=== PATIENT | female | born 1955 | race Two or more races ===

== ENCOUNTER 2020-06-15 09:38 | Outpatient (REF) | payer MEDICARE, SELFPAY ==
[2020-06-15 10:19] LABS: Lymphocytes Percent Auto 40.3 % (20-40); MANUAL DIFF FLAG SCAN; PLT CLUMP 1; SCAN SMEAR FLAG 1
[2020-06-15 10:22] LABS: Basophils Percent Auto 0.5 % (0-2); Eosinophils Absolute Auto 0.1 X10*3/uL (0.0-0.4); Eosinophils Percent Auto 2.5 % (0-4); Hematocrit 40.1 % (37-47); Hemoglobin 13.8 g/dl (12.0-16.0); Imm Gran Abs Auto 0.02 X10*3/uL (0.00-0.03); Imm Gran Pct Auto 0.4 % (0.0-0.4); Lymphocytes Absolute Auto 2.3 X10*3/uL (1.2-4.9); Mean Corpuscular HGB Conc 34.4 g/dl (31.0-35.0); Mean Corpuscular Hemoglobin 33.3 pg (27.0-33.0); Mean Corpuscular Volume 96.9 fL (80-98); Monocytes Absolute Auto 0.3 X10*3/uL (0.1-1.2); Monocytes Percent Auto 5.7 % (2-11); Neutrophils Absolute Auto 2.8 X10*3/uL (2.0-8.3); Neutrophils Percent Auto 50.6 % (45-73); Platelet Count 138 X10*3/uL (160-400); Red Blood Count 4.14 X10*6/uL (4.20-5.50); Red Cell Distribution Width 12.9 % (11.0-16.0); White Blood Count 5.6 X10*3/uL (4.8-10.8)
[2020-06-15 10:58] LABS: Alanine Aminotransferase 85 U/L (0-31); Albumin Level 4.3 g/dL (3.5-5.0); Alkaline Phosphatase 119 U/L (39-117); Anion Gap 15 (12-20); Aspartate Amino Transferase 84 U/L (5-31); Bilirubin Total 0.7 mg/dL (0.0-1.0); Blood Urea Nitrogen 13 mg/dL (9-16); Carbon Dioxide 29 mmol/L (22-29); Chloride 100 mmol/L (96-108); Estimated Glomerular Filt Rate > 60; Glucose Random 158 mg/dL (60-115); Potassium 4.3 mmol/l (3.3-5.1); Sodium 140 mmol/L (135-145); Total Protein 7.1 g/dL (6.5-8.0)
[2020-06-15 11:26] LABS: Estimated Average Glucose 146 mg/dL; Hemoglobin A1c % 6.7 %
[2020-06-15 11:46] LABS: Microalbum/Creatinine Ratio Ur 10.8 ug/mg cr
== END 2020-06-15 09:39 | disposition home or self-care (01) ==
LOC: HO.10HDL 09:38
PROVIDERS: PCP Internal Medicine; Visit Provider Internal Medicine
DX: E11.9 Type 2 diabetes mellitus without complications (principal); I10 Essential (primary) hypertension; J45.909 Unspecified asthma, uncomplicated; R79.89 Other specified abnormal findings of blood chemistry; K58.9 Irritable bowel syndrome, unspecified
CPT/HCPCS: 36415; 80053; 82043; 83036; 85025

== ENCOUNTER 2020-09-16 09:49 | Outpatient (REF) | payer MEDICARE, SELFPAY ==
--- NOTE | ~2020-09-16 | XR_ITS ---
EXAMINATION: XR ANKLE, RIGHT CLINICAL INFORMATION: Trauma, pain COMPARISON: None TECHNIQUE: AP, lateral, and mortise views of the right ankle. FINDINGS: There is soft tissue swelling greater on lateral side as well as posteriorly in region of proximal to mid Achilles. There is no gross ankle capsular effusion appreciated. The ankle mortise is symmetric. The malleoli are intact and there is no visible fracture or dislocation. The subtalar joint appears normal. There is dorsal spurring distal talus and proximal dorsal navicular. There are large posterior and plantar calcaneal spurs. Focal demineralization is noted proximal to mid Achilles measuring 0.7 x 0.4 cm. There is soft tissue thickening posterior lower leg in region of proximal to mid Achilles. The retrocalcaneal recess is preserved. XR/XR ankle RT 2V IMPRESSION: 1. Soft tissue swelling. No fracture or dislocation. 2. Large posterior and plantar calcaneal spurs. Soft tissue swelling in region proximal mid Achilles with associated focal Achilles mineralization.
[2020-09-16 10:29] LABS: MANUAL DIFF FLAG NO
[2020-09-16 10:46] LABS: Estimated Average Glucose 157 mg/dL; Hemoglobin A1c % 7.1 %
[2020-09-16 10:55] LABS: Basophils Percent Auto 0.5 % (0-2); Eosinophils Absolute Auto 0.1 X10*3/uL (0.0-0.4); Eosinophils Percent Auto 2.1 % (0-4); Hematocrit 38.5 % (37-47); Hemoglobin 13.4 g/dl (12.0-16.0); Imm Gran Abs Auto 0.04 X10*3/uL (0.00-0.03); Imm Gran Pct Auto 0.6 % (0.0-0.4); Lymphocytes Absolute Auto 2.3 X10*3/uL (1.2-4.9); Lymphocytes Percent Auto 35.8 % (20-40); Mean Corpuscular HGB Conc 34.8 g/dl (31.0-35.0); Mean Corpuscular Hemoglobin 32.7 pg (27.0-33.0); Mean Corpuscular Volume 93.9 fL (80-98); Mean Platelet Volume 11.2 fL (9.4-12.3); Monocytes Absolute Auto 0.4 X10*3/uL (0.1-1.2); Neutrophils Absolute Auto 3.6 X10*3/uL (2.0-8.3); Platelet Count 137 X10*3/uL (160-400); Red Cell Distribution Width 13.2 % (11.0-16.0); White Blood Count 6.5 X10*3/uL (4.8-10.8)
[2020-09-16 11:22] LABS: Alanine Aminotransferase 43 U/L (0-31); Albumin Level 4.3 g/dL (3.5-5.0); Alkaline Phosphatase 120 U/L (39-117); Anion Gap 17 (12-20); Aspartate Amino Transferase 51 U/L (5-31); Bilirubin Total 0.9 mg/dL (0.0-1.0); Blood Urea Nitrogen 10 mg/dL (9-16); C Reactive Protein 0.48 mg/dL (< or = 0.50); Calcium 8.8 mg/dL (8.4-10.2); Carbon Dioxide 29 mmol/L (22-29); Chloride 98 mmol/L (96-108); Estimated Glomerular Filt Rate > 60; Glucose Random 194 mg/dL (60-115); Potassium 4.4 mmol/L (3.3-5.1); Sodium 140 mmol/L (135-145); Total Protein 7.3 g/dL (6.5-8.0)
== END 2020-09-16 09:50 | disposition home or self-care (01) ==
LOC: HO.LAB 09:49
PROVIDERS: PCP Internal Medicine; Visit Provider Internal Medicine
DX: E11.9 Type 2 diabetes mellitus without complications (principal); I10 Essential (primary) hypertension; J45.909 Unspecified asthma, uncomplicated; M25.571 Pain in right ankle and joints of right foot
CPT/HCPCS: 36415; 73600; 80053; 83036; 85025; 86140

== ENCOUNTER 2020-12-15 11:12 | Outpatient (REF) | payer MEDICARE, SELFPAY ==
--- NOTE | ~2020-12-15 | MM_ITS ---
EXAMINATION: MM SCREENING DIGITAL BREAST TOMOSYNTHESIS, BILATERAL CLINICAL INFORMATION: Screening. Asymptomatic. The lifetime risk of breast cancer based on the Tyrer-Cuzick Model is 7%. COMPARISON: Mammography: 08/05/2019, 07/30/2018, 07/26/2017, 03/01/2016 TECHNIQUE: Digital breast tomosynthesis is performed in both the craniocaudal and mediolateral oblique views along with computer-aided detection (CAD). Synthesized 2D images are generated from the tomosynthesis. FINDINGS: There are scattered areas of fibroglandular density (ACR BI-RADS breast composition Category b). Breast tissue composition borders on predominantly fatty. Again, there is very fine waxing and waning fibronodular parenchymal pattern. There is no significant mass, architectural abnormality, or abnormal calcifications. Biopsy clip marker again noted central left breast. The axilla and skin contours are unremarkable. MM/MM tomosynthesis screening BI IMPRESSION: No significant changes from prior exams. ASSESSMENT: BI-RADS 2: Benign RECOMMENDATION: Routine annual mammography screening. This patient's information was entered into a reminder system with a target due date for their next mammogram.
== END 2020-12-15 11:13 | disposition home or self-care (01) ==
LOC: HO.MAMMO 11:12
PROVIDERS: PCP Internal Medicine; Visit Provider Internal Medicine
DX: Z12.31 Encounter for screening mammogram for malignant neoplasm of breast (principal)
CPT/HCPCS: 77063; 77067

== ENCOUNTER 2021-03-17 10:28 | Outpatient (REF) | payer OTHER, SELFPAY ==
[2021-03-17 13:43] LABS: MANUAL DIFF FLAG NO
[2021-03-17 13:53] LABS: Basophils Percent Auto 0.4 % (0-2); Eosinophils Absolute Auto 0.1 X10*3/uL (0.0-0.4); Eosinophils Percent Auto 2.3 % (0-4); Hematocrit 40.1 % (37-47); Hemoglobin 13.5 g/dl (12.0-16.0); Imm Gran Abs Auto 0.04 X10*3/uL (0.00-0.03); Imm Gran Pct Auto 0.8 % (0.0-0.4); Lymphocytes Absolute Auto 1.5 X10*3/uL (1.2-4.9); Lymphocytes Percent Auto 29.5 % (20-40); Mean Corpuscular HGB Conc 33.7 g/dl (31.0-35.0); Mean Corpuscular Hemoglobin 32.1 pg (27.0-33.0); Mean Corpuscular Volume 95.5 fL (80-98); Mean Platelet Volume 11.7 fL (9.4-12.3); Monocytes Absolute Auto 0.3 X10*3/uL (0.1-1.2); Monocytes Percent Auto 5.2 % (2-11); Neutrophils Absolute Auto 3.2 X10*3/uL (2.0-8.3); Neutrophils Percent Auto 61.8 % (45-73); Platelet Count 128 X10*3/uL (160-400); Red Cell Distribution Width 13.1 % (11.0-16.0); White Blood Count 5.2 X10*3/uL (4.8-10.8)
[2021-03-17 14:05] LABS: Estimated Average Glucose 163 mg/dL; Hemoglobin A1c % 7.3 %
[2021-03-17 14:45] LABS: Alanine Aminotransferase 49 U/L (0-31); Albumin Level 4.2 g/dL (3.5-5.0); Alkaline Phosphatase 133 U/L (39-117); Anion Gap 18 (12-20); Aspartate Amino Transferase 92 U/L (5-31); Bilirubin Total 1.1 mg/dL (0.0-1.0); Blood Urea Nitrogen 10 mg/dL (9-16); C Reactive Protein 1.65 mg/dL (< or = 0.50); Calcium 9.1 mg/dL (8.4-10.2); Carbon Dioxide 25 mmol/L (22-29); Chloride 102 mmol/L (96-108); Estimated Glomerular Filt Rate > 60; Glucose Random 184 mg/dL (60-115); Sodium 141 mmol/L (135-145); Total Protein 7.2 g/dL (6.5-8.0)
[2021-03-17 14:53] LABS: Microalbum/Creatinine Ratio Ur 20.4 ug/mg cr
[2021-03-17 15:10] LABS: Free T4 (Free Thyroxine) 1.15 ng/dL (0.71-1.85); Thyroid Stimulating Hormone 4.16 uIU/mL (0.32-4.0)
[2021-03-17 15:13] LABS: Vitamin B12 378 pg/mL (200-900)
== END 2021-03-17 10:29 | disposition home or self-care (01) ==
LOC: HO.10HDL 10:28
PROVIDERS: PCP Internal Medicine; Visit Provider Internal Medicine
DX: I10 Essential (primary) hypertension (principal); E11.9 Type 2 diabetes mellitus without complications; J45.909 Unspecified asthma, uncomplicated; K58.9 Irritable bowel syndrome, unspecified; R53.83 Other fatigue
CPT/HCPCS: 36415; 80053; 82043; 82607; 83036; 84439; 84443; 85025; 86140

== ENCOUNTER 2021-04-20 07:42 | Outpatient (REF) | payer OTHER, SELFPAY ==
--- NOTE | ~2021-04-20 | US_ITS ---
EXAMINATION: US ABDOMEN COMPLETE CLINICAL INFORMATION: Elevated liver tests. COMPARISON: CT abdomen pelvis 01/29/2018. Ultrasound abdomen 10/24/2017 and ultrasound limited abdomen 10/17/2016. TECHNIQUE: Real-time imaging of the abdominal viscera. FINDINGS: PANCREAS: Not well visualized due to bowel gas ABDOMINAL AORTA: Not well visualized due to bowel gas INFERIOR VENA CAVA: Not well visualized due to bowel gas LIVER: The liver is enlarged. Liver echotexture is increased. The liver contour is normal. There is a cyst in the right lobe the liver measuring 9 x 6 x 8 mm. There is no intrahepatic biliary duct dilatation seen. GALLBLADDER: Gallbladder is normal in size. There is a 7 mm hyperechoic lesion adjacent to the gallbladder wall that does not shadow suggestive of a polyp. No gallstones are seen. COMMON BILE DUCT: Normal in caliber measuring 0.4 cm in diameter. RIGHT KIDNEY: Normal. No hydronephrosis. No renal calculi or focal parenchymal lesions. The kidney measures 11.4 cm in maximum dimension. LEFT KIDNEY: Normal. No hydronephrosis. No renal calculi or focal parenchymal lesions. The kidney measures 12.1 cm in maximum dimension. SPLEEN: The spleen is enlarged. The spleen measures 16.6 cm in maximum dimension. This is unchanged. FREE FLUID: None. US/US abdomen complete IMPRESSION: Enlarged echogenic liver suggestive of fatty infiltration. Small cyst in the right lobe of the liver. Stable gallbladder wall polyp. Stable splenomegaly. Limited visualization of the pancreas, aorta and IVC.
== END 2021-04-20 07:43 | disposition home or self-care (01) ==
LOC: HO.US 07:42
PROVIDERS: PCP Internal Medicine; Visit Provider Internal Medicine
DX: R94.5 Abnormal results of liver function studies (principal)
CPT/HCPCS: 76700

== ENCOUNTER 2021-08-27 11:12 | Outpatient (REF) | payer OTHER, SELFPAY ==
[2021-08-27 13:48] LABS: MANUAL DIFF FLAG NO
[2021-08-27 13:52] LABS: Basophils Percent Auto 0.7 % (0-2); Eosinophils Absolute Auto 0.1 X10*3/uL (0.0-0.4); Eosinophils Percent Auto 1.8 % (0-4); Hematocrit 37.1 % (37.0-47.0); Hemoglobin 12.6 g/dl (12.0-16.0); Imm Gran Abs Auto 0.02 X10*3/uL (0.00-0.03); Imm Gran Pct Auto 0.3 % (0.0-0.4); Lymphocytes Percent Auto 33.2 % (20-40); Mean Corpuscular Hemoglobin 32.2 pg (27.0-33.0); Mean Corpuscular Volume 94.9 fL (80.0-98.0); Mean Platelet Volume 11.8 fL (9.4-12.3); Monocytes Absolute Auto 0.3 X10*3/uL (0.1-1.2); Monocytes Percent Auto 5.5 % (2-11); Neutrophils Absolute Auto 3.5 x10*3/uL (2.0-8.3); Neutrophils Percent Auto 58.5 % (45-73); Platelet Count 118 X10*3/uL (160-400); Red Blood Count 3.91 X10*6/uL (4.20-5.50); Red Cell Distribution Width 13.5 % (11.0-16.0)
[2021-08-27 14:06] LABS: Alanine Aminotransferase 40 U/L (0-31); Albumin Level 3.9 g/dL (3.5-5.0); Alkaline Phosphatase 100 U/L (39-117); Anion Gap 14 (12-20); Aspartate Amino Transferase 64 U/L (5-31); Bilirubin Total 0.8 mg/dL (0.0-1.0); Blood Urea Nitrogen 17 mg/dL (9-16); Calcium 9.4 mg/dL (8.4-10.2); Carbon Dioxide 30 mmol/L (22-29); Chloride 98 mmol/L (96-108); Estimated Glomerular Filt Rate 56; Glucose Random 175 mg/dL (60-115); Potassium 4.1 mmol/L (3.3-5.1); Sodium 138 mmol/L (135-145); Total Protein 7.3 g/dL (6.5-8.0)
[2021-08-27 14:07] LABS: Estimated Average Glucose 171 mg/dL; Hemoglobin A1c % 7.6 %
[2021-08-27 14:26] LABS: Creatinine Urine 166.74 mg/dL; Microalbum/Creatinine Ratio Ur 4.1 ug/mg cr
[2021-08-27 14:28] LABS: Free T4 (Free Thyroxine) 0.99 ng/dL (0.71-1.85); Thyroid Stimulating Hormone 3.86 uIU/mL (0.32-4.0)
== END 2021-08-27 11:13 | disposition home or self-care (01) ==
LOC: HO.10HDL 11:12
PROVIDERS: Visit Provider Internal Medicine
DX: E11.9 Type 2 diabetes mellitus without complications (principal); I10 Essential (primary) hypertension; E03.9 Hypothyroidism, unspecified; R94.5 Abnormal results of liver function studies
CPT/HCPCS: 36415; 80053; 82043; 83036; 84439; 84443; 85025

== ENCOUNTER 2021-12-17 10:38 | Outpatient (REF) | payer OTHER, SELFPAY ==
[2021-12-17 10:52] LABS: MANUAL DIFF FLAG NO
[2021-12-17 10:58] LABS: Basophils Percent Auto 0.6 % (0-2); Eosinophils Absolute Auto 0.1 X10*3/uL (0.0-0.4); Eosinophils Percent Auto 2.2 % (0-4); Hematocrit 38.7 % (37.0-47.0); Hemoglobin 13.1 g/dl (12.0-16.0); Imm Gran Abs Auto 0.04 X10*3/uL (0.00-0.03); Imm Gran Pct Auto 0.6 % (0.0-0.4); Lymphocytes Absolute Auto 2.3 X10*3/uL (1.2-4.9); Mean Corpuscular HGB Conc 33.9 g/dl (31.0-35.0); Mean Corpuscular Volume 91.7 fL (80.0-98.0); Mean Platelet Volume 10.4 fL (9.4-12.3); Monocytes Absolute Auto 0.4 X10*3/uL (0.1-1.2); Monocytes Percent Auto 6.5 % (2-11); Neutrophils Absolute Auto 3.5 x10*3/uL (2.0-8.3); Neutrophils Percent Auto 55.1 % (45-73); Platelet Count 116 X10*3/uL (160-400); Red Blood Count 4.22 X10*6/uL (4.20-5.50); Red Cell Distribution Width 13.4 % (11.0-16.0); White Blood Count 6.4 X10*3/uL (4.8-10.8)
[2021-12-17 11:04] LABS: Estimated Average Glucose 212 mg/dL
[2021-12-17 11:38] LABS: Creatinine Urine 263.68 mg/dL; Microalbum/Creatinine Ratio Ur 17.4 ug/mg cr
[2021-12-17 11:54] LABS: Free T4 (Free Thyroxine) 1.08 ng/dL (0.71-1.85); Thyroid Stimulating Hormone 3.57 uIU/mL (0.32-4.0)
[2021-12-17 12:05] LABS: Alanine Aminotransferase 49 U/L (0-31); Albumin Level 4.3 g/dL (3.5-5.0); Alkaline Phosphatase 120 U/L (39-117); Anion Gap 13 (12-20); Aspartate Amino Transferase 61 U/L (5-31); Bilirubin Total 0.9 mg/dL (0.0-1.0); Blood Urea Nitrogen 15 mg/dL (9-16); Calcium 9.7 mg/dL (8.4-10.2); Carbon Dioxide 33 mmol/L (22-29); Chloride 96 mmol/L (96-108); Cholesterol 144 mg/dL; Estimated Glomerular Filt Rate 45; Glucose Random 269 mg/dL (60-115); HDL Cholesterol 37 mg/dL; LDL Cholesterol Calculated 68 mg/dl; Potassium 4.7 mmol/L (3.3-5.1); Sodium 137 mmol/L (135-145); Total Protein 7.8 g/dL (6.5-8.0); Triglycerides 196 mg/dL
== END 2021-12-17 10:39 | disposition home or self-care (01) ==
LOC: HO.LAB 10:38
PROVIDERS: PCP Internal Medicine; Visit Provider Internal Medicine
DX: E11.9 Type 2 diabetes mellitus without complications (principal); I10 Essential (primary) hypertension; E78.00 Pure hypercholesterolemia, unspecified; R79.89 Other specified abnormal findings of blood chemistry; R94.6 Abnormal results of thyroid function studies
CPT/HCPCS: 36415; 80053; 80061; 82043; 83036; 84439; 84443; 85025

== ENCOUNTER 2022-01-24 14:06 | Observation (INO) | payer OTHER, SELFPAY ==
[2022-01-24] VITALS (8 sets, daily range): BP systolic 130–159; BP diastolic 45–70; PULSE 56–65; RESP 14–30; TEMP 36.6–37.2; O2SAT 93–100; BMI 31.8
--- NOTE | ~2022-01-24 | MR_ITS ---
EXAMINATION: MRI BRAIN WITHOUT CONTRAST CLINICAL INFORMATION: Dizziness and vertigo. COMPARISON: CT angiogram of the head and neck 01/24/2022. TECHNIQUE: Multiplanar MR imaging of the brain was performed without contrast. FINDINGS: There is no acute territorial infarct. No pathological magnetic susceptibility artifact. Intracranial vascular flow voids are maintained. There is no intracranial mass effect or midline shift. Lateral and third ventricles are normal. No hydrocephalus. Midline structures including the cervicomedullary junction are normal. No acute bone marrow signal changes. There are trace mastoid tip effusions. Mild to moderate paranasal sinus disease primarily affecting the ethmoid air cells and sphenoid sinus. Globes and orbits are symmetric. MR/MR head/brain wo con IMPRESSION: Normal brain MRI.
--- NOTE | ~2022-01-24 | XR_ITS ---
EXAMINATION: XR CHEST CLINICAL INFORMATION: Chest pain, SOB, dizziness COMPARISON: None TECHNIQUE: Frontal view of the chest was obtained. FINDINGS: The lungs are well-expanded and clear. The heart size and pulmonary vascularity is normal. There is moderate spondylosis dorsal spine. No lytic process. XR/XR chest 1V IMPRESSION: Unremarkable chest examination.
--- NOTE | ~2022-01-24 | CT_ITS ---
EXAMINATION: CT ANGIOGRAM NECK WITH CONTRAST CT ANGIOGRAM BRAIN WITH CONTRAST CLINICAL INFORMATION: Syncope on exertion. COMPARISON: Head CT 01/24/2022. TECHNIQUE: Test bolus sequences followed by intravenous administration 100 mL of Omnipaque 350. Helical imaging was performed in the axial plane from the thoracic inlet to the skull vertex. Delayed postcontrast imaging of the head was also performed. The data was processed at the photo technologist workstation for generation of MIP sequences. Angled MIPs and volume rendered reformatted images were also generated at an offline 3D workstation. Stenoses are assessed in accordance with NASCET criteria unless otherwise indicated. This CT examination was performed using dose optimization techniques as appropriate, variously including the following: *Automated exposure control *Adjustment of mA and/or kV according to patient size (this includes techniques or standardized protocols for targeted exams where dose is matched to indication/reason for exam; i.e. extremities or head) *Use of iterative reconstruction technique DLP: 1549 mGy-cm FINDINGS: Head CT: There is no intracranial hemorrhage, extra-axial collection, mass effect, or territorial infarction. The ventricles are normal in size without hydrocephalus. No abnormal enhancement is seen. The dural venous sinuses are normally opacified. The extracranial structures are unremarkable. There is near complete opacification of the right sphenoid sinus. Neck CTA: The aortic arch and great vessel origins are patent. The common carotid arteries are patent. No stenosis is seen at the carotid bifurcations. The right vertebral artery is duplicated but patent. The left vertebral artery is mildly dominant and is patent. Head CTA: No proximal vessel occlusion is seen. The anterior and posterior circulation arteries are patent. There is -type origin of the right ENTRY LEVEL RECRUITER. There is no evidence of aneurysm. The upper lungs are clear without consolidation. Mild degenerative changes are seen within the spine. Non-vascular findings: blank CT/CT angio head neck IMPRESSION: CT head: No intracranial hemorrhage or large acute infarction. CTA neck: No hemodynamically significant stenosis in the major arteries of the neck. CTA head: No large vessel occlusion or significant stenosis within the intracranial circulation. This critical result was discussed with Norma Jhaveri NP on 01/24/2022 10:05 PM, and it was ascertained that the content and urgency of the report was understood at the time of direct communication.
--- NOTE | ~2022-01-24 | CT_ITS ---
EXAMINATION: CT HEAD WITHOUT CONTRAST CLINICAL INFORMATION: Dizziness COMPARISON: Head CT 09/22/2008 TECHNIQUE: Imaging was performed from the skull base to vertex without intravenous administration of contrast. This CT examination was performed using dose optimization techniques as appropriate, variously including the following: *Automated exposure control *Adjustment of mA and/or kV according to patient size (this includes techniques or standardized protocols for targeted exams where dose is matched to indication/reason for exam; i.e. extremities or head) *Use of iterative reconstruction technique Total exam dose length product: 699 mGy-cm FINDINGS: No intra or extra-axial fluid collection, hemorrhage, or mass. No ventriculomegaly. No midline shift or herniation. Basal cisterns are patent. [place]-white matter differentiation is maintained. No territorial encephalomalacia. No significant volume loss. There is no abnormal attenuation within the brain parenchyma. No calvarial fracture or soft tissue abnormality. Mastoid air cells and middle ear cavities are normally aerated. Incompletely opacification of the right sphenoid sinus. Minimal mucosal thickening in a few right ethmoid air cells. Paranasal sinuses are otherwise normally aerated. CT/CT head/brain wo con IMPRESSION: 1. No acute intracranial pathology. 2. Right sphenoid paranasal sinus disease.
--- NOTE | 2022-01-24 14:24 | ECG_ITS ---
Test Reason : dizziness Blood Pressure : / mmHG Vent. Rate : 059 BPM Atrial Rate : 059 BPM P-R Int : 130 ms QRS Dur : 070 ms QT Int : 430 ms P-R-T Axes : 024 009 021 degrees QTc Int : 425 ms Sinus bradycardia Nonspecific ST abnormality Abnormal ECG When compared with ECG of 23-SEP-2008 20:09, No significant change was found Referred By: Generic ED Physician Electronically Signed By:LEROY DE GUZMAN
[2022-01-24 14:36] LABS: MANUAL DIFF FLAG NO
[2022-01-24 14:42] LABS: Basophils Percent Auto 0.2 % (0-2); Eosinophils Absolute Auto 0.1 X10*3/uL (0.0-0.4); Eosinophils Percent Auto 1.8 % (0-4); Hematocrit 38.4 % (37.0-47.0); Hemoglobin 13.3 g/dl (12.0-16.0); Imm Gran Abs Auto 0.02 X10*3/uL (0.00-0.03); Imm Gran Pct Auto 0.3 % (0.0-0.4); Lymphocytes Absolute Auto 1.8 X10*3/uL (1.2-4.9); Lymphocytes Percent Auto 28.7 % (20-40); Mean Corpuscular HGB Conc 34.6 g/dl (31.0-35.0); Mean Corpuscular Hemoglobin 31.6 pg (27.0-33.0); Mean Corpuscular Volume 91.2 fL (80.0-98.0); Mean Platelet Volume 11.7 fL (9.4-12.3); Monocytes Absolute Auto 0.4 X10*3/uL (0.1-1.2); Monocytes Percent Auto 6.8 % (2-11); Neutrophils Absolute Auto 3.9 x10*3/uL (2.0-8.3); Neutrophils Percent Auto 62.2 % (45-73); Platelet Count 110 X10*3/uL (160-400); Red Blood Count 4.21 X10*6/uL (4.20-5.50); Red Cell Distribution Width 13.3 % (11.0-16.0); White Blood Count 6.2 X10*3/uL (4.8-10.8)
[2022-01-24 14:50] LABS: INTERNATIONAL NORM RATIO 1.2 (0.9-1.1); Prothrombin Time 14.1 SEC (9.9-13.0)
[2022-01-24 15:21] LABS: Troponin-I High Sensitivity 8.3 ng/L (<3.5-17.0)
[2022-01-24 15:53] LABS: Anion Gap 19 (12-20); Blood Urea Nitrogen 16 mg/dL (9-16); Carbon Dioxide 27 mmol/L (22-29); Chloride 94 mmol/L (96-108); Creatinine Clr Calc Pharmacy 35.4; Estimated Glomerular Filt Rate 34; Glucose Random 558 mg/dL (60-115); Potassium 4.9 mmol/L (3.3-5.1); Sodium 135 mmol/L (135-145)
--- NOTE | 2022-01-24 16:13 | ED_ITS ---
HPI - Chest Pain General Chief Complaint: Chest Pain Stated Complaint: dizzy, possible stroke Time Seen by Provider: 01/24/22 16:00 Source: patient Mode of arrival: wheelchair Limitations: no limitations History of Present Illness HPI narrative: 66-year-old female presents with 1 week of burning chest pain, palpitations, shortness of breath, fatigue, and thirst. States that she called her primary care physician earlier today and was referred to the emergency department for evaluation. She states that she feels ill has not quite felt like this in the past. She does report history of stroke, and states that the symptoms that she has now are not consistent the symptoms she had when she had a stroke. She is on steroids for asthma. She does have diabetes, and is on metformin. She does not report any fevers, chills, abdominal pain, abdominal distention, dysuria, hematuria, nausea, vomiting, diarrhea, weakness, lightheadedness, or falls. MD complaint: chest pain and chest heaviness Pertinent past history: asthma Onset (ago): week(s) (1) Timing of current episode: episodic Prior episodes: Yes Pain location: substernal Pain radiation: none Severity: moderate Pain scale (0-10): 4 Quality: tightness, heaviness and burning Relieving factors: nothing Exacerbating factors: exertion and palpation Context: recent illness Associated symptoms: dyspnea and palpitations Treatment prior to arrival: none Risk Factors Coronary artery disease risk factors: diabetes Thoracic aortic dissection risk factors: none Related Data On Oral Contraceptives: No Home Medications Medication Instructions Recorded Confirmed albuterol sulfate 1 vial inhalation Q4H PRN Wheezing 01/24/22 01/24/22 albuterol sulfate 90 mcg/actuation 2 puff PO Q4H PRN Wheezing 01/24/22 01/24/22 aerosol inhaler amlodipine 5 mg tablet 1 tab PO BID 01/24/22 01/24/22 atenolol 25 mg tablet 1 tab PO DAILY 01/24/22 01/24/22 atorvastatin 20 mg tablet 1 tab PO DAILY 01/24/22 01/24/22 budesonide-formoterol HFA 160 1 puff PO BID 01/24/22 01/24/22 mcg-4.5 mcg/actuation aerosol inhaler (Symbicort) cholecalciferol (vitamin D3) 50 50 mcg PO DAILY 01/24/22 01/24/22 mcg (2,000 unit) tablet diphenoxylate-atropine 2.5 1 tab PO QID PRN Diarrhea 01/24/22 01/24/22 mg-0.025 mg tablet hydrochlorothiazide 12.5 mg tablet 1 tab PO DAILY 01/24/22 01/24/22 metformin 500 mg tablet 1 tab PO DAILY 01/24/22 01/24/22 multivitamin 1 tab PO DAILY 01/24/22 01/24/22 omeprazole 20 mg capsule,delayed 2 cap PO BID 01/24/22 01/24/22 release Allergies Allergy/AdvReac Type Severity Reaction Status Date / Time hyoscyamine [From LEVBID] Allergy Intermediate VOMITING Verified 01/24/22 14:23 Iodinated Contrast Media Allergy Intermediate Difficulty Verified 01/24/22 22:12 [Contrast Dye] Breathing methylcellulose [Citrucel] Allergy Unknown headache, Verified 01/24/22 14:23 rash mushroom Allergy Unknown RASH Verified 01/24/22 14:23 lactose [Lactose] AdvReac Mild DIARRHEA Verified 01/24/22 14:23 Review of Systems Review of Systems: Constitutional: No Fever, No Chills ENT/Mouth: No Ear Pain, No Hoarseness, No sore throat Eyes: No Eye Pain, No Swelling, No Redness, No Foreign Body Cardiovascular: Positive Chest Pain, No SOB Respiratory: No Cough, positive Dyspnea Gastrointestinal: No Nausea, No Vomiting, No Diarrhea, No abdominal Pain Genitourinary: No Dysuria, No Hematuria Musculoskeletal: No joint pain, No Myalgias, No Joint Swelling Skin: No Skin lacerations, No rash Neuro: No Weakness, No Numbness, No Paresthesias, No Loss of Consciousness, positive Dizziness, No Headache Psych: No Anxiety/Panic, No Depression Heme/Lymph: no easy bruising, no Lymphadenopathy Endocrine: No Polyuria, positive Polydipsia Yes all other systems are reviewed and are negative [facility] Past Medical History Attestation statement: The following information was validated with the patient. Source: old records reviewed Social History Social History Alcohol intake: current Alcohol intake frequency: holidays/special occasions only Alcohol type: wine Patient Tobacco Use Status: Never used Tobacco Use of substances other than those prescribed or required for medical reasons: No Advance Directives: No Advance Directives Information Provided: No Physical Exam Vital Signs: Vital Signs: Last Vital Signs Temp 98.9 F 01/24/22 20:18 Pulse 63 01/24/22 21:54 Resp 30 H 01/24/22 21:54 BP 159/70 H 01/24/22 21:54 Pulse Ox 100 01/24/22 21:54 O2 Del Method 01/24/22 21:54 BMI result Body Mass Index 31.8 Appearance: Alert. Oriented X3. No acute distress. Eyes: Pupils equal, round and reactive to light. EOMI. Sclera nonicteric. ENT: Pharynx normal. Neck: Normal inspection. Neck supple. CVS: Normal heart rate and rhythm. Apical pulse good pulses to extremities. Respiratory: No respiratory distress. Lung sounds clear to auscultation all lobes. Abdomen: Soft and nontender. No distention or rigidity. Skin: Skin warm and dry. Normal skin color. Normal skin turgor. Extremities: No lower extremity edema. Gait well balanced well coordinated. Moves extremities against resistance. Neuro: No motor deficit. No sensory deficit. Cranial nerves 2-12 intact. NIH Stroke Scale Internal: Initial- Upon Arrival Level of Consciousness: Alert Level of Consciousness Questions: Answers both questions correctly Level of Consciousness Commands: Performs both tasks correctly Best Gaze: Normal Visual: No visual loss Facial Palsy: Normal Motor Arm (Right): No drift Motor Arm (Left): No drift Motor Leg (Right): No drift Motor Leg (Left): No drift Limb Ataxia: Absent Sensory: Normal Best Language: No aphasia Dysarthia: Normal Extinction and Inattention: No abnormality Score: 0 Course Course Course Narrative: 66-year-old female presents for dizziness, shortness of breath, burning chest pain, and polydipsia. Has been experiencing this for approximately a week and symptoms have worsened. She is on steroids for asthma. She is diabetic and takes metformin daily. She does not describe any fevers or chills, she is afebrile and appears nontoxic vital signs are stable and within normal limits. Labs drawn while she was in the emergency department waiting room, labs are unremarkable with the exception of an elevated creatinine at 1.54 and glucose of 558. She does not have a gap, gap is 19. Chemistries are normal. Patient is not in DKA low likelihood of HHNK, at this time. Troponin is 8.3, will repeat in 3 hours. EKG does not show any indication of ST elevation or depression. NIH stroke scale is 0. Will give 1 L of fluid. 6 units of subcu insulin and 5 units of IV insulin. Will monitor blood sugars every 30 minutes. 18:18 patient states to feel much better however she is still dizzy. Blood sugar 228. Will order CT scan of head. 19:39 went in to reassess patient, she stated that she forgot to tell me that she has had multiple falls because of dizziness over the past few months, mostly when she walks up and down the stairs. 20:45 creatinine 1.12, GFR 49. Glucose 230. Plan of care is for CTA of head and neck. 21:41 patient reporting tightness and shortness of breath. Lung sounds are clear, no stridor, plan of care is for Benadryl 25, Pepcid 20, Solu-Medrol 125. 22:05 discussion with [facility]. CTA of head and neck is negative for acute findings. Discussion with hospice, plan of care is to admit for dizziness, rule out posterior stroke with MRI for tomorrow. Consultations Consultation #1: [facility] - Chest Pain Differential Diagnosis Differential diagnosis: Likely fracture of rib, stable angina, unstable angina pectoris, atypical chest pain, st elevation myocardial infarction, costochondritis and chest pain Differential diagnosis: DKA, HHNK, EFRAIN, UTI Medical Records Data Attestation: I reviewed the patient's medical records. Lab Data Attestation: I reviewed the patient's lab results. Result diagrams: 01/24/22 14:32 01/24/22 20:09 Labs: Lab Results 01/24/22 01/24/22 01/24/22 Range/Units 14:32 14:32 14:32 WBC 6.2 (4.8-10.8) X10*3/uL RBC 4.21 (4.20-5.50) X10*6/uL Hgb 13.3 (12.0-16.0) g/dl Hct 38.4 (37.0-47.0) % MCV 91.2 (80.0-98.0) fL MCH 31.6 (27.0-33.0) pg MCHC 34.6 (31.0-35.0) g/dl RDW 13.3 (11.0-16.0) % Plt Count 110 L (160-400) X10*3/uL MPV 11.7 (9.4-12.3) fL Immature Gran % (Auto) 0.3 (0.0-0.4) % Neut % (Auto) 62.2 (45-73) % Lymph % (Auto) 28.7 (20-40) % [place] % (Auto) 6.8 (2-11) % Eos % (Auto) 1.8 (0-4) % Baso % (Auto) 0.2 (0-2) % Lymph # (Auto) 1.8 (1.2-4.9) X10*3/uL [place] # (Auto) 0.4 (0.1-1.2) X10*3/uL Eos # (Auto) 0.1 (0.0-0.4) X10*3/uL Baso # (Auto) 0.0 (0.0-0.2) X10*3/uL Abs Immat Gran (auto) 0.02 (0.00-0.03) X10*3/uL Absolute Neuts (auto) 3.9 (2.0-8.3) x10*3/uL Absolute Nucleated RBC 0.000 (0.0-0.012) X10*3/uL Nucleated RBC % (auto) 0.0 (0.0-0.2) /100WBC PT (9.9-13.0) SEC INR (0.9-1.1) Sodium 135 (135-145) mmol/L Potassium 4.9 (3.3-5.1) mmol/L Chloride 94 L (96-108) mmol/L Carbon Dioxide 27 (22-29) mmol/L Anion Gap 19 (12-20) BUN 16 (9-16) mg/dL Creatinine 1.54 H (0.5-1.4) mg/dL Estim Creat Clear Calc 35.4 Estimated GFR 34 POC Glucose (60-115) mg/dL Random Glucose 558 H* (60-115) mg/dL Calcium 9.0 D (8.4-10.2) mg/dL Troponin I High Sens 8.3 (<3.5-17.0) ng/L Urine Color Urine Appearance Urine pH (5.0-8.0) Ur Specific [place] (1.005-1.025) Urine Protein (NEG-TRACE) MG/DL Urine Glucose (UA) (NEG) MG/DL Urine Ketones (NEG) MG/DL Urine Blood (NEG) Urine Nitrite (NEG) Ur Leukocyte Esterase (NEG) Urine RBC (0) /HPF Urine WBC (0-4) /HPF Ur Squamous Epith Cells /LPF Urine Bacteria /LPF 01/24/22 01/24/22 01/24/22 Range/Units 14:32 17:36 17:57 WBC (4.8-10.8) X10*3/uL RBC (4.20-5.50) X10*6/uL Hgb (12.0-16.0) g/dl Hct (37.0-47.0) % MCV (80.0-98.0) fL MCH (27.0-33.0) pg MCHC (31.0-35.0) g/dl RDW (11.0-16.0) % Plt Count (160-400) X10*3/uL MPV (9.4-12.3) fL Immature Gran % (Auto) (0.0-0.4) % Neut % (Auto) (45-73) % Lymph % (Auto) (20-40) % [place] % (Auto) (2-11) % Eos % (Auto) (0-4) % Baso % (Auto) (0-2) % Lymph # (Auto) (1.2-4.9) X10*3/uL [place] # (Auto) (0.1-1.2) X10*3/uL Eos # (Auto) (0.0-0.4) X10*3/uL Baso # (Auto) (0.0-0.2) X10*3/uL Abs Immat Gran (auto) (0.00-0.03) X10*3/uL Absolute Neuts (auto) (2.0-8.3) x10*3/uL Absolute Nucleated RBC (0.0-0.012) X10*3/uL Nucleated RBC % (auto) (0.0-0.2) /100WBC PT 14.1 H (9.9-13.0) SEC INR 1.2 H (0.9-1.1) Sodium (135-145) mmol/L Potassium (3.3-5.1) mmol/L Chloride (96-108) mmol/L Carbon Dioxide (22-29) mmol/L Anion Gap (12-20) BUN (9-16) mg/dL Creatinine (0.5-1.4) mg/dL Estim Creat Clear Calc Estimated GFR POC Glucose 292 H (60-115) mg/dL Random Glucose (60-115) mg/dL Calcium (8.4-10.2) mg/dL Troponin I High Sens 7.9 (<3.5-17.0) ng/L Urine Color Urine Appearance Urine pH (5.0-8.0) Ur Specific [place] (1.005-1.025) Urine Protein (NEG-TRACE) MG/DL Urine Glucose (UA) (NEG) MG/DL Urine Ketones (NEG) MG/DL Urine Blood (NEG) Urine Nitrite (NEG) Ur Leukocyte Esterase (NEG) Urine RBC (0) /HPF Urine WBC (0-4) /HPF Ur Squamous Epith Cells /LPF Urine Bacteria /LPF 01/24/22 01/24/22 01/24/22 Range/Units 18:05 19:34 20:09 WBC (4.8-10.8) X10*3/uL RBC (4.20-5.50) X10*6/uL Hgb (12.0-16.0) g/dl Hct (37.0-47.0) % MCV (80.0-98.0) fL MCH (27.0-33.0) pg MCHC (31.0-35.0) g/dl RDW (11.0-16.0) % Plt Count (160-400) X10*3/uL MPV (9.4-12.3) fL Immature Gran % (Auto) (0.0-0.4) % Neut % (Auto) (45-73) % Lymph % (Auto) (20-40) % [place] % (Auto) (2-11) % Eos % (Auto) (0-4) % Baso % (Auto) (0-2) % Lymph # (Auto) (1.2-4.9) X10*3/uL [place] # (Auto) (0.1-1.2) X10*3/uL Eos # (Auto) (0.0-0.4) X10*3/uL Baso # (Auto) (0.0-0.2) X10*3/uL Abs Immat Gran (auto) (0.00-0.03) X10*3/uL Absolute Neuts (auto) (2.0-8.3) x10*3/uL Absolute Nucleated RBC (0.0-0.012) X10*3/uL Nucleated RBC % (auto) (0.0-0.2) /100WBC PT (9.9-13.0) SEC INR (0.9-1.1) Sodium 139 (135-145) mmol/L Potassium 3.9 D (3.3-5.1) mmol/L Chloride 100 (96-108) mmol/L Carbon Dioxide 28 (22-29) mmol/L Anion Gap 15 (12-20) BUN 14 (9-16) mg/dL Creatinine 1.12 (0.5-1.4) mg/dL Estim Creat Clear Calc 48.7 Estimated GFR 49 POC Glucose 235 H (60-115) mg/dL Random Glucose 230 H D (60-115) mg/dL Calcium 8.1 L D (8.4-10.2) mg/dL Troponin I High Sens (<3.5-17.0) ng/L Urine Color YELLOW Urine Appearance CLEAR Urine pH 7.0 (5.0-8.0) Ur Specific [place] 1.010 (1.005-1.025) Urine Protein NEG (NEG-TRACE) MG/DL Urine Glucose (UA) >=1000 H (NEG) MG/DL Urine Ketones NEG (NEG) MG/DL Urine Blood NEG (NEG) Urine Nitrite NEG (NEG) Ur Leukocyte Esterase NEG (NEG) Urine RBC 0 (0) /HPF Urine WBC 0 (0-4) /HPF Ur Squamous Epith Cells 1+ /LPF Urine Bacteria NONE /LPF Imaging Data Chest x-ray: Attestation: I personally reviewed and interpreted this imaging study as follows: Radiologist's impression: EXAMINATION: XR CHEST CLINICAL INFORMATION: Chest pain, SOB, dizziness COMPARISON: None TECHNIQUE: Frontal view of the chest was obtained. FINDINGS: The lungs are well-expanded and clear. The heart size and pulmonary vascularity is normal. There is moderate spondylosis dorsal spine. No lytic process. XR/XR chest 1V IMPRESSION: Unremarkable chest examination. ? CT scan - head: Attestation: I personally reviewed and interpreted this imaging study as follows: Radiologist's impression: FINDINGS: No intra or extra-axial fluid collection, hemorrhage, or mass. No ventriculomegaly. No midline shift or herniation. Basal cisterns are patent. [place]-white matter differentiation is maintained. No territorial encephalomalacia. ?No significant volume loss. There is no abnormal attenuation within the brain parenchyma. No calvarial fracture or soft tissue abnormality. ?Mastoid air cells and middle ear cavities are normally aerated. Incompletely opacification of the right sphenoid sinus. Minimal mucosal thickening in a few right ethmoid air cells. Paranasal sinuses are otherwise normally aerated. CT/CT head/brain wo con IMPRESSION: 1. No acute intracranial pathology. 2. Right sphenoid paranasal sinus disease. ? CTA head neck: Attestation: I personally reviewed and interpreted this imaging study as follows: Radiologist's impression: FINDINGS: Head CT: There is no intracranial hemorrhage, extra-axial collection, mass effect, or territorial infarction. The ventricles are normal in size without hydrocephalus. No abnormal enhancement is seen. The dural venous sinuses are normally opacified. The extracranial structures are unremarkable. There is near complete opacification of the right sphenoid sinus. Neck CTA: The aortic arch and great vessel origins are patent. The common carotid arteries are patent. No stenosis is seen at the carotid bifurcations. The right vertebral artery is duplicated but patent. The left vertebral artery is mildly dominant and is patent. Head CTA: No proximal vessel occlusion is seen. The anterior and posterior circulation arteries are patent. 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 There is no evidence of aneurysm. The upper lungs are clear without consolidation. Mild degenerative changes are seen within the spine. Non-vascular findings: blank CT/CT angio head neck IMPRESSION: CT head: No intracranial hemorrhage or large acute infarction. ? CTA neck: No hemodynamically significant stenosis in the major arteries of the neck. ? CTA head: No large vessel occlusion or significant stenosis within the intracranial circulation. ? This critical result was discussed with Norma Jhaveri NP on 01/24/2022 10:05 PM, and it was ascertained that the content and urgency of the report was understood at the time of direct communication. ECG Data ECG #1: Attestation: I personally reviewed and interpreted this ECG as follows: ECG interpretation date: 01/24/22 ECG interpretation time: 14:19 Prior ECG tracings: available for review Interpretation: Vent. rate 59 BPM MN interval 130 ms QRS duration 70 ms QT/QTc 430/425 ms P-R-T axes 24 9 [address] abnormality Abnormal ECG When compared with ECG of 23-SEP-2008 20:09, No significant change was found Discharge Plan Discharge Clinical Impression: Dizziness, Near syncope Patient Disposition: Admitted as Observation
[2022-01-24] MEDS: Insulin Lispro 100 UNIT/ML 3 ML VIAL 6 UNIT SUBCUT (17:04)
[2022-01-24] MEDS: Insulin Regular, Human 100 UNIT/ML 3 ML VIAL IVPUSH (17:05)
[2022-01-24] MEDS: 0.9 % Sodium Chloride 1,000 ML 999 ML IVCONT ×2 (17:21→20:17)
[2022-01-24 18:01] LABS: Glucose, Whole Blood 292 mg/dL (60-115)
[2022-01-24 18:03] LABS: Troponin-I High Sensitivity 7.9 ng/L (<3.5-17.0)
[2022-01-24 18:24] LABS: Appearance Urine CLEAR; Color Urine YELLOW; Glucose Urine UA >=1000 MG/DL (NEG); Leukocyte Esterase Urine NEG (NEG); Nitrite Urine NEG (NEG); Urine Blood NEG (NEG); Urine Ketones NEG (NEG); Urine Protein NEG (NEG-TRACE)
[2022-01-24 18:55] LABS: RBC Urine 0 /HPF (0); Squamous Epithelial Cell Urine 1+ /LPF; WBC Urine 0 /HPF (0-4)
[2022-01-24 19:40] LABS: Glucose, Whole Blood 235 mg/dL (60-115)
[2022-01-24 20:41] LABS: Anion Gap 15 (12-20); Blood Urea Nitrogen 14 mg/dL (9-16); Calcium 8.1 mg/dL (8.4-10.2); Carbon Dioxide 28 mmol/L (22-29); Chloride 100 mmol/L (96-108); Creatinine Clr Calc Pharmacy 48.7; Estimated Glomerular Filt Rate 49; Glucose Random 230 mg/dL (60-115); Potassium 3.9 mmol/L (3.3-5.1); Sodium 139 mmol/L (135-145)
[2022-01-24] MEDS: iohexoL 350 MG/ML 100 ML INFUS..BTL IV (21:22)
--- NOTE | 2022-01-24 21:34 | PC.NURSE ---
Pt came back from CT scan with contrast. Reporting difficulty breathing and trouble speaking. Pt states that she normally takes asthma medications twice a day at home. Pt O2 saturation at 100%. IV fluids stopped at this time. Provider made aware.
--- NOTE | 2022-01-24 21:39 | PC.NURSE ---
Provider stated it is okay to continue IV fluids. Lungs CTA. Provider going to start steroids.
[2022-01-24] MEDS: methylPREDNISolone Sod Succ 125 MG/2 ML VIAL IVPUSH (21:48)
[2022-01-24] MEDS: Famotidine/PF 20 MG/2 ML VIAL IVPUSH (21:49)
[2022-01-24] MEDS: diphenhydrAMINE HCL 50 MG/ML VIAL 25 MG IVPUSH (21:49)
[2022-01-24] MEDS: ondansetron HCL 4 MG/2 ML VIAL IVPUSH (22:02)
--- NOTE | 2022-01-24 22:30 | PHA.MEDREC ---
Pharmacy Consult ? Medication Reconciliation Pharmacy has completed the medication reconciliation. ONLY 1 METFORMIN /DAY
--- NOTE | 2022-01-24 22:40 | P.HPHOSP_ITS ---
History of Present Illness Date of Service: 01/24/22 Chief Complaint: near-Syncope This is a 66-year-old female with past medical history of diabetes, hypertension, asthma, CVA who presents to the hospital with complaints of epigastric, substernal chest pain as well as palpitations and dizziness. Patient reports that she was resting when the episode occurred, the pain felt like pressure/heaviness on her chest, lasted about 5-10 minutes, associated with palpitations, nonradiating, no alleviating or exacerbating factors. Patient reports that she felt nauseous with no vomiting. She has also been having signi ficant dizziness as well as vertigo and a sensation of falling. Reports that her dizziness occurs with change of position sometimes as well as has room spining. She has had multiple falls with no loss of consciousness, no head injury. Patient reports that when she falls she has difficulty getting up. She reports that this dizziness has been occurring for about 8-9 months. Patient denies any shortness of breath, no abdominal pain, no diarrhea constipation, no urinary symptoms and no lower extremity edema. On arrival to the ED patient is hemodynamically stable with no significant abnormal vitals Labs are significant for WBC count of 5.0, sodium of 133, glucose of 545, otherwise unremarkable Head and neck CT angiogram showed no large vessel occlusion or significant stenosis within the intracranial circulation Chest x-ray showed unremarkable findings Review of Systems Review of Systems: Yes all other systems are reviewed and are negative [facility] Medical History (Updated 01/25/22 @ 07:30 by Cristiane Nguyen MD) Asthma CVA (cerebral vascular accident) Diabetes Hypertension Family History (Updated 01/25/22 @ 07:29 by Cristiane Nguyen MD) Other No family history of coronary artery disease Surgical History (Updated 01/25/22 @ 07:30 by Cristiane Nguyen MD) H/O foot surgery History of Social History Alcohol intake: current Alcohol intake frequency: holidays/special occasions only Alcohol type: wine Patient Tobacco Use Status: Never used Tobacco Use of substances other than those prescribed or required for medical reasons: No Advance Directives: No Advance Directives Information Provided: No Meds Allergies Allergy/AdvReac Type Severity Reaction Status Date / Time hyoscyamine [From LEVBID] Allergy Intermediate VOMITING Verified 01/24/22 14:23 Iodinated Contrast Media Allergy Intermediate Difficulty Verified 01/24/22 22:12 [Contrast Dye] Breathing methylcellulose [Citrucel] Allergy Unknown headache, Verified 01/24/22 14:23 rash mushroom Allergy Unknown RASH Verified 01/24/22 14:23 lactose [Lactose] AdvReac Mild DIARRHEA Verified 01/24/22 14:23 Active Medications: Current Medications Acetaminophen (Acetaminophen 325 Mg Tablet) 650 mg PO Q6H PRN PRN Reason: Pain, Mild (Pain Scale 1-3) Docusate Sodium (Docusate Sodium 100 Mg Capsule) 100 mg PO DAILY PRN PRN Reason: Constipation Ondansetron HCl (Ondansetron Hcl 4 Mg/2 Ml Vial) 4 mg IVPUSH Q8H PRN PRN Reason: Nausea and Vomiting Sodium Chloride (0.9 % Sodium Chloride Flush 3 Ml Syringe) [facility] Medications Medication Instructions Recorded Confirmed Last Taken Type albuterol sulfate 1 vial inhalation Q4H PRN Wheezing 01/24/22 01/24/22 01/24/22 History albuterol sulfate 90 mcg/actuation 2 puff PO Q4H PRN Wheezing 01/24/22 01/24/22 01/24/22 History aerosol inhaler amlodipine 5 mg tablet 1 tab PO BID 01/24/22 01/24/22 01/24/22 History atenolol 25 mg tablet 1 tab PO DAILY 01/24/22 01/24/22 01/24/22 History atorvastatin 20 mg tablet 1 tab PO DAILY 01/24/22 01/24/22 01/24/22 History budesonide-formoterol HFA 160 1 puff PO BID 01/24/22 01/24/22 01/24/22 History mcg-4.5 mcg/actuation aerosol inhaler (Symbicort) cholecalciferol (vitamin D3) 50 50 mcg PO DAILY 01/24/22 01/24/22 01/24/22 History mcg (2,000 unit) tablet diphenoxylate-atropine 2.5 1 tab PO QID PRN Diarrhea 01/24/22 01/24/22 Unknown H istory mg-0.025 mg tablet hydrochlorothiazide 12.5 mg tablet 1 tab PO DAILY 01/24/22 01/24/22 01/24/22 History metformin 500 mg tablet 1 tab PO DAILY 01/24/22 01/24/22 01/24/22 History multivitamin 1 tab PO DAILY 01/24/22 01/24/22 01/24/22 History omeprazole 20 mg capsule,delayed 2 cap PO BID 01/24/22 01/24/22 01/24/22 History release Physical Exam Vital Signs and Narrative: Vital Signs: Last Vital Signs Temp 98.9 F 01/24/22 20:18 Pulse 63 01/24/22 21:54 Resp 30 H 01/24/22 21:54 BP 159/70 H 01/24/22 21:54 Pulse Ox 100 01/24/22 21:54 O2 Del Method 01/24/22 21:54 BMI result Body Mass Index 31.8 Const: General: cooperative and no acute distress Orientation/consciousness: patient oriented x3 Eyes: General: appearance normal, both eyes and all related structures Resp: Effort & Inspection: normal respiratory effort Auscultation: clear to auscultation bilaterally Cardio: Rate: regular rate Rhythm: regular rhythm GI: Palpation (GI): Soft to palpation Auscultation: normal bowel sounds Skin: General skin exam: no rashes or lesions noted Neuro: General: patient oriented x3 Cognition (Neuro): normal cognition Extrem: General: Yes normal to inspection and Yes no pedal edema Results Labs CBC and Chem 7: 01/25/22 06:09 01/25/22 06:09 Labs: Laboratory Results - last 24 hr 01/24/22 01/24/22 01/24/22 14:32 14:32 14:32 MCV 91.2 MCH 31.6 MCHC 34.6 RDW 13.3 Plt Count 110 L MPV 11.7 Immature Gran % (Auto) 0.3 Neut % (Auto) 62.2 Lymph % (Auto) 28.7 [place] % (Auto) 6.8 Eos % (Auto) 1.8 Baso % (Auto) 0.2 Lymph # (Auto) 1.8 [place] # (Auto) 0.4 Eos # (Auto) 0.1 Baso # (Auto) 0.0 Abs Immat Gran (auto) 0.02 Absolute Neuts (auto) 3.9 Absolute Nucleated RBC 0.000 Nucleated RBC % (auto) 0.0 PT INR Anion Gap 19 Estim Creat Clear Calc 35.4 Estimated GFR 34 POC Glucose Random Glucose 558 H* Calcium 9.0 D Troponin I High Sens 8.3 Urine Color Urine Appearance Urine pH Ur Specific [place] Urine Protein Urine Glucose (UA) Urine Ketones Urine Blood Urine Nitrite Ur Leukocyte Esterase Urine RBC Urine WBC Ur Squamous Epith Cells Urine Bacteria 01/24/22 01/24/22 01/24/22 14:32 17:36 17:57 MCV MCH MCHC RDW Plt Count MPV Immature Gran % (Auto) Neut % (Auto) Lymph % (Auto) [place] % (Auto) Eos % (Auto) Baso % (Auto) Lymph # (Auto) [place] # (Auto) Eos # (Auto) Baso # (Auto) Abs Immat Gran (auto) Absolute Neuts (auto) Absolute Nucleated RBC Nucleated RBC % (auto) PT 14.1 H INR 1.2 H Anion Gap Estim Creat Clear Calc Estimated GFR POC Glucose 292 H Random Glucose Calcium Troponin I High Sens 7.9 Urine Color Urine Appearance Urine pH Ur Specific [place] Urine Protein Urine Glucose (UA) Urine Ketones Urine Blood Urine Nitrite Ur Leukocyte Esterase Urine RBC Urine WBC Ur Squamous Epith Cells Urine Bacteria 01/24/22 01/24/22 01/24/22 18:05 19:34 20:09 MCV MCH MCHC RDW Plt Count MPV Immature Gran % (Auto) Neut % (Auto) Lymph % (Auto) [place] % (Auto) Eos % (Auto) Baso % (Auto) Lymph # (Auto) [place] # (Auto) Eos # (Auto) Baso # (Auto) Abs Immat Gran (auto) Absolute Neuts (auto) Absolute Nucleated RBC Nucleated RBC % (auto) PT INR Anion Gap 15 Estim Creat Clear Calc 48.7 Estimated GFR 49 POC Glucose 235 H Random Glucose 230 H D Calcium 8.1 L D Troponin I High Sens Urine Color YELLOW Urine Appearance CLEAR Urine pH 7.0 Ur Specific [place] 1.010 Urine Protein NEG Urine Glucose (UA) >=1000 H Urine Ketones NEG Urine Blood NEG Urine Nitrite NEG Ur Leukocyte Esterase NEG Urine RBC 0 Urine WBC 0 Ur Squamous Epith Cells 1+ Urine Bacteria NONE Imaging Radiologist's Impressions: Impressions Chest X-Ray 01/24/22 14:45 IMPRESSION: Unremarkable chest examination. Head CT 01/24/22 19:01 IMPRESSION: 1. No acute intracranial pathology. 2. Right sphenoid paranasal sinus disease. Head/Neck CTA 01/24/22 21:31 IMPRESSION: CT head: No intracranial hemorrhage or large acute infarction. CTA neck: No hemodynamically significant stenosis in the major arteries of the neck. CTA head: No large vessel occlusion or significant stenosis within the intracranial circulation. This critical result was discussed with Norma Jhaveri NP on 01/24/2022 10:05 PM, and it was ascertained that the content and urgency of the report was understood at the time of direct communication. Assessment and Plan (1) Chest pain: Status: Acute (2) Dizziness: Status: Acute (3) Near syncope: Status: Acute Plan 66-year-old female with past medical history of diabetes, hypertension presents to the hospital with dizziness, falls, chest pain # chest pain - atypical - troponin negative - EKG showed sinus bradycardia with a heart rate of [address] wave abnormalities - monitor on tele - will obtain echocardiogram given the dizziness as well as near syncopal episodes # near-syncope/ dizziness/vertigo - reports dizziness as well as vertigo with multiple falls - EKG shows sinus bradycardia with no significant abnormality otherwise - will obtain echocardiogram - PT for the vertigo # hypertension - stable - continue home medications # diabetes - low-dose sliding scale insulin - diabetic diet DVT prophylaxis: Early ambulation Quality Stroke Does the patient have a stroke diagnosis?: No VTE Prior VTE?: No VTE Risk Level:: Medical - low VTE Device Contraindication: Treatment Not Indicated VTE Drug Contraindication: Treatment Not Indicated
[2022-01-24 23:03] LABS: Glucose, Whole Blood 345 mg/dL (60-115)
[2022-01-25] VITALS (11 sets, daily range): BP systolic 123–168; BP diastolic 56–76; PULSE 52–68; RESP 14–29; TEMP 36–37.2; O2SAT 96–100
[2022-01-25 02:03] LABS: Glucose, Whole Blood 320 mg/dL (60-115)
--- NOTE | 2022-01-25 04:36 | PC.NURSE ---
Pt ambulated to bathroom. Pt stated she felt better than before, but still dizzy.
[2022-01-25 06:24] LABS: MANUAL DIFF FLAG NO
[2022-01-25] MEDS: Omeprazole 40 MG CAPSULE.DR PO ×2 (06:41→18:00)
[2022-01-25 06:42] LABS: Basophils Percent Auto 0.2 % (0-2); Hematocrit 35.9 % (37.0-47.0); Hemoglobin 12.2 g/dl (12.0-16.0); Imm Gran Abs Auto 0.03 X10*3/uL (0.00-0.03); Imm Gran Pct Auto 0.6 % (0.0-0.4); Lymphocytes Absolute Auto 0.7 X10*3/uL (1.2-4.9); Lymphocytes Percent Auto 13.1 % (20-40); Mean Corpuscular Hemoglobin 31.4 pg (27.0-33.0); Mean Corpuscular Volume 92.3 fL (80.0-98.0); Monocytes Absolute Auto 0.1 X10*3/uL (0.1-1.2); Neutrophils Absolute Auto 4.3 x10*3/uL (2.0-8.3); Neutrophils Percent Auto 85.1 % (45-73); Red Blood Count 3.89 X10*6/uL (4.20-5.50); Red Cell Distribution Width 13.2 % (11.0-16.0)
[2022-01-25 06:51] LABS: Anion Gap 18 (12-20); Blood Urea Nitrogen 16 mg/dL (9-16); Carbon Dioxide 22 mmol/L (22-29); Chloride 98 mmol/L (96-108); Creatinine Clr Calc Pharmacy 40.7; Estimated Glomerular Filt Rate 40; Glucose Random 545 mg/dL (60-115); Sodium 133 mmol/L (135-145)
--- NOTE | 2022-01-25 07:00 | CA_ITS ---
Transthoracic Echocardiogram Patient (Last, First, Middle): Joesph Foreman A Gender: Female Date of : 1955 Age: 66 Procedure Date: 01/25/2022 Procedure Type: Transthoracic Echocardiogram Location: ER Height: 157.48 cm Weight: 78.93 kg BSA: 1.80 m2 Heart Rate: bpm BP: 152 / 68 mmHg Operations Administrative Assistant: PABLITO Referring MD: Cristiane Nguyen MD Symptoms: chest pain,dizziness Study Quality: Adequate ECG Rhythm: Sinus Conclusions: - The left ventricular systolic function is hyperdynamic. The visually estimated ejection fraction is >70%. - No obvious valvular pathology seen on this study. Findings Left Ventricle Normal left ventricular cavity size. There is mildly increased left ventricular wall thickness. The left ventricular systolic function is hyperdynamic. The visually estimated ejection fraction is >70%. There is no evidence of regional wall motion abnormalities. Diastolic function is normal for age. Left ventricle is more hyperdynamic towards the apex. Right Ventricle Normal right ventricular cavity size and systolic function. Atria Both atria are normal in size. Aortic Valve There is a normal trileaflet aortic valve. There is no aortic valve stenosis. There is no aortic valve regurgitation. Mitral Valve The mitral valve appears normal. There is trace mitral valve regurgitation. There is no mitral valve stenosis. Pulmonic Valve The pulmonic valve is likely normal. Tricuspid Valve There is trace tricuspid valve regurgitation. The pulmonary artery systolic pressure is normal. Great Vessels The aortic annulus, sinuses of valsalva, and asc aorta are normal in size. Venous The inferior vena cava is normal in size and collapses greater than 50% with inspiration. Pericardium/Pleural There is no evidence of pericardial effusion. Prior Study Comparison No significant change compared to prior study dated: 08/08/2015. Recommendations, Care & Conclusions No obvious valvular pathology seen on this study. Measurements 2D Linear Measurements IVSd: 1.03 0.6-0.9/0.6-1.0 cm LVIDd: 4.56 3.9-5.3/4.2-5.9 cm LVIDd Index: 2.53 2.4-3.2/2.2-3.1 cm/m2 LVIDs: 2.52 2.0-3.6 cm LVPWd: 0.99 0.7-1.1 cm LA Diam: 4.00 2.7-3.8/3.0-4.0 cm LAIDs Index: 2.22 1.5-2.3 cm/m2 LV Mass: 197.40 67-162/88-224 g LV Mass Index: 109.67 43-95/49-115 g/m2 LVOT Diam: 1.90 3.0+(-)1.3 cm 2D Systolic Function EF 4C: 60.30 >55% EF 2C: 58.10 >55% EF BiP: 59.70 >55% Mitral Valve MV Pk E: 0.76 MV PK A: 0.94 MV Decel Time: 352.00 E/A: 0.80 E'Lateral: 6.53 E'Medial: 6.20 E/E' Med: 12.20 E/E' Lat: 11.60 PHT: 103.00 MVA PHT: 2.14 Decel [place]: 2.15 Aortic Valve AoV Pk Ayan: 1.86 AoV Mn Ayan: 1.10 AoV VTI: 0.44 AoV Pk Grad: 14.00 Aov Mn Grad: 6.00 BETINA Cont.VTI: 2.25 LVOT LVOT Pk Ayan: 1.60 LVOT Mn Ayan: 0.96 LVOT VTI: 0.35 LVOT Pk Grad: 10.00 LVOT Mn Grad: 4.00 LVOT Diam: 1.90 LVOT Area: 2.84 Diastolic Function MV Pk E: 0.76 MV Pk A: 0.94 E/A: 0.80 E'Medial: 6.20 E/E' Med: 12.20 E' Laterial: 6.53 E/E' Lat: 11.60 Right Ventricle TAPSE (mm): 21.30 TVS' Ayan: 14.30 Tricuspid Valve TR Pk Ayan: 2.13 TR Pk Grad: 18.00 RA Press: 3.00 RVSP: 21.00 Great Vessels Aorta Sinus of Valsalva: 2.89 2.0-3.[address] [place]: 2.45 1.7-3.4 cm Ao Asc: 3.00 2.1-3.4 cm Updated in Other Vendor System with Status of Final Jak Allred MD electronically signed on 01/25/2022 5:17:25 PM with status of Final
[2022-01-25 07:13] LABS: Mean Platelet Volume 11.7 fL (9.4-12.3); Platelet Count 85 X10*3/uL (160-400)
[2022-01-25 07:29] LABS: Glucose, Whole Blood 447 mg/dL (60-115)
--- NOTE | 2022-01-25 07:38 | PC.NURSE ---
called pharmacy for more humolg insulin no more in the Pyxis
[2022-01-25 07:55] LABS: COVID-19 Test Negative (Negative); IDNOW Serial# 16C4AD1C
[2022-01-25 07:59] LABS: B Type Natriuretic Peptide 137 pg/mL (<100)
[2022-01-25] MEDS: Insulin Lispro 100 UNIT/ML 3 ML VIAL SUBCUT ×4 (08:38→22:24)
[2022-01-25] MEDS: 0.9 % Sodium Chloride Flush 3 ML SYRINGE IVFLUSH (08:48)
[2022-01-25] MEDS: Cholecalciferol (Vitamin D3) 25 MCG TABLET 50 MCG PO (08:53)
[2022-01-25] MEDS: amLODIPine Besylate 5 MG TABLET PO ×2 (08:54→22:21)
[2022-01-25] MEDS: Multivitamin TABLET 1 TAB PO (08:54)
[2022-01-25] MEDS: hydroCHLOROthiazide 12.5 MG TABLET PO (08:54)
[2022-01-25] MEDS: Atorvastatin Calcium 20 MG TABLET PO (08:54)
[2022-01-25] MEDS: atenoloL 25 MG TABLET PO (08:54)
--- NOTE | 2022-01-25 10:51 | MHC.CM.PN ---
PT REPORTS SHE LIVES AT HOME WITH HER AND IS INDEPENDENT WITH CARE PT REPORTS SHE HAS A NEBULIZER AND A WALKER SHE USES PRN PT DENIES HAVING HOME OR COMMUNITY SERVICES PT REPORTS SHE IS COVID VACCINATED AND BOOSTED PCP: MERA LUNDY OBSERVATION NOTICE DELIVERED, COPY SENT TO [employer] [employer] PT ALSO PROVIDED HER INSURANCE CARDS SHE RECENTLY SIGNED [employer] MEDICARE COPIES WERE MADE AND [facility] [place] T[place] CURRENT DC PLAN IS HOME WITH NO SERVICES TO TRANSPORT
--- NOTE | 2022-01-25 11:42 | P.CNNE_ITS ---
History of Present Illness Data of Consult Service Date: 01/25/22 Primary Care Provider: Mihir Noble MD [facility] Reason for consult: Dizziness, chest pain and palpitation This is a 66-year-old female with past medical history of diabetes, hypertension, asthma, CVA who presents to the hospital with complaints of epig astric, substernal chest pain as well as palpitations That occurred while she was resting. The pain felt like pressure/heaviness on her chest, lasted about 5- 10 minutes, associated with palpitations, nonradiating, no alleviating or exacerbating factors.? Patient reports that she felt nauseous with no vomiting.? She has also been having significant dizziness as well as Transient vertigo for 5-10 min.vertigo and a sensation of fallingFor the last 8 months once or twice a week particularly if she bends down and gets up. There is no hearing loss or tinnitus. She gets no vertigo in bed or turning in bed.? She has had multiple falls with no loss of consciousness, no head injury.? CTA of the head and neck are unremarkable Review of Systems Review of Systems: Constitutional: No Fever, No Chills ENT/Mouth: No Ear Pain, No Hoarseness, No sore throat Eyes: No Eye Pain, No Swelling, No Redness, No Foreign Body Cardiovascular: Positive Chest Pain, No SOB Respiratory: No Cough, positive Dyspnea Gastrointestinal: No Nausea, No Vomiting, No Diarrhea, No abdominal Pain Genitourinary: No Dysuria, No Hematuria Musculoskeletal: No joint pain, No Myalgias, No Joint Swelling Skin: No Skin lacerations, No rash Neuro: No Weakness, No Numbness, No Paresthesias, No Loss of Consciousness, positive Dizziness, No Headache Psych: No Anxiety/Panic, No Depression Heme/Lymph: no easy bruising, no Lymphadenopathy Endocrine: No Polyuria, positive Polydipsia Yes all other systems are reviewed and are negative [facility] Past Medical History Medical History (Updated 01/25/22 @ 07:30 by Cristiane Nguyen MD) Asthma CVA (cerebral vascular accident) Diabetes Hypertension Family History Family History (Updated 01/25/22 @ 07:29 by Cristiane Nguyen MD) Other No family history of coronary artery disease Surgical History Surgical History (Updated 01/25/22 @ 07:30 by Cristiane Nguyen MD) H/O foot surgery History of Social History Social History Alcohol intake: current Alcohol intake frequency: holidays/special occasions only Alcohol type: wine Patient Tobacco Use Status: Never used Tobacco Use of substances other than those prescribed or required for medical reasons: No Advance Directives: No Advance Directives Information Provided: No service: No Current occupational status: retired Meds Allergies Allergy/AdvReac Type Severity Reaction Status Date / Time hyoscyamine [From LEVBID] Allergy Intermediate VOMITING Verified 01/24/22 14:23 Iodinated Contrast Media Allergy Intermediate Difficulty Verified 01/24/22 22:12 [Contrast Dye] Breathing methylcellulose [Citrucel] Allergy Unknown headache, Verified 01/24/22 14:23 rash mushroom Allergy Unknown RASH Verified 01/24/22 14:23 lactose [Lactose] AdvReac Mild DIARRHEA Verified 01/24/22 14:23 Active Medications: Current Medications Acetaminophen (Acetaminophen 325 Mg Tablet) 650 mg PO Q6H PRN PRN Reason: Pain, Mild (Pain Scale 1-3) Albuterol Sulfate (Albuterol Sulfate (0.083%) 2.5 Mg/3 Ml Vial.Neb) 2.5 mg INHALE Q4H PRN PRN Reason: Wheezing Amlodipine Besylate (Amlodipine Besylate 5 Mg Tablet) 5 mg PO BID [facility]; Protocol Last Admin: 01/25/22 08:54 Dose: 5 mg Atenolol (Atenolol 25 Mg Tablet) 25 mg PO DAILY [facility]; Protocol Last Admin: 01/25/22 08:54 Dose: 25 mg Atorvastatin Calcium (Atorvastatin Calcium 20 Mg Tablet) 20 mg PO DAILY [facility] Last Admin: 01/25/22 08:54 Dose: 20 mg Dextrose (Dextrose 50 % 25 Gm/50 Ml Syringe) 25 gm IVPUSH Q15M PRN; Protocol PRN Reason: per Hypoglycemia Standing Ord. Dextrose (Dextrose 50 % 25 Gm/50 Ml Syringe) 25 gm IVPUSH Q15M PRN; Protocol PRN Reason: per Hypoglycemia Standing Ord. Diphenoxylate HCl/Atropine (Diphenoxylate/Atrop 2.5/0.025 Tablet) 1 tab PO QID PRN PRN Reason: Diarrhea Docusate Sodium (Docusate Sodium 100 Mg Capsule) 100 mg PO DAILY PRN PRN Reason: Constipation Fluticasone/Vilanterol (Fluticasone/Vilanterol 200/25 Blst.W.Dev) 1 puff INHALE RDAILY [facility] Last Admin: 01/25/22 07:58 Dose: Not Given Glucose (Glucose Gel 15 Gm Gel..Gram.) 15 gm PO Q15M PRN; Protocol PRN Reason: per Hypoglycemia Standing Ord. Glucose (Glucose Gel 15 Gm Gel..Gram.) 15 gm PO Q15M PRN; Protocol PRN Reason: per Hypoglycemia Standing Ord. Hydrochlorothiazide (Hydrochlorothiazide 12.5 Mg Tablet) 12.5 mg PO DAILY [facility]; Protocol Last Admin: 01/25/22 08:54 Dose: 12.5 mg Insulin Human Lispro (Insulin Lispro 100 Unit/Ml 3 Ml Vial) 0 unit SUBCUT QIDACHS [facility]; Protocol Last Admin: 01/25/22 08:47 Dose: Not Given Multivitamins/Vitamin C (Multivitamin Tablet) 1 tab PO DAILY [facility] Last Admin: 01/25/22 08:54 Dose: 1 tab Omeprazole (Omeprazole 40 Mg Capsule.Dr) 40 mg PO BID@0630,1630 [facility] Last Admin: 01/25/22 06:41 Dose: 40 mg Ondansetron HCl (Ondansetron Hcl 4 Mg/2 Ml Vial) 4 mg IVPUSH Q8H PRN PRN Reason: Nausea and Vomiting Sodium Chloride (0.9 % Sodium Chloride Flush 3 Ml Syringe) 3 ml IVFLUSH QSHIFT [facility] Last Admin: 01/25/22 08:48 Dose: 3 ml Vitamin D (Cholecalciferol (Vitamin D3) 25 Mcg Tablet) 50 mcg PO DAILY [facility] Last Admin: 01/25/22 08:53 Dose: 50 mcg Home Medications Medication Instructions Recorded Confirmed Last Taken Type albuterol sulfate 1 vial inhalation Q4H PRN Wheezing 01/24/22 01/24/22 01/24/22 History albuterol sulfate 90 mcg/actuation 2 puff PO Q4H PRN Wheezing 01/24/22 01/24/22 01/24/22 History aerosol inhaler amlodipine 5 mg tablet 1 tab PO BID 01/24/22 01/24/22 01/24/22 History atenolol 25 mg tablet 1 tab PO DAILY 01/24/22 01/24/22 01/24/22 History atorvastatin 20 mg tablet 1 tab PO DAILY 01/24/22 01/24/22 01/24/22 History budesonide-formoterol HFA 160 1 puff PO BID 01/24/22 01/24/22 01/24/22 History mcg-4.5 mcg/actuation aerosol inhaler (Symbicort) cholecalciferol (vitamin D3) 50 50 mcg PO DAILY 01/24/22 01/24/22 01/24/22 History mcg (2,000 unit) tablet diphenoxylate-atropine 2.5 1 tab PO QID PRN Diarrhea 01/24/22 01/24/22 Unknown History mg-0.025 mg tablet hydrochlorothiazide 12.5 mg tablet 1 tab PO DAILY 01/24/22 01/24/22 01/24/22 H istory metformin 500 mg tablet 1 tab PO DAILY 01/24/22 01/24/22 01/24/22 History multivitamin 1 tab PO DAILY 01/24/22 01/24/22 01/24/22 History omeprazole 20 mg capsule,delayed 2 cap PO BID 01/24/22 01/24/22 01/24/22 History release Physical Exam Vital Signs: Vital Signs: Last Vital Signs Temp 97.9 F 01/25/22 08:44 Pulse 62 01/25/22 08:44 Resp 18 01/25/22 08:44 BP 134/67 01/25/22 08:44 Pulse Ox 96 01/25/22 08:44 O2 Del Method 01/25/22 08:44 BMI result Body Mass Index 31.8 Const: General: cooperative and no acute distress Orientation/consciousness: patient oriented x3 Eyes: General: appearance normal, both eyes and all related structures Resp: Effort & Inspection: normal respiratory effort Auscultation: clear to auscultation bilaterally Cardio: Rate: regular rate Rhythm: regular rhythm GI: Palpation (GI): Soft to palpation Auscultation: normal bowel sounds Skin: General skin exam: no rashes or lesions noted Neuro: Other: Normal, nonfocal neurological examination General: patient oriented x3 Cognition (Neuro): normal cognition Extrem: General: Yes normal to inspection and Yes no pedal edema Results Labs CBC & Chem 7: 01/25/22 06:09 01/25/22 06:09 Labs: Short CBC 01/24/22 01/25/22 Range/Units 14:32 06:09 WBC 6.2 5.0 (4.8-10.8) X10*3/uL Hgb 13.3 12.2 (12.0-16.0) g/dl Hct 38.4 35.9 L (37.0-47.0) % Plt Count 110 L 85 L (160-400) X10*3/uL BMP 01/24/22 01/24/22 01/25/22 14:32 20:09 06:09 Sodium 135 139 133 L Potassium 4.9 3.9 D 5.0 D Chloride 94 L 100 98 Carbon Dioxide BUN 16 14 16 Creatinine 1.54 H 1.12 1.34 Calcium 9.0 D 8.1 L D 8.0 L Urine 01/24/22 Range/Units 18:05 Urine Color YELLOW Urine Appearance CLEAR Urine pH 7.0 (5.0-8.0) Ur Specific [employer] 1.010 (1.005-1.025) Urine Protein NEG (NEG-TRACE) MG/DL Urine Glucose (UA) >=1000 H (NEG) MG/DL Assessment and Plan (1) Chest pain: Status: Acute (2) Dizziness: Status: Acute Transient vertiginous sensations for the last 8 months occurring a couple of times a week lasting up to 10 min. some of which are positional. Recommendation: Meclizine 25 mg 3 times a day for 2 weeks. If after that the symptoms persist then she should be referred to vestibular therapy. (3) Near syncope: Status: Acute Plan 66-year-old female with past medical history of diabetes, hypertension presents to the hospital with dizziness, falls, chest pain # chest pain - atypical - troponin negative - EKG showed sinus bradycardia with a heart rate of [address] wave abnormalities - monitor on tele - will obtain echocardiogram given the dizziness as well as near syncopal episodes # near-syncope/ dizziness/vertigo - reports dizziness as well as vertigo with multiple falls - EKG shows sinus bradycardia with no significant abnormality otherwise - will obtain echocardiogram - PT for the vertigo # hypertension - stable - continue home medications # diabetes - low-dose sliding scale insulin - diabetic diet DVT prophylaxis: Early ambulation Procedures Date of Service Date of Service: 01/25/22
[2022-01-25 13:00] LABS: Glucose, Whole Blood 461 mg/dL (60-115)
--- NOTE | 2022-01-25 16:56 | P.PNIM_ITS ---
Subjective Subjective Date of Service: 01/25/22 Interval History: dizziness,hx of cva Review of Systems seems chest pain improving , dizziness seems similar yesterday, Denies any nausea vomiting or abdominal pain or fever or chills. Physical Exam Vital Signs: Vital Signs: Last Vital Signs Temp 97.8 F 01/25/22 16:00 Pulse 53 01/25/22 16:00 Resp 16 01/25/22 16:00 BP 132/61 01/25/22 16:00 Pulse Ox 96 01/25/22 16:00 O2 Del Method 01/25/22 16:00 BMI result Body Mass Index 31.8 Appearance: Alert.? Oriented X3.? not in distress.?s. cvs: rrr, [id number] , no murmur res: clear to auscultation ,no rhonchii or wheezing abd: no rebound or guarding ,nt, bs present. ext pulses present , no cyanosis . neuro: axo3 , nonfocal. Objective Data Active Medications Acetaminophen (Acetaminophen 325 Mg Tablet) 650 mg PO Q6H PRN PRN Reason: Pain, Mild (Pain Scale 1-3) Albuterol Sulfate (Albuterol Sulfate (0.083%) 2.5 Mg/3 Ml Vial.Neb) 2.5 mg INHALE Q4H PRN PRN Reason: Wheezing Amlodipine Besylate (Amlodipine Besylate 5 Mg Tablet) 5 mg PO BID [facility]; Protocol Last Admin: 01/25/22 08:54 Dose: 5 mg Documented By: CODY Atenolol (Atenolol 25 Mg Tablet) 25 mg PO DAILY [facility]; Protocol Last Admin: 01/25/22 08:54 Dose: 25 mg Documented By: CODY Atorvastatin Calcium (Atorvastatin Calcium 20 Mg Tablet) 20 mg PO DAILY [facility] Last Admin: 01/25/22 08:54 Dose: 20 mg Documented By: CODY Dextrose (Dextrose 50 % 25 Gm/50 Ml Syringe) 25 gm IVPUSH Q15M PRN; Protocol PRN Reason: per Hypoglycemia Standing Ord. Dextrose (Dextrose 50 % 25 Gm/50 Ml Syringe) 25 gm IVPUSH Q15M PRN; Protocol PRN Reason: per Hypoglycemia Standing Ord. Diphenoxylate HCl/Atropine (Diphenoxylate/Atrop 2.5/0.025 Tablet) 1 tab PO QID PRN PRN Reason: Diarrhea Docusate Sodium (Docusate Sodium 100 Mg Capsule) 100 mg PO DAILY PRN PRN Reason: Constipation Fluticasone/Vilanterol (Fluticasone/Vilanterol 200/25 Blst.W.Dev) 1 puff INHALE RDAILY [facility] Last Admin: 01/25/22 07:58 Dose: Not Given Documented By: HOME Non-Admin Reason: Med Not Available Glucose (Glucose Gel 15 Gm Gel..Gram.) 15 gm PO Q15M PRN; Protocol PRN Reason: per Hypoglycemia Standing Ord. Glucose (Glucose Gel 15 Gm Gel..Gram.) 15 gm PO Q15M PRN; Protocol PRN Reason: per Hypoglycemia Standing Ord. Hydrochlorothiazide (Hydrochlorothiazide 12.5 Mg Tablet) 12.5 mg PO DAILY [facility]; Protocol Last Admin: 01/25/22 08:54 Dose: 12.5 mg Documented By: CODY Insulin Human Lispro (Insulin Lispro 100 Unit/Ml 3 Ml Vial) 0 unit SUBCUT QIDACHS [facility]; Protocol Last Admin: 01/25/22 13:18 Dose: 14 unit Documented By: CODY Meclizine HCl (Meclizine Hcl 12.5 Mg Tablet) 12.5 mg PO Q6H PRN PRN Reason: dizziness Multivitamins/Vitamin C (Multivitamin Tablet) 1 tab PO DAILY [facility] Last Admin: 01/25/22 08:54 Dose: 1 tab Documented By: CODY Omeprazole (Omeprazole 40 Mg Capsule.) 40 mg PO BID@0630,1630 [facility] Last Admin: 01/25/22 06:41 Dose: 40 mg Documented By: CARITO Ondansetron HCl (Ondansetron Hcl 4 Mg/2 Ml Vial) 4 mg IVPUSH Q8H PRN PRN Reason: Nausea and Vomiting Sodium Chloride (0.9 % Sodium Chloride Flush 3 Ml Syringe) 3 ml IVFLUSH QSHIFT [facility] Last Admin: 01/25/22 08:48 Dose: 3 ml Documented By: CODY Vitamin D (Cholecalciferol (Vitamin D3) 25 Mcg Tablet) 50 mcg PO DAILY [facility] Last Admin: 01/25/22 08:53 Dose: 50 mcg Documented By: CODY Labs CBC & Chem 7: 01/25/22 06:09 01/25/22 06:09 Labs: Laboratory Results - last 24 hr 01/24/22 01/24/22 01/24/22 17:36 17:57 18:05 MCV MCH MCHC RDW Plt Count MPV Immature Gran % (Auto) Neut % (Auto) Lymph % (Auto) Carter % (Auto) Eos % (Auto) Baso % (Auto) Lymph # (Auto) Carter # (Auto) Eos # (Auto) Baso # (Auto) Abs Immat Gran (auto) Absolute Neuts (auto) Absolute Nucleated RBC Nucleated RBC % (auto) Anion Gap Estim Creat Clear Calc Estimated GFR POC Glucose 292 H Random Glucose Estimat Average Glucose Hemoglobin A1c % Calcium Troponin I High Sens 7.9 B-Natriuretic Peptide Urine Color YELLOW Urine Appearance CLEAR Urine pH 7.0 Ur Specific [place] 1.010 Urine Protein NEG Urine Glucose (UA) >=1000 H Urine Ketones NEG Urine Blood NEG Urine Nitrite NEG Ur Leukocyte Esterase NEG Urine RBC 0 Urine WBC 0 Ur Squamous Epith Cells 1+ Urine Bacteria NONE COVID-19 (LAUREEN) COVID-19 Clin Com 01/24/22 01/24/22 01/24/22 19:34 20:09 22:56 MCV MCH MCHC RDW Plt Count MPV Immature Gran % (Auto) Neut % (Auto) Lymph % (Auto) Carter % (Auto) Eos % (Auto) Baso % (Auto) Lymph # (Auto) Carter # (Auto) Eos # (Auto) Baso # (Auto) Abs Immat Gran (auto) Absolute Neuts (auto) Absolute Nucleated RBC Nucleated RBC % (auto) Anion Gap 15 Estim Creat Clear Calc 48.7 Estimated GFR 49 POC Glucose 235 H 345 H Random Glucose 230 H D Estimat Average Glucose Hemoglobin A1c % Calcium 8.1 L D Troponin I High Sens B-Natriuretic Peptide Urine Color Urine Appearance Urine pH Ur Specific [place] Urine Protein Urine Glucose (UA) Urine Ketones Urine Blood Urine Nitrite Ur Leukocyte Esterase Urine RBC Urine WBC Ur Squamous Epith Cells Urine Bacteria COVID-19 (LAUREEN) COVID-19 linkedü Com 01/25/22 01/25/22 01/25/22 01:57 06:09 06:09 MCV 92.3 MCH 31.4 MCHC 34.0 RDW 13.2 Plt Count 85 L MPV 11.7 Immature Gran % (Auto) 0.6 H Neut % (Auto) 85.1 H Lymph % (Auto) 13.1 L Carter % (Auto) 1.0 L Eos % (Auto) 0.0 Baso % (Auto) 0.2 Lymph # (Auto) 0.7 L Carter # (Auto) 0.1 Eos # (Auto) 0.0 Baso # (Auto) 0.0 Abs Immat Gran (auto) 0.03 Absolute Neuts (auto) 4.3 Absolute Nucleated RBC 0.000 Nucleated RBC % (auto) 0.0 Anion Gap 18 Estim Creat Clear Calc 40.7 Estimated GFR 40 POC Glucose 320 H Random Glucose 545 H* D Estimat Average Glucose Hemoglobin A1c % Calcium 8.0 L Troponin I High Sens B-Natriuretic Peptide Urine Color Urine Appearance Urine pH Ur Specific [place] Urine Protein Urine Glucose (UA) Urine Ketones Urine Blood Urine Nitrite Ur Leukocyte Esterase Urine RBC Urine WBC Ur Squamous Epith Cells Urine Bacteria COVID-19 (LAUREEN) COVID-[place] 01/25/22 01/25/22 01/25/22 06:09 06:09 07:24 MCV MCH MCHC RDW Plt Count MPV Immature Gran % (Auto) Neut % (Auto) Lymph % (Auto) Carter % (Auto) Eos % (Auto) Baso % (Auto) Lymph # (Auto) Carter # (Auto) Eos # (Auto) Baso # (Auto) Abs Immat Gran (auto) Absolute Neuts (auto) Absolute Nucleated RBC Nucleated RBC % (auto) Anion Gap Estim Creat Clear Calc Estimated GFR POC Glucose 447 H* Random Glucose Estimat Average Glucose Cancelled Hemoglobin A1c % Cancelled Calcium Troponin I High Sens B-Natriuretic Peptide 137 H Urine Color Urine Appearance Urine pH Ur Specific [place] Urine Protein Urine Glucose (UA) Urine Ketones Urine Blood Urine Nitrite Ur Leukocyte Esterase Urine RBC Urine WBC Ur Squamous Epith Cells Urine Bacteria COVID-19 (LAUREEN) COVID-[place] 01/25/22 01/25/22 07:32 12:52 MCV MCH MCHC RDW Plt Count MPV Immature Gran % (Auto) Neut % (Auto) Lymph % (Auto) Carter % (Auto) Eos % (Auto) Baso % (Auto) Lymph # (Auto) Carter # (Auto) Eos # (Auto) Baso # (Auto) Abs Immat Gran (auto) Absolute Neuts (auto) Absolute Nucleated RBC Nucleated RBC % (auto) Anion Gap Estim Creat Clear Calc Estimated GFR POC Glucose 461 H* Random Glucose Estimat Average Glucose Hemoglobin A1c % Calcium Troponin I High Sens B-Natriuretic Peptide Urine Color Urine Appearance Urine pH Ur Specific [place] Urine Protein Urine Glucose (UA) Urine Ketones Urine Blood Urine Nitrite Ur Leukocyte Esterase Urine RBC Urine WBC Ur Squamous Epith Cells Urine Bacteria COVID-19 (LAUREEN) Negative COVID-19 Clin Com See Note Assessment and Plan (1) Vertigo: Status: Acute (2) Uncontrolled diabetes mellitus with hyperglycemia: Status: Acute Plan 66-year-old female with past medical history of diabetes, hypertension presents to the hospital with dizziness, falls, chest pain chest pain - atypical - troponin negative - EKG showed sinus bradycardia with a heart rate of [address]? wave abnormalities - monitor on tele - will obtain echocardiogram given the dizziness as well as near syncopal episodes dizziness/vertigo- - reports dizziness as well as vertigo with multiple falls - EKG shows sinus bradycardia with no significant abnormality otherwise echocardiogram Neuro recommendations noted-possible bppv added meclizine - PT for the vertigo # hypertension - stable - continue home medications # diabetes uncontrolled: fs 300-400 range changed to diabetic diet-- adjusted sliding scale insulin, added glipizide. possible finn : multifactorial poor oral intake , valsartan and hctz( on hold now) DVT prophylaxis:? s/c lovenox Quality Stroke Does the patient have a stroke diagnosis?: No VTE Prior VTE?: No VTE Risk Level:: Medical - low VTE Device Contraindication: Treatment Not Indicated VTE Drug Contraindication: Treatment Not Indicated
[2022-01-25 17:36] LABS: Glucose, Whole Blood 446 mg/dL (60-115)
[2022-01-25] MEDS: Enoxaparin Sodium 40 MG/0.4 ML SYRINGE SUBCUT (18:41)
[2022-01-25] MEDS: Lactated Ringers 1,000 ML 100 ML IVCONT (18:45)
[2022-01-25] MEDS: glipiZIDE 5 MG TABLET PO (19:55)
[2022-01-25 21:42] LABS: Glucose, Whole Blood 459 mg/dL (60-115)
--- NOTE | 2022-01-25 22:05 | PC.NURSE ---
Addendum entered by Ailyn So 01/26/22 07:07: Report given to LISA Mondragon Addendum entered by Ailyn So 01/25/22 22:15: Pt BS [address] Nguyen to give 14 units per protocol and additional 10 units total of 24 units Original Note: report received from LISA Rodriguez/ pt is alert and oriented, resting in bed. pt on continuos cardiac monitoring
[2022-01-25] MEDS: Meclizine HCl 25 MG TABLET PO (22:21)
[2022-01-25] MEDS: Insulin Lispro 100 UNIT/ML 3 ML VIAL 10 UNIT SUBCUT (22:22)
[2022-01-25 23:34] LABS: Glucose, Whole Blood 347 mg/dL (60-115)
[2022-01-26] MEDS: Acetaminophen 325 MG TABLET 650 MG PO (00:02)
[2022-01-26 05:19] LABS: Anion Gap 13 (12-20); Blood Urea Nitrogen 19 mg/dL (9-16); Calcium 8.5 mg/dL (8.4-10.2); Carbon Dioxide 29 mmol/L (22-29); Chloride 102 mmol/L (96-108); Creatinine Clr Calc Pharmacy 45.8; Estimated Glomerular Filt Rate 46; Glucose Random 159 mg/dL (60-115); Potassium 4.2 mmol/L (3.3-5.1); Sodium 140 mmol/L (135-145)
[2022-01-26] MEDS: Omeprazole 40 MG CAPSULE.DR PO (06:03)
[2022-01-26 06:04] VITALS: BP 139/60; PULSE 54; RESP 13; TEMP 36.1; O2SAT 97
[2022-01-26 07:41] LABS: Glucose, Whole Blood 195 mg/dL (60-115)
[2022-01-26 07:47] LABS: Estimated Average Glucose 275 mg/dL; Hemoglobin A1c % 11.2 %
[2022-01-26] MEDS: Insulin Lispro 100 UNIT/ML 3 ML VIAL SUBCUT (08:29)
[2022-01-26] MEDS: Meclizine HCl 25 MG TABLET PO (08:30)
[2022-01-26] MEDS: glipiZIDE 5 MG TABLET PO (08:30)
[2022-01-26] MEDS: Multivitamin TABLET 1 TAB PO (08:30)
[2022-01-26] MEDS: atenoloL 25 MG TABLET PO (08:30)
[2022-01-26] MEDS: Atorvastatin Calcium 20 MG TABLET PO (08:31)
[2022-01-26] MEDS: Cholecalciferol (Vitamin D3) 25 MCG TABLET 50 MCG PO (08:31)
[2022-01-26] MEDS: amLODIPine Besylate 5 MG TABLET PO (08:31)
[2022-01-26] MEDS: 0.9 % Sodium Chloride Flush 3 ML SYRINGE IVFLUSH (08:32)
--- NOTE | 2022-01-26 10:08 | PC.NURSE ---
Report received at shift change from Ailyn GONZALEZ. Patient reports she is feeling improved. States her dizziness is mostly gone, wanting to get up and out of bed to wash up. Respirations regular and even. Skin PWD. Patient is alert and oriented. Patient medicated with her AM meds and took without difficulty. POC this am was 195 which is improving. Patient sat upright and ate breakfast independently. Will continue to monitor.
[2022-01-26 11:05] VITALS: BP 104/48; PULSE 55; RESP 18; O2SAT 97
[2022-01-26 12:27] LABS: Glucose, Whole Blood 270 mg/dL (60-115)
--- NOTE | 2022-01-26 13:08 | P.DS_ITS ---
DS: Providers Provider Date of Service: 01/26/22 Date of admission: 01/24/22 22:32 Primary care physician: Mihir Noble MD Consults: 01/25/22 08:48 Consult to Neurology Routine Consulting Provider: [facility] Reason for consultation: dizziness/vertiago Has provider been notified: No DS: Diagnosis Discharge Diagnosis (1) Vertigo: Status: Acute (2) Uncontrolled diabetes mellitus with hyperglycemia: Status: Acute DS: Summary Hospital Course Hospital Course: 66-year-old female with past medical history of diabetes, hypertension presents to the hospital with dizziness, falls, chest pain. hospital course: Patient came with dizziness possible related to vertigo possible bppv: Patient was started on meclizine, hydrated, also getting better control of diabetes- after adding glipizide. Acute kidney injury: Improved significantly with hydration and diabetic control. Seen by Neurology-started on meclizine , Patient seems to be improved. chest pain: Resolved, troponin negative, Echo: Seems fine, please see below. echo: Normal left ventricular cavity size.? There is mildly increased left ventricular wall thickness.? The left ventricular systolic function is hyperdynamic.? The visually estimated ejection fraction is >70%.? There is no evidence of regional wall motion abnormalities.? Diastolic function is normal for age.? Left ventricle is more hyperdynamic towards the apex. Above management discussed with the patient in detail length she understand and in agreement with the above plan, time spent 50 minutes and 50% time spent on counseling. Significant findings: As above. Procedures performed: None. Treatment and response: As above. Complications: None. Time Spent with Patient Time attestation: Total time spent providing and/or coordinating discharge services: Discharge coordination time: Greater than 30 minutes Quality: Safe Use of Opioids Does Pt have an Active Cancer Diagnosis on the Problem List?: No Quality: Stroke Does the patient have a stroke diagnosis?: No Physical Exam Vital Signs: Vital Signs: Last Vital Signs Temp 97 F 01/26/22 06:04 Pulse 55 01/26/22 11:05 Resp 18 01/26/22 11:05 BP 104/48 L 01/26/22 11:05 Pulse Ox 97 01/26/22 11:05 O2 Del Method 01/26/22 11:05 BMI result Body Mass Index 31.8 Appearance: Alert.? Oriented X3.? not in distress. cvs: rrr, [id number] , no murmur res: clear to auscultation ,no rhonchii or wheezing abd: no rebound or guarding ,nt, bs present. ext pulses present , no cyanosis . neuro: axo3 , nonfocal. DS: Data Data Completed and Pending Labs on day of discharge: Laboratory Results - last 24 hr 01/25/22 01/25/22 01/25/22 17:32 21:34 23:19 Sodium Potassium Chloride Carbon Dioxide Anion Gap BUN Creatinine Estim Creat Clear Calc Estimated GFR POC Glucose 446 H* 459 H* 347 H Random Glucose Estimat Average Glucose Hemoglobin A1c % Calcium 01/26/22 01/26/22 01/26/22 03:50 03:50 07:29 Sodium 140 Potassium 4.2 Chloride 102 Carbon Dioxide 29 Anion Gap 13 BUN 19 H Creatinine 1.19 Estim Creat Clear Calc 45.8 Estimated GFR 46 POC Glucose 195 H Random Glucose 159 H D Estimat Average Glucose 275 Hemoglobin A1c % 11.2 Calcium 8.5 D 01/26/22 12:18 Sodium Potassium Chloride Carbon Dioxide Anion Gap BUN Creatinine Estim Creat Clear Calc Estimated GFR POC Glucose 270 H Random Glucose Estimat Average Glucose Hemoglobin A1c % Calcium Additional Comments Additional comments: MR/MR head/brain wo con IMPRESSION: Normal brain MRI.? Discharge Plan Discharge Patient Disposition: Home, Self-Care Discharge Diagnosis: vertiago possible bppv, uncontrolled dm Referrals: Mihir Noble MD [Primary Care Provider] - 1 Week Discharge Medications: New glipizide 5 mg Tablet 5 mg PO BIDWM Qty: 60 0RF meclizine 25 mg Tablet 25 mg PO TID Qty: 40 0RF Continued albuterol sulfate 2.5 mg /3 mL (0.083 %) solution for nebulization 1 vial inhalation Q4H PRN (Reason: Wheezing) atenolol 25 mg tablet 1 tab PO DAILY diphenoxylate-atropine 2.5-0.025 mg tablet 1 tab PO QID PRN (Reason: Diarrhea) amlodipine 5 mg tablet 1 tab PO BID omeprazole 20 mg capsule,delayed release(DR/EC) 2 cap PO BID albuterol sulfate 90 mcg/actuation HFA aerosol inhaler 2 puff PO Q4H PRN (Reason: Wheezing) budesonide-formoterol [Symbicort] 160-4.5 mcg/actuation HFA aerosol inhaler 1 puff PO BID multivitamin Tablet 1 tab PO DAILY atorvastatin 20 mg tablet 1 tab PO DAILY cholecalciferol (vitamin D3) 50 mcg (2,000 unit) Tablet 50 mcg PO DAILY Changed metformin 500 mg tablet 1 tab PO BID Qty: 60 0RF Held hydrochlorothiazide 12.5 mg tablet 1 tab PO DAILY Hold Instructions: Resume on 01/31/22. Discharge Orders: Discharge Order (Routine); Ordered 01/26/22 Ordered By: Carmelita Bonilla Diet: Diabetic diet Activity on Discharge: As tolerated Stand Alone Forms: Patient Portal Discharge page Care Plan Goals: Patient came with dizziness possible related to vertigo possible bppv: Patient was started on meclizine, hydrated, also getting better control of diabetes- after adding glipizide. Acute kidney injury: Improved significantly with hydration and diabetic control. Seen by Neurology-started on meclizine , Patient seems to be improved. Health Concerns: as above. Plan of Treatment: as above. Assessment: as above.
[2022-01-26] MEDS: metFORMIN HCl 500 MG TABLET PO (13:27)
== END 2022-01-26 13:40 | disposition home or self-care (01) ==
LOC: HO.ED 22:13 → HO.EDOVER 22:41
PROVIDERS: Nurse Practitioner Family; Admitting Provider Internal Medicine; Emergency Provider Emergency Medicine; PCP Internal Medicine; Visit Provider Internal Medicine
DX: R55 Syncope and collapse (principal); I10 Essential (primary) hypertension; E11.65 Type 2 diabetes mellitus with hyperglycemia; N17.9 Acute kidney failure, unspecified; J45.909 Unspecified asthma, uncomplicated; Z86.73 Personal history of transient ischemic attack (TIA), and cerebral infarction without residual deficits; R07.89 Other chest pain; R10.13 Epigastric pain; R00.2 Palpitations; R42 Dizziness and giddiness; Z79.899 Other long term (current) drug therapy; R00.1 Bradycardia, unspecified; Z91.81 History of falling; Z20.822 Contact with and (suspected) exposure to COVID-19
CPT/HCPCS: 36415; 70450; 70496; 70498; 70551; 71045; 80048; 81001; 82947; 83036; 83880; 84484; 85025; 85610; 87635; 93005; 93306; 96361; 96372; 96374; 96375; 96376; 97162; 97165; 99218; 99285; J1200; J1650; J2405; J2930; Q9967

== ENCOUNTER 2022-03-09 09:20 | Outpatient (REF) | payer OTHER, SELFPAY ==
[2022-03-09 10:54] LABS: Estimated Average Glucose 163 mg/dL; Hemoglobin A1c % 7.3 %
[2022-03-09 11:03] LABS: Alanine Aminotransferase 35 U/L (0-31); Albumin Level 4.4 g/dL (3.5-5.0); Alkaline Phosphatase 85 U/L (39-117); Anion Gap 18 (12-20); Aspartate Amino Transferase 37 U/L (5-31); Bilirubin Total 0.8 mg/dL (0.0-1.0); Blood Urea Nitrogen 20 mg/dL (9-16); Calcium 9.4 mg/dL (8.4-10.2); Carbon Dioxide 28 mmol/L (22-29); Chloride 100 mmol/L (96-108); Estimated Glomerular Filt Rate 48; Glucose Fasting 156 mg/dL (60-99); Potassium 4.4 mmol/L (3.3-5.1); Sodium 142 mmol/L (135-145); Total Protein 7.4 g/dL (6.5-8.0)
[2022-03-09 11:15] LABS: Free T4 (Free Thyroxine) 1.03 ng/dL (0.71-1.85); Thyroid Stimulating Hormone 3.34 uIU/mL (0.32-4.0)
== END 2022-03-09 09:21 | disposition home or self-care (01) ==
LOC: HO.10HDL 09:20
PROVIDERS: Visit Provider Internal Medicine
DX: E11.9 Type 2 diabetes mellitus without complications (principal); I10 Essential (primary) hypertension; J45.909 Unspecified asthma, uncomplicated; R79.89 Other specified abnormal findings of blood chemistry
CPT/HCPCS: 36415; 80053; 83036; 84439; 84443

== ENCOUNTER 2022-06-16 10:56 | Outpatient (REF) | payer OTHER, SELFPAY ==
[2022-06-16 13:41] LABS: MANUAL DIFF FLAG NO
[2022-06-16 13:59] LABS: Basophils Percent Auto 0.7 % (0-2); Eosinophils Absolute Auto 0.1 X10*3/uL (0.0-0.4); Eosinophils Percent Auto 2.4 % (0-4); Hematocrit 40.1 % (37.0-47.0); Hemoglobin 13.3 g/dl (12.0-16.0); Imm Gran Abs Auto 0.02 X10*3/uL (0.00-0.03); Imm Gran Pct Auto 0.4 % (0.0-0.4); Lymphocytes Absolute Auto 2.1 X10*3/uL (1.2-4.9); Lymphocytes Percent Auto 38.9 % (20-40); Mean Corpuscular HGB Conc 33.2 g/dl (31.0-35.0); Mean Corpuscular Hemoglobin 31.4 pg (27.0-33.0); Mean Corpuscular Volume 94.6 fL (80.0-98.0); Mean Platelet Volume 11.2 fL (9.4-12.3); Monocytes Absolute Auto 0.3 X10*3/uL (0.1-1.2); Monocytes Percent Auto 5.5 % (2-11); Neutrophils Absolute Auto 2.9 x10*3/uL (2.0-8.3); Neutrophils Percent Auto 52.1 % (45-73); Platelet Count 111 X10*3/uL (160-400); Red Blood Count 4.24 X10*6/uL (4.20-5.50); Red Cell Distribution Width 13.6 % (11.0-16.0); White Blood Count 5.5 X10*3/uL (4.8-10.8)
[2022-06-16 14:27] LABS: Alanine Aminotransferase 28 U/L (0-31); Albumin Level 4.5 g/dL (3.5-5.0); Alkaline Phosphatase 91 U/L (39-117); Anion Gap 18 (12-20); Aspartate Amino Transferase 32 U/L (5-31); Bilirubin Total 0.9 mg/dL (0.0-1.0); Blood Urea Nitrogen 23 mg/dL (9-16); Carbon Dioxide 30 mmol/L (22-29); Chloride 97 mmol/L (96-108); Estimated Glomerular Filt Rate 50; Glucose Random 131 mg/dL (60-115); Potassium 4.8 mmol/L (3.3-5.1); Sodium 140 mmol/L (135-145); Total Protein 7.6 g/dL (6.5-8.0)
[2022-06-16 14:55] LABS: Free T4 (Free Thyroxine) 0.97 ng/dL (0.71-1.85); Thyroid Stimulating Hormone 2.24 uIU/mL (0.32-4.0)
[2022-06-16 16:13] LABS: Estimated Average Glucose 114 mg/dL; Hemoglobin A1c % 5.6 %
== END 2022-06-16 10:57 | disposition home or self-care (01) ==
LOC: HO.10HDL 10:56
PROVIDERS: Visit Provider Internal Medicine
DX: E11.9 Type 2 diabetes mellitus without complications (principal); I10 Essential (primary) hypertension; J45.909 Unspecified asthma, uncomplicated; R53.83 Other fatigue; L65.9 Nonscarring hair loss, unspecified
CPT/HCPCS: 36415; 80053; 83036; 84439; 84443; 85025; 86140

== ENCOUNTER 2022-08-24 11:00 | Outpatient (RCR) | payer OTHER, SELFPAY ==
[2022-07-26 08:27] VITALS: PULSE 66
--- NOTE | 2022-07-26 09:50 | MHC.PT.EP ---
[facility] [place] Office [place] Office [place] Office [address] Jef Goldstein [address] [phone] F: [phone] F: [phone] F: [phone] F: [phone] Physical Therapy Plan of Care Date of Evaluation: Date of Surgery: Diagnosis: positional vertigo Assessment: 67 y/o female referred to PT with positional vertigo. Describes dizziness as room spinning that lasts a few minutes, but then she feels off for most of the day following dizzy episodes. Dizziness occurs mainly with moving in bed but sometimes with bending over or moving head quickly. PMH significant for CVA, DM, HTN, and asthma. Before performing objective testing, blood pressure was taken 189/77. She was asymptomatic and had not taken her medications yet this morning. Advised pt to take her medications and 15-minutes following medication, her blood pressure 173/80, still asymptomatic. Did not perform BPPV assessment due to high BP readings and advised pt to monitor BP at home today and if still elevated to f/u with Dr. Smith. Also educated pt on taking medications more consistently at the same time each day and to monitor vitals. Performed balance and oculomotor screen and pt with poor balance, especially with eyes closed and slightly poor smooth pursuits moving from L to R. She would benefit from vestibular PT 1-2x/week for 3-4 weeks to perform balance training, visual training, and assess for BPPV if vitals appropriate. 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: Pt will be (-) for nystagmus of reports of vertigo in all diagnostic directions B to resolutions of BPPV in 4 weeks Tolerate position changes without complaints vertigo to improve safety and return to pre-onset level Pt to be able to functionally move in all planes without provocation of dizziness and return to PLOF in 4 weeks Pt to be educated on sx and indications to return to therapy when needed in 4 weeks Eliminate BPPV in order to reduce risk of falls Pt will successfully keep center of gravity over her ROLANDO for 20 seconds while reaching overhead to grab a dish from overhead cabinets Treatment Plan: Modalities to reduce pain, spasms and effusion. Manual therapy to restore motion and function. Therapeutic exercise to improve strength and flexibility. Neuromuscular re-education for posture and balance. Therapeutic activities to return to functional activities of daily living. Electronically signed by: Marely Max PT, DPT Please sign and return to therapist. Thank you for your referral.
--- NOTE | 2022-09-27 08:16 | MHC.PT.DC ---
[facility] [place] Office [place] Office [place] Office [address] Jef Goldstein [address] [phone] F: [phone] F: [phone] F: [phone] F: [phone] Physical Therapy Discharge Report Diagnosis: positional vertigo Date of Surgery: Date of Evaluation: 07/26/22 Date of Discharge: 09/27/22 Treatments to Date: 4 Cancellations to Date: 0 No Shows to Date: 0 Discharge Status: Improved Function Independent with HEP Discharge Summary: At time of last visit, she reports feeling better but still experiences dizziness with sudden head turns. Due to this session was focused on static and dynamic balance exercises. She found step stance, standing on airex FT and walking with diagonal head turns most challenging however no LOB noted and she was able to catch herself whenever she felt herself losing her balance. She presented only with mild symptoms of hypofunction. She was therefore distributed balance HEP and educated on how to perform them safely. She stated she felt confident with progressing herself and will trial exercises at home. She was educated on returning to therapy in case of return of symptoms. She did not f/u with further visits and is now dd/c Electronically signed by: Marely Max PT Please sign and return to therapist. Thank you for your referral.
== END 2022-09-27 08:17 | disposition home or self-care (01) ==
LOC: HO.PT 11:00
PROVIDERS: PCP Internal Medicine; Visit Provider Psychiatry & Neurology Neurology
DX: H81.10 Benign paroxysmal vertigo, unspecified ear (principal)
CPT/HCPCS: 95992; 97112; 97162; 97535

== ENCOUNTER 2022-10-04 06:50 | Day surgery (SDC) | payer OTHER, SELFPAY ==
--- NOTE | 2022-10-03 12:12 | P.CONAN_ITS ---
Documented by User: Carol Ann Angel NP 10/03/22 12:16 HPI - Anesthesia Eval Consult details Narrative: 67yo F for Colonoscopy PMFSH Past Medical History Medical History Asthma CVA (cerebral vascular accident) Diabetes Diverticulosis Edema Elevated cholesterol Fatty liver Hypertension IBS (irritable bowel syndrome) Family History Family History (Updated 01/25/22 @ 07:29 by Cristiane Nguyen MD) Other No family history of coronary artery disease Surgical History Surgical History H/O abdominal surgery H/O colonoscopy H/O esophagogastroduodenoscopy H/O foot surgery H/O tubal ligation H/O: hysterectomy History of History of surgical removal of skin lesion S/P excision of lipoma Social History Social History Alcohol intake: current Alcohol intake frequency: holidays/special occasions only Alcohol type: wine Patient Tobacco Use Status: Never used Tobacco Are you DNR?: No Advance Directives: No Advance Directives Information Provided: Yes Nutrition Risks: No Nutritional Risk service: No Current occupational status: retired Meds Allergies Allergy/AdvReac Type Severity Reaction Status Date / Time hyoscyamine [From LEVBID] Allergy Intermediate VOMITING Verified 10/04/22 07:09 Iodinated Contrast Media Allergy Intermediate Difficulty Verified 10/04/22 07:09 [Contrast Dye] Breathing methylcellulose [Citrucel] Allergy Unknown headache, Verified 10/04/22 07:09 rash mushroom Allergy Unknown RASH Verified 10/04/22 07:09 lactose [Lactose] AdvReac Mild DIARRHEA Verified 10/04/22 07:09 Home Medications Medication Instructions Recorded Confirmed Last Taken Type albuterol sulfate 2.5 mg/3 mL 1 vial inhalation Q4H PRN Wheezing 01/24/22 10/04/22 01/24/22 History (0.083 %) solution for nebulization albuterol sulfate 90 mcg/actuation 2 puff PO Q4H PRN Wheezing 01/24/22 10/04/22 01/24/22 History aerosol inhaler amlodipine 5 mg tablet 1 tab PO BID 01/24/22 10/04/22 01/24/22 History atenolol 25 mg tablet 1 tab PO DAILY 01/24/22 10/04/22 01/24/22 History atorvastatin 20 mg tablet 1 tab PO DAILY 01/24/22 10/04/22 01/24/22 History budesonide-formoterol HFA 160 1 puff PO BID 01/24/22 10/04/22 10/04/22 History mcg-4.5 mcg/actuation aerosol inhaler (Symbicort) cholecalciferol (vitamin D3) 50 50 mcg PO DAILY 01/24/22 10/04/22 01/24/22 History mcg (2,000 unit) tablet diphenoxylate-atropine 2.5 1 tab PO QID PRN Diarrhea 01/24/22 10/04/22 Unknown History mg-0.025 mg tablet hydrochlorothiazide 12.5 mg tablet 1 tab PO DAILY 01/24/22 10/04/22 01/24/22 History multivitamin 1 tab PO DAILY 01/24/22 10/04/22 01/24/22 History omeprazole 20 mg capsule,delayed 2 cap PO BID 01/24/22 10/04/22 01/24/22 History release aspirin 81 mg tablet 81 mg PO DAILY 10/03/22 10/03/22 09/26/22 History dapagliflozin 10 mg tablet 1 tab PO DAILY 10/03/22 10/03/22 Unknown History ([facility]) Exam Exam Date and Time: October 03, 2022 1212 Pertinent Lab Results Pertinent Lab Results: Laboratory Tests 06/16/22 06/16/22 11:00 11:00 WBC 5.5 Hgb 13.3 Hct 40.1 Plt Count 111 L D Sodium 140 Potassium 4.8 Chloride 97 Carbon Dioxide 30 H BUN 23 H Creatinine 1.10 Narrative Narrative: EKG 12/2021 Vent. Rate : 059 BPM ? ? Atrial Rate : 059 BPM ?? P-R Int : 130 ms? QRS Dur : 070 ms ? ? QT Int : 430 ms ? ? ? P-R-T Axes : 024 009 021 degrees ?? QTc Int : 425 ms ? Sinus bradycardia Nonspecific ST abnormality Abnormal ECG When compared with ECG of 23-SEP-2008 20:09, No significant change was found ECHO 12/2021 Conclusions: - The left ventricular systolic function is hyperdynamic.? The ? visually estimated ejection fraction is >70%.? - No obvious valvular pathology seen on this study.? Assessment and Plan Assessment Anesthesia Assessment: Chart Reviewed Documented by User: Dimitri Cao MD 10/04/22 08:07 [facility] Past Medical History Medical History Asthma CVA (cerebral vascular accident) Diabetes Diverticulosis Edema Elevated cholesterol Fatty liver Hypertension IBS (irritable bowel syndrome) Family History Family History (Updated 01/25/22 @ 07:29 by Cristiane Nguyen MD) Other No family history of coronary artery disease Family history of problems with anesthesia: No Surgical History Surgical History H/O abdominal surgery H/O colonoscopy H/O esophagogastroduodenoscopy H/O foot surgery H/O tubal ligation H/O: hysterectomy History of History of surgical removal of skin lesion S/P excision of lipoma History of Problems with Anesthesia: No Social History Social History Alcohol intake: current Alcohol intake frequency: holidays/special occasions only Alcohol type: wine Patient Tobacco Use Status: Never used Tobacco Are you DNR?: No Advance Directives: No Advance Directives Information Provided: Yes Nutrition Risks: No Nutritional Risk service: No Current occupational status: retired Meds Allergies Allergy/AdvReac Type Severity Reaction Status Date / Time hyoscyamine [From LEVBID] Allergy Intermediate VOMITING Verified 10/04/22 07:09 Iodinated Contrast Media Allergy Intermediate Difficulty Verified 10/04/22 07:09 [Contrast Dye] Breathing methylcellulose [Citrucel] Allergy Unknown headache, Verified 10/04/22 07:09 rash mushroom Allergy Unknown RASH Verified 10/04/22 07:09 lactose [Lactose] AdvReac Mild DIARRHEA Verified 10/04/22 07:09 Home Medications Medication Instructions Recorded Confirmed Last Taken Type albuterol sulfate 2.5 mg/3 mL 1 vial inhalation Q4H PRN Wheezing 01/24/22 10/04/22 01/24/22 History (0.083 %) solution for nebulization albuterol sulfate 90 mcg/actuation 2 puff PO Q4H PRN Wheezing 01/24/22 10/04/22 01/24/22 History aerosol inhaler amlodipine 5 mg tablet 1 tab PO BID 01/24/22 10/04/22 01/24/22 History atenolol 25 mg tablet 1 tab PO DAILY 01/24/22 10/04/22 01/24/22 History atorvastatin 20 mg tablet 1 tab PO DAILY 01/24/22 10/04/22 01/24/22 History budesonide-formoterol HFA 160 1 puff PO BID 01/24/22 10/04/22 10/04/22 History mcg-4.5 mcg/actuation aerosol inhaler (Symbicort) cholecalciferol (vitamin D3) 50 50 mcg PO DAILY 01/24/22 10/04/22 01/24/22 History mcg (2,000 unit) tablet diphenoxylate-atropine 2.5 1 tab PO QID PRN Diarrhea 01/24/22 10/04/22 Unknown History mg-0.025 mg tablet hydrochlorothiazide 12.5 mg tablet 1 tab PO DAILY 01/24/22 10/04/22 01/24/22 History multivitamin 1 tab PO DAILY 01/24/22 10/04/22 01/24/22 History omeprazole 20 mg capsule,delayed 2 cap PO BID 01/24/22 10/04/22 01/24/22 History release aspirin 81 mg tablet 81 mg PO DAILY 10/03/22 10/03/22 09/26/22 History dapagliflozin 10 mg tablet 1 tab PO DAILY 10/03/22 10/03/22 Unknown History ([facility]) Exam Airway Mallampati Class: III TM Dist: >3cm Neck ROM: Full Assessment and Plan Assessment Anesthesia Assessment: Anesthesia Plan Discussed Final Anesthetic Review Family History of Problems with Anesthesia: No History of Problems with Anesthesia: No NPO: Yes ASA Class: III Final Preanesthetic Review: No Changes in Pt Med Stat, Meds/Allgs Chart Reviewed, Consent Obtained/Reviewed and Anes Risks/Benef Reviewed Patient Risk: Intermediate Procedure Risk: Low Anesthetic Plan Anesthetic Plan: MAC: Disposition: Standard PACU
[2022-10-04 06:16] VITALS: BMI 30.8
[2022-10-04] MEDS: Lactated Ringers 1,000 ML 100 ML IVCONT (06:58)
[2022-10-04 07:21] LABS: Glucose, Whole Blood 140 mg/dL (60-115)
[2022-10-04 07:28] VITALS: BP 169/70; PULSE 58; RESP 18; TEMP 36.7; O2SAT 98
--- NOTE | 2022-10-04 08:14 | MHC.SHP ---
Pre-Procedural Eval Section A Date of Service: 10/04/22 Section B Chief Complaint: Personal history of colonic polyps,screening Details of Present Illness: see H&P no changes Relevant Family History (Specify if Yes): No Relevant Social History: None Present Medications: see Short Stay Collaborative assessment Medical History: No relevant PMH History of Previous Operations: No relevant previous surgery Allergies: Allergies Allergy/AdvReac Type Severity Reaction Status Date / Time hyoscyamine [From LEVBID] Allergy Intermediate VOMITING Verified 10/04/22 07:09 Iodinated Contrast Media Allergy Intermediate Difficulty Verified 10/04/22 07:09 [Contrast Dye] Breathing methylcellulose [Citrucel] Allergy Unknown headache, Verified 10/04/22 07:09 rash mushroom Allergy Unknown RASH Verified 10/04/22 07:09 lactose [Lactose] AdvReac Mild DIARRHEA Verified 10/04/22 07:09 Review of Systems Sugical H&P ROS: Negative: Constitution, Cardiovascular, Respiratory, Neurological, Psychiatric, Hem-Onc, Allergic/Immunologic, Gastrointestinal, Genitourinary, Musculoskeletal, Integumentary, Endocrine and Eyes/Ears/Nose/Throat Exam Surgical H&P Exam: Normal: HEENT, Normal: Heart, Normal: Lungs, Normal: Extremities, Normal: Abdomen, Normal: Skin and Normal: Neurological Plan Diagnosis/Plan: Unchanged I have reviewed the history and physical and performed a pertinent physical examination on my patient. No changes have occurred unless specified. Time Spent With Patient Time: Total time managing care of this patient today ____ minutes.
--- NOTE | 2022-10-04 08:44 | PM.OP ---
Brief Operative Note Date of Service: 10/04/22 Pre-op diagnosis: screening Procedure: colonoscpy Surgeon: Yaya Ngo Anesthesia: MAC Was an Quality Project Manager used for this Procedure?: No Estimated blood loss (mL): 5 Pathology: other Condition: stable Disposition: PACU
[2022-10-04 08:48] VITALS: BP 113/63; PULSE 54; RESP 18; TEMP 36.5; O2SAT 96
[2022-10-04 09:03] VITALS: BP 144/73; PULSE 56; RESP 16; TEMP 36.2; O2SAT 100
--- NOTE | 2022-10-04 12:38 | OP_ITS ---
SURGEON: Yaya Ngo MD INDICATIONS: Colon cancer screening and prior history of colon polyps. PREOPERATIVE DIAGNOSIS: POSTOPERATIVE DIAGNOSIS: PROCEDURE PERFORMED: ESTIMATED BLOOD LOSS: COMPLICATIONS: ANESTHESIA: Monitored anesthesia care. ASSISTANTS: SPECIMENS: DATE OF SERVICE: 10/04/2022 DESCRIPTION OF PROCEDURE: The procedure was performed on 10/04/2022. A history and physical was performed. The risks and benefits of the procedure were explained to the patient. Informed consent was obtained. The patient was placed in the left lateral decubitus position. A digital rectal exam was performed and was found to be normal. The Olympus pediatric video colonoscope was introduced into the rectum and advanced to the cecum without difficulty. The cecum was identified by transillumination, palpation, and identification of ileocecal valve examination was performed. The scope was removed. She tolerated the procedure well. She returned to the recovery area in stable condition. FINDINGS: The terminal ileum was briefly examined and appeared normal. The visualized colonic mucosa was normal. The quality of the prep was good. Two polyps were identified. The first was located in the right colon and was removed with a biopsy forceps measuring less than 5 mm. The 2nd was located at 75 cm and was removed with a snare and recovered via suction. The polyp measured 8 mm. No other polyps were identified. There was mild sigmoid diverticulosis. Retroflexed examination showed moderate-sized internal hemorrhoids. The quality of the prep was good. IMPRESSION: Colon polyps. RECOMMENDATION: Follow up the biopsy results. MD ELA Rojas/CRISTIAN / [id number] [facility]IT[facility]
== END 2022-10-04 09:24 | disposition home or self-care (01) ==
PROVIDERS: PCP Internal Medicine; Visit Provider Internal Medicine Gastroenterology
PROC: 0DJD8ZZ Inspection of Lower Intestinal Tract, Via Natural or Artificial Opening Endoscopic (ICD-10-PCS; CPT 45378; principal; 2022-10-04 08:10)
DX: Z12.11 Encounter for screening for malignant neoplasm of colon (principal); K63.5 Polyp of colon; Z86.010 Personal history of colon polyps; E11.9 Type 2 diabetes mellitus without complications; Z80.0 Family history of malignant neoplasm of digestive organs
CPT/HCPCS: 45385; 45380; 82947; 88305

== ENCOUNTER 2022-11-17 11:27 | Outpatient (REF) | payer OTHER, SELFPAY ==
[2022-11-17 13:35] LABS: MANUAL DIFF FLAG NO
[2022-11-17 13:38] LABS: Basophils Percent Auto 0.6 % (0-2); Eosinophils Absolute Auto 0.1 X10*3/uL (0.0-0.4); Eosinophils Percent Auto 2.6 % (0-4); Hematocrit 39.6 % (37.0-47.0); Hemoglobin 13.2 g/dl (12.0-16.0); Imm Gran Abs Auto 0.03 X10*3/uL (0.00-0.03); Imm Gran Pct Auto 0.6 % (0.0-0.4); Lymphocytes Absolute Auto 2.1 X10*3/uL (1.2-4.9); Lymphocytes Percent Auto 39.5 % (20-40); Mean Corpuscular HGB Conc 33.3 g/dl (31.0-35.0); Mean Corpuscular Hemoglobin 31.8 pg (27.0-33.0); Mean Corpuscular Volume 95.4 fL (80.0-98.0); Mean Platelet Volume 10.5 fL (9.4-12.3); Monocytes Absolute Auto 0.2 X10*3/uL (0.1-1.2); Monocytes Percent Auto 4.5 % (2-11); Neutrophils Absolute Auto 2.8 x10*3/uL (2.0-8.3); Neutrophils Percent Auto 52.2 % (45-73); Platelet Count 131 X10*3/uL (160-400); Red Blood Count 4.15 X10*6/uL (4.20-5.50); Red Cell Distribution Width 13.8 % (11.0-16.0); White Blood Count 5.3 X10*3/uL (4.8-10.8)
[2022-11-17 13:55] LABS: Alanine Aminotransferase 31 U/L (0-31); Albumin Level 4.3 g/dL (3.5-5.0); Alkaline Phosphatase 85 U/L (39-117); Anion Gap 17 (12-20); Aspartate Amino Transferase 32 U/L (5-31); Bilirubin Total 0.8 mg/dL (0.0-1.0); Blood Urea Nitrogen 24 mg/dL (9-16); Calcium 9.3 mg/dL (8.4-10.2); Carbon Dioxide 29 mmol/L (22-29); Chloride 101 mmol/L (96-108); Estimated Average Glucose 111 mg/dL; Estimated Glomerular Filt Rate 42; Glucose Random 180 mg/dL (60-115); Hemoglobin A1c % 5.5 %; Potassium 4.5 mmol/L (3.3-5.1); Sodium 142 mmol/L (135-145); Total Protein 6.9 g/dL (6.5-8.0)
[2022-11-17 14:07] LABS: Creatinine Urine 112.99 mg/dL; Microalbum/Creatinine Ratio Ur 7.9 ug/mg cr
== END 2022-11-17 11:28 | disposition home or self-care (01) ==
LOC: HO.10HDL 11:27
PROVIDERS: Visit Provider Internal Medicine
DX: E11.22 Type 2 diabetes mellitus with diabetic chronic kidney disease (principal); I12.9 Hypertensive chronic kidney disease with stage 1 through stage 4 chronic kidney disease, or unspecified chronic kidney disease; N18.9 Chronic kidney disease, unspecified
CPT/HCPCS: 36415; 80053; 82043; 83036; 85025

== ENCOUNTER 2022-12-28 15:00 | Outpatient (REF) | payer OTHER, SELFPAY ==
--- NOTE | ~2022-12-28 | US_ITS ---
EXAMINATION: US VENOUS ULTRASOUND WITH DOPPLER LOWER EXTREMITY, LEFT CLINICAL INFORMATION: Left leg pain COMPARISON: None available. TECHNIQUE: Ultrasound of the deep veins is performed from the hip to the calf with compression sonography and color and pulse Doppler assessment. Spectral analysis with color-flow imaging is performed. FINDINGS: There is normal venous compression and respiratory variation and augmented flow. The visualized common femoral vein, superficial femoral vein, profunda femoral vein, popliteal vein, and the trifurcation region shows no evidence of deep venous thrombosis. There is no significant popliteal fossa cyst. The contralateral right common femoral vein appears normal. If the patient's symptoms persist, followup ultrasound in 5 days 7 days might be of value to exclude proximal propagation from a non-visualized calf vein. US/US venous duplex LE IMPRESSION: No DVT demonstrated in the left lower extremity.
== END 2022-12-28 15:01 | disposition home or self-care (01) ==
LOC: HO.US 15:00
PROVIDERS: PCP Internal Medicine; Visit Provider Internal Medicine
DX: M79.662 Pain in left lower leg (principal)
CPT/HCPCS: 93971

== ENCOUNTER 2023-03-29 09:44 | Outpatient (REF) | payer OTHER, SELFPAY ==
--- NOTE | 2023-03-29 09:49 | EMG_ITS ---
Please see scanned EMG / Nerve Conduction Report. MTDD
== END 2023-03-29 09:45 | disposition home or self-care (01) ==
LOC: HO.NEURO 09:44
PROVIDERS: PCP Internal Medicine; Visit Provider Internal Medicine
DX: M79.642 Pain in left hand (principal); M79.641 Pain in right hand
CPT/HCPCS: 95885; 95913

== ENCOUNTER 2023-05-17 10:15 | Outpatient (AMB) | payer OTHER, SELFPAY ==
--- NOTE | 2023-05-17 10:18 | A.OFFVIS_ITS ---
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 Nerve conduction study done on 03/29/[address] Whitfield. She reports that she has history of trigger finger of the middle finger of the left hand. This finger is the most problematic, she is having pain, locking and catching which is affecting her grasping. The symptoms of trigger finger have started on the right middle finger. 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 Allergies hyoscyamine [From LEVBID] Allergy (Intermediate, Verified 10/04/22 07:09) VOMITING Iodinated Contrast Media [Contrast Dye] Allergy (Intermediate, Verified 10/04/22 07:09) Difficulty Breathing methylcellulose [Citrucel] Allergy (Unknown, Verified 10/04/22 07:09) headache, rash mushroom Allergy (Unknown, Verified 10/04/22 07:09) RASH lactose [Lactose] Adverse Reaction (Mild, Verified 10/04/22 07:09) DIARRHEA Medication List - Last Reconciled 05/17/23 by Constance Paz MD albuterol sulfate 1 vial inhalation Q4H PRN albuterol sulfate 90 mcg/actuation 2 puffs PO Q4H PRN amlodipine 1 tab PO BID aspirin 81 mg PO DAILY atenolol 1 tab PO DAILY atorvastatin 1 tab PO DAILY budesonide-formoterol 160-4.5 mcg/actuation (Symbicort) 1 puff PO BID cholecalciferol (vitamin D3) 50 mcg PO DAILY dapagliflozin propanediol (Farxiga) 1 tab PO DAILY diphenoxylate-atropine 2.5-0.025 mg 1 tab PO QID PRN glipizide 5 mg PO BIDWM hydrochlorothiazide 1 tab PO DAILY metformin 1 tab PO BID multivitamin 1 tab PO DAILY omeprazole 2 caps PO BID HPI HPI Comments History of Present Illness Details 6-7 months pain, can't make fist without pain especially on left. Cannot close left hand or hold anything. Points to left middle finger. This locks. Ocassional numbness on left middle finger, right milder. Night time symptoms, wakes her up. Pain constant for past 1 1/2 month. Trigger finger surgery more than 10 years, left middle finger. Treatment done so far: heating pad tapes her hand but no wrist brace tylenol, cannot take NSAIDs due to IBS Does not want injections. [facility] Medical History (Updated 05/17/23 @ 10:53 by Constance Paz MD) Trigger finger of left hand Fatty liver Edema Diverticulosis IBS (irritable bowel syndrome) Elevated cholesterol Asthma CVA (cerebral vascular accident) Diabetes Hypertension Surgical History H/O abdominal surgery S/P excision of lipoma History of surgical removal of skin lesion H/O: hysterectomy H/O tubal ligation H/O esophagogastroduodenoscopy H/O colonoscopy History of H/O foot surgery Family History (Updated 01/25/22 @ 07:29 by Cristiane Nguyen MD) Other No family history of coronary artery disease Social History Alcohol intake: current Alcohol intake frequency: holidays/special occasions only Alcohol type: wine Patient Tobacco Use Status: Never used Tobacco service: No Current occupational status: retired Review of Systems Const All systems reviewed & are unremarkable except as noted in HPI and below Physical Exam Constitutional: Patient appears to be in no acute distress, well nourished and well developed. MSK: Palpable nodule on the flexor tendon, 3rd digit, bilateral. Triggering bilateral 3rd digits. No intrinsic hand weakness noted. No atrophy noted. Meghana test negative. Carpal compression test mildly positive bilateral. Tinel sign negative. Strength is 5/5 in all muscle groups tested. No increased tone noted. Neurological: Neurologic examination of the upper and lower extremities was nonfocal with intact sensation, muscle stretch reflexes and without focal motor deficits . Garcia?s negative bilaterally Gait is non-antalgic without loss of balance. Results Reviewed Results Reviewed: I independently reviewed the results of the following: EMG done by Dr. Whitfield 03/29/2023 showed normal bilateral nerve conduction studies I reviewed records from the following: Dr. Noble Assessment & Plan Assessment & Plan (1) Trigger finger of left hand: Code(s): M65.30 - Trigger finger, unspecified finger Qualifiers: Trigger finger location: middle finger Qualified Code(s): M65.332 - Trigger finger, left middle finger (2) Trigger finger of right hand: Code(s): M65.30 - Trigger finger, unspecified finger Qualifiers: Trigger finger location: middle finger Qualified Code(s): M65.331 - Trigger finger, right middle finger (3) Bilateral hand pain: Code(s): M79.641 - Pain in right hand; M79.642 - Pain in left hand Plan Trigger finger, bilateral 3rd digits. Left worse than right. Negative Carpal Tunnel Syndrome on NCS. Continue heating pad. Will put on finger splint. Patient does not want any injections. She would rather proceed with surgery Xrays bilateral hands for completion. Referral to Ortho for preop clearance and scheduling for surgery. Assessment and plan discussed with patient, and patient was agreeable. All questions were answered thoroughly. Constance Paz MD, YAMINI Board Certified, [place] [employer] and Rehabilitation (ABPMR) Board Certified, [place] Board [employer] Electrodiagnostic Medicine (ABEM) Orders: Orders XR hand LT min 3V Today M65.30 - Trigger finger, unspecified finger, M79.641 - Pain in right hand, M79.642 - Pain in left hand XR hand RT min 3V Today M65.30 - Trigger finger, unspecified finger, M79.641 - Pain in right hand, M79.642 - Pain in left hand Referrals Orthopedics Referral M65.30 - Trigger finger, unspecified finger, M79.641 - Pain in right hand, M79.642 - Pain in left hand Coding Level of Care Code New Pt Level 4 (81238) Diagnoses Trigger middle finger of left hand M65.332 Trigger finger location: middle finger Trigger middle finger of right hand M65.331 Trigger finger location: middle finger Bilateral hand pain M79.641; M79.642
== END 2023-05-17 10:55 | disposition home or self-care (01) ==
PROVIDERS: PCP Internal Medicine; Visit Provider Physical Medicine & Rehabilitation
DX: M65.332 Trigger finger, left middle finger (principal); M65.331 Trigger finger, right middle finger; M79.641 Pain in right hand; M79.642 Pain in left hand
CPT/HCPCS: 99204

== ENCOUNTER 2023-05-17 10:15 | Outpatient (REF) | payer OTHER, SELFPAY ==
--- NOTE | ~2023-05-17 | XR_ITS ---
EXAMINATION: XR HAND, BILATERAL CLINICAL INFORMATION: Pain middle finger bilateral hands. COMPARISON: None available. TECHNIQUE: 3 views of each hand were obtained after radiopaque marker placed by technologist to indicate areas of concern at distal tips of the bilateral 3rd digits. FINDINGS: LEFT HAND: Moderate degenerative changes in the 1st carpometacarpal and metacarpophalangeal joints with joint space narrowing and hypertrophic change. Advanced degenerative changes in the DIP joint of the 3rd digit with abundant hypertrophic change. Degenerative changes with mild hypertrophic change in additional scattered IP joints of the digits. RIGHT HAND: Moderate degenerative changes in the 1st carpometacarpal and metacarpophalangeal joints with joint space narrowing and hypertrophic change. Advanced degenerative changes in the DIP joint of the 3rd digit with abundant hypertrophic change. Degenerative changes with mild hypertrophic change in additional scattered IP joints of the digits. XR/XR hand LT min 3V IMPRESSION: 1. Abundant hypertrophic change at the DIP joints of the bilateral 3rd digits. No displaced fracture of the bilateral 3rd digits appreciated. 2. Moderate degenerative changes in scattered joints of the bilateral hands, as detailed above. Recommend followup imaging in 10-14 days if fracture is suspected.
--- NOTE | ~2023-05-17 | XR_ITS ---
EXAMINATION: XR HAND, BILATERAL CLINICAL INFORMATION: Pain middle finger bilateral hands. COMPARISON: None available. TECHNIQUE: 3 views of each hand were obtained after radiopaque marker placed by technologist to indicate areas of concern at distal tips of the bilateral 3rd digits. FINDINGS: LEFT HAND: Moderate degenerative changes in the 1st carpometacarpal and metacarpophalangeal joints with joint space narrowing and hypertrophic change. Advanced degenerative changes in the DIP joint of the 3rd digit with abundant hypertrophic change. Degenerative changes with mild hypertrophic change in additional scattered IP joints of the digits. RIGHT HAND: Moderate degenerative changes in the 1st carpometacarpal and metacarpophalangeal joints with joint space narrowing and hypertrophic change. Advanced degenerative changes in the DIP joint of the 3rd digit with abundant hypertrophic change. Degenerative changes with mild hypertrophic change in additional scattered IP joints of the digits. XR/XR hand RT min 3V IMPRESSION: 1. Abundant hypertrophic change at the DIP joints of the bilateral 3rd digits. No displaced fracture of the bilateral 3rd digits appreciated. 2. Moderate degenerative changes in scattered joints of the bilateral hands, as detailed above. Recommend followup imaging in 10-14 days if fracture is suspected.
== END 2023-05-17 10:16 | disposition home or self-care (01) ==
LOC: HO.HOSX 10:15
PROVIDERS: PCP Internal Medicine; Visit Provider Physical Medicine & Rehabilitation
DX: M65.332 Trigger finger, left middle finger (principal); M65.331 Trigger finger, right middle finger
CPT/HCPCS: 73130

== ENCOUNTER 2023-06-05 10:20 | Outpatient (REF) | payer OTHER, SELFPAY ==
[2023-06-05 10:37] LABS: MANUAL DIFF FLAG NO
[2023-06-05 10:57] LABS: Basophils Percent Auto 0.6 % (0-2); Eosinophils Absolute Auto 0.1 X10*3/uL (0.0-0.4); Eosinophils Percent Auto 2.6 % (0-4); Hematocrit 40.2 % (37.0-47.0); Hemoglobin 13.5 g/dl (12.0-16.0); Imm Gran Abs Auto 0.02 X10*3/uL (0.00-0.03); Imm Gran Pct Auto 0.4 % (0.0-0.4); Lymphocytes Absolute Auto 2.3 X10*3/uL (1.2-4.9); Lymphocytes Percent Auto 43.8 % (20-40); Mean Corpuscular HGB Conc 33.6 g/dl (31.0-35.0); Mean Corpuscular Volume 95.3 fL (80.0-98.0); Mean Platelet Volume 10.8 fL (9.4-12.3); Monocytes Absolute Auto 0.3 X10*3/uL (0.1-1.2); Monocytes Percent Auto 5.2 % (2-11); Neutrophils Absolute Auto 2.5 x10*3/uL (2.0-8.3); Neutrophils Percent Auto 47.4 % (45-73); Platelet Count 115 X10*3/uL (160-400); Red Blood Count 4.22 X10*6/uL (4.20-5.50); Red Cell Distribution Width 13.2 % (11.0-16.0); White Blood Count 5.3 X10*3/uL (4.8-10.8)
[2023-06-05 11:02] LABS: Estimated Average Glucose 114 mg/dL; Hemoglobin A1c % 5.6 % (<6.0)
[2023-06-05 11:26] LABS: Alanine Aminotransferase 37 U/L (0-31); Albumin Level 4.4 g/dL (3.5-5.0); Alkaline Phosphatase 81 U/L (39-117); Anion Gap 13 (12-20); Aspartate Amino Transferase 35 U/L (5-31); Bilirubin Total 0.8 mg/dL (0.0-1.0); Blood Urea Nitrogen 22 mg/dL (9-16); Calcium 9.8 mg/dL (8.4-10.2); Carbon Dioxide 31 mmol/L (22-29); Chloride 101 mmol/L (96-108); Cholesterol 162 mg/dL (<200); Estimated Glomerular Filt Rate 49; Glucose Fasting 137 mg/dL (60-99); HDL Cholesterol 52 mg/dL (>40); LDL Cholesterol Calculated 84 mg/dL (<100); Potassium 4.3 mmol/L (3.3-5.1); Sodium 141 mmol/L (135-145); Total Protein 7.6 g/dL (6.5-8.0); Triglycerides 130 mg/dL (<150)
[2023-06-05 11:40] LABS: Vitamin D 25-OH Total 56.4 ng/mL (>30)
[2023-06-05 14:09] LABS: Creatinine Urine 245.25 mg/dL; Microalbum/Creatinine Ratio Ur 10.6 ug/mg cr (<30)
== END 2023-06-05 10:21 | disposition home or self-care (01) ==
LOC: HO.LAB 10:20
PROVIDERS: PCP Internal Medicine; Visit Provider Internal Medicine
DX: J45.909 Unspecified asthma, uncomplicated (principal); K58.0 Irritable bowel syndrome with diarrhea; E78.00 Pure hypercholesterolemia, unspecified; I12.9 Hypertensive chronic kidney disease with stage 1 through stage 4 chronic kidney disease, or unspecified chronic kidney disease; E11.22 Type 2 diabetes mellitus with diabetic chronic kidney disease; E55.9 Vitamin D deficiency, unspecified
CPT/HCPCS: 36415; 80053; 80061; 82043; 82306; 82570; 83036; 85025

== ENCOUNTER 2023-06-16 13:14 | Outpatient (REF) | payer OTHER, SELFPAY ==
--- NOTE | ~2023-06-16 | MM_ITS ---
EXAMINATION: MM SCREENING DIGITAL BREAST TOMOSYNTHESIS, BILATERAL CLINICAL INFORMATION: Screening. Asymptomatic. COMPARISON: Mammography: This study is compared with prior exams dating back to TECHNIQUE: Digital breast tomosynthesis is performed in both the craniocaudal and mediolateral oblique views along with computer-aided detection (CAD). Synthesized 2D images are generated from the tomosynthesis. FINDINGS: The breasts are almost entirely fatty (ACR BI-RADS breast composition Category a). There are no significant masses, abnormal calcifications, or other abnormalities. There is a tissue marker in the left breast from prior benign percutaneous biopsy. MM/MM tomosynthesis screening BI IMPRESSION: No mammographic evidence of malignancy. ASSESSMENT: BI-RADS BI-RADS 2 - Benign Findings RECOMMENDATION: Routine annual mammography screening. 1 year F/U This examination should not preclude the clinical evaluation of a suspicious palpable abnormality. This patient's information was entered into a reminder system with a target due date for their next mammogram.
--- NOTE | ~2023-06-16 | MM_ITS ---
EXAMINATION: BONE DENSITOMETRY CLINICAL INDICATION: Menopause. COMPARISON: This is the patient's baseline examination. TECHNIQUE: Using a [employer] DXA System (software version: 13.1) manufactured by [employer], dual-energy x-ray absorptiometry was performed of the lumbar spine and left hip. The images are of good technical quality. Summary results are attached. FINDINGS: LEFT FEMUR, NECK: BMD 1.159 g/cm2, Z-score 2.1, T-score 0.9, normal. LEFT FEMUR, TOTAL: BMD 1.225 g/cm2, Z-score 2.6, T-score 1.7, normal. AP SPINE L1-L4: BMD 1.439 g/cm2, Z-score 3.3, T-score 2.2, normal. IDENTIFIED RISK FACTORS: Menopause, hysterectomy, bilateral oophorectomy, thiazide. HISTORY OF FRACTURE: None listed. MEDICATIONS: Multivitamin, vitamin D. MM/XR DEXA axial skeleton IMPRESSION: 1. DIAGNOSIS: Normal bone density based on the lowest T-score value of 0.9 in the femoral neck applying World Health Organization criteria. 2. 10-YEAR FRACTURE RISK PREDICTION, FRAX: According to the guidelines, FRAX calculation should only be performed on patients in the osteopenia bone density category. Therefore, FRAX was not performed on this patient. 3. Treatment Recommendations: NOF guidelines recommend consideration for treatment in postmenopausal women and men age 50 and older presenting with the following: -A hip or vertebral (clinical or morphometric) fracture. -T-score less than or equal to -2.5 at the femoral neck or spine after appropriate evaluation to exclude secondary causes. -Low bone mass at the hip or spine and a 10-year fracture probability by FRAX of greater than or equal to 3% for hip fracture or greater than or equal to 20% for major osteoporotic fracture based on the [place] adapted WHO algorithm. 4. Other Recommendations: All treatment decisions require clinical judgment and consideration of individual patient factors, including patient preferences, comorbidities, previous drug use, risk factors not captured in the FRAX model (e.g. frailty, falls, vitamin D deficiency, increased bone turnover, interval significant decline in bone density) and possible under or overestimation of fracture risk by FRAX. FUTURE SCAN RECOMMENDATION: People with diagnosed cases of osteoporosis or at high risk for fracture should have regular bone mineral density tests. For patients eligible for Medicare, routine testing is allowed once every 2 years. The testing frequency can be increased to one year for patients who have rapidly progressing disease, those who are receiving or discontinuing medical therapy to restore bone mass, or have additional risk factors.
== END 2023-06-16 13:15 | disposition home or self-care (01) ==
LOC: HO.MAMMO 13:14
PROVIDERS: PCP Internal Medicine; Visit Provider Internal Medicine
DX: Z12.31 Encounter for screening mammogram for malignant neoplasm of breast (principal); Z13.820 Encounter for screening for osteoporosis; Z78.0 Asymptomatic menopausal state
CPT/HCPCS: 77063; 77067; 77080

== ENCOUNTER → 2023-06-16 13:30 | Outpatient (BNV) | payer OTHER, SELFPAY | PROVIDERS: PCP Internal Medicine; Visit Provider Radiology Diagnostic Radiology | DX: Z12.31 Encounter for screening mammogram for malignant neoplasm of breast (principal) | CPT/HCPCS: 77063; 77067 ==

== ENCOUNTER 2023-06-28 09:22 | Outpatient (AMB) | payer OTHER, SELFPAY ==
--- NOTE | 2023-06-28 09:55 | MHC.OFFVIS ---
Intake Vital Signs 06/28/23 09:55 Height 5 ft 3 in Intake Visit Reasons: OV- Trigger Finger Release B/L middle finger Intake Note: Joesph 68 yr old right hand dominant female presents today for her left middle trigger finger. Last seen with Dr. Nicole who gave patient splints. States she pain is severe . States she is not interested in injection and would like to discuss surgery. Allergies hyoscyamine [From LEVBID] Allergy (Intermediate, Verified 06/28/23 09:58) VOMITING Iodinated Contrast Media [Contrast Dye] Allergy (Intermediate, Verified 06/28/23 09:58) Difficulty Breathing methylcellulose [Citrucel] Allergy (Unknown, Verified 06/28/23 09:58) headache, rash mushroom Allergy (Unknown, Verified 06/28/23 09:58) RASH lactose [Lactose] Adverse Reaction (Mild, Verified 06/28/23 09:58) DIARRHEA HPI OV- Trigger Finger Release B/L middle finger HPI Details Joesph is a 68 year old right hand dominant woman who presents to discuss her bilateral middle trigger fingers, L>R. She complains of painful locking of her middle fingers, L>R. She feels she is unable to make a full fist due to fear of her finger locking. She says her fingers lock on her often at night and is affecting her sleep. She was given finger splints by Dr. Nicole to wear with daily activities. She is seen today wearing these. She reports a hx of left middle finger surgery 10+ years ago at an outside clinic. She thought this was for a trigger finger release. She reports a fear of needles, and says that many years ago she had a bad experience with steroid injections in her knees. She does not want to consider injections at this time. She is a Diabetic and says this is well-controlled. [facility] Medical History (Updated 06/28/23 @ 10:43 by Ilya Espino) Trigger finger of left hand Fatty liver Edema Diverticulosis IBS (irritable bowel syndrome) Elevated cholesterol Asthma CVA (cerebral vascular accident) Diabetes Hypertension Surgical History H/O abdominal surgery S/P excision of lipoma History of surgical removal of skin lesion H/O: hysterectomy H/O tubal ligation H/O esophagogastroduodenoscopy H/O colonoscopy History of H/O foot surgery Family History (Updated 01/25/22 @ 07:29 by Cristiane Nguyen MD) Other No family history of coronary artery disease Social History Alcohol intake: current Alcohol intake frequency: holidays/special occasions only Alcohol type: wine Patient Tobacco Use Status: Never used Tobacco service: No Current occupational status: retired Review of Systems Const All systems reviewed & are unremarkable except as noted in HPI and below Physical Exam Const General: cooperative, healthy appearing and no acute distress Orientation/consciousness: patient oriented x3 HEENT Head: Yes normocephalic and Yes atraumatic Eyes EOM: EOMs intact bilaterally Resp Effort & Inspection: normal respiratory effort and able to speak in complete sentences Cardio Jugular venous distension: no JVD Skin General skin exam: turgor normal Rashes: no rashes Neuro General: patient oriented x3 Extrem Other: Evaluation of Bilateral Upper Extremity: The patient is alert, oriented, and in no acute distress Neuro: Median, Ulnar, Radial nerves motor and sensory intact and sensation is normal to the tips of all digits Vascular: Cap refill brisk ROM: She can make a fist and extend all her digits Visible and palpable locking & catching of the bilateral middle fingers, L>R Tender over the a1 chet of the bilateral middle fingers, L>R Skin: No lacerations or abrasions. General: No Ecchymosis. No Erythema or evidence of infection. Nerve Conduction Study: Unremarkable study, no evidence of carpal or cubital tunnel syndrome Dr. Whitfield 03/29/23 Psych Appearance: grossly normal Affect: normal affect Attitude: cooperative Assessment & Plan Assessment & Plan (1) Trigger finger, left middle finger: Code(s): M65.332 - Trigger finger, left middle finger (2) Trigger finger, right middle finger: Code(s): M65.331 - Trigger finger, right middle finger (3) Stiffness of left hand joint: Code(s): M25.642 - Stiffness of left hand, not elsewhere classified (4) Diabetes: Code(s): E11.9 - Type 2 diabetes mellitus without complications Plan Assessment & Plan: 1. Left middle finger trigger finger This is her primary complaint today 2. Left hand stiffness I educated her about this condition I discussed operative and non-operative treatment options The patient would like to proceed with surgery. She is hesitant to consider any injections due to prior poor experience with knee injections, and a fear of needles I recommend she work on ROM exercises to improve any finger stiffness Before leaving clinic she was able to bring her fingers closed to almost a fist and then back into extension She should wear her finger splints only at night, prn. The risks and benefits of operative treatment were discussed with the patient and the patient wishes to proceed with surgery. These risks include, but are not limited to risk of damage to blood vessels, nerves, tendons, infection, recurrence, incomplete relief of preoperative symptoms, persistent pain, possible need for further surgery and the risks associated with regional blocks and anesthesia. The plan is to take the patient to the operating room sometime in the next few weeks for the following procedures: 1. Left middle finger trigger release, under local All of the preoperative paperwork including the consent was filled out today. All the patient's questions were answered. The patient understands that they will be contacted by our print finisher soon to schedule this procedure She denies blood thinners, heart, lung, kidney issues She is a Diabetic, her most recent HgA1c was 5.6% on 06/05/23. She has a hx of asthma 3. Right middle finger trigger finger Less bothersome today She can follow up to discuss treatment at a later date Scribed for Ashley Pierre MD by Ilya Espino, medical transcriber, on 06/28/23 at 10:45 AM, EST. Coding Level of Care Code New Pt Level 4 (75193) Diagnoses Trigger finger, left middle finger M65.332 Trigger finger, right middle finger M65.331 Stiffness of left hand joint M25.642 Diabetes E11.9
== END 2023-06-28 10:47 | disposition home or self-care (01) ==
PROVIDERS: PCP Internal Medicine; Visit Provider Orthopaedic Surgery
DX: M65.332 Trigger finger, left middle finger (principal); M65.331 Trigger finger, right middle finger; M25.642 Stiffness of left hand, not elsewhere classified; E11.9 Type 2 diabetes mellitus without complications
CPT/HCPCS: 99204

== ENCOUNTER → 2023-06-28 09:22 | Outpatient (BNVA) | payer OTHER, SELFPAY | PROVIDERS: PCP Internal Medicine; Visit Provider Orthopaedic Surgery ==

== ENCOUNTER 2023-09-18 09:21 | Outpatient (REF) | payer OTHER, SELFPAY ==
[2023-09-18 09:51] LABS: MANUAL DIFF FLAG NO
[2023-09-18 10:20] LABS: Basophils Percent Auto 0.4 % (0-2); Eosinophils Absolute Auto 0.2 X10*3/uL (0.0-0.4); Eosinophils Percent Auto 3.9 % (0-4); Hematocrit 41.5 % (37.0-47.0); Hemoglobin 14.2 g/dl (12.0-16.0); Imm Gran Abs Auto 0.01 X10*3/uL (0.00-0.03); Imm Gran Pct Auto 0.2 % (0.0-0.4); Lymphocytes Absolute Auto 2.1 X10*3/uL (1.2-4.9); Lymphocytes Percent Auto 38.2 % (20-40); Mean Corpuscular HGB Conc 34.2 g/dl (31.0-35.0); Mean Corpuscular Hemoglobin 32.1 pg (27.0-33.0); Mean Corpuscular Volume 93.9 fL (80.0-98.0); Mean Platelet Volume 10.7 fL (9.4-12.3); Monocytes Absolute Auto 0.3 X10*3/uL (0.1-1.2); Monocytes Percent Auto 4.8 % (2-11); Neutrophils Absolute Auto 2.8 x10*3/uL (2.0-8.3); Neutrophils Percent Auto 52.5 % (45-73); Platelet Count 120 X10*3/uL (160-400); Red Blood Count 4.42 X10*6/uL (4.20-5.50); Red Cell Distribution Width 13.6 % (11.0-16.0); White Blood Count 5.4 X10*3/uL (4.8-10.8)
[2023-09-18 10:54] LABS: Alanine Aminotransferase 37 U/L (0-31); Albumin Level 4.4 g/dL (3.5-5.0); Alkaline Phosphatase 89 U/L (39-117); Aspartate Amino Transferase 34 U/L (5-31); Bilirubin Direct 0.3 mg/dL (0.0-0.5); Bilirubin Total 0.7 mg/dL (0.0-1.0); Lipase 16 U/L (8-78); Total Protein 7.8 g/dL (6.5-8.0)
[2023-09-18 11:28] LABS: Leukocytes Stool Qualitative NEGATIVE (NEGATIVE)
[2023-09-18 12:00] LABS: Adenovirus F 40/41 Not Detected (Not Detect.); Astrovirus Not Detected (Not Detect.); Campylobacter Not Detected (Not Detect.); Cryptosporidium Not Detected (Not Detect.); Cyclospora cayetanensis Not Detected (Not Detect.); E. coli EAEC Not Detected (Not Detect.); E. coli EPEC Not Detected (Not Detect.); E. coli ETEC Not Detected (Not Detect.); E. coli STEC Not Detected (Not Detect.); Entamoeba histolytica Not Detected (Not Detect.); Giardia lamblia Not Detected (Not Detect.); Norovirus GI/GII Not Detected (Not Detect.); Plesiomonas shigelloides Not Detected (Not Detect.); Rotavirus A Not Detected (Not Detect.); Salmonella Not Detected (Not Detect.); Sapovirus Not Detected (Not Detect.); Shigella sp./EIEC Not Detected (Not Detect.); Vibrio Not Detected (Not Detect.); Vibrio Cholerae Not Detected (Not Detect.); Yersinia enterocolitica Not Detected (Not Detect.)
== END 2023-09-18 09:22 | disposition home or self-care (01) ==
LOC: HO.LAB 09:21
PROVIDERS: Visit Provider Internal Medicine Gastroenterology
DX: R10.9 Unspecified abdominal pain (principal)
CPT/HCPCS: 36415; 80076; 83690; 85025; 87177; 87209; 87507; 89055

== ENCOUNTER 2023-09-28 11:47 | Day surgery (SDC) | payer OTHER, SELFPAY ==
[2023-09-28 12:09] VITALS: BP 182/83; PULSE 59; RESP 18; TEMP 36.1; O2SAT 97; BMI 32.0
--- NOTE | 2023-09-28 14:51 | P.OP_ITS ---
Operative Note Operative Note Date of Service: 09/28/23 Narrative: Operative Note Preop diagnosis: 1. Left middle finger Trigger finger Postop diagnosis: 1. Left middle finger Trigger finger Procedure: 1. Left middle finger A1 chet release Surgeon: Ashley Pierre MD Anesthesia: local block using 1% lidocaine with epinephrine Findings: No locking or catching after A1 chet release EBL: Less than 5 mL Tourniquet time: None Specimens: None Complications: None Disposition: Brought to recovery room in stable condition Plan: Follow-up for 10-14 days for wound check and suture removal Indications: The patient is a 68 years old, with a left middle finger trigger finger that has been unresponsive to nonoperative management. The risks and benefits of operative treatment including but not limited to risk of damage to blood vessels, nerves, tendons, infection, persistent pain, persistent symptoms, recurrence or possible need for additional surgery were discussed with the patient and the patient wishes to proceed with surgery. Procedure: Once consent was obtained a local block was performed in the preop area using a combination of 1% lidocaine with epinephrine. The patient was then brought back to the operating suite and placed on the operative table in supine position. The left upper extremity was prepped and draped in a standard surgical fashion. Once assured that we had a good block, a 1.5 cm oblique incision was made alicia tered over the A1 chet of the left middle finger . The incision was made through the skin to the subcutaneous tissues using a #15 blade. Careful dissection was made down to the level of the A1 chet using tenotomy scissors, with care being taken to protect the nearby neurovascular structures. A longitudinal incision was made in the A1 chet 1st using a #15 blade, then using tenotomy scissors under direct visualization. The A1 chet was noted to be thickened. Following our A1 chet release, we no longer saw any locking or catching of the digit with flexion and extension. Once satisfied with our A1 chet release the wound was copiously irrigated with normal saline and hemostasis was obtained with a brief period of local pressure. The skin edges were reapproximated with some 5.0 nylon suture material and a sterile dressing was applied. The patient appears to have tolerated the procedure well and with no complications. All digits were well vascularized at the conclusion of the case.
--- NOTE | 2023-09-28 14:51 | MHC.SHP ---
Pre-Procedural Eval Section A - 24 Hr Update-Section A only Date of Service: 09/28/23 The patient is an INPATIENT: No Changes since office visit: No Cold of Flu in the past 2 weeks, No New Medical Problems, No Changes in Medication and No Patient answered all questions The patient has been examined within 24 hours of the surgical procedure. The History & Physical has been completed within 30 days and I have reviewed it.: Yes Section B - Complete if H&P > 30 days Chief Complaint: Trigger finger, left middle finger Allergies: Allergies Allergy/AdvReac Type Severity Reaction Status Date / Time hyoscyamine [From LEVBID] Allergy Intermediate VOMITING Verified 06/28/23 09:58 Iodinated Contrast Media Allergy Intermediate Difficulty Verified 06/28/23 09:58 [Contrast Dye] Breathing methylcellulose [Citrucel] Allergy Unknown headache, Verified 06/28/23 09:58 rash mushroom Allergy Unknown RASH Verified 06/28/23 09:58 lactose [Lactose] AdvReac Mild DIARRHEA Verified 06/28/23 09:58 Plan I have reviewed the history and physical and performed a pertinent physical examination on my patient. No changes have occurred unless specified. Time Spent With Patient Time: Total time managing care of this patient today ____ minutes.
== END 2023-09-28 16:04 | disposition home or self-care (01) ==
PROVIDERS: PCP Internal Medicine; Visit Provider Orthopaedic Surgery
PROC: (CPT 26055; principal; 2023-09-28 13:40)
DX: M65.332 Trigger finger, left middle finger (principal); M25.642 Stiffness of left hand, not elsewhere classified; I10 Essential (primary) hypertension; E78.00 Pure hypercholesterolemia, unspecified; E11.9 Type 2 diabetes mellitus without complications; J45.909 Unspecified asthma, uncomplicated; Z88.8 Allergy status to other drugs, medicaments and biological substances; Z91.041 Radiographic dye allergy status; Z86.73 Personal history of transient ischemic attack (TIA), and cerebral infarction without residual deficits; Z98.890 Other specified postprocedural states
CPT/HCPCS: 26055

== ENCOUNTER → 2023-09-28 11:47 | Outpatient (BNV) | payer OTHER, SELFPAY | PROVIDERS: PCP Internal Medicine; Visit Provider Orthopaedic Surgery | DX: M65.332 Trigger finger, left middle finger (principal) | CPT/HCPCS: 26055 ==

== ENCOUNTER 2023-10-06 08:02 | Outpatient (REF) | payer OTHER, SELFPAY ==
--- NOTE | ~2023-10-06 | US_ITS ---
EXAMINATION: US ABDOMEN COMPLETE CLINICAL INFORMATION: Elevated LFTs. COMPARISON: Abdominal ultrasound 04/20/2021, CT scan abdomen and pelvis 01/29/2018 TECHNIQUE: Real-time imaging of the abdominal viscera. FINDINGS: PANCREAS: Normal head and body, tail is obscured by bowel gas. The pancreatic duct measures 0.2 cm. ABDOMINAL AORTA: The proximal, mid, and distal segments are normal in caliber. INFERIOR VENA CAVA: Visualized portions are normal. LIVER: The liver is normal in size. The liver contour is normal. There is diffuse increased liver parenchymal echogenicity, consistent with hepatic steatosis. A 0.7 x 0.6 x 0.7 cm cyst is seen in the right lobe. There is no intrahepatic biliary duct dilatation seen. GALLBLADDER: 1.1 x 1.1 x 1.1 cm and 0.9 x 0.5 x 0.8 cm gallbladder polyps are seen. In 2020, a 0.7 cm gallbladder polyp was seen. The gallbladder is physiologically distended without evidence of stones, sludge, polyps, wall thickening or pericholecystic fluid. COMMON BILE DUCT: Normal in caliber measuring 0.3 cm in diameter. RIGHT KIDNEY: Normal. No hydronephrosis. No renal calculi or focal parenchymal lesions. The kidney measures 10.9 cm in maximum dimension. LEFT KIDNEY: Normal. No hydronephrosis. No renal calculi or focal parenchymal lesions. The kidney measures 10.8 cm in maximum dimension. SPLEEN: The spleen is enlarged. The spleen measures 15.0 cm in maximum dimension. FREE FLUID: None. US/US abdomen complete IMPRESSION: 1. Hepatic steatosis. 2. 0.7 cm cyst in the right lobe of the liver. 3. 1.1 cm and 0.9 cm gallbladder polyps. Gallbladder polyps larger than 10 mm in diameter or more likely to be cancerous return into cancer over time. 4. Splenomegaly.
== END 2023-10-06 08:03 | disposition home or self-care (01) ==
LOC: HO.US 08:02
PROVIDERS: PCP Internal Medicine; Visit Provider Internal Medicine Gastroenterology
DX: R79.89 Other specified abnormal findings of blood chemistry (principal)
CPT/HCPCS: 76700

== ENCOUNTER 2023-10-11 10:29 | Outpatient (AMB) | payer OTHER, SELFPAY ==
--- NOTE | 2023-10-11 10:56 | MHC.OFFVIS ---
Intake Vital Signs 10/11/23 11:02 Height 5 ft 3 in Weight 180 lb BMI 31.9 Intake Visit Reasons: PO-Lt MF Trigger 09/28/23 Intake Note: Joesph 68 yr old female presents today for her post op visit for her middle finger trigger release from 09/28/23. States locking has improved and has mild swelling by her incision and is able to make a fist. Sutures removed in office and steri strips applied. Allergies hyoscyamine [From LEVBID] Allergy (Intermediate, Verified 10/11/23 11:02) VOMITING Iodinated Contrast Media [Contrast Dye] Allergy (Intermediate, Verified 10/11/23 11:02) Difficulty Breathing methylcellulose [Citrucel] Allergy (Unknown, Verified 10/11/23 11:02) headache, rash mushroom Allergy (Unknown, Verified 10/11/23 11:02) RASH lactose [Lactose] Adverse Reaction (Mild, Verified 10/11/23 11:02) DIARRHEA HPI PO-Lt MF Trigger 09/28/23 HPI Details Joesph is a 68 year old right hand dominant Diabetic woman who presents S/P left middle finger trigger release, DOS: 09/28/23. She says she is doing well, with no pain or locking. She has some mild swelling about her incision but she says she is able to make a fist. 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 She has a right middle trigger finger that is not painful, and she is not interested in discussing surgery for this now. [facility] Medical History (Updated 06/28/23 @ 10:43 by Ilya Espino) Trigger finger of left hand Fatty liver Edema Diverticulosis IBS (irritable bowel syndrome) Elevated cholesterol Asthma CVA (cerebral vascular accident) Diabetes Hypertension Surgical History H/O abdominal surgery S/P excision of lipoma History of surgical removal of skin lesion H/O: hysterectomy H/O tubal ligation H/O esophagogastroduodenoscopy H/O colonoscopy History of H/O foot surgery Family History (Updated 01/25/22 @ 07:29 by Cristiane Nguyen MD) Other No family history of coronary artery disease Social History Alcohol intake: current Alcohol intake frequency: holidays/special occasions only Alcohol type: wine Patient Tobacco Use Status: Never used Tobacco service: No Current occupational status: retired Review of Systems Const All systems reviewed & are unremarkable except as noted in HPI and below Physical Exam Vital Signs: BMI result Body Mass Index 31.9 Const General: no acute distress and alert Orientation/consciousness: patient oriented x3 Neuro General: patient oriented x3 Extrem Other: The patient was alert oriented and in no acute distress The incision is healing well with no erythema drainage or evidence of infection. Sutures removed and Steri-Strips applied She can make a fist and extend all her digits No locking or catching Sensation is intact Cap refill is brisk Psych Appearance: grossly normal Affect: normal affect Attitude: cooperative Assessment & Plan Assessment & Plan (1) Trigger finger, left middle finger: Code(s): M65.332 - Trigger finger, left middle finger (2) Trigger finger, right middle finger: Code(s): M65.331 - Trigger finger, right middle finger (3) Diabetes: Code(s): E11.9 - Type 2 diabetes mellitus without complications Plan Assessment & Plan: 1. Left middle finger trigger finger, S/P release DOS: 09/28/23 The patient appears to be doing well post-operatively I educated her about the post-operative course I explained the signs and symptoms of infection, if the patient develops any new or worsening erythema, drainage, pain, or warmth they should contact the clinic or attend the ED. I discussed activity modifications, she is to lift nothing heavier than a cellphone for the next two weeks She will perform gentle ROM exercises at home She should avoid any underwater activities for the next 5 days She should gently massage about the incision site to reduce the risk of hypersensitivity She is a Diabetic, her most recent HgA1c was 5.6% on 06/05/23. She has a hx of asthma 2. Right middle finger trigger finger This is not very bothersome right now. She is not interested in discussing surgery today. She can follow up to discuss treatment at a later date. Scribed for Ashley Pierre MD by Ilya Espino emergency medical service manager, on 10/11/23 at 11:15 AM, EST. Coding Level of Care Code Global (13510) Diagnoses Trigger finger, left middle finger M65.332 Trigger finger, right middle finger M65.331 Diabetes E11.9
[2023-10-11 11:02] VITALS: BMI 31.9
== END 2023-10-11 11:19 | disposition home or self-care (01) ==
PROVIDERS: PCP Internal Medicine; Visit Provider Orthopaedic Surgery
DX: M65.332 Trigger finger, left middle finger (principal); M65.331 Trigger finger, right middle finger; E11.9 Type 2 diabetes mellitus without complications
CPT/HCPCS: 99024

== ENCOUNTER → 2023-10-11 10:29 | Outpatient (BNVA) | payer OTHER, SELFPAY | PROVIDERS: PCP Internal Medicine; Visit Provider Orthopaedic Surgery ==

== ENCOUNTER 2023-10-26 13:19 | Outpatient (AMB) | payer OTHER, SELFPAY ==
--- NOTE | 2023-10-26 13:21 | A.OFFVIS_ITS ---
Intake Vital Signs 3 10/26/23 13:34 Height 5 ft 3 in Weight 179 lb BMI 31.7 BP 183/77 H Blood Pressure Location Lt brachial Position Sitting Pulse 62 Intake Visit Reasons: Gallbladder polyps Intake Note: Patient is seen in office for evaluation and treatment of the gallbladder. Pt c/o: one month ago started to experience pain in the abdomen, had ultrasound, denies nausea, vomit, constipation US: 10/06/23 Psych Arnp Required: No Accompanied by: Self / Same As Patient Allergies hyoscyamine [From LEVBID] Allergy (Intermediate, Verified 10/26/23 13:28) VOMITING Iodinated Contrast Media [Contrast Dye] Allergy (Intermediate, Verified 10/26/23 13:28) Difficulty Breathing methylcellulose [Citrucel] Allergy (Unknown, Verified 10/26/23 13:28) headache, rash mushroom Allergy (Unknown, Verified 10/26/23 13:28) RASH lactose [Lactose] Adverse Reaction (Mild, Verified 10/26/23 13:28) DIARRHEA Medication List - Last Reconciled 10/26/23 by Toan Smith MD albuterol sulfate 1 vial inhalation Q4H PRN albuterol sulfate 90 mcg/actuation 2 puffs PO Q4H PRN aspirin 81 mg PO DAILY atenolol 1 tab PO DAILY atorvastatin 1 tab PO DAILY budesonide-formoterol 160-4.5 mcg/actuation (Symbicort) 1 puff PO BID cholecalciferol (vitamin D3) 50 mcg PO DAILY dapagliflozin propanediol (Farxiga) 10 mg PO DAILY diphenoxylate-atropine 2.5-0.025 mg 1 tab PO QID PRN glipizide 5 mg PO BIDWM hydrochlorothiazide 1 tab PO DAILY metformin 1 tab PO BID multivitamin 1 tab PO DAILY omeprazole 2 caps PO BID HPI HPI Comments 2 History of Present Illness0 Details 68-year-old female patient presenting wi th complaints of diffuse abdominal pain mainly in the epigastric and lower abdomen. The pain was associated with diarrhea. She underwent a workup with Dr. Ngo and was found to have an enlarging gallbladder polyp which was greater than 1 cm from a previous size of 0.7 cm. She currently is asymptomatic with no abdominal pain, nausea, vomiting, fever, chills, abdominal distension or diarrhea. She presents today to discuss laparoscopic or possible open cholecystectomy. [facility] Medical History Trigger finger of left hand Fatty liver Edema Diverticulosis IBS (irritable bowel syndrome) Elevated cholesterol Asthma CVA (cerebral vascular accident) Diabetes Hypertension Surgical History H/O abdominal surgery S/P excision of lipoma History of surgical removal of skin lesion H/O: hysterectomy H/O tubal ligation H/O esophagogastroduodenoscopy H/O colonoscopy History of H/O foot surgery Family History Other No family history of coronary artery disease Social History Alcohol intake: current Alcohol intake frequency: holidays/special occasions only Alcohol type: wine Patient Tobacco Use Status: Never used Tobacco service: No Current occupational status: retired Review of Systems Const All systems reviewed & are unremarkable except as noted in HPI and below GI Reports abdominal pain and Reports loose stools Physical Exam Vital Signs: Last Vital Signs Pulse 62 10/26/23 13:34 BP 183/77 H 10/26/23 13:34 BMI result Body Mass Index 31.7 Const General: cooperative and no acute distress Nutritional Appearance: well nourished Orientation/consciousness: patient oriented x3 Limitations: no limitations HEENT Head: Yes normocephalic and Yes atraumatic Ears: hearing grossly normal bilaterally Resp Effort & Inspection: normal respiratory effort, no audible wheezes, no cough and no respiratory distress Cardio Jugular venous distension: no JVD GI Inspection: Yes normal to inspection Palpation (GI): Soft to palpation, nontender, no guarding and not rigid Percussion: Yes normal to percussion Skin Other: Warm, dry, no rash Neuro General: patient oriented x3 Extrem General: Yes no clubbing, cyanosis or edema Results Reviewed Results Reviewed: Enlarging gallbladder polyp compared to 04/20/2021: Assessment & Plan Assessment & Plan (1) Gallbladder polyp: Code(s): K82.4 - Cholesterolosis of gallbladder Plan 68-year-old female patient with a recent history of vague abdominal pain found on workup to have an enlarging gallbladder polyp which is now greater than 1 cm in diameter. I reviewed the images with the patient and discussed the indications for cholecystectomy. After discussion of the procedure, risks, and alternatives, she consents to a laparoscopic or possible open cholecystectomy. She will be scheduled as a short-stay surgery at her earliest convenience. Coding Level of Care Code New Pt Level 4 (35220) Diagnoses Gallbladder polyp K82.4
[2023-10-26 13:34] VITALS: BP 183/77; PULSE 62; BMI 31.7
== END 2023-10-26 13:45 | disposition home or self-care (01) ==
PROVIDERS: PCP Internal Medicine; Referring Provider Internal Medicine Gastroenterology; Visit Provider Surgery
DX: K82.4 Cholesterolosis of gallbladder (principal)
CPT/HCPCS: 99204

== ENCOUNTER → 2023-10-26 13:19 | Outpatient (BNVA) | payer OTHER, SELFPAY | PROVIDERS: PCP Internal Medicine; Referring Provider Internal Medicine Gastroenterology; Visit Provider Surgery ==

== ENCOUNTER 2023-11-18 09:53 | Outpatient (REF) | payer OTHER, SELFPAY ==
[2023-11-18 10:03] LABS: MANUAL DIFF FLAG NO
[2023-11-18 10:46] LABS: Basophils Percent Auto 0.5 % (0-2); Eosinophils Absolute Auto 0.2 X10*3/uL (0.0-0.4); Eosinophils Percent Auto 3.1 % (0-4); Hematocrit 41.3 % (37.0-47.0); Hemoglobin 14.4 g/dl (12.0-16.0); Imm Gran Abs Auto 0.04 X10*3/uL (0.00-0.03); Imm Gran Pct Auto 0.6 % (0.0-0.4); Lymphocytes Absolute Auto 2.3 X10*3/uL (1.2-4.9); Lymphocytes Percent Auto 36.2 % (20-40); Mean Corpuscular HGB Conc 34.9 g/dl (31.0-35.0); Mean Corpuscular Hemoglobin 32.3 pg (27.0-33.0); Mean Corpuscular Volume 92.6 fL (80.0-98.0); Monocytes Absolute Auto 0.3 X10*3/uL (0.1-1.2); Monocytes Percent Auto 4.2 % (2-11); Neutrophils Absolute Auto 3.6 x10*3/uL (2.0-8.3); Neutrophils Percent Auto 55.4 % (45-73); Platelet Count 133 X10*3/uL (160-400); Red Blood Count 4.46 X10*6/uL (4.20-5.50); Red Cell Distribution Width 13.2 % (11.0-16.0); White Blood Count 6.4 X10*3/uL (4.8-10.8)
[2023-11-18 11:14] LABS: Estimated Average Glucose 123 mg/dL; Hemoglobin A1c % 5.9 % (<6.0)
[2023-11-18 11:19] LABS: Creatinine Urine 306.91 mg/dL
[2023-11-18 11:38] LABS: Alanine Aminotransferase 32 U/L (0-31); Albumin Level 4.4 g/dL (3.5-5.0); Alkaline Phosphatase 93 U/L (39-117); Anion Gap 15 (12-20); Aspartate Amino Transferase 28 U/L (5-31); Bilirubin Total 0.7 mg/dL (0.0-1.0); Blood Urea Nitrogen 19 mg/dL (9-16); Calcium 9.9 mg/dL (8.4-10.2); Carbon Dioxide 31 mmol/L (22-29); Chloride 100 mmol/L (96-108); Estimated Glomerular Filt Rate 55; Glucose Random 165 mg/dL (60-115); Potassium 4.1 mmol/L (3.3-5.1); Sodium 142 mmol/L (135-145); Total Protein 7.9 g/dL (6.5-8.0)
== END 2023-11-18 09:54 | disposition home or self-care (01) ==
LOC: HO.LAB 09:53
PROVIDERS: PCP Internal Medicine; Visit Provider Internal Medicine
DX: E11.22 Type 2 diabetes mellitus with diabetic chronic kidney disease (principal)
CPT/HCPCS: 36415; 80053; 82043; 82570; 83036; 85025

== ENCOUNTER 2023-12-06 07:09 | Day surgery (SDC) | payer OTHER, SELFPAY ==
[2023-12-04 10:37] VITALS: BMI 31.7
--- NOTE | 2023-12-04 15:05 | HO.ANESPROP2 ---
Documented by User: Carol Ann Angel NP 12/04/23 15:07 HPI - Anesthesia Eval Consult details Narrative: 68yo F for Cholecystectomy Laparoscopic,possible open Anesthesia Pre-Procedure Meds Is the patient on any of the following meds?: SGLT2 Inhib PMFSH Active Problems Active Problems: All Active Problems Gallbladder polyp (Acute) Stiffness of left hand joint (Acute) Trigger finger, right middle finger (Acute) Trigger finger, left middle finger (Acute) Bilateral hand pain (Acute) Trigger finger of right hand (Acute) Diabetes (Acute) Trigger finger of left hand (Acute) Past Medical History Medical History (Updated 10/26/23 @ 13:46 by Toan Smith MD) Trigger finger of left hand Fatty liver Edema Diverticulosis IBS (irritable bowel syndrome) Elevated cholesterol Asthma CVA (cerebral vascular accident) Diabetes Hypertension Family History Family History Other No family history of coronary artery disease Family history of problems with anesthesia: No Surgical History Surgical History Hx of hand surgery H/O abdominal surgery S/P excision of lipoma History of surgical removal of skin lesion H/O: hysterectomy H/O tubal ligation H/O esophagogastroduodenoscopy H/O colonoscopy History of H/O foot surgery History of Problems with Anesthesia: No Social History Social History Alcohol intake: current Alcohol intake frequency: holidays/special occasions only Alcohol type: wine Patient Tobacco Use Status: Never used Tobacco Advance Directives: No (unknown) Advance Directives Information Provided: Yes Advance Directives on File: No service: No Current occupational status: retired Meds Allergies Allergy/AdvReac Type Severity Reaction Status Date / Time hyoscyamine [From LEVBID] Allergy Intermediate VOMITING Verified 12/06/23 07:50 Iodinated Contrast Media Allergy Intermediate Difficulty Verified 12/06/23 07:50 [Contrast Dye] Breathing methylcellulose [Citrucel] Allergy Intermediate headache, Verified 12/06/23 07:50 rash mushroom Allergy Intermediate RASH Verified 12/06/23 07:50 lactose [Lactose] AdvReac Mild DIARRHEA Verified 12/06/23 07:50 Home Medications ?Medication ?Instructions ?Recorded ?Confirmed ?Last Taken ?Type albuterol sulfate 2.5 mg/3 mL 1 vial inhalation Q4H PRN Wheezing 01/24/22 12/06/23 09/28/23 History (0.083 %) solution for nebulization albuterol sulfate 90 mcg/actuation 2 puff PO Q4H PRN Wheezing 01/24/22 12/06/23 09/28/23 History aerosol inhaler atenolol 25 mg tablet 1 tab PO DAILY 01/24/22 12/06/23 09/28/23 History atorvastatin 20 mg tablet 1 tab PO DAILY 01/24/22 12/06/23 09/28/23 History cholecalciferol (vitamin D3) 50 50 mcg PO DAILY 01/24/22 12/06/23 09/28/23 History mcg (2,000 unit) tablet diphenoxylate-atropine 2.5 1 tab PO QID PRN Diarrhea 01/24/22 12/06/23 09/28/23 History mg-0.025 mg tablet hydrochlorothiazide 12.5 mg tablet 1 tab PO DAILY 01/24/22 12/06/23 09/28/23 History multivitamin 1 tab PO DAILY 01/24/22 12/06/23 09/28/23 History omeprazole 20 mg capsule,delayed 2 cap PO BID 01/24/22 12/06/23 09/28/23 History release aspirin 81 mg tablet 81 mg PO DAILY 10/03/22 12/06/23 09/28/23 History dapagliflozin propanediol 10 mg 10 mg PO DAILY 09/28/23 12/06/23 09/28/23 History tablet (Farxiga) fluticasone 250 mcg-salmeterol 50 1 ea inhalation BID 12/06/23 12/06/23 Unknown History mcg/dose blistr powdr for inhalation ([place]) Exam Height,Weight and Vital Signs: Height 5 ft 3 in Weight 81.193 kg Pertinent Lab Results Pertinent Lab Results: Laboratory Tests 11/18/23 10:02 WBC 6.4 Hgb 14.4 Hct 41.3 Plt Count 133 L Sodium 142 Potassium 4.1 Chloride 100 Carbon Dioxide 31 H BUN 19 H Creatinine 1.00 Narrative Narrative: ECHO 2021 Conclusions: - The left ventricular systolic function is hyperdynamic. The visually estimated ejection fraction is >70%. - No obvious valvular pathology seen on this study. Assessment and Plan Assessment Anesthesia Assessment: Chart Reviewed Final Anesthetic Review Family History of Problems with Anesthesia: No History of Problems with Anesthesia: No Documented by User: Amador Mckay MD 12/06/23 08:38 [facility] Past Medical History Medical History (Updated 10/26/23 @ 13:46 by Toan Smith MD) Trigger finger of left hand Fatty liver Edema Diverticulosis IBS (irritable bowel syndrome) Elevated cholesterol Asthma CVA (cerebral vascular accident) Diabetes Hypertension Family History Family History Other No family history of coronary artery disease Surgical History Surgical History Hx of hand surgery H/O abdominal surgery S/P excision of lipoma History of surgical removal of skin lesion H/O: hysterectomy H/O tubal ligation H/O esophagogastroduodenoscopy H/O colonoscopy History of H/O foot surgery Social History Social History Alcohol intake: current Alcohol intake frequency: holidays/special occasions only Alcohol type: wine Patient Tobacco Use Status: Never used Tobacco Advance Directives: No (unknown) Advance Directives Information Provided: Yes Advance Directives on File: No service: No Current occupational status: retired Meds Allergies Allergy/AdvReac Type Severity Reaction Status Date / Time hyoscyamine [From LEVBID] Allergy Intermediate VOMITING Verified 12/06/23 07:50 Iodinated Contrast Media Allergy Intermediate Difficulty Verified 12/06/23 07:50 [Contrast Dye] Breathing methylcellulose [Citrucel] Allergy Intermediate headache, Verified 12/06/23 07:50 rash mushroom Allergy Intermediate RASH Verified 12/06/23 07:50 lactose [Lactose] AdvReac Mild DIARRHEA Verified 12/06/23 07:50 Home Medications ?Medication ?Instructions ?Recorded ?Confirmed ?Last Taken ?Type albuterol sulfate 2.5 mg/3 mL 1 vial inhalation Q4H PRN Wheezing 01/24/22 12/06/23 09/28/23 History (0.083 %) solution for nebulization albuterol sulfate 90 mcg/actuation 2 puff PO Q4H PRN Wheezing 01/24/22 12/06/23 09/28/23 History aerosol inhaler atenolol 25 mg tablet 1 tab PO DAILY 01/24/22 12/06/23 09/28/23 History atorvastatin 20 mg tablet 1 tab PO DAILY 01/24/22 12/06/23 09/28/23 History cholecalciferol (vitamin D3) 50 50 mcg PO DAILY 01/24/22 12/06/23 09/28/23 History mcg (2,000 unit) tablet diphenoxylate-atropine 2.5 1 tab PO QID PRN Diarrhea 01/24/22 12/06/23 09/28/23 History mg-0.025 mg tablet hydrochlorothiazide 12.5 mg tablet 1 tab PO DAILY 01/24/22 12/06/23 09/28/23 History multivitamin 1 tab PO DAILY 01/24/22 12/06/23 09/28/23 History omeprazole 20 mg capsule,delayed 2 cap PO BID 01/24/22 12/06/23 09/28/23 History release aspirin 81 mg tablet 81 mg PO DAILY 10/03/22 12/06/23 09/28/23 History dapagliflozin propanediol 10 mg 10 mg PO DAILY 09/28/23 12/06/23 09/28/23 History tablet (Farxiga) fluticasone 250 mcg-salmeterol 50 1 ea inhalation BID 12/06/23 12/06/23 Unknown History mcg/dose blistr powdr for inhalation ([place]) Exam Airway Mallampati Class: II TM Dist: <=3cm Neck ROM: Full Loose/Missing/Broken Teeth: No Heart: rrr Lungs: cta Assessment and Plan Assessment Anesthesia Assessment: Anesthesia Plan Discussed Final Anesthetic Review NPO: Yes ASA Class: III Final Preanesthetic Review: No Changes in Pt Med Stat, Meds/Allgs Chart Reviewed, Consent Obtained/Reviewed and Anes Risks/Benef Reviewed Patient Risk: Intermediate Procedure Risk: Intermediate Anesthetic Plan Anesthetic Plan: GA Disposition: Standard PACU
[2023-12-06] VITALS (7 sets, daily range): BP systolic 137–188; BP diastolic 33–80; PULSE 61–72; RESP 16–21; TEMP 36.8–36.9; O2SAT 96–100; BMI 31.0
--- NOTE | 2023-12-06 07:49 | ECG_ITS ---
Test Reason : dm, htn, cva Blood Pressure : / mmHG Vent. Rate : 070 BPM Atrial Rate : 070 BPM P-R Int : 128 ms QRS Dur : 074 ms QT Int : 390 ms P-R-T Axes : 021 -06 025 degrees QTc Int : 421 ms Normal sinus rhythm with sinus arrhythmia Normal ECG When compared with ECG of 24-JAN-2022 14:19, No significant change was found Referred By: Carol Ann Angel Electronically Signed By:Ceasar Marks
[2023-12-06 08:20] LABS: Glucose, Whole Blood 155 mg/dL (60-115)
--- NOTE | 2023-12-06 08:36 | MHC.SHP ---
Pre-Procedural Eval Section A - 24 Hr Update-Section A only Date of Service: 12/06/23 The patient is an INPATIENT: No Changes since office visit: Yes Patient answered all questions; No Cold of Flu in the past 2 weeks, No New Medical Problems and No Changes in Medication The patient has been examined within 24 hours of the surgical procedure. The History & Physical has been completed within 30 days and I have reviewed it.: No Section B - Complete if H&P > 30 days Chief Complaint: Cholesterolosis of gallbladder Details of Present Illness: No change in symptoms since previous visit Relevant Family History (Specify if Yes): No Relevant Social History: None Present Medications: see Short Stay Collaborative assessment Medical History: No relevant PMH History of Previous Operations: No relevant previous surgery Allergies: Allergies Allergy/AdvReac Type Severity Reaction Status Date / Time hyoscyamine [From LEVBID] Allergy Intermediate VOMITING Verified 12/06/23 07:50 Iodinated Contrast Media Allergy Intermediate Difficulty Verified 12/06/23 07:50 [Contrast Dye] Breathing methylcellulose [Citrucel] Allergy Intermediate headache, Verified 12/06/23 07:50 rash mushroom Allergy Intermediate RASH Verified 12/06/23 07:50 lactose [Lactose] AdvReac Mild DIARRHEA Verified 12/06/23 07:50 Review of Systems Sugical H&P ROS: Negative: Constitution, Cardiovascular, Respiratory, Neurological, Psychiatric, Hem-Onc, Allergic/Immunologic, Gastrointestinal, Genitourinary, Musculoskeletal, Integumentary, Endocrine and Eyes/Ears/Nose/Throat Exam Surgical H&P Exam: Normal: HEENT, Normal: Heart, Normal: Lungs, Normal: Extremities, Normal: Abdomen, Normal: Skin and Normal: Neurological Plan Diagnosis/Plan: Unchanged I have reviewed the history and physical and performed a pertinent physical examination on my patient. No changes have occurred unless specified. Time Spent With Patient Time: Total time managing care of this patient today ____ minutes.
[2023-12-06] MEDS: Lactated Ringers 1,000 ML 100 ML IVCONT (08:41)
--- NOTE | 2023-12-06 10:16 | W.PM.OPN ---
Operative Note Operative Note Date of Service: 12/06/23 Narrative: Preoperative diagnosis: Gallbladder polyp Postoperative diagnosis: Same Procedure: Laparoscopic cholecystectomy Surgeon: Toan Smith MD Senior Case Manager: ODALIS Pelayo, MORTEZA Regalado Anesthesia: General endotracheal Indications for procedure: 68-year-old female patient presenting with complaints of abdominal pain found on ultrasound to have a gallbladder polyp greater than 1 cm presenting today for laparoscopic cholecystectomy. Operative findings: Cirrhotic changes noted in liver. Otherwise normal gallbladder without evidence of inflammation. Specimen: gallbladder Estimated blood loss: 2 mL Complications: None Procedure details: Patient was brought to the OR and placed in a supine position. After administering general anesthesia the patient's abdomen was prepped with ChloraPrep and draped in a sterile fashion. A surgical time-out was called the consent confirmed. Patient received preoperative antibiotics and Venodyne boots were in place. Local anesthesia consisting of 0.5% Sensorcaine without epinephrine was infiltrated in a periumbilical region. A 5 mm incision was made above the umbilicus in a transverse fashion. The Veress needle was then inserted while elevating abdominal cavity with towel clips. After positive drop test the abdomen was insufflated to a pressure of 15 mm of mercury. The Veress needle was then removed and a 5 mm trocar inserted. The camera was inserted in the abdomen explored. A 12 mm trocar was then placed in the epigastrium. Two 5 mm trocars placed in the right upper quadrant by the product development assistant. The patient was placed in reverse Trendelenburg positioning and rotated to the left. The gallbladder was grasped with the fundus and retracted cephalad by the product development assistant. The infundibulum was then grasped and retracted away from the liver bed, also by the product development assistant. The Dolphin dissected was then used by the surgeon to dissect the peritoneum off the infundibulum to reveal the junction with the cystic duct. Cystic artery was noted slightly medial and posterior to the cystic duct. After obtaining a critical view the cystic duct was doubly clipped and divided. The cystic artery was then doubly clipped and divided. The gallbladder was then dissected off the liver bed using electrocautery with an L hook. Hemostasis was assured all times using the electrocautery. When the gallbladder is completely dissected off the liver bed was placed in an Endo-Catch bag and brought out through the epigastric incision. The gallbladder was sent to pathology for further examination. The abdomen was then re-examined. The liver bed was irrigated and suctioned dry. No bleeding or bile leak could be identified. CO2 was then evacuated and all trocars removed. Skin was closed in all incisions using a subcuticular 4 0 Polysorb suture by both the surgeon and product development assistant. Sterile dressings consisting of Steri-Strips, 2 x 2 gauze, and Tegaderm were then applied. The patient tolerated the procedure well. Sponge instrument and needle counts reported as correct. The patient was transferred to PACU in stable condition.
[2023-12-06] MEDS: Ketorolac Tromethamine 30 MG/ML VIAL IVPUSH (10:53)
[2023-12-06] MEDS: Acetaminophen 325 MG TABLET 650 MG PO (11:09)
== END 2023-12-06 11:52 | disposition home or self-care (01) ==
PROVIDERS: PCP Internal Medicine; Visit Provider Surgery
PROC: 0FT44ZZ Resection of Gallbladder, Percutaneous Endoscopic Approach (ICD-10-PCS; CPT 47562; principal; 2023-12-06 09:00)
DX: K80.10 Calculus of gallbladder with chronic cholecystitis without obstruction (principal); K76.0 Fatty (change of) liver, not elsewhere classified; K58.9 Irritable bowel syndrome, unspecified; K57.30 Diverticulosis of large intestine without perforation or abscess without bleeding; I10 Essential (primary) hypertension; E78.00 Pure hypercholesterolemia, unspecified; J45.909 Unspecified asthma, uncomplicated; E11.9 Type 2 diabetes mellitus without complications; Z79.82 Long term (current) use of aspirin; Z79.84 Long term (current) use of oral hypoglycemic drugs; Z79.899 Other long term (current) drug therapy; Z88.8 Allergy status to other drugs, medicaments and biological substances; Z91.041 Radiographic dye allergy status; Z98.890 Other specified postprocedural states
CPT/HCPCS: 47562; 82947; 88304; 93005; J1885; J2250; J2704; J2795; J3010

== ENCOUNTER → 2023-12-06 07:09 | Outpatient (BNV) | payer OTHER, SELFPAY | PROVIDERS: PCP Internal Medicine; Visit Provider Surgery | DX: K82.4 Cholesterolosis of gallbladder (principal) | CPT/HCPCS: 47562 ==

== ENCOUNTER → 2023-12-06 07:49 | Outpatient (BNV) | payer OTHER, SELFPAY | PROVIDERS: PCP Internal Medicine; Visit Provider Internal Medicine Cardiovascular Disease | DX: I10 Essential (primary) hypertension (principal); E11.9 Type 2 diabetes mellitus without complications | CPT/HCPCS: 93010 ==

== ENCOUNTER 2023-12-15 08:43 | Outpatient (AMB) | payer OTHER, SELFPAY ==
--- NOTE | 2023-12-15 08:45 | MHC.OFFVIS ---
Vital Signs 12/15/23 08:56 Height 5 ft 3 in Weight 175 lb BMI 31.0 BP 175/79 H Blood Pressure Location Lt brachial Position Sitting Pulse 68 Intake Visit Reasons: S/P lap zhen Intake Note: Patient is seen in office for post op assessment post laparoscopic cholecystectomy. 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 Accompanied by: Self / Same As Patient Allergies hyoscyamine [From LEVBID] Allergy (Intermediate, Verified 12/06/23 07:50) VOMITING Iodinated Contrast Media [Contrast Dye] Allergy (Intermediate, Verified 12/06/23 07:50) Difficulty Breathing methylcellulose [Citrucel] Allergy (Intermediate, Verified 12/06/23 07:50) headache, rash mushroom Allergy (Intermediate, Verified 12/06/23 07:50) RASH lactose [Lactose] Adverse Reaction (Mild, Verified 12/06/23 07:50) DIARRHEA HPI Comments Details: 68-year-old female patient returning 1 week following laparoscopic cholecystectomy for a gallbladder polyp on 12/06/2023. Subsequent pathology revealed chronic cholecystitis; cholelithiasis. She tolerated the procedure well but only reports some discomfort in the epigastric incision. She denies nausea or vomiting. Her appetite is okay and she is moving her bowels normally. She denies fever or chills. During the laparoscopic procedure her liver was noted to be firm and nodular suggestive of FONTENOT. She is due to follow-up with Dr. Ngo regarding this. She reports staying on a low-fat diet and mainly using an air fryer. [facility] Medical History (Updated 12/15/23 @ 08:52 by Toan Smith MD) Gallbladder polyp Trigger finger of left hand Fatty liver Edema Diverticulosis IBS (irritable bowel syndrome) Elevated cholesterol Asthma CVA (cerebral vascular accident) Diabetes Hypertension Surgical History Hx laparoscopic cholecystectomy (12/06/23) Hx of hand surgery H/O abdominal surgery S/P excision of lipoma History of surgical removal of skin lesion H/O: hysterectomy H/O tubal ligation H/O esophagogastroduodenoscopy H/O colonoscopy History of H/O foot surgery Family History Other No family history of coronary artery disease Social History Alcohol intake: current Alcohol intake frequency: holidays/special occasions only Alcohol type: wine Comment: counts correct Patient Tobacco Use Status: Never used Tobacco service: No Current occupational status: retired Physical Exam Const General: no acute distress Nutritional Appearance: well nourished Orientation/consciousness: patient oriented x3 Resp Effort & Inspection: normal respiratory effort, no audible wheezes, no cough and no respiratory distress GI Other: Well-healed trocar incisions without erythema, discharge or hernia. Neuro General: patient oriented x3 Extrem General: No edema Assessment & Plan Assessment & Plan (1) Gallbladder polyp: Code(s): K82.4 - Cholesterolosis of gallbladder Category: Medical (2) Chronic cholecystitis: Code(s): K81.1 - Chronic cholecystitis Category: Medical Plan 68-year-old female patient returning following laparoscopic cholecystectomy for gallbladder polyp greater than 1 cm. Pathology revealed no polyp, only choleliths. She tolerated the procedure well and her wounds are healing nicely. She should continue to avoid lifting greater than 10 lb for 1 more week and avoid fatty foods for 1 month. Coding Level of Care Code Global (02573) Diagnoses Gallbladder polyp K82.4 Chronic cholecystitis K81.1
[2023-12-15 08:56] VITALS: BP 175/79; PULSE 68; BMI 31.0
== END 2023-12-15 09:24 | disposition home or self-care (01) ==
PROVIDERS: PCP Internal Medicine; Visit Provider Surgery
DX: K82.4 Cholesterolosis of gallbladder (principal); K81.1 Chronic cholecystitis
CPT/HCPCS: 99024

== ENCOUNTER → 2023-12-15 08:43 | Outpatient (BNVA) | payer OTHER, SELFPAY | PROVIDERS: PCP Internal Medicine; Visit Provider Surgery ==

== ENCOUNTER 2024-02-26 09:27 | Outpatient (REF) | payer OTHER, SELFPAY ==
[2024-02-26 10:55] LABS: Hemoglobin 13.6 g/dl (12.0-16.0); Mean Corpuscular Hemoglobin 32.2 pg (27.0-33.0); Mean Corpuscular Volume 94.6 fL (80.0-98.0); Mean Platelet Volume 10.7 fL (9.4-12.3); Platelet Count 112 X10*3/uL (160-400); Red Blood Count 4.23 X10*6/uL (4.20-5.50); Red Cell Distribution Width 14.3 % (11.0-16.0); White Blood Count 4.7 X10*3/uL (4.8-10.8)
[2024-02-26 11:19] LABS: Alanine Aminotransferase 28 U/L (0-31); Albumin Level 4.4 g/dL (3.5-5.0); Alkaline Phosphatase 94 U/L (39-117); Aspartate Amino Transferase 23 U/L (5-31); Bilirubin Direct 0.2 mg/dL (0.0-0.5); Bilirubin Total 0.6 mg/dL (0.0-1.0); Iron 60 mcg/dL (30-160); Percent Iron Saturation 16 % (15-50); Total Iron Binding Capacity 379 mcg/dL (228-428); Total Protein 7.6 g/dL (6.5-8.0); Unsaturated Iron Binding 319 ug/dL
[2024-02-26 11:33] LABS: Ferritin 22 ng/mL (10-250)
[2024-02-26 11:38] LABS: HBS Num1 5.75 mIU/mL (0-7.99); HBc Num1 0.08 S/CO (0.00-0.79); HBsAGNum1 0.21 S/CO (0.00-0.99); Hepatitis A Antibody IgM 0.46 Index (0-0.79); Hepatitis B Core Antibody Nonreactive (Nonreactive); Hepatitis B Surface Antigen Negative (Negative); ~HepC Num1 0.39 S/CO (0.00-0.79); ~Hepatitis A Antibody IgM Nonreactive (Nonreactive); ~Hepatitis B Surface Antibody NONREACTIVE (Nonreactive); ~Hepatitis C Antibody Nonreactive (Nonreactive)
[2024-02-29 06:33] LABS: Anti Nuclear Antibody Screen NEGATIVE (NEGATIVE)
[2024-02-29 14:09] LABS: Mitochondrial Antibodies NEGATIVE (NEGATIVE)
[2024-03-03 09:13] LABS: Smooth Muscle Antibody <20 U (<20)
[2024-03-04 16:29] LABS: FIB-ALT 24 U/L (6-29); FIB-Alpha-2-Macroglobulin 161 mg/dL (106-279); FIB-Apolipoprotein A1 174 mg/dL (101-198); FIB-GGT 156 U/L (3-65); FIB-Haptoglobin 160 mg/dL (43-212); FIB-Total Bilirubin 0.6 mg/dL (0.2-1.2); Liver Fibrosis Score 0.26; Liver Fibrosis Stage F0-F1; Nec Inflam Act Grade A0
== END 2024-02-26 09:28 | disposition home or self-care (01) ==
LOC: HO.10HDL 09:27
PROVIDERS: Visit Provider Internal Medicine Gastroenterology
DX: K74.60 Unspecified cirrhosis of liver (principal)
CPT/HCPCS: 36415; 80076; 81596; 82728; 83540; 85027; 86015; 86038; 86381; 86704; 86706; 86709; 86803; 87340

== ENCOUNTER 2024-04-05 10:01 | Day surgery (SDC) | payer OTHER, SELFPAY ==
--- NOTE | 2024-03-27 14:06 | HO.ANESPROP2 ---
Documented by User: Carol Ann Angel NP 04/04/24 10:00 HPI - Anesthesia Eval Consult details Narrative: 68yo F for Upper Endoscopy s/p lap zhen 11/2023 with GA-7.5 Cirrhosis without ascites Anesthesia Pre-Procedure Meds Is the patient on any of the following meds?: SGLT2 Inhib PMFSH Active Problems Active Problems: All Active Problems Chronic cholecystitis (Acute) Stiffness of left hand joint (Acute) Trigger finger, right middle finger (Acute) Trigger finger, left middle finger (Acute) Bilateral hand pain (Acute) Trigger finger of right hand (Acute) Diabetes (Acute) Trigger finger of left hand (Acute) Past Medical History Medical History GERD (gastroesophageal reflux disease) Diarrhea Cirrhosis of liver without ascites Gallbladder polyp Trigger finger of left hand Fatty liver Edema Diverticulosis IBS (irritable bowel syndrome) Elevated cholesterol Asthma CVA (cerebral vascular accident) Diabetes Hypertension Family History Family History Other No family history of coronary artery disease Family history of problems with anesthesia: No Surgical History Surgical History Hx laparoscopic cholecystectomy (12/06/23) Hx of hand surgery H/O abdominal surgery S/P excision of lipoma History of surgical removal of skin lesion H/O: hysterectomy H/O tubal ligation H/O esophagogastroduodenoscopy H/O colonoscopy History of H/O foot surgery History of Problems with Anesthesia: No Social History Social History Are you a primary home care music therapist to a significant other at home: No Do you presently have visiting nurse or other home services: No Alcohol intake: current Alcohol intake frequency: holidays/special occasions only Alcohol type: wine Comment: counts correct Patient Tobacco Use Status: Never used Tobacco Use of substances other than those prescribed or required for medical reasons: No Have you been hit, kicked, punched, or otherwise hurt by someone within the past year? If so, by whom?: No Are you DNR?: No Advance Directives: No Advance Directives Information Provided: Yes Recently lost weight without trying: No service: No Current occupational status: retired Meds Allergies Allergy/AdvReac Type Severity Reaction Status Date / Time hyoscyamine [From LEVBID] Allergy Intermediate VOMITING Verified 12/06/23 07:50 Iodinated Contrast Media Allergy Intermediate Difficulty Verified 12/06/23 07:50 [Contrast Dye] Breathing methylcellulose [Citrucel] Allergy Intermediate headache, Verified 12/06/23 07:50 rash mushroom Allergy Intermediate RASH Verified 12/06/23 07:50 lactose [Lactose] AdvReac Mild DIARRHEA Verified 12/06/23 07:50 Home Medications ?Medication ?Instructions ?Recorded ?Confirmed ?Last Taken ?Type albuterol sulfate 2.5 mg/3 mL 1 vial inhalation Q4H PRN Wheezing 01/24/22 12/06/23 09/28/23 History (0.083 %) solution for nebulization albuterol sulfate 90 mcg/actuation 2 puff PO Q4H PRN Wheezing 01/24/22 12/06/23 09/28/23 History aerosol inhaler atenolol 25 mg tablet 1 tab PO DAILY 01/24/22 12/06/23 04/05/24 History atorvastatin 20 mg tablet 1 tab PO DAILY 01/24/22 12/06/23 04/05/24 History cholecalciferol (vitamin D3) 50 50 mcg PO DAILY 01/24/22 12/06/23 09/28/23 History mcg (2,000 unit) tablet diphenoxylate-atropine 2.5 1 tab PO QID PRN Diarrhea 01/24/22 12/06/23 09/28/23 History mg-0.025 mg tablet hydrochlorothiazide 12.5 mg tablet 1 tab PO DAILY 01/24/22 12/06/23 09/28/23 History multivitamin 1 tab PO DAILY 01/24/22 12/06/23 09/28/23 History omeprazole 20 mg capsule,delayed 2 cap PO BID 01/24/22 12/06/23 04/05/24 History release aspirin 81 mg tablet 81 mg PO DAILY 10/03/22 12/06/23 09/28/23 History dapagliflozin propanediol 10 mg 10 mg PO DAILY 09/28/23 12/06/23 09/28/23 History tablet (Farxiga) fluticasone 250 mcg-salmeterol 50 1 ea inhalation BID 12/06/23 12/06/23 04/05/24 History mcg/dose blistr powdr for inhalation ([place]) Exam Pertinent Lab Results Pertinent Lab Results: Laboratory Tests 11/18/23 02/26/24 10:02 09:40 WBC 4.7 L Hgb 13.6 Hct 40.0 Plt Count 112 L Sodium 142 Potassium 4.1 Chloride 100 Carbon Dioxide 31 H BUN 19 H Creatinine 1.00 Narrative Narrative: EKG 11/2023 Vent. Rate : 070 BPM Atrial Rate : 070 BPM P-R Int : 128 ms QRS Dur : 074 ms QT Int : 390 ms P-R-T Axes : 021 -06 025 degrees QTc Int : 421 ms Normal sinus rhythm with sinus arrhythmia Normal ECG When compared with ECG of 24-JAN-2022 14:19, No significant change was found US abdomen complete 09/2023 IMPRESSION: 1. Hepatic steatosis. 2. 0.7 cm cyst in the right lobe of the liver. 3. 1.1 cm and 0.9 cm gallbladder polyps. Gallbladder polyps larger than 10 mm in diameter or more likely to be cancerous return into cancer over time. 4. Splenomegaly. Assessment and Plan Assessment Anesthesia Assessment: Chart Reviewed Final Anesthetic Review Family History of Problems with Anesthesia: No History of Problems with Anesthesia: No Documented by User: Roxi Hyde MD 04/05/24 10:40 [facility] Past Medical History Medical History GERD (gastroesophageal reflux disease) Diarrhea Cirrhosis of liver without ascites Gallbladder polyp Trigger finger of left hand Fatty liver Edema Diverticulosis IBS (irritable bowel syndrome) Elevated cholesterol Asthma CVA (cerebral vascular accident) Diabetes Hypertension Family History Family History Other No family history of coronary artery disease Surgical History Surgical History Hx laparoscopic cholecystectomy (12/06/23) Hx of hand surgery H/O abdominal surgery S/P excision of lipoma History of surgical removal of skin lesion H/O: hysterectomy H/O tubal ligation H/O esophagogastroduodenoscopy H/O colonoscopy History of H/O foot surgery Social History Social History Are you a primary home care music therapist to a significant other at home: No Do you presently have visiting nurse or other home services: No Alcohol intake: current Alcohol intake frequency: holidays/special occasions only Alcohol type: wine Comment: counts correct Patient Tobacco Use Status: Never used Tobacco Use of substances other than those prescribed or required for medical reasons: No Have you been hit, kicked, punched, or otherwise hurt by someone within the past year? If so, by whom?: No Are you DNR?: No Advance Directives: No Advance Directives Information Provided: Yes Recently lost weight without trying: No service: No Current occupational status: retired [employer] Allergies Allergy/AdvReac Type Severity Reaction Status Date / Time hyoscyamine [From LEVBID] Allergy Intermediate VOMITING Verified 12/06/23 07:50 Iodinated Contrast Media Allergy Intermediate Difficulty Verified 12/06/23 07:50 [Contrast Dye] Breathing methylcellulose [Citrucel] Allergy Intermediate headache, Verified 12/06/23 07:50 rash mushroom Allergy Intermediate RASH Verified 12/06/23 07:50 lactose [Lactose] AdvReac Mild DIARRHEA Verified 12/06/23 07:50 Home Medications ?Medication ?Instructions ?Recorded ?Confirmed ?Last Taken ?Type albuterol sulfate 2.5 mg/3 mL 1 vial inhalation Q4H PRN Wheezing 01/24/22 12/06/23 09/28/23 History (0.083 %) solution for nebulization albuterol sulfate 90 mcg/actuation 2 puff PO Q4H PRN Wheezing 01/24/22 12/06/23 09/28/23 History aerosol inhaler atenolol 25 mg tablet 1 tab PO DAILY 01/24/22 12/06/23 04/05/24 History atorvastatin 20 mg tablet 1 tab PO DAILY 06/12/06/23 04/05/24 History cholecalciferol (vitamin D3) 50 50 mcg PO DAILY 01/24/22 12/06/23 09/28/23 History mcg (2,000 unit) tablet diphenoxylate-atropine 2.5 1 tab PO QID PRN Diarrhea 01/24/22 12/06/23 09/28/23 History mg-0.025 mg tablet hydrochlorothiazide 12.5 mg tablet 1 tab PO DAILY 01/24/22 12/06/23 09/28/23 History multivitamin 1 tab PO DAILY 01/24/22 12/06/23 09/28/23 History omeprazole 20 mg capsule,delayed 2 cap PO BID 01/24/22 12/06/23 04/05/24 History release aspirin 81 mg tablet 81 mg PO DAILY 10/03/22 12/06/23 09/28/23 History dapagliflozin propanediol 10 mg 10 mg PO DAILY 09/28/23 12/06/23 09/28/23 History tablet (Farxiga) fluticasone 250 mcg-salmeterol 50 1 ea inhalation BID 12/06/23 12/06/23 04/05/24 History mcg/dose blistr powdr for inhalation (Wixela Inhub) Exam Airway Mallampati Class: III TM Dist: >3cm Neck ROM: Full Heart: rrr Lungs: cta Assessment and Plan Assessment Anesthesia Assessment: Anesthesia Plan Discussed Final Anesthetic Review NPO: Yes ASA Class: III Final Preanesthetic Review: No Changes in Pt Med Stat, Meds/Allgs Chart Reviewed, Consent Obtained/Reviewed and Anes Risks/Benef Reviewed Patient Risk: Intermediate Procedure Risk: Low Anesthetic Plan Anesthetic Plan: MAC: Disposition: Standard PACU
[2024-03-27 16:44] VITALS: BMI 31.5
[2024-04-05 10:10] VITALS: BP 176/69; PULSE 64; RESP 16; TEMP 36.8; O2SAT 98; BMI 32.1
[2024-04-05 10:24] LABS: Glucose, Whole Blood 142 mg/dL (60-115)
[2024-04-05] MEDS: Lactated Ringers 1,000 ML 100 ML IVCONT (10:28)
--- NOTE | 2024-04-05 10:30 | MHC.SHP ---
Pre-Procedural Eval Section A - 24 Hr Update-Section A only Date of Service: 04/05/24 The patient is an INPATIENT: No Changes since office visit: No Cold of Flu in the past 2 weeks, No New Medical Problems, No Changes in Medication and No Patient answered all questions The patient has been examined within 24 hours of the surgical procedure. The History & Physical has been completed within 30 days and I have reviewed it.: Yes Section B - Complete if H&P > 30 days Chief Complaint: Unspecified cirrhosis of liver Allergies: Allergies Allergy/AdvReac Type Severity Reaction Status Date / Time hyoscyamine [From LEVBID] Allergy Intermediate VOMITING Verified 12/06/23 07:50 Iodinated Contrast Media Allergy Intermediate Difficulty Verified 12/06/23 07:50 [Contrast Dye] Breathing methylcellulose [Citrucel] Allergy Intermediate headache, Verified 12/06/23 07:50 rash mushroom Allergy Intermediate RASH Verified 12/06/23 07:50 lactose [Lactose] AdvReac Mild DIARRHEA Verified 12/06/23 07:50 Plan I have reviewed the history and physical and performed a pertinent physical examination on my patient. No changes have occurred unless specified. Time Spent With Patient Time: Total time managing care of this patient today ____ minutes.
[2024-04-05 10:50] VITALS: BP 108/62; PULSE 67; RESP 12; TEMP 36.1; O2SAT 97
--- NOTE | 2024-04-05 11:04 | OP_ITS ---
DATE OF SERVICE: 04/05/2024 SURGEON: Yaya Ngo MD INDICATIONS: Question of cirrhosis on imaging studies. PREOPERATIVE DIAGNOSIS: POSTOPERATIVE DIAGNOSIS: PROCEDURE PERFORMED: Upper endoscopy with biopsy. ESTIMATED BLOOD LOSS: COMPLICATIONS: ANESTHESIA: Monitored anesthesia care. ASSISTANTS: SPECIMENS: DESCRIPTION OF PROCEDURE: A history and physical was performed. The risks and benefits of the procedure were explained to the patient and informed consent was obtained. The patient was placed in the left lateral decubitus position. The Olympus video gastroscope was introduced into the esophagus, stomach, and duodenum. Examination was performed and the scope was removed. She tolerated the procedure well and was returned to recovery area in stable condition. FINDINGS: Esophagus: The esophagus was normal. There were no varices identified. The EG junction was normal. Stomach: The stomach showed several benign-appearing polyps consistent with fundic gland polyps. Two of these were biopsied. There was mild diffuse gastritis throughout with patchy erythema. No ulcer was identified. No portal hypertensive changes were identified. Duodenum: The bulb and 2nd portion were normal. Biopsies were obtained from the gastric polyps and from the antrum. IMPRESSION: 1. Gastritis. 2. Gastric polyps. RECOMMENDATION: Follow up the biopsy results. MD ELA Rojas/CRISTIAN / [id number]
[2024-04-05 11:05] VITALS: BP 127/45; PULSE 59; RESP 16; TEMP 36.9; O2SAT 98
--- NOTE | 2024-04-05 11:17 | P.CONAN_ITS ---
HPI - Anesthesia Eval Consult details Narrative: upper endo PMFSH Active Problems Active Problems: All Active Problems Chronic cholecystitis (Acute) Stiffness of left hand joint (Acute) Trigger finger, right middle finger (Acute) Trigger finger, left middle finger (Acute) Bilateral hand pain (Acute) Trigger finger of right hand (Acute) Diabetes (Acute) Trigger finger of left hand (Acute) Past Medical History Medical History GERD (gastroesophageal reflux disease) Diarrhea Cirrhosis of liver without ascites Gallbladder polyp Trigger finger of left hand Fatty liver Edema Diverticulosis IBS (irritable bowel syndrome) Elevated cholesterol Asthma CVA (cerebral vascular accident) Diabetes Hypertension Family History Family History Other No family history of coronary artery disease Family history of problems with anesthesia: No Surgical History Surgical History Hx laparoscopic cholecystectomy (12/06/23) Hx of hand surgery H/O abdominal surgery S/P excision of lipoma History of surgical removal of skin lesion H/O: hysterectomy H/O tubal ligation H/O esophagogastroduodenoscopy H/O colonoscopy History of H/O foot surgery History of Problems with Anesthesia: No Social History Social History Are you a primary human services care specialist to a significant other at home: No Do you presently have visiting nurse or other home services: No Alcohol intake: current Alcohol intake frequency: holidays/special occasions only Alcohol type: wine Comment: counts correct Patient Tobacco Use Status: Never used Tobacco Use of substances other than those prescribed or required for medical reasons: No Have you been hit, kicked, punched, or otherwise hurt by someone within the past year? If so, by whom?: No Are you DNR?: No Advance Directives: No Advance Directives Information Provided: Yes Recently lost weight without trying: No service: No Current occupational status: retired Meds Allergies Allergy/AdvReac Type Severity Reaction Status Date / Time hyoscyamine [From LEVBID] Allergy Intermediate VOMITING Verified 12/06/23 07:50 Iodinated Contrast Media Allergy Intermediate Difficulty Verified 12/06/23 07:50 [Contrast Dye] Breathing methylcellulose [Citrucel] Allergy Intermediate headache, Verified 12/06/23 07:50 rash mushroom Allergy Intermediate RASH Verified 12/06/23 07:50 lactose [Lactose] AdvReac Mild DIARRHEA Verified 12/06/23 07:50 Active Medications: Current Medications Albuterol Sulfate (Albuterol Sulfate (0.083%) 2.5 Mg/3 Ml Vial.Neb) 2.5 mg INHALE ONCE PRN PRN Reason: Shortness of Breath/Wheezing Lactated Ringer's (Lr) 1,000 mls @ 100 mls/hr IVCONT .Q10H MIGUEL ANGEL Last Admin: 04/05/24 10:28 Dose: 100 mls/hr Home Medications ?Medication ?Instructions ?Recorded ?Confirmed ?Last Taken ?Type albuterol sulfate 2.5 mg/3 mL 1 vial inhalation Q4H PRN Wheezing 01/24/22 12/06/23 09/28/23 History (0.083 %) solution for nebulization albuterol sulfate 90 mcg/actuation 2 puff PO Q4H PRN Wheezing 01/24/22 12/06/23 09/28/23 History aerosol inhaler atenolol 25 mg tablet 1 tab PO DAILY 01/24/22 12/06/23 04/05/24 History atorvastatin 20 mg tablet 1 tab PO DAILY 01/24/22 12/06/23 04/05/24 History cholecalciferol (vitamin D3) 50 50 mcg PO DAILY 01/24/22 12/06/23 09/28/23 History mcg (2,000 unit) tablet diphenoxylate-atropine 2.5 1 tab PO QID PRN Diarrhea 01/24/22 12/06/23 09/28/23 History mg-0.025 mg tablet hydrochlorothiazide 12.5 mg tablet 1 tab PO DAILY 01/24/22 12/06/23 09/28/23 History multivitamin 1 tab PO DAILY 01/24/22 12/06/23 09/28/23 History omeprazole 20 mg capsule,delayed 2 cap PO BID 01/24/22 12/06/23 04/05/24 History release aspirin 81 mg tablet 81 mg PO DAILY 10/03/22 12/06/23 09/28/23 History dapagliflozin propanediol 10 mg 10 mg PO DAILY 09/28/23 12/06/23 09/28/23 History tablet (Farxiga) fluticasone 250 mcg-salmeterol 50 1 ea inhalation BID 12/06/23 12/06/23 04/05/24 History mcg/dose blistr powdr for inhalation (Trinixharinder Inhub) Exam Height,Weight and Vital Signs: Height 5 ft 3 in Weight 82.282 kg Last Vital Signs Temp 97 F 04/05/24 10:50 Pulse 67 04/05/24 10:50 Resp 12 04/05/24 10:50 BP 108/62 04/05/24 10:50 Pulse Ox 97 04/05/24 10:50 O2 Del Method Simple Mask 04/05/24 10:50 O2 Flow Rate 6 04/05/24 10:50 Pertinent Lab Results Pertinent Lab Results: Laboratory Tests 04/05/24 10:19 POC Glucose 142 H Airway Mallampati Class: III TM Dist: <=3cm Neck ROM: Full Heart: rrr Lungs: cta Assessment and Plan Assessment Anesthesia Assessment: Anesthesia Plan Discussed Final Anesthetic Review Family History of Problems with Anesthesia: No History of Problems with Anesthesia: No NPO: Yes ASA Class: III Final Preanesthetic Review: No Changes in Pt Med Stat, Meds/Allgs Chart Reviewed, Consent Obtained/Reviewed and Anes Risks/Benef Reviewed Anesthetic Plan Anesthetic Plan: MAC: Disposition: Standard PACU
== END 2024-04-05 11:25 | disposition home or self-care (01) ==
PROVIDERS: PCP Internal Medicine; Visit Provider Internal Medicine Gastroenterology
PROC: 0DJ08ZZ Inspection of Upper Intestinal Tract, Via Natural or Artificial Opening Endoscopic (ICD-10-PCS; CPT 43235; principal; 2024-04-05 12:40)
DX: K74.60 Unspecified cirrhosis of liver (principal); K76.0 Fatty (change of) liver, not elsewhere classified; K29.50 Unspecified chronic gastritis without bleeding; K31.7 Polyp of stomach and duodenum; K21.9 Gastro-esophageal reflux disease without esophagitis; K58.0 Irritable bowel syndrome with diarrhea; I10 Essential (primary) hypertension; Z86.73 Personal history of transient ischemic attack (TIA), and cerebral infarction without residual deficits; E78.5 Hyperlipidemia, unspecified; J45.909 Unspecified asthma, uncomplicated; E11.9 Type 2 diabetes mellitus without complications; Z79.84 Long term (current) use of oral hypoglycemic drugs; Z79.82 Long term (current) use of aspirin; Z90.49 Acquired absence of other specified parts of digestive tract; Z79.899 Other long term (current) drug therapy; Z79.51 Long term (current) use of inhaled steroids; Z91.041 Radiographic dye allergy status; Z88.8 Allergy status to other drugs, medicaments and biological substances
CPT/HCPCS: 43239; 82947; 88305; 88342; J2704

== ENCOUNTER 2024-06-21 10:46 | Outpatient (REF) | payer OTHER, SELFPAY ==
--- NOTE | ~2024-06-21 | MM_ITS ---
EXAMINATION: MM SCREENING DIGITAL BREAST TOMOSYNTHESIS, BILATERAL CLINICAL INFORMATION: Screening. Asymptomatic. COMPARISON: Mammography: Comparison is made with available priors TECHNIQUE: Digital breast mammography with tomosynthesis is performed in both the craniocaudal and mediolateral oblique views along with computer-aided detection (CAD). FINDINGS: There are scattered areas of fibroglandular density (ACR BI-RADS breast composition Category b). Left marker clip from previous needle core biopsy. There are no significant masses, abnormal calcifications, or other abnormalities. MM/MM tomosynthesis screening BI IMPRESSION: No mammographic evidence of malignancy. ASSESSMENT: BI-RADS BI-RADS 2 - Benign Findings RECOMMENDATION: Routine annual mammography screening. 1 year F/U This examination should not preclude the clinical evaluation of a suspicious palpable abnormality. This patient's information was entered into a reminder system with a target due date for their next mammogram. Electronically signed by: Rae Dean DO 07/02/2024 10:49 AM TERESA
== END 2024-06-21 10:47 | disposition home or self-care (01) ==
LOC: HO.MAMMO 10:46
PROVIDERS: PCP Internal Medicine; Visit Provider Internal Medicine
DX: Z12.31 Encounter for screening mammogram for malignant neoplasm of breast (principal)
CPT/HCPCS: 77063; 77067

== ENCOUNTER → 2024-06-21 11:15 | Outpatient (BNV) | payer OTHER, SELFPAY | PROVIDERS: PCP Internal Medicine; Visit Provider Internal Medicine | DX: Z12.31 Encounter for screening mammogram for malignant neoplasm of breast (principal) | CPT/HCPCS: 77063; 77067 ==

== ENCOUNTER 2024-09-12 07:46 | Outpatient (AMB) | payer OTHER, SELFPAY ==
--- OUTSIDE RECORDS SUMMARY | 2024-09-12 07:48 | XMS_ITS ---
Author Organization [facility] Address [address] [place] [address] Care Team Providers Care Turkey Roll Maker Name Role Phone Mihir Noble MD Primary Care Provider Unavaila Josias Hernandez Unavailable [phone] REASON FOR VISIT Cx 10/23/23 Encounters Encounter Location Date Provider Diagnosis [facility] [address] [place] [phone] 10/17/2023 Josias Judge Plan Of Treatment No Information Progress Notes * Joesph MAN ADOB: [birth year] (68 yo F)Acc No.[id number]:10/17/2023 Patient:?Joesph Man :1955???Age:68 Y???Sex:Female Address:[address] [place] [id number] * true * Date:? Generated for Ryley champagne/Petty/eTransmitting on:?09/12/2024 07:48 AM EST
--- OUTSIDE RECORDS SUMMARY | 2024-09-12 07:48 | XMS_ITS ---
Author Organization [facility] Address [address] [place] [address] Care Team Providers Care Tie Mill Operator Name Role Phone Mihir Noble MD Primary Care Provider Yaya Deal Jr [phone] REASON FOR VISIT cirrhosis of liver w/o ascites PROBLEMS Problem Type ICD Code Onset Dates Problem Status W/U Status Risk SNOMED Code Notes Problem Cirrhosis (K74.60) Active confirmed Cirrhotic (415560745) Problem Gastritis (K29.70) Active confirmed Gastritis (9354085) Problem Gastric polyps (K31.7) Active confirmed Benign neoplasm of stomach (21547156) Encounters Encounter Location Date Provider Diagnosis [facility] Outpatient [address] [place], [place] [id number] 04/05/2024 Yaya Ngo Jr Cirrhosis K74.60 ; Gastritis K29.70 and Gastric polyps K31.7 ASSESSMENTS Encounter Date Diagnosis Assessment Notes Treatment Notes Treatment Clinical Notes 04/05/2024 Cirrhosis (ICD-10 - K74.60) 04/05/2024 Gastritis (ICD-10 - K29.70) 04/05/2024 Gastric polyps (ICD-10 - K31.7) PLAN OF TREATMENT Next Appt Details Provider Name:Yaya real Jr, 04/07/2025 09:20:00 AM, [address], [address], [place], [address],
--- OUTSIDE RECORDS SUMMARY | 2024-09-12 07:49 | XMS_ITS | Patient Health Record ---
[facility] Address [address] [place] [address] Care Team Providers Care Cork Mixer Name Role Phone Mihir Noble MD Primary Care Provider Unavaila Josias Hernandez Unavailable [phone] Allergies Allergen (clinical drug ingredient) Drug/Non Drug Allergy documented on EMR Reaction Allergy Type Onset Date Status Mushrooms (uncoded) rash Allergy Active Reason For Referral No Information Medications Medication SIG (Take, Route, Frequency, Duration) Notes Start Date End Date Status Vitamin D3 50 MCG (1999) 1 capsule Orally Once a day for 30 day(s) Active Albuterol Active Probiotic Active Omeprazole 20 MG 1 capsule 30 minutes before morning meal Orally Once a day for 30 day(s) Active Atorvastatin Calcium 20 MG 1 tablet Orally Once a day for 30 day(s) Active metFORMIN HCl ER 500 MG 1 tablet with ev ening meal Orally Once a day for 30 day(s) Active amLODIPine Besylate 5 MG 1 tablet Orally twice a day Active Atenolol 25 MG 1 tablet Orally Once a day for 30 day(s) Active Symbicort Active Aspirin 325 MG as directed Orally Active ASO Ankle/Foot Stablizing AFO As directed Wear Daily for as needed Not-Taking Diphenoxylate-Atropine Active Immunizations Vaccine Route Administration Date Status Comme nts COVID-19 Pfizer BioNTech Vaccine Unknown 10/04/2020 Adm inistered #2 10/25/20 Social History Tobacco Use: Social History Observation Description Date Details (start date - stop date) Former Smoker NA - NA Tobacco Use/Smoking Question Answer Notes Are you a: former smoker Additional Findings: Tobacco Non-User Current no n-smoker Alcohol Screen Question Answer Notes Did you have a drink contain ing alcohol in the past year? Yes How often did you have a dri nk containing alcohol in the past year? 2 to 4 times a month (2 points) Points 2 Interpretation Negative Tobacco use other than smoking: Question Answer Notes Are you an other tobacco user? No Problems Problem Type SNOMED Code ICD Code Onset Dates Problem Status W/U Status Risk Notes Problem Type 2 diabetes mellitus with peripheral angiopathy (021432796) Type 2 diabetes mellitus with diabetic peripheral angiopathy without gangrene (E11.51) Active confirmed Encounters Encounter Location Date Provider Diagnosis [facility] [address] [place] [address] 10/17/2023 Josias Judge Plan Of Treatment Pending Test Test Name Order Date X ray : Foot, left 3V 08/07/2023 X ray : Foot, right 3V 08/07/2023 [id number] SKIN LESIONS, OVER 4 08/07/19 24 Insurance Providers Payer Name Payer Address Payer Phone Subscriber Number Group Number Insured Name Patient Relationship to Insured Coverage Start Date Coverage End Date [facility] [address] [place] [address] [phone] [id number] Luis Foreman Spouse - patient is the spouse of the insured Medical (General) History Medical History History ICD Code asthma CAD Chicken pox Diabetes Heart disease High blood pressure IBS Measles reflux Warts Surgical History Surgery Date(Month/Year) hysterectomy c-sections 3x left foot
--- OUTSIDE RECORDS SUMMARY | 2024-09-12 07:49 | XMS_ITS ---
Author Organization [facility] Address [address] [place] [address] Care Team Providers Care Publishing Director Name Role Phone Mihir Noble MD Primary Care Provider UnavailYaya Modi Jr [phone] REASON FOR VISIT pathology Encounters Encounter Location Date Provider Diagnosis [facility] [address] [place] [address] 04/18/2024 Yaya Ngo Jr PLAN OF TREATMENT Next Appt Details Provider Name:Yaya real Jr, 04/07/2025 09:20:00 AM, [address], [address], [place], [address],
--- OUTSIDE RECORDS SUMMARY | 2024-09-12 07:49 | XMS_ITS | Patient Health Record ---
Author Organization [facility] Address [address] [place] [address] Care Team Providers Care Waste Minimization Technician Name Role Phone Mihir Noble MD Primary Care Provider Yaya Deal Jr Unavailable [phone] ALLERGIES Allergen (clinical drug ingredient) Drug/Non Drug Allergy documented on EMR Reaction Allergy Type Onset Date Status hyoscyamine Levbid Unknown Drug Allergy Activ e ivp dye (uncoded) Unknown Allergy Ac tive mushrooms (uncoded) Unknown Allergy Active RESULTS Component Value Reference Range Notes GI PANEL Reviewed date:09/21/2023 10:01:32 AM Interpretation: Performing Lab:[facility], [address] [place] [phone] Notes/Report: Campylobacter Not Detected Not Detect. Plesiomonas shigelloides Not Detected Not Detect. Salmonella Not Detected Not Detect. Vibrio Not Detected Not Detect. Vibrio Cholerae Not Detected Not Detect. Yersinia enterocolitica Not Detected Not Detect. E. coli EAEC Not Detected Not Detect. E. coli EPEC Not Detected Not Detect. E. coli ETEC Not Detected Not Detect. E. coli STEC Not Detected Not Detect. E. coli O157 Not applicable Not Detect. E. coli containing the O157 antigen are a subset of Shiga-like toxin-producing E. coli (STEC). Shigella sp./EIEC Not Detected Not Detect. Cryptosporidium Not Detected Not Detect. Cyclospora cayetanensis Not Detected Not Detect. Entamoeba histolytica Not Detected Not Detect. Giardia lamblia Not Detected Not Detect. Adenovirus F 40/41 Not Detected Not Detect. Astrovirus Not Detected Not Detect. Norovirus GI/GII Not Detected Not Detect. Rotavirus A Not Detected Not Detect. Sapovirus Not Detected Not Detect. All results must be correlated with clinical findings. Negative results do not exclude the possibility of gastrointestinal infection and should not be used as the sole basis for diagnosis, treatment, or other management decisions. Virus, bacteria, and parasite nucleic acid may persist in vivo independently of organism viability. Additionally, some organisms may be carried symptomatically. Detection of organism targets does not imply that the corresponding organisms are infectious or are the causative agents for clinical symptoms. There is a risk of false negative values due to the presence of sequence variants in the gene targets of the assay, amplification inhibitors in specimens, or inadequate numbers of organisms for amplification. The identification of several diarrheagenic E. coli pathotypes has historically relied upon phenotypic characteristics. This panel targets genetic determinants characteristic of most pathogenic strains, but may not detect all strains having phenotypic characteristics of a pathotype. The performance of this test has not been established for monitoring treatment of infection with any of the panel organisms. This assay is performed by Multiplexed PCR, utilizing the Chute Array. Complete Blood Count Auto Di ff Reviewed date:09/21/2023 10:01:22 AM Interpretation: Performing Lab:[facility], [address] [place] [phone] Notes/Report: White Blood Count 5.4 4.8-10.8 X10*3/uL Red Blood Count 4.42 4.20-5.50 X10*6/uL Hemoglobin 14.2 12.0-16.0 g/dl Hematocrit 41.5 37.0-47.0 % Mean Corpuscular Volume 93.9 80.0-98.0 fL Mean Corpuscular Hemoglobin 32.1 27.0-33.0 pg Mean Corpuscular HGB Conc 34.2 31.0-35.0 g/dl Red Cell Distribution Width 13.6 11.0-16.0 % Platelet Count 120 160-400 X10*3/uL Mean Platelet Volume 10.7 9.4-12.3 fL Neutrophils Percent Auto 52.5 45-73 % Imm Gran Pct Auto 0.2 0.0-0.4 % Lymphocytes Percent Auto 38.2 20-40 % Monocytes Percent Auto 4.8 2-11 % Eosinophils Percent Auto 3.9 0-4 % Basophils Percent Auto 0.4 0-2 % NRBC Pct Auto 0.0 0.0-0.2 /100WBC Neutrophils Absolute Auto 2.8 2.0-8.3 x10*3/u L Imm Gran Abs Auto 0.01 0.00-0.03 X10*3/uL Lymphocytes Absolute Auto 2.1 1.2-4.9 X10*3/u L Monocytes Absolute Auto 0.3 0.1-1.2 X10*3/uL Eosinophils Absolute Auto 0.2 0.0-0.4 X10*3/u L Basophils Absolute Auto 0.0 0.0-0.2 X10*3/uL NRBC Abs Auto 0.000 0.0-0.012 X10*3/uL Leukocytes Stool Qualitative Reviewed date:09/21/2023 10:01:26 AM Interpretation: Performing Lab:[address] [phone] Notes/Report: Leukocytes Stool Qualitative NEGATIVE NEGATIVE Liver Panel Reviewed date:09/21/2023 10:01:09 AM Interpretation: Performing Lab:[address] [address] Notes/Report: Bilirubin Total 0.7 0.0-1.0 mg/dL Bilirubin Direct 0.3 0.0-0.5 mg/dL Aspartate Amino Transferase 34 5-31 U/L Alanine Aminotransferase 37 0-31 U/L Total Protein 7.8 6.5-8.0 g/dL Albumin Level 4.4 3.5-5.0 g/dL Alkaline Phosphatase 89 39-117 U/L Lipase Reviewed date:09/21/2023 10:01:17 AM Interpretation: Performing Lab:[address] [address] Notes/Report: Lipase 16 8-78 U/L Ova and Parasite Reviewed date:09/21/2023 10:57:38 PM Interpretation: Performing Lab:[address] [phone] Notes/Report: Ova and Parasite SEE NOTE OVA AND PARASITES, CONC AND PERM SMEAR Micro Number: [id number] Test Status: Final Specimen Source: Stool Specimen Quality: Adequate CONCENTRATION 1: No ova or parasites seen TRICHROME 1: No ova or parasites seen Routine Ova and Parasite exam may not detect some parasites that occasionally cause diarrheal illness. Cryptosporidium Antigen and/or Cyclospora and Isospora Exam may be ordered to detect these parasites. One negative sample does not necessarily rule out the presence of a parasitic infection. For additional information, please refer to https://[employer]/faq/HTZ061 (This link is being provided for informational/ educational purposes only.) THIS TEST WAS PERFORMED AT: [facility] [address] [address] KATIE GONZALEZ MD US abdomen complete Reviewed date:10/12/2023 11:36:33 AM Interpretation: Performing Lab: Notes/Report: [place] [address] Ultrasound Report Signed Patient: Du Man MR#: [id number] : 1955 Acct:[id number] Age/Sex: 68 / F ADM Date: 10/06/23 Loc: HO.US Attending Dr: Yaya Ngo MD Ordering Physician: Yaya Ngo MD Date of Service: 10/06/23 Procedure(s): US abdomen complete Accession Number(s): [id number] cc: Yaya Ngo MD; Mihir Noble MD EXAMINATION: US ABDOMEN COMPLETE CLINICAL INFORMATION: Elevated LFTs. COMPARISON: Abdominal ultrasound 04/20/2021, CT scan abdomen and pelvis 01/29/2018 TECHNIQUE: Real-time imaging of the abdominal viscera. FINDINGS: PANCREAS: Normal head and body, tail is obscured by bowel gas. The pancreatic duct measures 0.2 cm. ABDOMINAL AORTA: The proximal, mid, and distal segments are normal in caliber. INFERIOR VENA CAVA: Visualized portions are normal. LIVER: The liver is normal in size. The liver contour is normal. There is diffuse increased liver parenchymal echogenicity, consistent with hepatic steatosis. A 0.7 x 0.6 x 0.7 cm cyst is seen in the right lobe. There is no intrahepatic biliary duct dilatation seen. GALLBLADDER: 1.1 x 1.1 x 1.1 cm and 0.9 x 0.5 x 0.8 cm gallbladder polyps are seen. In 2020, a 0.7 cm gallbladder polyp was seen. The gallbladder is physiologically distended without evidence of stones, sludge, polyps, wall thickening or pericholecystic fluid. COMMON BILE DUCT: Normal in caliber measuring 0.3 cm in diameter. RIGHT KIDNEY: Normal. No hydronephrosis. No renal calculi or focal parenchymal lesions. The kidney measures 10.9 cm in maximum dimension. LEFT KIDNEY: Normal. No hydronephrosis. No renal calculi or focal parenchymal lesions. The kidney measures 10.8 cm in maximum dimension. SPLEEN: The spleen is enlarged. The spleen measures 15.0 cm in maximum dimension. FREE FLUID: None. US/US abdomen complete IMPRESSION: 1. Hepatic steatosis. 2. 0.7 cm cyst in the right lobe of the liver. 3. 1.1 cm and 0.9 cm gallbladder polyps. Gallbladder polyps larger than 10 mm in diameter or more likely to be cancerous return into cancer over time. 4. Splenomegaly. Dictated By: Geno Rosas MD Signed By: <Electronically signed by Geno Rosas MD in [place]> 10/09/23 0933 DD/ 0842 TD/TT: Manager Channel: Liver Fibrosis Pnl Reviewed date:03/06/2024 08:55:59 AM Interpretation: Performing Lab:[facility], [address] [place] [phone] Notes/Report: Liver Fibrosis Score 0.26 Liver Fibrosis Stage F0-F1 Liver Fibrosis Interpretation SEE NOTE no fibrosis Fibro Test Score (f) Metavir Score f>=0 and f<=0.21 : F0 (no fibrosis) f>0.21 and f<=0.27 : F0-F1 (no fibrosis) f>0.27 and f<=0.31 : F1 (minimal fibrosis) f>0.31 and f<=0.48 : F1-F2 (minimal fibrosis) f>0.48 and f<=0.58 : F2 (moderate fibrosis) f>0.58 and f<=0.72 : F3 (advanced fibrosis) f>0.72 and f<=0.74 : F3-F4 (advanced fibrosis) f>0.74 and f<=1.00 : F4 (severe fibrosis) Nec Inflam Act Score 0.10 Nec Inflam Act Grade A0 Nec Inflam Act Interpretation SEE NOTE no activity ActiTest Score (a) Metavir Score a>=0 and a<=0.17 : A0 (no activity) a>0.17 and a<=0.29 : A0-A1 (no activity) a>0.29 and a<=0.36 : A1 (minimal activity) a>0.36 and a<=0.52 : A1-A2 (minimal activity) a>0.52 and a<=0.60 : A2 (significant activity) a>0.60 and a<=0.62 : A2-A3 (significant activity) a>0.62 and a<=1.00 : A3 (severe activity) ABQ-Bvhpv-6-Macroglobulin 161 106-279 mg/dL FIB-Haptoglobin 160 43-212 mg/dL FIB-Apolipoprotein A1 174 101-198 mg/dL FIB-Total Bilirubin 0.6 0.2-1.2 mg/dL FIB-GGT 156 3-65 U/L FIB-ALT 24 6-29 U/L Reference ID [id number] Footnote SEE NOTE The reliability of results is dependent on compliance with the preanalytical and analytical conditions recommended by [employer]. The tests have to be deferred for: acute hemolysis, acute hepatitis, acute inflammation, extra hepatic cholestasis. The advice of a specialist should be sought for interpretation in chronic hemolysis and Gilbert's syndrome. The test interpretation is not validated in liver transplant patients. Isolated extreme values of one of the components should lead to caution in interpreting the results. In case of discordance between a biopsy result and a test, it is recommended to seek the advice of a specialist. The causes of these discordances could be due to a flaw of the test or to a flaw in the biopsy: i.e. a liver biopsy has a 33% variability rate for one fibrosis stage. FibroTest is interpretable for chronic hepatitis B and C, alcoholic and non alcoholic steatosis. ActiTest is interpretable for chronic hepatitis B and C. The performance characteristics have been determined by [facility]. It has not been cleared or approved by the U.S. Food and Drug Administration. Performance characteristics refer to the analytical performance of the test. [employer], the associated logo, [employer] and all associated [employer] webb are the registered trademarks of [employer]. All third libertarian webb - (R) and (TM) - are the property of their respective owners. (C) 4429-1770 [employer]. All rights reserved. THIS TEST WAS PERFORMED AT: [facility] [address] [place] [address] PRASHANTH LOZANO MD,PHD,YAMINI SOLEDAD Reflex Titer and Pattern Reviewed date:02/29/2024 01:07:56 PM Interpretation: Performing Lab:[address] [address] Notes/Report: Anti Nuclear Antibody Screen NEGATIVE NEGATIVE SOLEDAD IFA is a first line screen for detecting the presence of up to approximately 150 autoantibodies in various autoimmune diseases. A negative SOLEDAD IFA result suggests an SOLEDAD-associated autoimmune disease is not present at this time, but is not definitive. If there is high clinical suspicion for Sjogren's syndrome, testing for anti-SS-A/Ro antibody should be considered. Anti-Tracie-1 antibody should be considered for clinically suspected inflammatory myopathies. AC-0: Negative International Consensus on SOLEDAD Patterns (https://doi.org/10.1515/ dtmn-4346-3206) For additional information, please refer to http://education.[employer]/faq/GSJ556 (This link is being provided for informational/ educational purposes only.) THIS TEST WAS PERFORMED AT: [facility] [address] [place] [phone] ANASTASIIA WOOD MD Anti Nuclear Antibody Titer TNP Anti Nuclear Antibody Pattern TNP SOLEDAD Titer 2 TNP SOLEDAD Pattern 2 TNP SOLEDAD Titer 3 TNP SOLEDAD Pattern 3 TNP Complete Blood Count no Diff Reviewed date:02/26/2024 02:24:34 PM Interpretation: Performing Lab:[facility], [address] [place] [phone] Notes/Report: White Blood Count 4.7 4.8-10.8 X10*3/uL Red Blood Count 4.23 4.20-5.50 X10*6/uL Hemoglobin 13.6 12.0-16.0 g/dl Hematocrit 40.0 37.0-47.0 % Mean Corpuscular Volume 94.6 80.0-98.0 fL Mean Corpuscular Hemoglobin 32.2 27.0-33.0 pg Mean Corpuscular HGB Conc 34.0 31.0-35.0 g/dl Red Cell Distribution Width 14.3 11.0-16.0 % Platelet Count 112 160-400 X10*3/uL Mean Platelet Volume 10.7 9.4-12.3 fL NRBC Pct Auto 0.0 0.0-0.2 /100WBC NRBC Abs Auto 0.000 0.0-0.012 X10*3/uL Liver Panel Reviewed date:02/26/2024 02:24:28 PM Interpretation: Performing Lab:[facility], [address] [place] [phone] Notes/Report: Bilirubin Total 0.6 0.0-1.0 mg/dL Bilirubin Direct 0.2 0.0-0.5 mg/dL Aspartate Amino Transferase 23 5-31 U/L Alanine Aminotransferase 28 0-31 U/L Total Protein 7.6 6.5-8.0 g/dL Albumin Level 4.4 3.5-5.0 g/dL Alkaline Phosphatase 94 39-117 U/L IRON PROFILE Reviewed date:02/26/2024 02:24:15 PM Interpretation: Performing Lab:[facility], [address] [place] [phone] Notes/Report: Iron 60 30-160 mcg/dL Total Iron Binding Capacity 379 228-428 mcg/dL Percent Iron Saturation 16 15-50 % Unsaturated Iron Binding 319 Ferritin Reviewed date:02/26/2024 02:24:23 PM Interpretation: Performing Lab:[facility], [address] [place] [phone] Notes/Report: Ferritin 22 10-250 ng/mL Mitochondrial Antibody Reviewed date:03/06/2024 08:59:13 AM Interpretation: Performing Lab:[address] [phone] Notes/Report: Mitochondrial Antibodies NEGATIVE NEGATIVE THIS TEST WAS PERFORMED AT: [facility] [address] [place] [phone] ANASTASIIA WOOD MD Mitochondrial Ab Titer TNP Smooth Muscle Antibody Reviewed date:03/06/2024 08:59:00 AM Interpretation: Performing Lab:[facility], [address] [place] [phone] Notes/Report: Smooth Muscle Antibody <20 <20 U Reference Range: <20 U: Negative >or=20 U: Positive Antibodies recognizing actin are the main component of smooth muscle antibodies associated with auto- immune liver disease. Actin antibodies are found in approximately 75% of patients with autoimmune hepatitis (AIH) type 1, approximately 65% of patients with autoimmune cholangitis, approximately 30% of patients with primary biliary cirrhosis and approximately 2% of healthy controls. High values are closely correlated with AIH type 1. THIS TEST WAS PERFORMED AT: [facility]/[address] [address] RUBEN JUNIOR MD,PHD Hepatitis A,B,C Profile Reviewed date:02/26/2024 02:24:45 PM Interpretation: Performing Lab:[facility], [address] [place] [phone] Notes/Report: Hepatitis A Antibody IgM Nonreactive Nonreactive IgM antibodies to HAV not detected; does not exclude early acute or recovered HAV infection. Hepatitis B Surface Antibody NONREACTIVE Nonreactive Nonreactive: < 8.00 mIU/mL Hepatitis B Core Antibody Nonreactive Nonreactive Hepatitis C Antibody Nonreactive Nonreactive Antibodies to HCV not detected; does not exclude early acute HCV infection. Hepatitis B Surface Antigen Negative Negative Glucose, Whole Blood Reviewed date:04/05/2024 02:54:46 PM Interpretation: Performing Lab:[facility], [address] [place] [phone] Notes/Report: Glucose, Whole Blood 142 60-115 mg/dL METER # : [id number] Pathology Reviewed date:04/18/2024 10:47:29 AM Interpretation: Performing Lab:[facility], [address] [place] [phone] Notes/Report: REASON FOR REFERRAL No Information MEDICATIONS Medication SIG (Take, Route, Frequency, Duration) Notes Start Date End Date Status Diphenoxylate-Atropine 2.5-0.025 MG TAKE 1 TABLET NEEDED FOUR TIMES DAILY 30 for 30 05/15/2024 Active hydroCHLOROthiazide 12.5 MG 1 capsule in the morning Orally Once a day for 30 day(s) Unknown Multivitamin - 1 tablet Orally Once a day for 30 day(s) Unknown Omeprazole 40 MG TAKE 1 CAPSULE BY MOUTH TWICE A DAY for 90 Unknown glipiZIDE 5 MG 1 tablet 30 minutes before breakfast Orally twice a day Unknown Albuterol Sulfate Un known metFORMIN HCl 500 MG 1 tablet with a mitra l Orally Once a day Unknown Symbicort 160-4.5 MCG/ACT 2 puffs Inhala tion Twice a day Unknown Tylenol 325 MG 1 tablet as needed Orally every 6 hrs Unknown Vitamin D3 2000 UNIT Orally Unknown Atorvastatin Calcium 20 MG 1 tablet Oral ly Once a day Unknown Atenolol 25mg Unknow n Aspir-81 8mg Unknown Probiotic - as directed Orally Unknown IMMUNIZATIONS Vaccine Route Administration Date Status Comme nts Influenza Unknown 05/31/2019 Administered Influenza Unknown 03/31/2022 Administered Influenza Unknown 05/23/2023 Administered Influenza Unknown 06/08/2021 Partially Administered SOCIAL HISTORY Tobacco Use: Social History Observation Description Date Details (start date - stop date) Never Smoker NA - NA Sex Assigned At : Social History Observation Description Sex Assigned At Unknown Tobacco Use/Smoking Question Answer Notes Patient is a nonsmoker PROBLEMS Problem Type ICD Code Onset Dates Problem Status W/U Status Risk SNOMED Code Notes Problem Colon cancer screening (Z12.11) Active confirmed 006349424 Problem Personal history of colonic polyps (Z86.010) Active confirmed History of polyp of colon (situation) (873041167) Problem Irritable bowel syndrome with diarrhea (K58.0) Active confirmed 849604976 Problem Generalized abdominal pain (R10.84) Active confirmed 434908582 Problem Elevated liver function tests (R79.89) Active confirmed 754866362 Problem Gastroesophageal reflux disease without esophagitis (K21.9) Active confirmed 260388912 Problem Fatty liver (K76.0) Active confirmed 7382664 Problem Gastric polyps (K31.7) Active confirmed Benign neoplasm of stomach (38573931) Problem Cirrhosis (K74.60) Active confirmed Cir rhotic (169136228) Problem Gastritis (K29.70) Active confirmed Gas tritis (0878489) Problem Diarrhea, unspecified type (R19.7) Active confirmed 29192152 Problem Cirrhosis of liver without ascites, unspecified hepatic cirrhosis type (K74.60) Active confirmed Problem Abdominal mass, LUQ (left upper quadrant) (R19.02) Active confirmed 408788394 Problem Gallbladder polyp (K82.4) Active confirmed 372359742 Problem Left sided abdominal pain (R10.9) Active confirmed 793863234 VITAL SIGNS Temperature 97.7 degrees Fahrenheit 02/26/2024 Blood pressure diastolic 00 mm Hg 02/26/2024 Height 63 in 02/26/2024 Blood pressure systolic 000 mm Hg 02/26/2024 Weight 178 lbs 02/26/2024 BMI 31.53 kg/m2 02/26/2024 Encounters Encounter Location Date Provider Diagnosis [facility] Outpatient [address] [place], [place] [phone] 03/29/2024 Yaya Ngo Jr [facility] Outpatient [address] [place] [id number] 04/05/2024 Yaya Ngo Jr Cirrhosis K74.60 ; Gastritis K29.70 and Gastric polyps K31.7 [facility] [address] [place] [phone] 02/26/2024 Yaya Ngo Jr Cirrhosis of liver without ascites, unspecified hepatic cirrhosis type K74.60 ; Irritable bowel syndrome with diarrhea K58.0 ; Gastroesophageal reflux disease without esophagitis K21.9 and Colon cancer screening Z12.11 [facility] [address] [place] [phone] 09/14/2023 Yaya Ngo Jr Left sided abdominal pain R10.9 [facility] [address] [place] [phone] 09/21/2023 Yaya Ngo Jr Elevated LFTs R79.89 [facility] [address] [place] [phone] 10/12/2023 Yaya Ngo Jr [facility] [address] [place] [phone] 12/07/2023 Yaya Ngo Jr [facility] [address] [place] [phone] 03/06/2024 Yaya Ngo Jr [facility] [address] [place] [phone] 03/28/2024 Yaya Ngo Jr [facility] [address] [place] [phone] 04/18/2024 Yaya Ngo Jr ASSESSMENTS Encounter Date Diagnosis Assessment Notes Treatment Notes Treatment Clinical Notes 04/05/2024 Cirrhosis (ICD-10 - K74.60) 04/05/2024 Gastritis (ICD-10 - K29.70) 02/26/2024 Irritable bowel syndrome with diarrhea (ICD-10 - K58.0) 02/26/2024 Cirrhosis of liver without ascites, unspecified hepatic cirrhosis type (ICD-10 - K74.60) Liver biopsy material was printed,[employer] py material was printed 09/14/2023 Left sided abdominal pain (ICD-10 - R10.9) 09/21/2023 Elevated LFTs (ICD-1 0 - R79.89) 04/05/2024 Gastric polyps (ICD- 10 - K31.7) 02/26/2024 Gastroesophageal ref lux disease without esophagitis (ICD-10 - K21.9) 02/26/2024 Colon cancer screeni ng (ICD-10 - Z12.11) PLAN OF TREATMENT Pending Test Test Name Order Date LIVER PROFILE 09/14/2023 LIVER PROFILE 02/26/2024 LIPASE 09/14/2023 IRON + IBC (FE) 02/26/2024 FERRITIN 02/26/2024 CBC w/o DIFF 09/14/2023 CBC w/o DIFF 02/26/2024 PROTHROMBIN TIME (PT, INR) 02/26/2024 HEPATITIS A,B,C PROFILE 02/26/2024 STOOL WBC 09/05/2019 STOOL WBC 09/14/2023 MITOCHONDRIAL AB 02/26/2024 SMOOTH MUSCLE ANTIBODIES 02/26/2024 OVA & PARASITES (O&P) 09/05/2019 OVA & PARASITES (O&P) 09/14/2023 CULTURE, STOOL 09/05/2019 CT ABD WITH PO CONTRAST ONLY 03/02/2016 US ABD 09/29/2017 US ABD 09/21/2023 US ABD 10/26/2017 Future Test Test Name Order Date UPPER GI ENDOSCOPY 09/05/2012 COLONOSCOPY 08/14/2014 COLONOSCOPY 08/24/2022 UPPER GI ENDOSCOPY 02/26/2024 Next Appt Details Provider Name:Yaya real Jr, 04/07/2025 09:20:00 AM, [address] [facility], [address], [place], [address], Insurance Providers Payer Name Payer Address Payer Phone Subscriber Number Group Number Insured Name Patient Relationship to Insured Coverage Start Date Coverage End Date [facility] [address] [employer] [facility] [place] [address] [phone] [id number] [place] Self - patient is the insured MEDICAL (GENERAL) HISTORY Medical History History ICD Code Colonoscopy 10/20, tubular adenomas, five -year followup. Hypertension Hyperlipidemia Irritable bowel syndrome, and diarrhea p redominance Asthma Diverticular disease CVA Diabetes mellitus EGD 12/13/17 no Stoll's esophagus or H. pylori. Fatty liver with cyst by ult rasound imaging 04/20, cirrhosis at time of cholecystectomy, 12/21 Edema Surgical History Surgery Date(Month/Year) tubal ligation section hysterectomy lipoma , left upper abdomen foot surgery 12/08/2016 Breast cyst 2020 Multiple skin lesion excisions 2020 Hospitalization History Reason Date(Month/Year) Hospitalized for vertigo and uncontrolle d diabetes 01/19
--- OUTSIDE RECORDS SUMMARY | 2024-09-12 07:49 | XMS_ITS ---
Author Organization [facility] Address [address] [place] [address] Care Team Providers Care Edge Beader Name Role Phone Real MOLINA, Mihir Primary Care Provider Josias Gould Unavailable [phone] Encounters Encounter Location Date Provider Diagnosis [facility] [employer] [facility] [address] 10/23/2023 Josias Judge Plan Of Treatment No Information Progress Notes * DONOVANJoesph ADOB: [birth year] (69 yo F)Acc No.[id number]:10/23/2023 Progress Note Patient:Joesph GOLD Provider:?Josias Judge DPM :1955???Age:68 Y???Sex:Female D ate:10/23/2023 Address:[address] [place], [place] [id number] Pcp:Mihir Noble MD Subjective: * Chief Complaints: * ??? * Medical History:? Objective: * Vitals:? Assessment: Plan: * Treatment: * Images: * The named appointment provid er may or may not be the originator of this progress note, and it is not deemed complete until electronically signed by the appointment provider. Sign off status: Pending * Provider:?Josias Judge DPM Date:?2023 Generated for Ryley champagne/Petty/eTransmitting on:?09/12/2024 07:49 AM EST
--- OUTSIDE RECORDS SUMMARY | 2024-09-12 07:49 | XMS_ITS ---
Author Organization [facility] Address [address] [place] [id number] Care Team Providers Care Chute Operator Name Role Phone Mihir Noble MD Primary Care Provider UnavailYaya Modi Jr Unavailable [phone] ALLERGIES Allergen (clinical drug ingredient) Drug/Non Drug Allergy documented on EMR Reaction Allergy Type Onset Date Status hyoscyamine Levbid Unknown Drug Allergy Activ e ivp dye (uncoded) Unknown Allergy Ac tive mushrooms (uncoded) Unknown Allergy Active REASON FOR VISIT cirrhosis w/o ascites MEDICATIONS Medication SIG (Take, Route, Frequency, Duration) [...] Unknown Encounters Encounter Location Date Provider [place] [facility] [address] [id number] 03/29/2024 Yaya Ngo Jr PLAN OF TREATMENT Next Appt Details Provider Name:Yaya real Jr, 04/07/2025 09:20:00 AM, [address] [place] [address], [address], [place], [address],
--- OUTSIDE RECORDS SUMMARY | 2024-09-12 07:49 | XMS_ITS ---
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 Name Role Phone Mihir Noble MD Primary Care Provider Unavaila Josias Hernandez Unavailable [phone] Allergies Allergen (clinical drug ingredient) Drug/Non Drug Allergy documented on EMR Reaction Allergy Type Onset Date Status Mushrooms (uncoded) rash Allergy Active REASON FOR VISIT At Risk Footcare, Foot pain Medications Medication SIG (Take, Route, Frequency, Duration) Notes Start Date End Date Status Vitamin D3 50 MCG (1999 UT) 1 capsule Orally Once a day for 30 day(s) Active Probiotic Active Omeprazole 20 MG 1 capsule 30 minutes before morning meal Orally Once a day for 30 day(s) Active metFORMIN HCl ER 500 MG 1 tablet with ev ening meal Orally Once a day for 30 day(s) Active ASO Ankle/Foot Stablizing AFO As directed Wear Daily for as needed Not-Taking Atorvastatin Calcium 20 MG 1 tablet Orally Once a day for 30 day(s) Active amLODIPine Besylate 5 MG 1 tablet Orally twice a day Active Atenolol 25 MG 1 tablet Orally Once a day for 30 day(s) Active Symbicort Active Aspirin 325 MG as directed Orally Active Albuterol Active Diphenoxylate-Atropine Active Social History Tobacco Use: Social History Observation [...] Type 2 diabetes mellitus with peripheral angiopathy (035127330) Type 2 diabetes mellitus with diabetic peripheral angiopathy without gangrene (E11.51) Active confirmed Vital Signs Height 63 in 08/07/2023 Weight 178 lbs 08/07/2023 BMI 31.53 kg/m2 08/07/2023 Procedures Procedure Date Ordered Date Performed Result Body Sit e 23240-YHUC SKIN LESIONS, OVER 4 08/07/2023 N/A Encounters Encounter Location Date Provider Diagnosis [facility] [address] [address] 08/07/2023 Josias Judge Type 2 diabetes mellitus with diabetic peripheral angiopathy without gangrene E11.51 ; Pain in left ankle and joints of left foot M25.572 ; Bursitis of left foot M77.52 ; Hallux valgus (acquired), left foot M20.12 ; Pain in right foot M79.671 ; Pain in right ankle and joints of right foot M25.571 ; Bursitis of right foot M77.51 ; Hallux valgus (acquired), right foot M20.11 and Pain in left foot M79.672 Assessments Encounter Date Diagnosis (ICD Code) Assessment Notes Treatment Notes Treatment Clinical Notes Section Notes 08/07/2023 Type 2 diabetes mellitus with diabetic peripheral angiopathy without gangrene (ICD-10 - E11.51) 08/07/2023 Pain in left ankle and joints of left foot (ICD-10 - M25.572) 08/07/2023 Bursitis of left foot (ICD-10 - M77.52) 08/07/2023 Hallux valgus (acquired), left foot (ICD-10 - M20.12) 08/07/2023 Pain in right foot (ICD-10 - M79.671) 08/07/2023 Pain in right ankle and joints of right foot (ICD-10 - M25.571) 08/07/2023 Bursitis of right foot (ICD-10 - M77.51) 08/07/2023 Hallux valgus (acquired), right foot (ICD-10 - M20.11) 08/07/2023 Pain in left foot (ICD-10 - M79.672) Plan Of Treatment Pending Test Test Name Order Date X ray : Foot, left 3V 08/07/2023 X ray : Foot, right 3V 08/07/2023 28339-VXDU SKIN LESIONS, OVER 4 08/07/19 24 Next Appt Details Follow Up: prn, Reason: Progress Notes * Joesph MAN ADOB: [birth year] (69 yo F)Acc No.[id number]:08/07/2023 Progress Note Patient:?Joesph MAN Provider:?Josias Judge DPM :1955???Age:68 Y???Sex:Female D ate:08/07/2023 Address:[address] [place], [place] [id number] Pcp:Mihir Noble MD Subjective: * Chief Complaints: * ???At Risk FootcareFoot pain * HPI: ???At Risk footcare:?Pt States Last PCP Visit:?Date?06/15/2023 ???Foot Pain:?Location:?Inside, Great toe joint, B/L.?Duration:?several weeks.?Course:?worse.?Aggravated:?any pressure.?Treatments:?rest/alter normal daily activity.? * ROS:?General/Constitutional:?Nausea?denies.?Vomiting?denies.?Hunger Thirst?denies.?Loss appetite?denies.?Chills?denies.?Fatigue?denies.?Fever?denies.?Night Sweats?denies.?Unexplained weight loss?denies.?Unexplained weight gain?denies.?HEENTM:?Dentures?denies.?Dizziness?denies.?Glasses/contacts?admits.?Retinopathy?den ies.?Blurred/double vision?denies.?TMJ?denies.?Discharge/drainage?denies.?Implants?denies.?Sore throat?denies.?Dental implants?denies.?Hard of hearing ?denies.?Difficulty chewing/swallowing/speaking?denies.?Nose bleeds?denies.?Sore mouth?denies.?Respiratory:?On O xygen?denies.?Pneumonia/pleurisy?denies.?Bronchitis?denies.?Emphysema?denies.?Co ughing?denies.?Cough blood?denies.?Shortness of breath?denies.?Wheezing?denies.?Cardiovascular:?Pacemaker?denies.?MVP?denies.?WPW?denies.?CHF?denies.?Heart attack?denies.?Septal defect?denies.?Rapid beat?denies.?Chest pain ?denies.?Atrial Fib.?denies.?Murmur/Palpitations?denies.?Gastrointestinal:?Hemorrhoids?denies.?Stomach/Abdominal pain?denies.?Dark blood stool?denies.?Irritable bowel ?admits.?Constipation?denies.?Diarrhea?admits.?Hematology:?Swelling?admits.?Clots?denies.?Varicose Veins?denies.?Bruising?denies.?Bleeding problem?denies.?Genitourinary:?Blood urine?denies.?Frequent/Painfu/urination/bladder control?denies.?Kidney stones?denies.?Infection (UTI)?denies.?Nephropathy?denies.?sex trans dis (STD)?denies.?Prostate?denies.?Musculoskeletal:?Hammertoes?admits.?Bunions?admits.?Back Pain?denies.?Muscle Cramps/ Resting?denies.?Muscle cramps / walking?denies.?Generalized aches and pains?denies.?Weakness?denies.?Integ.:?Rosales?denies.?Scars?denies.?Corns/calluses?admits.?Ingrown nails?admits.?Painful nails?admits.?Open Sores?denies.?Rashes?denies.?Neurologic:?Difficulty sleeping?denies.?Brain disorder?denies.?Numbness?denies.?Balance t rouble?denies.?Confusion?denies.?Fainting/blackouts?denies.?Tingling?denies.?Ru mors?denies.? * Medical History:? * Surgical History:?hysterecto my c-sections 3x left foot * Hospitalization/Major Diagno stic Procedure:?No Hospitalization History. * Family History:?Mother: dece ased, arthritis, stroke, heart attack, high blood pressure, diagnosed with Diabetic - NIDDM, Other malignant neoplasm of unspecified site.?Father: , diagnosed with Other malignant neoplasm of unspecified site.? * Social History:?Tobacco Use:?Tobacco Use/Smoking?Are you a:?former smoker ?Additional Findings: Tobacco Non-User?Current non-smoker ?Tobacco use other than smoking?Are you an other tobacco user??No ???Drugs/Alcohol:?Drugs?Have you used drugs other than those for medical reasons in the past 12 months??No ?Alcohol Screen?Did you have a drink containing alcohol in the past year??Yes ?How often did you have a drink containing alcohol in the past year??2 to 4 times a month (2 points) ?Points?2 ?Interpretation?Negative ???Miscellaneous:?Caffeine: yes, frequency:, 1-2 cups per day. ?Children: yes. ?Exercise: no. ?Marital status: . ?Occupation: Retired. * Medications:?TakingAlbuterol Diphenoxylate-Atropine Symbicort Aspirin 325 MG Tablet as directed Orally amLODIPine Besylate 5 MG Tablet 1 tablet Orally twice a day Atenolol 25 MG Tablet 1 tablet Orally Once a day Atorvastatin Calcium 20 MG Tablet 1 tablet Orally Once a day metFORMIN HCl ER 500 MG Tablet Extended Release 24 Hour 1 tablet with evening meal Orally Once a day Probiotic Omeprazole 20 MG Capsule Delayed Release 1 capsule 30 minutes before morning meal Orally Once a day Vitamin D3 50 MCG (1999) Capsule 1 capsule Orally Once a day Taking Albuterol Taking Diphenoxylate-Atropine Taking Symbicort Taking Aspirin 325 MG Tablet as directed Orally Taking amLODIPine Besylate 5 MG Tablet 1 tablet Orally twice a day Taking Atenolol 25 MG Tablet 1 tablet Orally Once a day Taking Atorvastatin Calcium 20 MG Tablet 1 tablet Orally Once a day Taking metFORMIN HCl ER 500 MG Tablet Extended Release 24 Hour 1 tablet with evening meal Orally Once a day Taking Probiotic Taking Omeprazole 20 MG Capsule Delayed Release 1 capsule 30 minutes before morning meal Orally Once a day Taking Vitamin D3 50 MCG (1999) Capsule 1 capsule Orally Once a day Not-Taking/PRNASO Ankle/Foot Stablizing AFO As directed Wear Daily Medication List reviewed and reconciled with the patientNot-Taking/PRN ASO Ankle/Foot Stablizing AFO As directed Wear Daily Medication List reviewed and reconciled with the patient * Allergies:?Mushrooms: laquiat s[Allergies Verified] Objective: * Vitals:?Ht: 63, Wt:178, BMI: 31.53, Shoe size: 8.5-9, BS: 118, Wt-k.74 kg. * Examination: ???Ophthalmology Referral: ?DIABETES EYE EXAM?Vascular: ?DP PULSES (B):?1/4, B/L.?PT PULSES (B):? 0/4, B/L.?CAPILLARY FILL TIME:? delayed, all digits, B/L.?TROPHIC CONDITION-TEXTURE/ELASTICITY/TURGOR/HAIR GROWTH (B):? decreased, B/L.?TEMPERTURE GRADIENT (C):? decreased, cool to cool, proximal to distal, B/L.?PIGMENTATION:?mottled, B/L.?EDEMA (C):?2/4 , pitting , without aching pain , Leg(s) , Ankle(s) , Foot , B/L.?CLAUDICATION (C):?denies, B/L.?REST PAIN:?denies, B/L.?Dermatologic: ?SKIN FINDINGS:?Skin exam reveals Keratotic lesion(s) located at , Medial plantar , IPJ , TA , Medial plantar , IPJ , T5 , SUB MTH (s) , 1 , B/L , Heel(s) , B/L.?Orthopedic: ?MUSCLE STRENGTH:?5/5 all groups in a symmetrical fashion, B/L.?BUNION:? Medially prominent 1st MPJ, (+) Pain on palpation, inflammation present medially, Lateral tracking 1st MPJ incompletely reducible, B/L.?FOOTWEAR:?fair condition, shoe gear properties exacerbate patients foot/toe deformity.?X-Rays - IMAGING REPORT: ?Clinical Indication(s):? Evaluate Biomechanical Deformity.?Views:? 3 views of Foot, AP, LAT, MO, B/L.?Findings:?normal bone and soft tissue density consistent for patients age and sex.?HAV:?increased First Intermetatarsal angle and Hallux Abductus angle consistent with Bunion deformity noted, hypertrophy of the dorsal and medial 1st MTH without subchondral cyst, metatarsus primus elevatus, moderate, there is asymmetrical narrowing of the 1st MPJ joint space, there is increased density of the 1st MPJ with asymmetrical joint space narrowing, there is squaring of the 1st MTH, there is an exostosis located at the dorsal aspect of the 1st MTH, there is an exostosis located at the dorsal aspect of the base of the proximal phalanx, there is a free osteochondral defect located in the joint space, positive sesamoid hypertrophy.?Fracture:?Negative fractures identified.?Neurological: ?SENSORY:?Neurological exam reveals intact sensorium, pain sensation normal, vibration sensation intact, pinprick sensation is normal in the lower extremities, 5.07 monofilament test performed at plantar aspects of 5 varied sites per foot shows sensation, normal, B/L, Pt denies, anesthesia, burning, paresthesia, tingling, B/L.?TINEL'S COMPRESSION:? Negative, Saphenous nerve distribution, B/L.?General Examination: ?GENERAL APPEARANCE:?Reveals a pleasant, alert, well nourished, well- developed, well hydrated individual, who demonstrates proper attention to hygiene/body habitus, and is in no acute distress, Pt serves as own historian for office visit today.?ORIENTED:?person, place, and time.?FOOT EXAM:?Footwear Evaluation? Assessment: * Assessment: 1.?Type 2 diabetes mellitus with diabetic peripheral angiopathy without gangrene - E11.51???2.?Pain in left ankle and joints of left foot - M25.572???3.?Bursitis of left foot - M77.52???4.?Hallux valgus (acquired), left foot - M20.12 ??5.?Pain in right foot - M79.671???6.?Pain in right ankle and joints of right foot - M25.571???7.?Bursitis of right foot - M77.51???8.?Hallux valgus (acquired), right foot - M20.11???9.?Pain in left foot - M79.672??? Plan: * Treatment: 2.?Pain in right foot?Imaging: X ray : Foot, right 3V 3.?Pain in left foot?Imaging: X ray : Foot, left 3V * Procedure Codes:?58112 X-RAY EXAM OF RIGHT FOOT 3V, Modifiers: 26 , [id number] TRIM SKIN LESIONS, OVER 4, Modifiers: Q8 [id number] X-RAY EXAM OF LEFT FOOT 3V, Modifiers: 26 , LT * Preventive Medicine:? ??Counseling:?Discussion:?-14: Office or other outpatient visit for the evaluation and management of an established patient, which required a medically appropriate history and/or examination and MODERATE level of DECISION MAKING for: 1 OR MORE CHRONIC PROBLEM(S) THATS WORSENING, 2 STABLE CHRONIC PROBLEMS, A NEWLY DIAGNOSED PROBLEM WITH UNCERTAIN PROGNOSIS, AN ACUTE COMPLICATED INJURY WITH MULTIPLE TREATMENT OPTIONS, OR AN ACUTE PROBLEM WITH ACCOMPANYING SYSTEMIC SYMPTOMS, THAT POSE(S) A MODERATE RISK OF MORBIDITY. THIS CONDITION MAY ALSO INCLUDE RX DRUG MANAGEMENT, OR A DECISON FOR MINOR SURGERY. The visit on the day of the encounter encompassed interpreting the data and educating the patient as to the nature of their condition, treatment options available according to their individual PMH, meds, allergies, and overall health/living conditions, as well as any potential risks or complications that may occur from a failure to adhere to, and participate in, the recommended course of therapy. The discussion included a complete verbal, and/or written explanation of the examination results, any x-rays taken, the proposed diagnosis, and outline of the treatment plan. A schedule for future care needs was also explained. The patient verbalized an understanding of the instructions at this time and agreed to be an active participant in their treatment. If the patient should think of any questions or concerns after the visit, I have encouraged the patient to call the office.?Digital Treatment:?I explained to the patient the risks/benefits of all the different treatment options for their pain including: No treatment at all, Rest, Ice, New/supportive/wider/deeper Shoegear, Digital Padding/Strapping/Taping/Bracing/Gel protective sleeves, Foot/Ankle AFO Bracing, Stretching exercises, Deep Tissue Massage, Arch support/shoe inserts with splay metatarsal padding, and Custom orthoses. I insisted that any digital devices be removed daily and not worn overnight for safety. The patient is to carefully examine the toes daily for any skin irritation while using any splinting or padding device. The advantages and disadvantages of each option were discussed and the patients questions re: shoegear, padding, custom vs prefabricated inserts, activity level, and consistency in home treatment regimens for optimal success were answered to their verbally confirmed satisfaction.?Discussion for Bunion sx:?Several different types of Bunion surgeries were discussed with the patient, including, but not limited to: Modified Segura bone removal and soft tissue release/realignment, Usman osteotomy with soft tissue release/realignment and internal fixation, Shaft v Base wedge osteotomies with internal fixation, and Lapidus joint fusion procedures with internal fixation. We discussed the risks of having surgery (described below) vs not having surgery (persistent pain, deformity, risk for skin ulceration/infection, loss of toe) as well as the potential surgical complications including, but not limited to: pain, swelling, bleeding, scarring, numbness, infection, delayed/non healing, floppy/unstable/shorthened toe, recurrence, failure of the procedure, overcorrection leading to plantarflexed/downward/upward positioned toe, recurrence, need for further surgery, as well as the possibility for loss of the toe itself. We discussed the use of IV/Local regional anesthesia, and the usual post-op course for healing. No guarentees were given. The patient verbally indicated a full understanding of the above conversation, and any other of their questions were answered to their satisfaction.?Orthotics:?I explained to the patient the benefits of OT use. I explained that orthoses are medically necessary to decrease the foot pain through proper mechanical control, support of their foot, cushion the forefoot by supplementing the soft tissue, possibly delay of the progression of the bunion deformity, possibly prevent surgery.?P.R.I.C.E.:?The patient was counseled on the use of P.R.I.C.E. and NSAIDS (if well tolerated) to aid in the recovery from their painful condition , Recommended Topical analgesics including Biofreeze/Aspercream/Voltaren gel.?Shoe Gear Counseling:?The patient and I reviewed the types of shoes they should be wearing. My recommendation included obtaining a well-fitted shoe with a good supportive, non-foldable nor twistable sole, plenty of toe/room for the forefoot, and proper arch support. Based on todays examination, I recommended the patient look for new shoes, by having their feet professionally measured. We discussed that generally the best time of the day for a shoe fitting is the afternoon. Different shoes types and brands to best match the patients occupation and vocation were discussed. Specific brand selection will be up to the patient, their individual foot condition/deformities, and fit. The patient and I reviewed the standard new shoe break in period by wearing them for a few hours a day while checking for redness or sores as wear time is increased. The patient verbally confirmed to understanding the information discussed, Patient defers recommended Orthopedic shoes.? ??Screening/Special Tests:?Fall Risk?Screening:?No falls in the past year ?FALLS: Screening for Future Fall Risk?Have you had any falls with injury in the past year??No * Follow Up:?prn * Images: * Sign off status: Completed true * Provider:?Josias Judge DPM Date:?2023 Generated for Ryley champagne/Petty/Nickieitting on:?09/12/2024 07:49 AM EST History and Physical Notes * HPI (History of Present Illness) Category Sub-Category Detail Notes Category Not es At Risk footcare Pt States Last PCP Visit: Date: 3 Foot Pain Location: Inside, Great to e joint, B/L Duration: several weeks Course: worse Aggravated: any pressure Treatments: rest/alter normal da herminio activity Examination Category Sub-Category Detail Notes Category Not es Neurological SENSORY: Neurological exa m reveals intact sensorium, pain sensation normal, vibration sensation intact, pinprick sensation is normal in the lower extremities, 5.07 monofilament test performed at plantar aspects of 5 varied sites per foot shows sensation, normal, B/L, Pt denies, anesthesia, burning, paresthesia, tingling, B/L TINEL'S COMPRESSION: Negative, Saphenous nerve distribution, B/L Dermatologic SKIN FINDINGS: Skin exam reveal s Keratotic lesion(s) located at , Medial plantar , IPJ , TA , Medial plantar , IPJ , T5 , SUB MTH (s) , 1 , B/L , Heel(s) , B/L Orthopedic BUNION: Medially promine nt 1st MPJ, (+) Pain on palpation, inflammation present medially, Lateral tracking 1st MPJ incompletely reducible, B/L FOOTWEAR: fair condition, shoe gear properties exacerbate patients foot/toe deformity MUSCLE STRENGTH: 5/5 all groups in a symmetrical fashion, B/L General Examination GENERAL APPEARANCE: Reveals a pleasant, alert, well nourished, well-developed, well hydrated individual, who demonstrates proper attention to hygiene/body habitus, and is in no acute distress, Pt serves as own historian for office visit today FOOT EXAM: Lower Extremity Neurological Exa m performed:: Yes Visual exam of foot performed:: Yes Date: 08/07/2023 ORIENTED: person, place, and t andrea Footwear Evaluation Footwear Evaluation performe d:: Yes Ophthalmology Referral DIABETES EYE EXAM Procedure Perform ed:: Yes ?Date of Exam Performed: 07/11/2023 Findings of Diabetic Eye Exam:: no retin opathy Vascular DP PULSES (B): 1/4, B/L PT PULSES (B): 0/4, B/L CAPILLARY FILL TIME: delayed, all digits , B/L TEMPERTURE GRADIENT (C): decreased, cool to cool, proximal to distal, B/L TROPHIC CONDITION-TEXTURE/ELASTICITY/TURGOR/HAIR GROWTH (B): decreased, B/L EDEMA (C): 2/4 , pitting , with out aching pain , Leg(s) , Ankle(s) , Foot , B/L CLAUDICATION (C): denies, B/L REST PAIN: denies, B/L PIGMENTATION: mottled, B/L X-Rays - IMAGING REPORT Findings: normal b one and soft tissue density consistent for patients age and sex Fracture: Negative fractures i dentified HAV: increased First Inte rmetatarsal angle and Hallux Abductus angle consistent with Bunion deformity noted, hypertrophy of the dorsal and medial 1st MTH without subchondral cyst, metatarsus primus elevatus, moderate, there is asymmetrical narrowing of the 1st MPJ joint space, there is increased density of the 1st MPJ with asymmetrical joint space narrowing, there is squaring of the 1st MTH, there is an exostosis located at the dorsal aspect of the 1st MTH, there is an exostosis located at the dorsal aspect of the base of the proximal phalanx, there is a free osteochondral defect located in the joint space, positive sesamoid hypertrophy Views: 3 views of Foot, AP, LAT, MO, B/L Clinical Indication(s): Evaluate Biomech anical Deformity
--- NOTE | 2024-09-12 07:53 | MHC.OFFVIS ---
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 Required: No Information Interpreted: non-clinical & clinical [employer] Testing Supervisor: [employer] Supervisor Present (Hien Gordon MIGDALIA) Accompanied by: Self / Same As Patient Allergies hyoscyamine [From LEVBID] Allergy (Intermediate, Verified 09/12/24 07:57) VOMITING Iodinated Contrast Media [Contrast Dye] Allergy (Intermediate, Verified 09/12/24 07:57) Difficulty Breathing methylcellulose [Citrucel] Allergy (Intermediate, Verified 09/12/24 07:57) headache, rash mushroom Allergy (Intermediate, Verified 09/12/24 07:57) RASH lactose [Lactose] Adverse Reaction (Mild, Verified 09/12/24 07:57) DIARRHEA Post menopausal: Yes HPI Comments Details: Presenting complaining of left vulvar lump that developed week ago was tender and since then has resolved completely, the patient is doing well with no complaints over the last few days [facility] Medical History GERD (gastroesophageal reflux disease) Diarrhea Cirrhosis of liver without ascites Gallbladder polyp Trigger finger of left hand Fatty liver Edema Diverticulosis IBS (irritable bowel syndrome) Elevated cholesterol Asthma CVA (cerebral vascular accident) Diabetes Hypertension Surgical History Hx laparoscopic cholecystectomy (12/06/23) Hx of hand surgery H/O abdominal surgery S/P excision of lipoma History of surgical removal of skin lesion H/O: hysterectomy H/O tubal ligation H/O esophagogastroduodenoscopy H/O colonoscopy History of H/O foot surgery Family History Other No family history of coronary artery disease Social History Household Members: Spouse Housing: House Are you a primary care transitions nurse to a significant other at home: No Do you presently have visiting nurse or other home services: No Alcohol intake: current Alcohol intake frequency: holidays/special occasions only Alcohol type: wine Comment: counts correct Patient Tobacco Use Status: Former Tobacco user Years Smoked: 20 service: No Current occupational status: retired Sexual orientation: Straight/Heterosexual Gender identity: Female Review of Systems Const All systems reviewed & are unremarkable except as noted in HPI and below Physical Exam Vital Signs: Last Vital Signs BP 152/80 H 09/12/24 07:55 BMI result Body Mass Index 30.6 General: Yes no CVA tenderness External Female Exam: normal external appearance and normal appearance of the urethra Speculum Exam - Vagina: normal appearance of the vagina, normal palpation, no lesions and no masses Speculum Exam - Cervix: normal appearance of the cervix, normal palpation, no lesions, no masses and nontender Bimanual exam- vagina & uterus: normal bimanual exam, normal palpation, uterine size normal, normal palpation, uterine shape normal, No Cervical tenderness present and non-tender Bimanual Exam- Adnexa, other: normal adnexae Back/Spine/Pelvis Back: no CVA tenderness Assessment & Plan Assessment & Plan (1) Vulvar abscess: Comment: Resolved Code(s): N76.4 - Abscess of vulva Category: Medical Plan: Discussed with the patient normal finding on pelvic exam, given history a vulvar abscess is suspected, instructions given the patient to call or go to the emergency room in case of recurrence of her symptoms, fever above 100.4 or vulvar tenderness swelling redness or any other concerns. All questions answered, the patient verbalized understanding Coding Level of Care Code New Pt Level 3 (17571) Diagnoses Vulvar abscess N76.4
[2024-09-12 07:55] VITALS: BP 152/80; BMI 30.6
== END 2024-09-12 08:14 | disposition home or self-care (01) ==
LOC: HO.HWS 07:46
PROVIDERS: PCP Internal Medicine; Visit Provider Obstetrics & Gynecology
DX: N76.4 Abscess of vulva (principal)
CPT/HCPCS: 99203

== ENCOUNTER → 2024-09-12 07:46 | Outpatient (BNVA) | payer OTHER, SELFPAY | PROVIDERS: PCP Internal Medicine; Visit Provider Obstetrics & Gynecology ==

== ENCOUNTER 2024-11-12 09:37 | Outpatient (REF) | payer OTHER, SELFPAY ==
[2024-11-12 10:01] LABS: MANUAL DIFF FLAG NO
[2024-11-12 10:18] LABS: Basophils Percent Auto 0.4 % (0-2); Eosinophils Absolute Auto 0.2 X10*3/uL (0.0-0.4); Eosinophils Percent Auto 3.6 % (0-4); Hematocrit 39.7 % (37.0-47.0); Hemoglobin 13.3 g/dl (12.0-16.0); Imm Gran Abs Auto 0.02 X10*3/uL (0.00-0.03); Imm Gran Pct Auto 0.4 % (0.0-0.4); Lymphocytes Absolute Auto 2.5 X10*3/uL (1.2-4.9); Lymphocytes Percent Auto 46.4 % (20-40); Mean Corpuscular HGB Conc 33.5 g/dl (31.0-35.0); Mean Corpuscular Hemoglobin 30.6 pg (27.0-33.0); Mean Corpuscular Volume 91.3 fL (80.0-98.0); Mean Platelet Volume 10.4 fL (9.4-12.3); Monocytes Absolute Auto 0.3 X10*3/uL (0.1-1.2); Monocytes Percent Auto 5.7 % (2-11); Neutrophils Absolute Auto 2.3 x10*3/uL (2.0-8.3); Neutrophils Percent Auto 43.5 % (45-73); Platelet Count 133 X10*3/uL (160-400); Red Blood Count 4.35 X10*6/uL (4.20-5.50); Red Cell Distribution Width 13.9 % (11.0-16.0); White Blood Count 5.3 X10*3/uL (4.8-10.8)
--- OUTSIDE RECORDS SUMMARY | 2024-11-12 10:51 | XMS_ITS | Patient Health Record ---
[facility] Address [address] [place] [address] Care Team Providers Care Software Engineering Associate Manager Name Role Phone Mihir Noble MD Primary Care Provider Unavaila Josias Hernandez Unavailable [phone] Allergies Allergen (clinical drug ingredient) Drug/Non Drug [...] Type 2 diabetes mellitus with peripheral angiopathy (272666029) Type 2 diabetes mellitus with diabetic peripheral angiopathy without gangrene (E11.51) Active confirmed Plan Of Treatment Pending Test Test Name Order Date X ray : Foot, left 3V 08/07/2023 X ray : Foot, right 3V 08/07/2023 [id number] SKIN LESIONS, OVER 4 08/07/19 24 Insurance Providers Payer Name Payer Address Payer Phone Subscriber Number Group Number Insured Name Patient Relationship to Insured Coverage Start Date Coverage End Date [facility] [address] [place] [address] [id number] Luis Foreman Spouse - patient is the spouse of the insured Medical (General) History Medical History History ICD Code asthma CAD Chicken pox Diabetes Heart disease High blood pressure IBS Measles reflux Warts Surgical History Surgery Date(Month/Year) hysterectomy c-sections 3x left foot
--- OUTSIDE RECORDS SUMMARY | 2024-11-12 10:51 | XMS_ITS ---
Author Organization [facility] Address [address] [place] [address] Care Team Providers Care Hcc Coders Name Role Phone Real MOLINA, Mihir Primary Care Provider Josias Gould Unavailable [phone] Encounters Encounter [facility] [address] 10/23/2023 Josias Judge Plan Of Treatment No Information Progress Notes * DONOVANJoesph ADOB: [birth year] (69 yo F)Acc No.[id number]:10/23/2023 Progress Note Patient:Joesph GOLD Provider:?Josias Jduge DPM :1955???Age:68 Y???Sex:Female D ate:10/23/2023 Address:[address] [place], [place] [phone] Pcp:Mihir Noble MD Subjective: * Chief Complaints: [...] Judge DPM Date:?2023 Generated for Ryley champagne/Petty/eTransmitting on:?11/12/2024 10:51 AM EDT
--- OUTSIDE RECORDS SUMMARY | 2024-11-12 10:51 | XMS_ITS ---
Author Organization [facility] Address [address] [place] [address] Care Team Providers Care Senior Db2 Systems Programmer Name Role Phone Mihir Noble MD Primary Care Provider Yaya Deal Jr REASON FOR VISIT pathology Encounters Encounter Location Date Provider Diagnosis [facility] [address] [place] [address] 04/18/2024 Yaya Ngo Jr Plan Of Treatment Next Appt Details Provider Name:Yaya real Jr, 04/07/2025 09:20:00 AM, [address], [address], [place], [address], Progress Notes * DU MANDOB: (68 yo F)Acc No.[id number]:04/18/2024 Patient:?DU MAN :1955???Age:68 Y???Sex:Female Address: [place] [address] * true * Date:? Generated for Printi mahi/Petty/eTransmitting on:?11/12/2024 10:50 AM EDT
--- OUTSIDE RECORDS SUMMARY | 2024-11-12 10:51 | XMS_ITS | Patient Health Record ---
Author Organization [facility] Address [address] [place] [address] Care Team Providers Care Merchandise Manager Name Role Phone Mihir Noble MD Primary Care Provider Yaya Deal Jr Unavailable [phone] Allergies Allergen (clinical drug ingredient) Drug/Non Drug Allergy documented on EMR Reaction Allergy Type Onset Date Status hyoscyamine Levbid Unknown Drug Allergy Activ e ivp dye (uncoded) Unknown Allergy Ac tive mushrooms (uncoded) Unknown Allergy Active Results Component Value Reference Range Notes Liver Fibrosis Pnl Reviewed date:03/06/2024 08:55:59 AM Interpretation: Performing Lab:[facility], [address] [place] [phone] Notes/Report: Liver Fibrosis Score 0.26 Liver Fibrosis [...] a>0.62 and a<=1.00 : A3 (severe activity) DBX-Nhrrk-9-Macroglobuli n 161 106-279 mg/dL FIB-Haptoglobin 160 43-212 mg/dL FIB-Apolipoprotein A1 174 101-198 mg/dL FIB-Total Bilirubin 0.6 0.2-1.2 mg/dL FIB-GGT 156 3-65 U/L FIB-ALT 24 6-29 U/L Reference ID [id number] Footnote SEE NOTE The reliability of results is dependent on compliance with the preanalytical and analytical conditions recommended by [employer]. The tests have to be deferred for: [...] The performance characteristics have been determined by [facility]. It has not been cleared or approved by the U.S. Food and Drug Administration. Performance characteristics refer to the analytical performance of the test. [employer], the associated logo, Testif and all associated [employer] webb are the registered trademarks of [employer]. All third green party webb - (R) and (TM) - are the property of their respective owners. (C) 2917-1025 [employer]. All rights reserved. THIS TEST WAS PERFORMED AT: [facility] [address] [place] [address] PRASHANTH LOZANO MD,PHD,YAMINI SOLEDAD Reflex Titer and Pattern Reviewed date:02/29/2024 01:07:56 PM Interpretation: Performing Lab:[address] [address] Notes/Report: Anti Nuclear Antibody Screen NEGATIVE NEGATIVE [...] AC-0: Negative International Consensus on SOLEDAD Patterns (https://doi.org/10.15 15/pfvj-1850-0579) For additional information, please refer to http://education.[employer].Kinkaa Search Tools/faq/FA Q188 (This link is being provided for informational/ educational purposes only.) THIS TEST WAS PERFORMED AT: [facility] [address] [place] [phone] ANASTASIIA WOOD MD Anti Nuclear Antibody Titer TNP Anti Nuclear Antibody Pattern TNP SOLEDAD Titer 2 TNP SOLEDAD Pattern 2 TNP SOLEDAD Titer 3 TNP SOLEDAD Pattern 3 TNP Complete Blood Count no Diff Reviewed date:02/26/2024 02:24:34 PM Interpretation: Performing Lab:[facility], [address] [place] [phone] Notes/Report: White Blood Count 4.7 4.8-10.8 X10*3/uL [...] Panel Reviewed date:02/26/2024 02:24:28 PM Interpretation: Performing Lab:[facility], [address] [place] [phone] Notes/Report: Bilirubin Total 0.6 0.0-1.0 mg/dL Bilirubin Direct 0.2 0.0-0.5 mg/dL Aspartate Amino Transferase 23 5-31 U/L Alanine Aminotransferase 28 0-31 U/L Total Protein 7.6 6.5-8.0 g/dL Albumin Level 4.4 3.5-5.0 g/dL Alkaline Phosphatase 94 39-117 U/L IRON PROFILE Reviewed date:02/26/2024 02:24:15 PM Interpretation: Performing Lab:[facility], [address] [place] [phone] Notes/Report: Iron 60 30-160 mcg/dL Total Iron Binding Capacity 379 228-428 mcg/dL Percent Iron Saturation 16 15-50 % Unsaturated Iron Binding 319 Ferritin Reviewed date:02/26/2024 02:24:23 PM Interpretation: Performing Lab:[facility], [address] [place] [phone] Notes/Report: Ferritin 22 10-250 ng/mL Mitochondrial Antibody Reviewed date:03/06/2024 08:59:13 AM Interpretation: Performing Lab:[address] [address] Notes/Report: Mitochondrial Antibodies NEGATIVE NEGATIVE THIS TEST WAS PERFORMED AT: [facility] [address] [place] [phone] ANASTASIIA WOOD MD Mitochondrial Ab Titer TNP Smooth Muscle Antibody Reviewed date:03/06/2024 08:59:00 AM Interpretation: Performing Lab:[facility], [address] [place] [phone] Notes/Report: Smooth Muscle Antibody <20 <20 U [...] type 1. THIS TEST WAS PERFORMED AT: [facility] [id number] [place] [address] RUBEN JUNIOR MD,PHD Hepatitis A,B,C Profile Reviewed date:02/26/2024 02:24:45 PM Interpretation: Performing Lab:[facility], [address] [place] [phone] Notes/Report: Hepatitis A Antibody IgM Nonreactive Nonreactive [...] Blood Reviewed date:04/05/2024 02:54:46 PM Interpretation: Performing Lab:[facility], [address] [place] [phone] Notes/Report: Glucose, Whole Blood 142 60-115 mg/dL METER # : [id number] Pathology Reviewed date:04/18/2024 10:47:29 AM Interpretation: Performing Lab:[facility], [address] [place] [phone] Notes/Report: Name: Parnell,Joesph A Age/Sex: 68/F : 1955 Unit#: [id number] Attend Dr: Yaya Ngo MD Re04/05/24 Status: [facility] Location: [facility] Disch: SPEC : [id number] RECD: 04/05/24-1109 STATUS: STEVE GONSALES NUM: [id number] DELTA: 04/05/24-[address] [facility] [address]: Yaya Ngo MD ENTERED: 04/05/24 SP TYPE: Surgical OTHR DR: Mihir Noble MD ORDERED: HE Stain/6, Gross Micro L4/2, IHC/2, H. pylori/2 Addendum Addendum 1 Entered: 04/11/24-1029 Immunostains for H. pylori on A and B are negative. Control stains appropriately. Addendum Signed (signature on file) Bibi Thurston 04/11/24 1030 Diagnosis A. Gastric antrum, biopsy: Gastric antral mucosa with mild reactive changes and minimal chronic inactive gastritis; negative for intestinal metaplasia and dysplasia. B. Gastric polyps: Fundic gland polyps with focal minimal chronic inactive inflammation; negative for intestinal metaplasia and dysplasia. Comment: (A and B): Immunostains for H. pylori pending; addendum to follow. Clinical History Pre-Op Dx: Unspecified cirrhosis of liver Post-Op Dx: Gastritis and gastric polyps Microscopic Description Microscopic sections reviewed. Material Received A. Antral bx's B. Bx's gastric polyps Gross Description Received in two parts. Part A: Received in formalin labeled ?antral bx's? are 2 jones-pink irregular tissue fragments measuring 0.25 and 0.3 cm, submitted in toto in a cassette labeled A. CONTINUED ON NEXT PAGE Name: Joesph Man Age/Sex: 68/F : 1955 Unit#: [id number] Attend Dr: Yaya Ngo MD Re04/05/24 Status: [facility] Location: [facility] Disch: SPEC : [id number] RECD: 04/05/24-1109 STATUS: STEVE GONSALES NUM: [id number] DELTA: 04/05/24-[address] [facility] [address]: Yaya Ngo MD ENTERED: 04/05/24-112 SP TYPE: Surgical OTHR DR: Mihir Noble MD ORDERED: HE Stain/6, Gross Micro L4/2, IHC/2, H. pylori/2 Gross Description (Continued) Part B: Received in formalin labeled ?bx's gastric polyps? are 2 jones-pink irregular tissue fragments each measuring 0.3 cm, submitted in toto in a cassette labeled B. CEDS Special studies ordered and performed: Immunostain for H. pylori on A1 and B1. Copies To: Yaya Ngo MD [facility] [address] [place] [address] Mihir Noble MD [facility] [address] [place] [address] Signed (signature on file) Bibi Bertrand 04/08/24 1240 END OF REPORT Reason For Referral No Information Medications Medication [...] BY MOUTH TWICE A DAY for 90 Active glipiZIDE 5 MG 1 tablet 30 minutes [...] tablet Oral ly Once a day Unknown Omeprazole 40 MG TAKE 1 CAPSULE BY MOUTH Once a day for 90 days Active Atenolol 25mg Unknow n Aspir-81 8mg Unknown Probiotic - as directed Orally Unknown Immunizations Vaccine Route Administration Date Status Comme nts Influenza Unknown 05/31/2019 Administered Influenza Unknown 03/31/2022 Administered Influenza Unknown 05/23/2023 Administered Influenza Unknown 06/08/2021 Partially Administered Social History Tobacco Use: Social History Observation Description Date Details (start date - stop date) Never Smoker NA - NA Tobacco Use/Smoking Question Answer Notes Patient is a nonsmoker Section Notes: 30 plus years nonsmoker 30 plus years nonsmoker 30 plus years nonsmoker 30 plus years nonsmoker 30 plus years nonsmoker; oca ssional drink 30 plus years nonsmoker; oca ssional drink 30 plus years nonsmoker; oca ssional drink 30 plus years nonsmoker; oca ssional drink Problems Problem Type SNOMED Code ICD Code Onset Dates Problem Status W/U Status Risk Notes Problem 424377065 Colon cancer screening (Z12.11) Active confirmed Problem History of polyp of colon (situation) (128347466) Personal history of colonic polyps (Z86.010) Active confirmed Problem 863011902 Irritable bowel syndrome with diarrhea (K58.0) Active confirmed Problem 653227159 Generalized abdominal pain (R10.84) Active confirmed Problem 373342818 Elevated liver function tests (R79.89) Active confirmed Problem 187348605 Gastroesophageal reflux disease without esophagitis (K21.9) Active confirmed Problem 081220700 Fatty liver (K76.0) Active confirmed Problem Benign neoplasm of stomach (63068074) Gastric polyps (K31.7) Active confirmed Problem Cirrhotic (076728276) Cirrhosis (K74.60) Active confirmed Problem Gastritis (9899416) Gastritis (K29.70) Active confirmed Problem 36032451 Diarrhea, unspecified type (R19.7) Active confirmed Problem 57079362 Cirrhosis of ty er without ascites, unspecified hepatic cirrhosis type (K74.60) Active confirmed Problem 360989309 Abdominal mass, LUQ (left upper quadrant) (R19.02) Active confirmed Problem 571280571 Gallbladder poly p (K82.4) Active confirmed Problem 438738867 Left sided abdom inal pain (R10.9) Active confirmed Vital Signs Temperature 97.7 degrees Fahrenheit 02/26/2024 Blood pressure diastolic 00 mm Hg 02/26/2024 Height 63 in 02/26/2024 Blood pressure systolic 000 mm Hg 02/26/2024 Weight 178 lbs 02/26/2024 BMI 31.53 kg/m2 02/26/2024 Encounters Encounter Location Date Provider Diagnosis [facility] Outpatient [address] [facility] [place], [place] [phone] 04/05/2024 Yaya Ngo Jr Cirrhosis K74.60 ; Gastritis K29.70 and Gastric polyps K31.7 [facility] [address] [place] [address] 02/26/2024 Yaya Ngo Jr Cirrhosis of liver without ascites, unspecified hepatic cirrhosis type K74.60 ; Irritable bowel syndrome with diarrhea K58.0 ; Gastroesophageal reflux disease without esophagitis K21.9 and Colon cancer screening Z12.11 [facility] [address] [place] [address] 12/07/2023 Yaya Ngo Jr [facility] [address] [place] [address] 03/06/2024 Yaya Ngo Jr [facility] [address] [place] [address] 03/28/2024 Yaya Ngo Jr [facility] [address] [place] [address] 04/18/2024 Yaya Ngo Jr [facility] [address] [address] 10/30/2024 Yaya Ngo Jr Assessments Encounter Date Diagnosis (ICD Code) Assessment Notes Treatment Notes Treatment Clinical Notes Section Notes 04/05/2024 Cirrhosis (ICD-10 - K74.60) 04/05/2024 Gastritis (ICD-10 - K29.70) 02/26/2024 Irritable bowel syndrome with diarrhea (ICD-10 - K58.0) Currently, she is doing well. We recommended further evaluation of her liver with laboratory studies. Upper endoscopy will be scheduled for evaluation of possible esophageal varices. Autoimmune, viral studies, and serologic markers will be obtained for further evaluation. We discussed limitations of alcohol use, including the fact that none is better than any and less is better than more. We will arrange followup based on the studies. Reflux disease is stable. She can decrease omeprazole to 40 mg once daily. IBS symptoms are stable. She will continue Lomotil. Followup in one year. Today's visit was 45 minutes 02/26/2024 Cirrhosis of liver without ascites, unspecified hepatic cirrhosis type (ICD-10 - K74.60) Liver biopsy material was printed,Endo scopy material was printed Currently, she is doing well. We recommended further evaluation of her liver with laboratory studies. Upper endoscopy will be scheduled for evaluation of possible esophageal varices. Autoimmune, viral studies, and serologic markers will be obtained for further evaluation. We discussed limitations of alcohol use, including the fact that none is better than any and less is better than more. We will arrange followup based on the studies. Reflux disease is stable. She can decrease omeprazole to 40 mg once daily. IBS symptoms are stable. She will continue Lomotil. Followup in one year. Today's visit was 45 minutes 04/05/2024 Gastric polyps (ICD-10 - K31.7) 02/26/2024 Gastroesophageal reflux disease without esophagitis (ICD-10 - K21.9) Currently, she is doing well. We recommended further evaluation of her liver with laboratory studies. Upper endoscopy will be scheduled for evaluation of possible esophageal varices. Autoimmune, viral studies, and serologic markers will be obtained for further evaluation. We discussed limitations of alcohol use, including the fact that none is better than any and less is better than more. We will arrange followup based on the studies. Reflux disease is stable. She can decrease omeprazole to 40 mg once daily. IBS symptoms are stable. She will continue Lomotil. Followup in one year. Today's visit was 45 minutes 02/26/2024 Colon cancer screening (ICD-10 - Z12.11) Currently, she is doing well. We recommended further evaluation of her liver with laboratory studies. Upper endoscopy will be scheduled for evaluation of possible esophageal varices. Autoimmune, viral studies, and serologic markers will be obtained for further evaluation. We discussed limitations of alcohol use, including the fact that none is better than any and less is better than more. We will arrange followup based on the studies. Reflux disease is stable. She can decrease omeprazole to 40 mg once daily. IBS symptoms are stable. She will continue Lomotil. Followup in one year. Today's visit was 45 minutes Plan Of Treatment Pending Test Test Name Order Date LIVER [...] 02/26/2024 Next Appt Details Provider Name:Yaya real , 04/07/2025 09:20:00 AM, [address] [place] [address], [address], [place], [address], Insurance Providers Payer Name Payer Address Payer Phone Subscriber Number Group Number Insured Name Patient Relationship to Insured Coverage Start Date Coverage End Date [facility] [address] [place] [address] [id number] JOESPH MAN Self - patient is the insured Medical (General) History Medical History History ICD Code Colonoscopy 10/20, [...]
--- OUTSIDE RECORDS SUMMARY | 2024-11-12 10:51 | XMS_ITS ---
Author Organization [facility] Address [address] [place] [address] [place] [address] Care Team Providers Care Clinical Safety Specialist Name Role Phone Mihir Noble MD Primary Care Provider Gallo Ngo Jr, Yaya Ramirez [phone] REASON FOR VISIT requesting once a day omeprazole instead of twice a day Medications Medication SIG (Take, Route, Fr equency, Duration) Notes Start Date End Date Status Omeprazole 40 MG TAKE 1 CAPSULE BY MO UTH Once a day for 90 days Active Encounters Encounter Location Date Provider Diagnosis [facility] [address] [place] [address] [place] [address] 10/30/2024 Yaya Ngo Jr Plan Of Treatment Medication Medication Name Sig Start Date Stop Date Notes Omeprazole 40 MG TAKE 1 CAPSULE BY MO UT Once a day for 90 days Next Appt Details Provider Name:Yaya real Jr, 04/07/2025 09:20:00 AM, [address] [place] [address], [address], [place], [address], Progress Notes * DU MANDOB: 6 (69 yo F)Acc No.[id number]:10/30/2024 Patient:?DONOVANAMANNA :1955???Age:69 Y???Sex:Female Address:[address] [place], [place] [address] [address] * Refills? Refill Omeprazole Capsule Delayed Release, 40 MG, 90, TAKE 1 CAPSULE BY MOUTH, Once a day, 90 days, Refills=3 * true * Date:? Generated for Ryley champagne/Petty/Nickieitting on:?11/12/2024 10:51 AM EDT
--- OUTSIDE RECORDS SUMMARY | 2024-11-12 10:51 | XMS_ITS ---
Author Organization [facility] Address [address] [place] [address] Care Team Providers Care Business Supervisor Name Role Phone Mihir Noble MD Primary Care Provider Unavaila Josias Hernandez Unavailable [phone] Allergies Allergen (clinical drug ingredient) Drug/Non Drug [...] Type 2 diabetes mellitus with peripheral angiopathy ([id number]) Type 2 diabetes mellitus with diabetic peripheral angiopathy without gangrene (E11.51) Active confirmed Vital Signs Height 63 in 08/07/2023 Weight 178 lbs 08/07/2023 BMI 31.53 kg/m2 08/07/2023 Procedures Procedure Date Ordered Date Performed Result Body Sit e 68002-UVRW SKIN LESIONS, OVER 4 08/07/2023 N/A Encounters Encounter Location Date Provider Diagnosis [facility] [address] [address] 08/07/2023 Josias Judge Type 2 diabetes mellitus [...] X ray : Foot, right 3V 08/07/2023 52847-NEHK SKIN LESIONS, OVER 4 08/07/19 24 Next Appt Details Follow Up: prn, Reason: Progress Notes * Joesph MAN ADOB: [birth year] (69 yo F)Acc No.[id number]:08/07/2023 Progress Note Patient:?Joesph MAN Provider:?Josias Judge DPM :1955???Age:68 Y???Sex:Female D ate:08/07/2023 Address:[address] [place], [place] [id number] Pcp:Mihir Noble MD Subjective: * Chief Complaints: [...] Once a day Vitamin D3 50 MCG (1999 UT) Capsule 1 capsule Orally Once a day [...] a day Taking Vitamin D3 50 MCG (1999 UT) Capsule 1 capsule Orally Once a day Not-Taking/PRNASO Ankle/Foot Stablizing AFO As directed Wear Daily Medication List reviewed and reconciled with the patientNot-Taking/PRN ASO Ankle/Foot Stablizing AFO As directed Wear Daily Medication List reviewed and reconciled with the patient * Allergies:?Mushrooms: laquita s[Allergies Verified] Objective: * Vitals:?Ht: 63, Wt:178, BMI: 31.53, Shoe size: 8.5-9, BS: 118, Wt-k.74 kg. * Examination: ???Ophthalmology Referral: ?DIABETES EYE EXAM?Procedure Performed:?Yes ?Date of Exam Performed?07/11/2023 ?Findings of Diabetic Eye Exam:?no retinopathy?Vascular: ?DP PULSES (B):?1/4, B/L.?PT PULSES (B):? 0/4, [...] for office visit today.?ORIENTED:?person, place, and time.?FOOT EXAM:?Lower Extremity Neurological Exam performed:?Yes ?Visual exam of foot performed:?Yes ?Date?08/07/2023 ?Footwear Evaluation?Footwear Evaluation performed:?Yes??? Assessment: * Assessment: 1.?Type 2 diabetes mellitus [...] ray : Foot, left 3V * Procedure Codes:?64364 X-RAY EXAM OF RIGHT FOOT 3V, Modifiers: 26 , [id number] TRIM SKIN LESIONS, OVER 4, Modifiers: Q8 [id number] X-RAY EXAM OF LEFT FOOT 3V, Modifiers: [...] Judge DPM Date:?2023 Generated for Ryley champagne/Petty/Nickieitting on:?11/12/2024 10:51 AM EDT History and Physical Notes * HPI (History [...] Lateral tracking 1st MPJ incompletely reducible, B/L FOOTWEAR EVALUATION: fair condition, leesa e gear properties exacerbate patients foot/toe deformity MUSCLE [...]
[2024-11-12 11:02] LABS: Alanine Aminotransferase 51 U/L (0-31); Albumin Level 4.5 g/dL (3.5-5.0); Alkaline Phosphatase 102 U/L (39-117); Anion Gap 16 (12-20); Aspartate Amino Transferase 38 U/L (5-31); Bilirubin Total 0.6 mg/dL (0.0-1.0); Blood Urea Nitrogen 22 mg/dL (9-16); Calcium 9.8 mg/dL (8.4-10.2); Carbon Dioxide 26 mmol/L (22-29); Chloride 101 mmol/L (96-108); Estimated Glomerular Filt Rate 53; Glucose Random 135 mg/dL (60-115); Potassium 4.4 mmol/L (3.3-5.1); Sodium 139 mmol/L (135-145); Total Protein 7.9 g/dL (6.5-8.0)
[2024-11-13 07:15] LABS: Estimated Average Glucose 117 mg/dL; Hemoglobin A1C 133.5785 umol/L; Hemoglobin A1c % 5.7 % (<6.0); Total Hemoglobin (HGBA1C) 3431.1882 umol/L
== END 2024-11-12 09:38 | disposition home or self-care (01) ==
LOC: HO.10HDL 09:37
PROVIDERS: Visit Provider Internal Medicine
DX: I12.9 Hypertensive chronic kidney disease with stage 1 through stage 4 chronic kidney disease, or unspecified chronic kidney disease (principal); E11.22 Type 2 diabetes mellitus with diabetic chronic kidney disease; N18.9 Chronic kidney disease, unspecified
CPT/HCPCS: 36415; 80053; 83036; 85025

== ENCOUNTER 2024-11-14 14:13 | Outpatient (AMB) | payer OTHER, SELFPAY ==
[2024-11-14 14:18] VITALS: BP 140/80; PULSE 64; RESP 14; TEMP 36.5; O2SAT 97; BMI 31.9
--- NOTE | 2024-11-14 14:18 | MHC.PC.OV ---
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 Required: No Accompanied by: Self / Same As Patient Allergies hyoscyamine [From LEVBID] Allergy (Intermediate, Verified 11/14/24 14:19) VOMITING Iodinated Contrast Media [Contrast Dye] Allergy (Intermediate, Verified 11/14/24 14:19) Difficulty Breathing methylcellulose [Citrucel] Allergy (Intermediate, Verified 11/14/24 14:19) headache, rash mushroom Allergy (Intermediate, Verified 11/14/24 14:19) RASH lactose [Lactose] Adverse Reaction (Mild, Verified 11/14/24 14:19) DIARRHEA Medication List - Last Reconciled 11/14/24 by Sierra Garcia MD albuterol sulfate 1 vial inhalation Q4H PRN albuterol sulfate 90 mcg/actuation 2 puffs PO Q4H PRN aspirin 81 mg PO DAILY atenolol 1 tab PO DAILY atorvastatin 1 tab PO DAILY cholecalciferol (vitamin D3) 50 mcg PO DAILY dapagliflozin propanediol (Farxiga) 10 mg PO DAILY diphenoxylate-atropine 2.5-0.025 mg 1 tab PO QID PRN fluticasone propion-salmeterol 250-50 mcg/dose (Wixela Inhub) 1 ea inhalation BID glipizide 5 mg PO BIDWM hydrochlorothiazide 1 tab PO DAILY metformin 1 tab PO BID multivitamin 1 tab PO DAILY omeprazole 20 mg PO DAILY Tobacco use date assessed: 11/14/24 Fall risk assessment: No Falls in past year Last assessed Fall Risk: 11/14/24 Dental Screening Dental Screen Date: 11/14/24 Did you have a dental visit in the last 12 months?: Yes Did you have a dental problem in the last 6 months where you did not have access to dental care?: No Was dental information given to patient?: Patient has dentist HPI HPI Comments History of Present Illness Details The patient is a 69 year female with a past medical history of diabetes, htn, hyperlipidemia, IBS, CKD, fatty liver presenting for follow up Diabetes-On glipizide 5mg daily, metformin 500mg twice daily, farxiga 10mg daily. HbA1C 5.7%. Eye exam UTD. CV:On lipitor, atenolol, hctz. BP 140/80. Denies chest pain, shortness of breath. Sometimes gets palpitations. GI: elevated lfts, cirrhosis. Follows with GI q 6 months Asthma on wixela. Colonoscopy-Dr Ngo Mammo-UTD ROS CONSTITUTIONAL: Denies weight loss, fever and chills. HEENT: Denies changes in vision and hearing. RESPIRATORY: Denies SOB and cough. CV: Denies palpitations and CP GI: Denies abdominal pain, nausea, vomiting and diarrhea. : Denies dysuria and urinary frequency. MSK: Denies new myalgia and joint pain. SKIN: Denies rash and pruritus. NEUROLOGICAL: Denies headache PSYCHIATRIC: Denies recent changes in mood. PHYSICAL EXAM: GENERAL: Alert and oriented x 3. NAD EYES: EOMI. Anicteric. HENT: Moist mucous membranes. No scleral icterus. No cervical lymphadenopathy. LUNGS: Clear to auscultation bilaterally. CARDIOVASCULAR: Regular rate and rhythm. No murmur. No JVD. ABDOMEN: Soft, non-tender +bs EXTREMITIES: No edema. Non-tender. SKIN: No rashes or lesions. Warm. NEUROLOGIC: No focal neurological deficits. CN II-XII grossly intact PSYCHIATRIC: Cooperative. Appropriate mood and affect [facility] Medical History GERD (gastroesophageal reflux disease) Diarrhea Cirrhosis of liver without ascites Gallbladder polyp Trigger finger of left hand Fatty liver Edema Diverticulosis IBS (irritable bowel syndrome) Elevated cholesterol Asthma CVA (cerebral vascular accident) Diabetes Hypertension Surgical History Hx laparoscopic cholecystectomy (12/06/23) Hx of hand surgery H/O abdominal surgery S/P excision of lipoma History of surgical removal of skin lesion H/O: hysterectomy H/O tubal ligation H/O esophagogastroduodenoscopy H/O colonoscopy (~10/04/22) History of H/O foot surgery Family History Other No family history of coronary artery disease Social History Household Members: Spouse Housing: House Are you a primary director of healthcare systems to a significant other at home: No Do you presently have visiting nurse or other home services: No Alcohol intake: current Alcohol intake frequency: holidays/special occasions only Alcohol type: wine Comment: counts correct Patient Tobacco Use Status: Former Tobacco user Years Smoked: 20 service: No Current occupational status: retired Sexual orientation: Straight/Heterosexual Gender identity: Female Cognitive needs: No Hearing needs: No Vision needs: Yes (rx glasses) Questionnaire PHQ-9 Over the last 2 weeks, how often have you been bothered by any of the following problems? 1. Little interest or pleasure in doing things: not at all 2. Feeling down, depressed, or hopeless: not at all 3. Trouble falling or staying asleep, or sleeping too much: not at all 4. Feeling tired or having little energy: not at all 5. Poor appetite or overeating: not at all 6. Feeling bad about yourself - or that you are a failure or have let yourself or your family down: not at all 7. Trouble concentrating on things, such as reading the newspaper or watching television: not at all 8. Moving or speaking so slowly that other people could have noticed. Or the opposite - being so fidgety or restless that you have been moving around a lot more than usual: not at all 9. Thoughts that you would be better off or of hurting yourself in some way: not at all Total score: 0 Depression Screening Interpretation: Negative Depression Screening Done: Yes 13859 - PHQ-9 Billing: Yes Source: Developed by Drs. Ross Velez, Sue Bailey, Librado Young and colleagues, with an educational bryson from [employer]where [employer]. Thrive Questionnaire Date Thrive assessed: 11/14/24 I am a: Patient What is your living situation today?: I have a steady place to live Within the past 12 months, did the food you bought not last and you didn't have the money to get more?: Never true Within the past 12 months, did you worry whether your food would run out before you got money to buy more?: Never true Do you have trouble paying for medicines?: No Do you have trouble getting transportation to medical appointments?: No Do you have trouble paying your heating and electricity bill?: No Do you have trouble taking care of your child, family member or friend?: No Do you have trouble with day-to-day activities such as bathing, preparing meals, shopping, managing finances, etc.?: No Are you currently unemployed and looking for a job?: No Are you interested in more education?: No Please select the resources that you would like help with: None THRIVE Score: 0 AUDIT C Alcohol Use Questionnaire (AUDIT-C) 1. How often do you have a drink containing alcohol?: Monthly or less 2. How many drinks containing alcohol do you have on a typical day when you are drinking?: 1 or 2 3. How often do you have six or more drinks on one occasion?: Never Total Score: 1 RENÉE-7 AMB Questionnaire RENÉE-7 Date RENÉE - 7 assessed: 11/14/24 Feeling nervous, anxious, or on edge: 0 = Not at all Not being able to stop or control worryin = Not at all Worrying too much about different things: 0 = Not at all Trouble relaxin = Not at all Being so restless that it is hard to sit still: 0 = Not at all Becoming easily annoyed or irritable: 0 = Not at all Feeling afraid as if something awful might happen: 0 = Not at all Total RENÉE-7 score (0-4 normal; 5-9 mild; 10-14 moderate; 15-21 severe): 0 Source: Developed by Drs. Ross Velez, Sue Bailey, Librado Young and colleagues, with an educational bryson from [employer]where [employer]. Physical exam (Primary Care) Vital Signs: Last Vital Signs Temp 97.7 F 11/14/24 14:18 Pulse 64 11/14/24 14:18 Resp 14 11/14/24 14:18 BP 140/80 H 11/14/24 14:18 Pulse Ox 97 11/14/24 14:18 Oxygen Delivery Method Room Air 11/14/24 14:18 BMI result Body Mass Index 31.9 Tobacco/Smoking Status: Tobacco use Status Tobacco use date assessed 11/14/24 11/14/24 14:20 Patient Tobacco Use Status Former Tobacco user 11/14/24 14:30 PHQ-9: PHQ-9 Score PHQ-9: Total score 0 11/14/24 14:36 Depression Screening Interpretation: Negative Thrive Assessment: Date of Thrive Assessment Date Thrive assessed 11/14/24 11/14/24 14:20 Coding Level of Care Code New Pt Level 4 (08597) Diagnoses Type 2 diabetes mellitus without complication, without long-term current use of insulin E11.9 Diabetes mellitus type: type 2 Diabetes mellitus ferry terminal agent insulin use: without ferry terminal agent use Diabetes mellitus complication status: without complication Elevated cholesterol E78.00 Gastroesophageal reflux disease, unspecified whether esophagitis present K21.9 Esophagitis presence: esophagitis presence not specified Additional Codes PHQ-9 - 00561 - PHQ-9 Billing: Yes ([id number]) Assessment & Plan Assessment & Plan (1) Diabetes: Code(s): E11.9 - Type 2 diabetes mellitus without complications Category: Medical Qualifiers: Diabetes mellitus type: type 2 Diabetes mellitus skilled nursing insulin use: without skilled nursing use Diabetes mellitus complication status: without complication Qualified Code(s): E11.9 - Type 2 diabetes mellitus without complications (2) Elevated cholesterol: Code(s): E78.00 - Pure hypercholesterolemia, unspecified Category: Medical (3) GERD (gastroesophageal reflux disease): Code(s): K21.9 - Gastro-esophageal reflux disease without esophagitis Category: Medical Qualifiers: Esophagitis presence: esophagitis presence not specified Qualified Code(s): K21.9 - Gastro-esophageal reflux disease without esophagitis Plan 69 y/o to establish care pmh, surg, family and social reviewed DM is well controlled. continue current medications elevated lfts, ibs-continue GI follow up Orders: Orders Comprehensive Met. Panel 6 Months E11.9 - Type 2 diabetes mellitus without complications, K21.9 - Gastro-esophageal reflux disease without esophagitis, K76.0 - Fatty (change of) liver, not elsewhere classified Lipid Panel 6 Months E11.9 - Type 2 diabetes mellitus without complications, K21.9 - Gastro-esophageal reflux disease without esophagitis, K76.0 - Fatty (change of) liver, not elsewhere classified MM screening mammo BI 7 Months Z12.31 - Encounter for screening mammogram for malignant neoplasm of breast Complete Blood Count Auto Diff 6 Months E11.9 - Type 2 diabetes mellitus without complications, K21.9 - Gastro-esophageal reflux disease without esophagitis, K76.0 - Fatty (change of) liver, not elsewhere classified Microalbumin, Random (w Creat) 6 Months E11.9 - Type 2 diabetes mellitus without complications, K21.9 - Gastro-esophageal reflux disease without esophagitis, K76.0 - Fatty (change of) liver, not elsewhere classified Hemoglobin A1c 6 Months E11.9 - Type 2 diabetes mellitus without complications, K21.9 - Gastro-esophageal reflux disease without esophagitis, K76.0 - Fatty (change of) liver, not elsewhere classified Medications: Changed From glipizide 5 mg PO ONCE To glipizide 5 mg PO BIDWM 60 tabs 0RF From glipizide 5 mg PO BIDWM 60 tabs 0RF To glipizide 5 mg PO DAILY 90 tabs 0RF
--- OUTSIDE RECORDS SUMMARY | 2024-11-14 17:16 | XMS_ITS ---
Author Organization [facility] Address [address] [place] [address] Care Team Providers Care Hot Metal Mixer Operator Helper Name Role Phone Mihir Noble MD Primary Care Provider Yaya Deal Jr REASON FOR VISIT pathology Encounters Encounter Location Date Provider Diagnosis [facility] [address] [place] [address] 04/18/2024 Yaya Ngo Jr Plan Of Treatment Next Appt Details Provider Name:Yaya real Jr, 04/07/2025 09:20:00 AM, [address], [address], [place], [address], Progress Notes * DU MANDOB: (68 yo F)Acc No.[id number]:04/18/2024 Patient:?DU MAN :1955???Age:68 Y???Sex:Female Address: [place] [address] * true * Date:? Generated for Printi mahi/Petty/eTransmitting on:?11/14/2024 05:16 PM EDT
--- OUTSIDE RECORDS SUMMARY | 2024-11-14 17:16 | XMS_ITS ---
Author Organization [facility] Address [address] [place] [address] Care Team Providers Care Construction Pit Worker Name Role Phone Mihir Noble MD Primary Care Provider Unavaila Josias Hernandez Unavailable [phone] REASON FOR VISIT Cx 10/23/23 Encounters Encounter Location Date [facility] [address] [place] [phone] 10/17/2023 Josias Judge Plan Of Treatment No Information Progress Notes * Joesph MAN ADOB: [birth year] (68 yo F)Acc No.[id number]:10/17/2023 Patient:?Joesph Man :1955???Age:68 Y???Sex:Female Address:[address] [place] [phone] * true * Date:? Generated for Ryley champagne/Petty/eTransmitting on:?11/14/2024 05:16 PM EDT
--- OUTSIDE RECORDS SUMMARY | 2024-11-14 17:16 | XMS_ITS ---
[facility] Address [address] [place] [address] Care Team Providers Care Generation Mechanic Helper Name Role Phone Mihir Noble MD Primary Care Provider Yaya Deal Jr [phone] REASON FOR VISIT cirrhosis of liver w/o ascites Problems Problem Type SNOMED Code ICD Code Onset Dates Problem Status W/U Status Risk Notes Problem Cirrhotic ([id number]) Cirrhosis (K74.60) Active confirmed Problem Gastritis (6301465) Gastritis (K29.70) Active confirmed Problem Benign neoplasm of stomach (16923540) Gastric polyps (K31.7) Active confirmed Encounters Encounter Location Date Provider Diagnosis [facility] Outpatient [address] [place] [phone] 04/05/2024 Yaya Ngo Jr Cirrhosis K74.60 ; Gastritis K29.70 and Gastric polyps K31.7 Assessments Encounter Date Diagnosis (ICD Code) Assessment Notes Treatment Notes Treatment Clinical Notes Section Notes 04/05/2024 Cirrhosis (ICD-10 - K74.60) 04/05/2024 Gastritis (ICD-10 - K29.70) 04/05/2024 Gastric polyps (ICD-10 - K31.7) Plan Of Treatment Next Appt Details Provider Name:Yaya real Jr, 04/07/2025 09:20:00 AM, [address], [address], [place], [address], Progress Notes * DU MANDOB: 6 (69 yo F)Acc No.[id number]:04/05/2024 EGD/MAC Patient:?DU MAN Provider:?Yaya Ngo MD :1955???Age:68 Y???Sex:Female D ate:04/05/2024 Address:[address] [place] [address] Pcp:Mihir Noble MD Subjective: * Chief Complaints: * ???1. Cirrhosis of liver w/o ascites. * Medical History:? Objective: * Vitals:? Assessment: * Assessment: 1.?Cirrhosis - K74.60 (Prima ry)???2.?Gastritis - K29.70???3.?Gastric polyps - K31.7??? Plan: * Treatment: * Procedure Codes:?76947 UPPER GI ENDOSCOPY, BIOPSY * * The named appointment provid er may or may not be the originator of this progress note, and it is not deemed complete until electronically signed by the appointment provider. Sign off status: Pending * Provider:?Yaya Ngo MD Date:?0 04/05/2024 Generated for Ryley champagne/Petty/eTransmitting on:?11/14/2024 05:16 PM EDT
--- OUTSIDE RECORDS SUMMARY | 2024-11-14 17:17 | XMS_ITS ---
Author Organization [facility] Address [address] [place] [address] [place] [address] Care Team Providers Care Internet Ecommerce Specialist Name Role Phone Mihir Noble MD Primary Care Provider Gallo Ngo Jr, Yaya Ramirez REASON FOR VISIT requesting once a day omeprazole instead of twice a day Medications Medication SIG (Take, Route, Fr equency, Duration) Notes Start Date End Date Status Omeprazole 40 MG TAKE 1 CAPSULE BY MO UTH Once a day for 90 days Active Encounters Encounter Location Date Provider Diagnosis [facility] [address] [place] [address] [place] [address] 10/30/2024 Yaya Ngo Jr Plan Of Treatment Medication Medication Name Sig Start Date Stop Date Notes Omeprazole 40 MG TAKE 1 CAPSULE BY MO UT Once a day for 90 days Next Appt Details Provider Name:Yaya real Jr, 04/07/2025 09:20:00 AM, [address] [place] [address], [address], [place], [address], Progress Notes * DU MANDOB: 6 (69 yo F)Acc No.[id number]:10/30/2024 Patient:?DONOVANAMANNA :1955???Age:69 Y???Sex:Female Address:[address] [place], [place] [address] [address] * Refills? Refill Omeprazole Capsule Delayed Release, 40 MG, 90, TAKE 1 CAPSULE BY MOUTH, Once a day, 90 days, Refills=3 * true * Date:? Generated for Ryley champagne/Petty/Nickieitting on:?11/14/2024 05:17 PM EDT
--- OUTSIDE RECORDS SUMMARY | 2024-11-14 17:17 | XMS_ITS | Patient Health Record ---
Author Organization [facility] Address [address] [place] [address] Care Team Providers Care Jig Boring Machine Operator For Metal Name Role Phone Mihir Noble MD Primary Care Provider Yaya Deal Jr Unavailable Allergies Allergen (clinical drug ingredient) Drug/Non Drug Allergy documented on EMR Reaction Allergy Type Onset Date Status hyoscyamine Levbid Unknown Drug Allergy Activ e ivp dye (uncoded) Unknown Allergy Ac tive mushrooms (uncoded) Unknown Allergy Active Results Component Value Reference Range Notes Liver Fibrosis Pnl Reviewed date:03/06/2024 08:55:59 AM Interpretation: Performing Lab:[facility], [address] [place] [phone] Notes/Report: Liver Fibrosis Score 0.26 Liver Fibrosis [...] a>0.62 and a<=1.00 : A3 (severe activity) UWZ-Teerr-0-Macroglobuli n 161 106-279 mg/dL FIB-Haptoglobin 160 43-212 mg/dL FIB-Apolipoprotein A1 174 101-198 mg/dL FIB-Total Bilirubin 0.6 0.2-1.2 mg/dL FIB-GGT 156 3-65 U/L FIB-ALT 24 6-29 U/L Reference ID [id number] Footnote SEE NOTE The reliability of results is dependent on compliance with the preanalytical and analytical conditions recommended by [employer]. The tests have to be deferred for: [...] The performance characteristics have been determined by [facility]. It has not been cleared or approved by the U.S. Food and Drug Administration. Performance characteristics refer to the analytical performance of the test. Panizon, the associated logo, Klinq and all associated [employer] webb are the registered trademarks of [employer]. All third democrat webb - (R) and (TM) - are the property of their respective owners. (C) 1866-5412 [employer]. All rights reserved. THIS TEST WAS PERFORMED AT: [facility] [address] [place] [address] PRASHANTH LOZANO MD,PHD,YAMINI SOLEDAD Reflex Titer and Pattern Reviewed date:02/29/2024 01:07:56 PM Interpretation: Performing Lab:[address] [phone] Notes/Report: Anti Nuclear Antibody Screen NEGATIVE NEGATIVE [...] Negative International Consensus on SOLEDAD Patterns (https://doi.org/10.15 15/evfh-2715-7613) For additional information, please refer to http://education.[employer].Cerac/faq/FA Q150 (This link is being provided for informational/ educational purposes only.) THIS TEST WAS PERFORMED AT: [facility] [address] [place] [phone] ANASTASIIA WOOD MD Anti Nuclear Antibody Titer TNP Anti Nuclear Antibody Pattern TNP SOLEDAD Titer 2 TNP SOLEDAD Pattern 2 TNP SOLEDAD Titer 3 TNP SOLEDAD Pattern 3 TNP Complete Blood Count no Diff Reviewed date:02/26/2024 02:24:34 PM Interpretation: Performing Lab:[facility], [address] [place] [phone] Notes/Report: White Blood Count 4.7 4.8-10.8 X10*3/uL [...] Panel Reviewed date:02/26/2024 02:24:28 PM Interpretation: Performing Lab:[facility], [address] [place] [phone] Notes/Report: Bilirubin Total 0.6 0.0-1.0 mg/dL Bilirubin Direct 0.2 0.0-0.5 mg/dL Aspartate Amino Transferase 23 5-31 U/L Alanine Aminotransferase 28 0-31 U/L Total Protein 7.6 6.5-8.0 g/dL Albumin Level 4.4 3.5-5.0 g/dL Alkaline Phosphatase 94 39-117 U/L IRON PROFILE Reviewed date:02/26/2024 02:24:15 PM Interpretation: Performing Lab:[facility], [address] [place] [phone] Notes/Report: Iron 60 30-160 mcg/dL Total Iron Binding Capacity 379 228-428 mcg/dL Percent Iron Saturation 16 15-50 % Unsaturated Iron Binding 319 Ferritin Reviewed date:02/26/2024 02:24:23 PM Interpretation: Performing Lab:[facility], [address] [place] [phone] Notes/Report: Ferritin 22 10-250 ng/mL Mitochondrial Antibody Reviewed date:03/06/2024 08:59:13 AM Interpretation: Performing Lab:[address] [address] Notes/Report: Mitochondrial Antibodies NEGATIVE NEGATIVE THIS TEST WAS PERFORMED AT: [facility] [address] [place] [phone] ANASTASIIA WOOD MD Mitochondrial Ab Titer TNP Smooth Muscle Antibody Reviewed date:03/06/2024 08:59:00 AM Interpretation: Performing Lab:[facility], [address] [place] [phone] Notes/Report: Smooth Muscle Antibody <20 <20 U [...] type 1. THIS TEST WAS PERFORMED AT: [facility] [address] [place] [address] RUBEN JUNIOR MD,PHD Hepatitis A,B,C Profile Reviewed date:02/26/2024 02:24:45 PM Interpretation: Performing Lab:[facility], [address] [place] [phone] Notes/Report: Hepatitis A Antibody IgM Nonreactive Nonreactive [...] Blood Reviewed date:04/05/2024 02:54:46 PM Interpretation: Performing Lab:[facility], [address] [place] [phone] Notes/Report: Glucose, Whole Blood 142 60-115 mg/dL METER # : [id number] Pathology Reviewed date:04/18/2024 10:47:29 AM Interpretation: Performing Lab:[facility], [address] [place] [phone] Notes/Report: Name: [place],Joesph A Age/Sex: 68/F : 1955 Unit#: [id number] Attend Dr: Yaya Ngo MD Re04/05/24 Status: [facility] Location: [facility] Disch: SPEC : [id number] RECD: 04/05/24-1109 STATUS: STEVE GONSALES NUM: [id number] DELTA: 04/05/24-[address] [facility] [address]: Yaya Ngo MD ENTERED: 04/05/24 SP [...] Joesph Man Age/Sex: 68/F : 1955 Unit#: [id number] Attend Dr: Yaya Ngo MD Re04/05/24 Status: [facility] Location: [facility] Disch: SPEC : [id number] RECD: 04/05/24-1109 STATUS: STEVE GONSALES NUM: [id number] DELTA: 04/05/24-[address] [facility] [address]: Yaya Ngo MD ENTERED: 04/05/24-112 SP [...] and B1. Copies To: Yaya Ngo MD [facility] [address] [place] [address] Mihir Noble MD [facility] [address] [place] [address] Signed (signature on file) Bibi Bertrand 04/08/24 [...] Problem Status W/U Status Risk Notes Problem 196514338 Colon cancer screening (Z12.11) Active confirmed Problem History of polyp of colon (situation) (030607267) Personal history of colonic polyps (Z86.010) Active confirmed Problem 337361425 Irritable bowel syndrome with diarrhea (K58.0) Active confirmed Problem 819421673 Generalized abdominal pain (R10.84) Active confirmed Problem 177891716 Elevated liver function tests (R79.89) Active confirmed Problem 799058457 Gastroesophageal reflux disease without esophagitis (K21.9) Active confirmed Problem 918832419 Fatty liver (K76.0) Active confirmed Problem Benign neoplasm of stomach (30010724) Gastric polyps (K31.7) Active confirmed Problem Cirrhotic (646945602) Cirrhosis (K74.60) Active confirmed Problem Gastritis (4765318) Gastritis (K29.70) Active confirmed Problem 70823160 Diarrhea, unspecified type (R19.7) Active confirmed Problem 23873544 Cirrhosis of ty er without ascites, unspecified hepatic cirrhosis type (K74.60) Active confirmed Problem 911865500 Abdominal mass, LUQ (left upper quadrant) (R19.02) Active confirmed Problem 782629196 Gallbladder poly p (K82.4) Active confirmed Problem 279916666 Left sided abdom inal pain (R10.9) Active confirmed Vital Signs Temperature 97.7 degrees Fahrenheit 02/26/2024 Blood pressure diastolic 00 mm Hg 02/26/2024 Height 63 in 02/26/2024 Blood pressure systolic 000 mm Hg 02/26/2024 Weight 178 lbs 02/26/2024 BMI 31.53 kg/m2 02/26/2024 Encounters Encounter Location Date Provider Diagnosis [facility] [place] [address] [facility] [place] [phone] 04/05/2024 Yaya Ngo Jr Cirrhosis K74.60 ; Gastritis K29.70 and Gastric polyps K31.7 [facility] [address] [place] [phone] 02/26/2024 Yaya Ngo Jr Cirrhosis of liver without ascites, unspecified hepatic cirrhosis type K74.60 ; Irritable bowel syndrome with diarrhea K58.0 ; Gastroesophageal reflux disease without esophagitis K21.9 and Colon cancer screening Z12.11 [facility] [address] [place] [phone] 12/07/2023 Yaya Ngo Jr [facility] [address] [place] [phone] 03/06/2024 Yaya Ngo Jr [facility] [address] [place] [phone] 03/28/2024 Yaya Ngo Jr [facility] [address] [place] [phone] 04/18/2024 Yaya Ngo Jr [facility] [address] [address] 10/30/2024 Yaya Ngo Jr Assessments Encounter Date [...] Provider Name:Yaya real , 04/07/2025 09:20:00 AM, [address] [place] [address], [address], [place], [address], Insurance Providers Payer Name Payer Address Payer Phone Subscriber Number Group Number Insured Name Patient Relationship to Insured Coverage Start Date Coverage End Date [facility] [address] [place] [address] [id number] JOESPH MAN Self - patient is the [...]
--- OUTSIDE RECORDS SUMMARY | 2024-11-14 17:17 | XMS_ITS ---
Author Organization [facility] Address [address] [place] [address] Care Team Providers Care Construction Secretary Name Role Phone Mihir Noble MD Primary Care Provider Unavaila Josias Hernandez Unavailable [phone] Allergies Allergen (clinical drug ingredient) Drug/Non Drug [...] Type 2 diabetes mellitus with peripheral angiopathy (816897362) Type 2 diabetes mellitus with diabetic peripheral angiopathy without gangrene (E11.51) Active confirmed Vital Signs Height 63 in 08/07/2023 Weight 178 lbs 08/07/2023 BMI 31.53 kg/m2 08/07/2023 Procedures Procedure Date Ordered Date Performed Result Body Sit e 53139-SGFN SKIN LESIONS, OVER 4 08/07/2023 N/A Encounters Encounter Location Date Provider Diagnosis [facility] [address] [address] 08/07/2023 Josias Judge Type 2 diabetes mellitus [...] X ray : Foot, right 3V 08/07/2023 22898-IVNG SKIN LESIONS, OVER 4 08/07/19 24 Next Appt Details Follow Up: prn, Reason: Progress Notes * Joesph MAN ADOB: [birth year] (69 yo F)Acc No.[id number]:08/07/2023 Progress Note Patient:?Joesph MAN Provider:?Josias Judge DPM :1955???Age:68 Y???Sex:Female D ate:08/07/2023 Address:[address] [place], [place] [phone] Pcp:Mihir Noble MD Subjective: * Chief Complaints: [...] ray : Foot, left 3V * Procedure Codes:?12007 X-RAY EXAM OF RIGHT FOOT 3V, Modifiers: 26 , TZ10111 TRIM SKIN LESIONS, OVER 4, Modifiers: Q8 65008 X-RAY EXAM OF LEFT FOOT 3V, Modifiers: [...] Provider:?Josias Judge DPM Date:?2023 Generated for Ryley champagne/Petty/Lucero on:?11/14/2024 05:17 PM EDT History and Physical Notes * HPI [...]
--- OUTSIDE RECORDS SUMMARY | 2024-11-14 17:17 | XMS_ITS ---
Author Organization [facility] Address [address] [place] [address] Care Team Providers Care Header Dock Name Role Phone Real MOLINA, Mihir Primary Care Provider Josias Gould Unavailable [phone] Encounters Encounter Location Date [facility] [address] [place] [address] 10/23/2023 Josias Judge Plan Of Treatment No Information Progress Notes * DONOVANJoesph ADOB: [birth year] (69 yo F)Acc No.[id number]:10/23/2023 Progress Note Patient:Joesph GOLD Provider:?Josias Judge DPM :1955???Age:68 Y???Sex:Female D ate:10/23/2023 Address:[address] [place], [place] [phone] Pcp:Mihir Noble MD Subjective: * Chief Complaints: [...] Judge DPM Date:?2023 Generated for Ryley champagne/Petty/eTransmitting on:?11/14/2024 05:17 PM EDT
--- OUTSIDE RECORDS SUMMARY | 2024-11-14 17:17 | XMS_ITS | Patient Health Record ---
Author Organization [facility] Address [address] [place] [address] Care Team Providers Care Retail Training Manager Name Role Phone Mihir Noble MD Primary Care Provider Unavaila Josias Hernandez Unavailable [phone] Allergies Allergen (clinical drug ingredient) Drug/Non Drug [...] Type 2 diabetes mellitus with peripheral angiopathy (530637566) Type 2 diabetes mellitus with diabetic peripheral angiopathy without gangrene (E11.51) Active confirmed Plan Of Treatment Pending Test Test Name Order Date X ray : Foot, left 3V 08/07/2023 X ray : Foot, right 3V 08/07/2023 29094-MZEA SKIN LESIONS, OVER 4 08/07/19 24 Insurance Providers Payer Name Payer Address Payer Phone Subscriber Number Group Number Insured Name Patient Relationship to Insured Coverage Start Date Coverage End Date [facility] [address] [place] [address] [id number] Luis Foreman Spouse - patient is the spouse of the insured Medical (General) History Medical History History ICD Code asthma CAD Chicken pox Diabetes Heart disease High blood pressure IBS Measles reflux Warts Surgical History Surgery Date(Month/Year) hysterectomy c-sections 3x left foot
== END 2024-11-14 14:48 | disposition home or self-care (01) ==
LOC: HO.HMCHD 14:14
PROVIDERS: PCP Internal Medicine; Visit Provider Internal Medicine
DX: E11.9 Type 2 diabetes mellitus without complications (principal); E78.00 Pure hypercholesterolemia, unspecified; K21.9 Gastro-esophageal reflux disease without esophagitis

== ENCOUNTER → 2024-11-14 14:13 | Outpatient (BNVA) | payer OTHER, SELFPAY | PROVIDERS: PCP Internal Medicine; Visit Provider Internal Medicine | DX: E11.22 Type 2 diabetes mellitus with diabetic chronic kidney disease (principal); I12.9 Hypertensive chronic kidney disease with stage 1 through stage 4 chronic kidney disease, or unspecified chronic kidney disease; N18.9 Chronic kidney disease, unspecified; E78.5 Hyperlipidemia, unspecified; K21.9 Gastro-esophageal reflux disease without esophagitis; E78.00 Pure hypercholesterolemia, unspecified; K76.0 Fatty (change of) liver, not elsewhere classified; Z79.899 Other long term (current) drug therapy | CPT/HCPCS: 96127 ==

== ENCOUNTER 2025-04-07 09:56 | Outpatient (REF) | payer OTHER, SELFPAY ==
--- OUTSIDE RECORDS SUMMARY | 2023-10-23 11:15 | XMS_ITS ---
Author Organization [facility] Address [address] [place] [address] Care Team Providers Care Cable Television Program Director Name Role Phone Mihir Noble MD Primary Care Provider Josias Gould Unavailable [phone] Encounters Encounter [facility] Date [facility] [address] [place] [id number] 10/23/2023 Josias Judge Plan Of Treatment No Information Progress Notes * Joesph MAN ADOB: [birth year] (69 yo F)Acc No.[id number]:10/23/2023 Progress Note Patient: Joesph HOGAN Provider: Priscilla Judge DPM :1955 A ge:68 Y S ex:Female Date:10/23/2023 Address:[address] [place], [place] [id number] Pcp:Mihir Noble MD Subjective: * Chief Complaints: * * Medical History: Objective: * Vitals: Assessment: Plan: * Treatment: * Images: * The named appointment provid er may or may not be the originator of this progress note, and it is not deemed complete until electronically signed by the appointment provider. Sign off status: Pending * Provider: Priscilla Judge DPM Date: 0 10/23/2023 Generated for Hughi mahi/Facodyg/eTransmitting on: 0 04/07/2025 11:38 AM EDT
--- OUTSIDE RECORDS SUMMARY | 2024-03-29 08:30 | XMS_ITS ---
Author Organization [facility] Address [address] [place] [address] Care Team Providers Care Food Products Tester Name Role Phone Sierra Garcia M.D. Primary [...] in the morning Orally Once a day for 30 day(s) Unknown Atorvastatin Calcium 20 MG 1 tablet Oral ly Once a day Unknown Atenolol 25mg Unknow n Aspir-81 8mg Unknown Probiotic - as directed Orally Unknown Multivitamin - 1 tablet Orally Once a day for 30 day(s) Unknown Omeprazole 40 MG TAKE 1 CAPSULE BY MOUTH TWICE A DAY for 90 Unknown glipiZIDE 5 MG 1 tablet 30 minutes before breakfast Orally twice a day Unknown Diphenoxylate-Atropine 2.5-0.025 MG TAKE 1 TABLET NEEDED FOUR TIMES DAILY for 30 10/19/2023 Unknown Encounters Encounter Location Date Provider Diagnosis [facility] [place] [address] [place] [phone] 03/29/2024 Yaya Ngo Jr Plan Of Treatment Next Appt Details Provider Name:Yaya real Jr, 04/08/2026 09:20:00 AM, [address] [facility], [address], [place], [address], Progress Notes * DU MANDOB: 6 (69 yo F)Acc No.[id number]:03/29/2024 EGD/MAC Patient: DU HOGAN Provider: Mook Ngo MD :1955 A ge:68 Y S ex:Female Date:03/29/2024 Address:[address] [place], [place] [phone] Pcp:Sierra Garcia M.D. Subjective: * Chief Complaints: [...] 0 03/29/2024 Generated for Ryley champagne/Petty/Nickieitting on: 0 04/07/2025 11:38 AM EDT
--- OUTSIDE RECORDS SUMMARY | 2024-04-05 08:40 | XMS_ITS ---
Author Organization [facility] Address [address] [place] [address] Care Team Providers Care Estimator Printing Name Role Phone Sierra Garcia M.D. Primary Care Provider Willie Ngo Jr, Yaya Unavailable REASON FOR VISIT cirrhosis of liver w/o ascites Problems Problem Type SNOMED Code ICD Code Onset Dates Problem Status W/U Status Risk Notes Problem Cirrhotic (270211828) Cirrhosis (K74.60) Active confirmed Problem Gastritis (1811276) Gastritis (K29.70) Active confirmed Problem Benign neoplasm of stomach (08401309) Gastric polyps (K31.7) Active confirmed Encounters Encounter Location Date Provider Diagnosis [facility] [place] Out[place] [address] [place], [place] [phone] 04/05/2024 Yaya Ngo Jr Cirrhosis K74.60 ; Gastritis K29.70 and Gastric polyps K31.7 Assessments Encounter Date Diagnosis (ICD Code) Assessment Notes Treatment Notes Treatment Clinical Notes Section Notes 04/05/2024 Cirrhosis (ICD-10 - K74.60) 04/05/2024 Gastritis (ICD-10 - K29.70) 04/05/2024 Gastric polyps (ICD-10 - K31.7) Plan Of Treatment Next Appt Details Provider Name:Yaya real Jr, 04/08/2026 09:20:00 AM, [address], [address], [place], [address], Progress Notes * DU MANDOB: 6 (69 yo F)Acc No.[id number]:04/05/2024 EGD/MAC Patient: DU HOGAN Provider: Mook Ngo MD :1955 A ge:68 Y S ex:Female Date:04/05/2024 Address:[address] [place], [place] [phone] Pcp:Sierra Garcia M.D. Subjective: * Chief Complaints: [...] 0 04/05/2024 Generated for Ryley champagne/Petty/Nickieitting on: 0 04/07/2025 11:37 AM EDT
--- OUTSIDE RECORDS SUMMARY | 2025-04-07 11:38 | XMS_ITS | Patient Health Record ---
Author Organization [facility] Address [address] [place] [address] Care Team Providers Care Debit Agent Name Role Phone Sierra Garcia M.D. Primary Care Provider Unavail able Yaya Ngo Jr Unavailable Allergies Allergen (clinical drug ingredient) Drug/Non Drug Allergy documented on EMR Reaction Allergy Type Onset Date Status hyoscyamine Levbid Unknown Drug Allergy Activ e ivp dye (uncoded) Unknown Allergy Ac tive mushrooms (uncoded) Unknown Allergy Active Reason For Referral No Information Medications Medication SIG (Take, Route, Frequency, Duration) Notes Start Date End Date Status Symbicort 160-4.5 MCG/ACT 2 puffs Inhala tion Twice a day Unknown metFORMIN HCl 500 MG 1 tablet with a meal Orally Once a day Unknown Aspir-81 8mg Not-Allan ing Albuterol Sulfate Un known Atenolol 25mg Unknow n Atorvastatin Calcium 20 MG 1 tablet Oral ly Once a day Unknown Wixela Inhub 250-50 MCG/ACT 1 puff Inhal ation Twice a day Active Vitamin D3 2000 UNIT Orally Unknown Omeprazole 40 MG TAKE 1 CAPSULE BY MOUTH Once a day for 90 days Active Tylenol 325 MG 1 tablet as needed Orally every 6 hrs Unknown glipiZIDE 5 MG 1 tablet 30 minutes before breakfast Orally twice a day Unknown Multivitamin - 1 tablet Orally Once a day for 30 day(s) Unknown hydroCHLOROthiazide 12.5 MG 1 capsule in the morning Orally Once a day for 30 day(s) Unknown Probiotic - as directed Orally Unknown Diphenoxylate-Atropine 2.5-0.025 MG 1 tablet Orally Four times a day for 30 days 11/28/2024 Active Immunizations Vaccine Route Administration Date Status Comme nts Influenza Unknown 05/31/2019 Administered Influenza Unknown 03/31/2022 Administered Influenza Unknown 05/23/2023 Administered Influenza Unknown 06/08/2021 Partially Administered Social History Tobacco Use: Social History Observation Description Date Details (start date - stop date) Never Smoker NA - NA Tobacco Use/Smoking Question Answer Notes Patient is a nonsmoker AUDIT-C (Standard) Question Answer Notes Did you have a drink contain ing alcohol in the past year? Yes How often did you have a dri nk containing alcohol in the past year? 2 to 4 times a month (2 points) How many drinks did you have on a typical day when you were drinking in the past year? 1 or 2 drinks (0 point) How often did you have six o r more drinks on one occasion in the past year? Never (0 point) Points 2 Interpretation Negative Section Notes: 30 plus years nonsmoker; oca ssional drink 30 plus years nonsmoker 30 plus years nonsmoker 30 plus years nonsmoker 30 plus years nonsmoker 30 plus years nonsmoker; oca ssional drink 30 plus years nonsmoker; oca ssional drink 30 plus years nonsmoker; oca ssional drink 30 plus years nonsmoker; oca ssional drink Problems Problem Type SNOMED Code ICD Code Onset Dates Problem Status W/U Status Risk Notes Problem 137963467 Colon cancer screening (Z12.11) Active confirmed Problem History of polyp of colon (situation) (794183141) Personal history of colonic polyps (Z86.010) Active confirmed Problem 214731578 Irritable bowel syndrome with diarrhea (K58.0) Active confirmed Problem 790981612 Generalized abdominal pain (R10.84) Active confirmed Problem 892957695 Elevated liver function tests (R79.89) Active confirmed Problem 113793268 Gastroesophageal reflux disease without esophagitis (K21.9) Active confirmed Problem 006340872 Fatty liver (K76.0) Active confirmed Problem Benign neoplasm of stomach (89227551) Gastric polyps (K31.7) Active confirmed Problem Cirrhotic (011355781) Cirrhosis (K74.60) Active confirmed Problem Gastritis (6463812) Gastritis (K29.70) Active confirmed Problem 02466838 Diarrhea, unspecified type (R19.7) Active confirmed Problem 13699479 Cirrhosis of ty er without ascites, unspecified hepatic cirrhosis type (K74.60) Active confirmed Problem 653089659 Abdominal mass, LUQ (left upper quadrant) (R19.02) Active confirmed Problem 130394889 Gallbladder poly p (K82.4) Active confirmed Problem 241998570 Left sided abdom inal pain (R10.9) Active confirmed Vital Signs Heart Rate 68 /min 04/07/2025 Temperature 97.3 degrees Fahrenheit 04/07/2025 Blood pressure diastolic 01 mm Hg 04/07/2025 Height 63 in 04/07/2025 Blood pressure systolic 001 mm Hg 04/07/2025 Weight 176.0 lbs 04/07/2025 BMI 31.17 kg/m2 04/07/2025 Encounters Encounter Location Date Provider Diagnosis [facility] [address] [place] [address] 04/07/2025 Yaya Ngo Jr Elevated liver function tests R79.89 ; Cirrhosis K74.60 ; Gastroesophageal reflux disease without esophagitis K21.9 and Irritable bowel syndrome with diarrhea K58.0 [facility] [address] [place] [phone] 04/18/2024 Yaya Ngo Jr [facility] [address] [place] [phone] 10/30/2024 Yaya Ngo Jr Assessments Encounter Date Diagnosis (ICD Code) Assessment Notes Treatment Notes Treatment Clinical Notes Section Notes 04/07/2025 Elevated liver function tests (ICD-10 - R79.89) At this time, she is doing well. We discussed the findings at her laparoscopic cholecystectomy which were consistent with cirrhosis based onthe surgeon's description of findings. So far, ultrasound imaging and endoscopy have shown no evidence of decompensated liver disease and fibrosis testing has not been consistent with cirrhosis. We discussed this today. She will have follow-up laboratory studies and imaging with elastography. We discussed limiting alcohol today. Reflux symptoms are under good control and she will continue omeprazole once daily. We discussed diet, lifestyle modifications, and weight management. IBS symptoms are under good control with diet and she will continue this. Follow-up will be in 1 year. Today's visit was 30 minutes. 04/07/2025 Cirrhosis (ICD-10 - K74.60) At this time, she is doing well. We discussed the findings at her laparoscopic cholecystectomy which were consistent with cirrhosis based onthe surgeon's description of findings. So far, ultrasound imaging and endoscopy have shown no evidence of decompensated liver disease and fibrosis testing has not been consistent with cirrhosis. We discussed this today. She will have follow-up laboratory studies and imaging with elastography. We discussed limiting alcohol today. Reflux symptoms are under good control and she will continue omeprazole once daily. We discussed diet, lifestyle modifications, and weight management. IBS symptoms are under good control with diet and she will continue this. Follow-up will be in 1 year. Today's visit was 30 minutes. 04/07/2025 Gastroesophageal reflux disease without esophagitis (ICD-10 - K21.9) At this time, she is doing well. We discussed the findings at her laparoscopic cholecystectomy which were consistent with cirrhosis based ont surgeon's description of findings. So far, ultrasound imaging and endoscopy have shown no evidence of decompensated liver disease and fibrosis testing has not been consistent with cirrhosis. We discussed this today. She will have follow-up laboratory studies and imaging with elastography. We discussed limiting alcohol today. Reflux symptoms are under good control and she will continue omeprazole once daily. We discussed diet, lifestyle modifications, and weight management. IBS symptoms are under good control with diet and she will continue this. Follow-up will be in 1 year. Today's visit was 30 minutes. 04/07/2025 Irritable bowel syndrome with diarrhea (ICD-10 - K58.0) At this time, she is doing well. We discussed the findings at her laparoscopic cholecystectomy which were consistent with cirrhosis based onthe surgeon's description of findings. So far, ultrasound imaging and endoscopy have shown no evidence of decompensated liver disease and fibrosis testing has not been consistent with cirrhosis. We discussed this today. She will have follow-up laboratory studies and imaging with elastography. We discussed limiting alcohol today. Reflux symptoms are under good control and she will continue omeprazole once daily. We discussed diet, lifestyle modifications, and weight management. IBS symptoms are under good control with diet and she will continue this. Follow-up will be in 1 year. Today's visit was 30 minutes. Plan Of Treatment Pending Test Test Name Order Date LIVER PROFILE 04/07/2025 LIVER PROFILE 09/14/2023 LIVER PROFILE 02/26/2024 LIPASE 09/14/2023 IRON + IBC (FE) 02/26/2024 FERRITIN 02/26/2024 CBC w/o DIFF 02/26/2024 CBC w/o DIFF 04/07/2025 CBC w/o DIFF 09/14/2023 PROTHROMBIN TIME (PT, INR) 02/26/2024 HEPATITIS A,B,C PROFILE 02/26/2024 STOOL WBC 09/14/2023 STOOL WBC 09/05/2019 MITOCHONDRIAL AB 02/26/2024 SMOOTH MUSCLE ANTIBODIES 02/26/2024 OVA & PARASITES (O&P) 09/14/2023 OVA & PARASITES (O&P) 09/05/2019 CULTURE, STOOL 09/05/2019 CT ABD WITH PO CONTRAST ONLY 03/02/2016 US ABD 09/29/2017 US ABD 09/21/2023 US ABD 10/26/2017 US ABDOMEN COMP WITH ELASTOGRAPHY 2024 Prothrombin Time INR 04/07/2025 Liver Fibrosis Pnl 04/07/2025 Future Test Test Name Order Date UPPER GI ENDOSCOPY 09/05/2012 COLONOSCOPY 08/14/2014 COLONOSCOPY 08/24/2022 UPPER GI ENDOSCOPY 02/26/2024 Next Appt Details Provider Name:Yaya real , 04/08/2026 09:20:00 AM, [address] [place] [address], [address], [place], [address], Insurance Providers Payer Name Payer Address Payer Phone Subscriber Number Group Number Insured Name Patient Relationship to Insured Coverage Start Date Coverage End Date [facility] [address] [place] [address] [phone] [id number] DU MAN Self - patient is the insured Medical (General) History Medical History History ICD Code Colonoscopy 10/20, tubular adenomas, five -year followup. Hypertension Hyperlipidemia Irritable bowel syndrome, and diarrhea p redominance Asthma Diverticular disease CVA Diabetes mellitus EGD 04/05/2024, normal esophag us without varices, mild gastritis, gastric polyps, pathology showed fundic gland polyps, and inactive gastritis, no H. pylori. Fatty liver with cyst by ult rasound imaging 04/20, cirrhosis at time of cholecystectomy, 12/21 Edema Surgical History Surgery Date(Month/Year) Multiple skin lesion excisions 2020 Breast cyst 2019 foot surgery 12/08/2016 lipoma , left upper abdomen hysterectomy section x2 tubal ligation Hospitalization History Reason Date(Month/Year) no recent hospitalization Hospitalized for vertigo and uncontrolle d diabetes 01/19
--- OUTSIDE RECORDS SUMMARY | 2025-04-07 11:38 | XMS_ITS | Patient Health Record ---
[facility] Address [address] [place] [address] Care Team Providers Care Pellet Mill Operator Name Role Phone Mihir Noble MD Primary Care Provider Unavaila Josias Hernandez Unavailable [phone] Allergies Allergen (clinical drug ingredient) Drug/Non Drug Allergy documented on EMR Reaction Allergy Type Onset Date Status Mushrooms (uncoded) rash Allergy Active Reason For Referral No Information Medications Medication SIG (Take, Route, Frequency, Duration) Notes Start Date End Date Status Vitamin D3 50 MCG (1999) 1 capsule Orally Once a day; Duration: 30 day(s) Active Albuterol Active Probiotic Active Omeprazole 20 MG 1 capsule 30 minutes before morning meal Orally Once a day; Duration: 30 day(s) Active Atorvastatin Calcium 20 MG 1 tablet Orally Once a day; Duration: 30 day(s) Active metFORMIN HCl ER 500 MG 1 tablet with ev ening meal Orally Once a day; Duration: 30 day(s) Active amLODIPine Besylate 5 MG 1 tablet Orally twice a day Active Atenolol 25 MG 1 tablet Orally Once a day; Duration: 30 day(s) Active Symbicort Active Aspirin 325 MG as directed Orally Active ASO Ankle/Foot Stablizing AFO As directed Wear Daily; Duration: as needed Not-Taking Diphenoxylate-Atropine Active Immunizations Vaccine [...] Type 2 diabetes mellitus with peripheral angiopathy (378702716) Type 2 diabetes mellitus with diabetic peripheral angiopathy without gangrene (E11.51) Active confirmed Plan Of Treatment Pending Test Test Name Order Date X ray : Foot, left 3V 08/07/2023 X ray : Foot, right 3V 08/07/2023 [id number] SKIN LESIONS, OVER 4 08/07/19 24 Insurance Providers Payer Name Payer Address Payer Phone Subscriber Number Group Number Insured Name Patient Relationship to Insured Coverage Start Date Coverage End Date [facility] [address] [facility] [place] [address] [phone] [id number] Luis Foreman Spouse - patient is the spouse of the insured Medical (General) History Medical History History ICD Code asthma CAD Chicken pox Diabetes Heart disease High blood pressure IBS Measles reflux Warts Surgical History Surgery Date(Month/Year) hysterectomy c-sections 3x left foot
[2025-04-07 12:55] LABS: MANUAL DIFF FLAG NO
[2025-04-07 13:07] LABS: INTERNATIONAL NORM RATIO 1.1 (0.9-1.1); Prothrombin Time 12.3 SEC (10.9-12.4)
[2025-04-07 13:10] LABS: Hematocrit 38.8 % (37.0-47.0); Hemoglobin 12.7 g/dl (12.0-16.0); Imm Gran Abs Auto 0.02 X10*3/uL (0.00-0.03); Imm Gran Pct Auto 0.5 % (0.0-0.4); Lymphocytes Absolute Auto 1.1 X10*3/uL (1.2-4.9); Mean Corpuscular HGB Conc 32.7 g/dl (31.0-35.0); Mean Corpuscular Hemoglobin 30.5 pg (27.0-33.0); Mean Corpuscular Volume 93.3 fL (80.0-98.0); NRBC Abs Auto 0.000 X10*3/uL (0.0-0.012); NRBC Pct Auto 0.0 /100WBC (0.0-0.2); Platelet Count 110 X10*3/uL (160-400); Red Blood Count 4.16 X10*6/uL (4.20-5.50); White Blood Count 4.3 X10*3/uL (4.8-10.8)
[2025-04-07 13:40] LABS: Alanine Aminotransferase 38 U/L (0-31); Albumin Level 4.4 g/dL (3.5-5.0); Alkaline Phosphatase 85 U/L (39-117); Aspartate Amino Transferase 46 U/L (5-31); Total Protein 7.3 g/dL (6.5-8.0)
[2025-04-15 16:34] LABS: FIB-ALT 31 U/L (6-29); FIB-Alpha-2-Macroglobulin 155 mg/dL (106-279); FIB-Apolipoprotein A1 142 mg/dL (101-198); FIB-GGT 154 U/L (3-65); FIB-Haptoglobin 221 mg/dL (43-212); FIB-Total Bilirubin 0.5 mg/dL (0.2-1.2); Liver Fibrosis Score 0.26; Liver Fibrosis Stage F0-F1; Nec Inflam Act Grade A0; Nec Inflam Act Score 0.15
== END 2025-04-07 09:57 | disposition home or self-care (01) ==
LOC: HO.10HDL 09:56
PROVIDERS: Visit Provider Internal Medicine Gastroenterology
DX: K74.60 Unspecified cirrhosis of liver (principal); R79.89 Other specified abnormal findings of blood chemistry
CPT/HCPCS: 36415; 80076; 81596; 85025; 85610

== ENCOUNTER 2025-05-15 13:17 | Outpatient (AMB) | payer OTHER, SELFPAY ==
--- OUTSIDE RECORDS SUMMARY | 2024-03-29 08:30 | XMS_ITS ---
Author Organization [facility] Address [address] [place] [address] Care Team Providers Care Venue Attendant Name Role Phone Sierra Garcia M.D. Primary [...] Unknown Encounters Encounter Location Date Provider Diagnosis [facility] [place] [address] [place], [place] [phone] 03/29/2024 Yaya Ngo Jr Plan Of Treatment Next Appt Details Provider Name:Yaya real Jr, 04/08/2026 09:20:00 AM, [address], [address], [place], [address], Progress Notes * DU MANDOB: 6 (69 yo F)Acc No.[id number]:03/29/2024 EGD/MAC Patient: Mook DÍAZ DU Provider: Mook Ngo MD :1955 A ge:68 Y S ex:Female Date:03/29/2024 Address:[address] [place], [place] [phone] Pcp:Sierra Garcia M.D. Subjective: * Chief Complaints: [...] 0 03/29/2024 Generated for Ryley champagne/Petty/Lucero on: 04:38 PM EDT
--- OUTSIDE RECORDS SUMMARY | 2024-04-05 08:40 | XMS_ITS ---
Author Organization [facility] Address [address] [place] [address] Care Team Providers Care Pile Header Name Role Phone Sierra Garcia M.D. Primary Care Provider Willie Ngo Jr, Yaya Unavailable REASON FOR VISIT cirrhosis of liver w/o ascites Problems Problem Type SNOMED Code ICD Code Onset Dates Problem Status W/U Status Risk Notes Problem Cirrhotic (149361580) Cirrhosis (K74.60) Active confirmed Problem Gastritis (7690924) Gastritis (K29.70) Active confirmed Problem Benign neoplasm of stomach (62086230) Gastric polyps (K31.7) Active confirmed Encounters Encounter Location Date Provider Diagnosis [facility] [place] [address] [place], [place] [phone] 04/05/2024 Yaya Ngo Jr Cirrhosis K74.60 ; Gastritis K29.70 and Gastric polyps K31.7 Assessments Encounter Date Diagnosis (ICD Code) Assessment Notes Treatment Notes Treatment Clinical Notes Section Notes 04/05/2024 Cirrhosis (ICD-10 - K74.60) 04/05/2024 Gastritis (ICD-10 - K29.70) 04/05/2024 Gastric polyps (ICD-10 - K31.7) Plan Of Treatment Next Appt Details Provider Name:Yaya real Jr, 04/08/2026 09:20:00 AM, [address], [address], [place], [address], Progress Notes * DU MANDOB: 6 (69 yo F)Acc No.[id number]:04/05/2024 EGD/MAC Patient: DU HOGAN Provider: Mook Ngo MD :1955 A ge:68 Y S ex:Female Date:04/05/2024 Address:[address] [place], [place] [phone] Pcp:Sierra Garcia M.D. Subjective: * Chief Complaints: [...] 04/05/2024 Generated for Ryley champagne/Petty/Nickieitting on: 1 04:37 PM EDT
[2025-05-15 13:25] VITALS: BP 138/80; PULSE 64; TEMP 36.6; O2SAT 98; BMI 31.9
--- NOTE | 2025-05-15 13:25 | A.OFFPC_ITS ---
Vital Signs 05/15/25 13:25 Height 5 ft 3 in Weight 180 lb BMI 31.9 BP 138/80 Blood Pressure Location Rt brachial Position Sitting Pulse 64 Pulse Source Pulse Oximeter Temp 97.9 F Temp Source Temporal Artery Scan Pulse Oximetry (%) 98 Oxygen Delivery Method Room Air Intake Visit Reasons: Routine / Dr Rockwell / Dr Noble Gre Tutor Required: No Accompanied by: Self / Same As Patient Allergies hyoscyamine (From LEVBID) Allergy (Intermediate, Verified 05/15/25 13:28) VOMITING Iodinated Contrast Media (Contrast Dye) Allergy (Intermediate, Verified 05/15/25 13:28) Difficulty Breathing methylcellulose (Citrucel) Allergy (Intermediate, Verified 05/15/25 13:28) headache, rash mushroom Allergy (Intermediate, Verified 05/15/25 13:28) RASH lactose (Lactose) Adverse Reaction (Mild, Verified 05/15/25 13:28) DIARRHEA Medication List - Last Reconciled 05/20/25 by ANGE Crisostomo albuterol sulfate 1 vial inhalation Q4H PRN albuterol sulfate 90 mcg/actuation 2 puffs PO Q4H PRN aspirin 81 mg PO DAILY atenolol 1 tab PO DAILY atorvastatin 20 mg PO DAILY cholecalciferol (vitamin D3) 50 mcg PO DAILY diphenoxylate-atropine 2.5-0.025 mg 1 tab PO QID PRN empagliflozin (Jardiance) 10 mg PO DAILY fluticasone propion-salmeterol 250-50 mcg/dose (Wixela Inhub) 1 ea inhalation BID gabapentin take one or two orally bedtime; glipizide 5 mg PO DAILY hydrochlorothiazide 1 tab PO DAILY metformin 500 mg PO BID multivitamin 1 tab PO DAILY omeprazole 20 mg PO DAILY Tobacco use date assessed: 05/15/25 Fall risk assessment: No Falls in past year Last assessed Fall Risk: 05/15/25 Dental Screening Dental Screen Date: 05/15/25 Did you have a dental visit in the last 12 months?: Yes Did you have a dental problem in the last 6 months where you did not have access to dental care?: No HPI HPI Comments History of Present Illness Details The patient is a 69-year-old female with DM, HTN, HLD, IBS, CKD, Fatty Liver, Asthma, low vitamin D and GERD presenting to establish care and for management of chronic conditions and medication review. The patient has a history of Type 2 Diabetes Mellitus, currently managed with glipizide 5 mg, and metformin 500mg BID. She was on Farxiga but is no longer taking it. The patient reports issues with insurance coverage for Farxiga, leading to a discussion about potential alternatives such as Jardiance. Her blood glucose levels are generally well-controlled, with a recent reading of 108 mg/dL. Her A1C was 5.7% in October. The patient has hypertension, managed with atenolol 25mg and hydrochlorothiazide 12.5 mg. Her BP today was 138/80. She also takes atorvastatin and aspirin for cardiovascular risk reduction. Asthma is managed with albuterol as needed and a wixela daily, with good control reported over the past year. She has not used her Albuterol inhaler in the past 6 months. The patient experiences symptoms of gastroesophageal reflux disease, for which she takes omeprazole daily. The patient reports osteoarthritis, particularly affecting her hands, causing pain and difficulty with gripping objects. She has been advised against certain medications due to concerns about kidney function. Carpal tunnel syndrome symptoms include nocturnal hand numbness, which disrupts sleep. A wrist splint at night has been recommended as a non-invasive treatment option. The patient reports chronic peripheral edema, with swelling and pain in her feet, exacerbated by prolonged standing. She has been using Voltaren gel with limited relief. Preventative care includes a mammogram scheduled for June and a bone density test performed a few years ago, both with normal results. Patient was informed and verbally consented to the use of an ambient scribe for clinic note documentation during this visit. [facility] Medical History (Updated 05/20/25 @ 13:01 by ANGE Crisostomo) Asthma Bilateral carpal tunnel syndrome Cirrhosis of liver without ascites CVA (cerebral vascular accident) Diabetes Diarrhea Diverticulosis Edema Elevated cholesterol Fatty liver Gallbladder polyp GERD (gastroesophageal reflux disease) Hypertension IBS (irritable bowel syndrome) Obesity (BMI 30.0-34.9) Osteoarthritis Peripheral edema Trigger finger of left hand Surgical History H/O abdominal surgery H/O colonoscopy (~10/04/22) H/O esophagogastroduodenoscopy H/O foot surgery H/O tubal ligation H/O: hysterectomy History of History of surgical removal of skin lesion Hx laparoscopic cholecystectomy (12/06/23) Hx of hand surgery S/P excision of lipoma Family History (Updated 05/15/25 @ 13:30 by Charissa Garza MA) Mother No problems noted. Father No problems noted. Other No family history of coronary artery disease Social History Household Members: Spouse Housing: House Are you a primary post acute care nurse practitioner to a significant other at home: No Do you presently have visiting nurse or other home services: No Alcohol intake: current Alcohol intake frequency: holidays/special occasions only Alcohol type: wine Comment: counts correct Patient Tobacco Use Status: Former Tobacco user Years Smoked: 20 e-Cigarette/Vaping Use: Former Use service: No Current occupational status: retired Sexual orientation: Straight/Heterosexual Gender identity: Female Cognitive needs: No Hearing needs: No Vision needs: Yes (rx glasses) Questionnaire PHQ-9 Over the last 2 weeks, how often have you been bothered by any of the following problems? 1. Little interest or pleasure in doing things: not at all 2. Feeling down, depressed, or hopeless: not at all 3. Trouble falling or staying asleep, or sleeping too much: not at all 4. Feeling tired or having little energy: not at all 5. Poor appetite or overeating: not at all 6. Feeling bad about yourself - or that you are a failure or have let yourself or your family down: not at all 7. Trouble concentrating on things, such as reading the newspaper or watching television: not at all 8. Moving or speaking so slowly that other people could have noticed. Or the o pposite - being so fidgety or restless that you have been moving around a lot more than usual: not at all 9. Thoughts that you would be better off or of hurting yourself in some way: not at all Total score: 0 Depression Screening Interpretation: Negative Depression Screening Done: Yes Source: Developed by Drs. Ross Velez, Sue Bailey, Librado Young and colleagues, with an educational bryson from [employer]. Thrive Questionnaire Date Thrive assessed: 05/15/25 I am a: Patient Within the past 12 months, did the food you bought not last and you didn't have the money to get more?: Never true Within the past 12 months, did you worry whether your food would run out before you got money to buy more?: Never true Do you have trouble paying for medicines?: No Do you have trouble getting transportation to medical appointments?: No Do you have trouble paying your heating and electricity bill?: No Do you have trouble taking care of your child, family member or friend?: No Do you have trouble with day-to-day activities such as bathing, preparing meals, shopping, managing finances, etc.?: No Are you currently unemployed and looking for a job?: No Are you interested in more education?: No THRIVE Score: 0 AUDIT C Alcohol Use Questionnaire (AUDIT-C) 1. How often do you have a drink containing alcohol?: Monthly or less 2. How many drinks containing alcohol do you have on a typical day when you are drinking?: 1 or 2 3. How often do you have six or more drinks on one occasion?: Less than monthly Total Score: 2 RENÉE-7 AMB Questionnaire RENÉE-7 Date RENÉE - 7 assessed: 05/15/25 Feeling nervous, anxious, or on edge: 0 = Not at all Not being able to stop or control worryin = Not at all Worrying too much about different things: 0 = Not at all Trouble relaxin = Not at all Being so restless that it is hard to sit still: 0 = Not at all Becoming easily annoyed or irritable: 0 = Not at all Feeling afraid as if something awful might happen: 0 = Not at all Total RENÉE-7 score (0-4 normal; 5-9 mild; 10-14 moderate; 15-21 severe): 0 Source: Developed by Drs. Ross Velez, Sue Bailey, Librado Young and colleagues, with an educational bryson from [employer]. Review of Systems Const Details: CONSTITUTIONAL Negative HEAD/NECK Negative EAR/NOSE/MOUTH/THROAT Negative RESPIRATORY Denies recent asthma exacerbations, reports good control with current regimen CARDIOVASCULAR Negative GASTROINTESTINAL Negative MUSCULOSKELETAL Reports chronic foot pain and swelling, denies recent trauma NEUROLOGICAL Reports nocturnal hand numbness, denies headaches or dizziness PSYCHIATRIC Negative Physical exam (Primary Care) Vital Signs: Last Vital Signs Temp 97.9 F 05/15/25 13:25 Pulse 64 05/15/25 13:25 BP 138/80 05/15/25 13:25 Pulse Ox 98 05/15/25 13:25 Oxygen Delivery Method Room Air 05/15/25 13:25 BMI result Body Mass Index 31.9 GENERAL Well developed, obese, in no apparent distress HEENT Head-Normocephalic Eyes- PERRLA, EOMI, Conjuctiva clear, lids WNL Ears- Canals clear, TMs WNL Mouth/Throat-No lesions, no erythema, no exudate Neck- Supple, No lymphadenopathy, thyroid WNL RESPIRATORY Normal I:E, Clear to auscultation CARDIOVASCULAR Regular, rate and rhythm, No murmurs or rubs GASTROINTESTINAL Soft, nontender, normal bowel sounds, no masses MUSCULOSKELETAL Back- nontender Joints- no pain swelling or deformity NEUROLOGICAL Gait normal PSYCHIATRIC Oriented to person, place and time Mood and affect WNL Appearance WNL Speech WNL Thought processes WNL Tobacco/Smoking Status: Tobacco use Status Tobacco use date assessed 05/15/25 05/15/25 13:33 Patient Tobacco Use Status Former Tobacco user 05/15/25 13:33 e-Cigarette/Vaping Use Former Use 05/15/25 13:33 PHQ-9: PHQ-9 Score PHQ-9: Total score 0 05/15/25 13:57 Depression Screening Interpretation: Negative Thrive Assessment: Date of Thrive Assessment Date Thrive assessed 05/15/25 05/15/25 13:33 Coding Level of Care Code Established Pt Est Pt Level 4 (29864) Patient Type Established Diagnoses Type 2 diabetes mellitus without complication, without long-term current use of insulin E11.9 Diabetes mellitus type: type 2 Diabetes mellitus alf insulin use: without scientific programmer use Diabetes mellitus complication status: without complication Hypertension I10 Gastroesophageal reflux disease, unspecified whether esophagitis present K21.9 Esophagitis presence: esophagitis presence not specified Asthma J45.909 Osteoarthritis M19.90 Bilateral carpal tunnel syndrome G56.03 Peripheral edema R60.9 Obesity (BMI 30.0-34.9) E66.9 Time Spent (min) 35 Comment Time spent on chart review, Medication reconciliation, H&P, patient education and orders Assessment & Plan Assessment & Plan (1) Diabetes: Comment: A1C was 5.7% in October Code(s): E11.9 - Type 2 diabetes mellitus without complications Category: Medical Qualifiers: Diabetes mellitus type: type 2 Diabetes mellitus alf insulin use: without scientific programmer use Diabetes mellitus complication status: without complication Qualified Code(s): E11.9 - Type 2 diabetes mellitus without complications Plan: The patient is currently managed with glipizide, and metoprolol for Type 2 Diabetes Mellitus. Due to insurance issues with [facility], Jardiance is being considered as an alternative. Blood glucose levels are generally well- controlled, with a recent reading of 108 mg/dL. Patient to follow up in 2 months or sooner if needed (2) Hypertension: Comment: BP today was 138/80 Code(s): I10 - Essential (primary) hypertension Category: Medical Plan: Hypertension is managed with atenolol and hydrochlorothiazide. The patient also takes atorvastatin and aspirin for cardiovascular risk reduction. Patient will continue current medications. Will monitor. Patient will follow up in 2 months. (3) GERD (gastroesophageal reflux disease): Code(s): K21.9 - Gastro-esophageal reflux disease without esophagitis Category: Medical Qualifiers: Esophagitis presence: esophagitis presence not specified Qualified Code(s): K21.9 - Gastro-esophageal reflux disease without esophagitis Plan: GERD is managed with daily omeprazole. Patient will continue current medications. Will monitor. Patient will follow up in 2 months. (4) Asthma: Code(s): J45.909 - Unspecified asthma, uncomplicated Category: Medical Plan: Asthma is controlled with wixela daily and albuterol as needed. The patient reports good control over the past year. Patient will continue current me dications. Will monitor. Patient will follow up in 2 months. 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 Due to kidney function concerns, certain medications are avoided. She will continue exercise. Patient to follow up as needed if symptoms persist or worsen. (6) Bilateral carpal tunnel syndrome: Code(s): G56.03 - Carpal tunnel syndrome, bilateral upper limbs Category: Medical Plan: Carpal tunnel syndrome symptoms include nocturnal hand numbness. A wrist splint at night is recommended to alleviate symptoms. Patient to follow up as needed if symptoms persist or worsen. (7) Peripheral edema: Code(s): R60.9 - Edema, unspecified Category: Medical Plan: The patient reports chronic peripheral edema with foot pain and swelling, exacerbated by prolonged standing. Voltaren gel has been used with limited relief, and gabapentin is being considered for pain management. Patient to follow up in 2 months or sooner if symptoms persist or worsen. (8) Obesity (BMI 30.0-34.9): Comment: BMI today was 31.9 Code(s): E66.9 - Obesity, unspecified Category: Medical Plan: Discussed the health risks of obesity with the patient. Reviewed benefits of even moderate weight loss with the patient. Patient will gradually try and increase exercise to 30-40 min 5-7 times per week. We discussed they may need to break the exercise up into 2-3 sessions daily due to joint pain. We discussed the patient adding more fruits and vegetables to their diet. Will monitor weight and follow up in 2 months. Plan During the visit, we discussed the management of the patient's Type 2 Diabetes Mellitus, including the potential switch from Farxiga to Jardiance due to insurance coverage issues. We also reviewed the patient's hypertension management with atenolol and hydrochlorothiazide, and the use of atorvastatin and aspirin for cardiovascular risk reduction. For asthma, the patient is advised to continue using albuterol as needed and a daily inhaler, with good control reported. We addressed the patient's osteoarthritis and carpal tunnel syndrome, recommending a wrist splint for nocturnal symptoms and considering gabapentin for pain management. Preventative care measures, including a scheduled mammogram and previous bone density screening, were also discussed. Medications: New gabapentin take one or two orally bedtime; 90 caps 0RF foot pain empagliflozin (Jardiance) 10 mg PO DAILY 90 tabs 1RF for diabetes Discontinued Farxiga (dapagliflozin propanediol) Discontinued Reason: Doctor's Order 10 mg PO DAILY 30 days 30 tabs 0RF NS Patient Instructions: - Continue current medications as prescribed. - Use wrist splint at night for carpal tunnel syndrome. - Consider gabapentin for pain management if needed. - Schedule follow-up appointment in two months. - Attend scheduled mammogram in June.
--- OUTSIDE RECORDS SUMMARY | 2025-05-15 16:38 | XMS_ITS | Patient Health Record ---
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 Role Phone Mihir Noble MD Primary Care Provider Unavaila Josias Hernandez Unavailable [phone] Allergies Allergen (clinical drug ingredient) Drug/Non Drug [...] Type 2 diabetes mellitus with peripheral angiopathy ([id number]) Type 2 diabetes mellitus with diabetic peripheral angiopathy without gangrene (E11.51) Active confirmed Plan Of Treatment Pending Test Test Name Order Date X ray : Foot, left 3V 08/07/2023 X ray : Foot, right 3V 08/07/2023 [id number] SKIN LESIONS, OVER 4 08/07/19 24 Insurance Providers Payer Name Payer Address Payer Phone Subscriber Number Group Number Insured Name Patient Relationship to Insured Coverage Start Date Coverage End Date [facility] [address] [place] [id number] Luis Foreman Spouse - patient is the spouse of the insured Medical (General) History Medical History History ICD Code asthma CAD Chicken pox Diabetes Heart disease High blood pressure IBS Measles reflux Warts Surgical History Surgery Date(Month/Year) hysterectomy c-sections 3x left foot
--- OUTSIDE RECORDS SUMMARY | 2025-05-15 16:38 | XMS_ITS | Patient Health Record ---
Author Organization [facility] Address [address] [place] [address] Care Team Providers Care French Binder Name Role Phone Sierra Garcia M.D. Primary Care Provider Yaya Jimenez Jr [phone] Allergies Allergen (clinical drug ingredient) Drug/Non Drug Allergy documented on EMR Reaction Allergy Type Onset Date Status hyoscyamine Levbid Unknown Drug Allergy Activ e ivp dye (uncoded) Unknown Allergy Ac tive mushrooms (uncoded) Unknown Allergy Active Results Component Value Reference Range Notes Prothrombin Time INR Reviewed date:04/09/2025 08:17:22 AM Interpretation: Performing Lab:[address] [address] Notes/Report: Prothrombin Time 12.3 10.9-12.4 SEC INTERNATIONAL NORM RATIO 1.1 0.9-1.1 INTERNATIONAL NORMALIZED RATIO (INR) REFERENCE RANGES Reference Range For patients not on anticoagulant therapy: 0.9 - 1.1 INR ranges for oral anticoagulant therapy: For prevention and treatment of venous thrombosis and pulmonary embolism: 2.0 - 3.0 For acute myocardial infarction with aspirin therapy: 2.0 - 3.0 For acute myocardial infarction without aspirin therapy: 3.0 - 4.0 For patients with mechanical prosthetic heart valves: 2.5 - 3.5 Liver Fibrosis Pnl Reviewed date:04/21/2025 08:54:02 AM Interpretation: Performing Lab:[facility], [address] [place] [phone] Notes/Report: Liver Fibrosis Score 0.26 Liver Fibrosis [...] F4 (severe fibrosis) Nec Inflam Act Score 0.15 Nec Inflam Act Grade A0 Nec Inflam [...] a>0.62 and a<=1.00 : A3 (severe activity) HRU-Mhnrn-6-Macroglobulin 155 106-279 mg/dL FIB-Haptoglobin 221 43-212 mg/dL FIB-Apolipoprotein A1 142 101-198 mg/dL FIB-Total Bilirubin 0.5 0.2-1.2 mg/dL FIB-GGT 154 3-65 U/L FIB-ALT 31 6-29 U/L Reference ID [id number] Footnote SEE NOTE The reliability of results is dependent on compliance with the preanalytical and analytical conditions recommended by [employer]. The tests have to be deferred for: [...] The performance characteristics have been determined by [facility]. It has not been cleared or approved by the U.S. Food and Drug Administration. Performance characteristics refer to the analytical performance of the test. Sunsea, the associated logo, Celsion and all associated [employer] webb are the registered trademarks of [employer]. All third constitution party webb - (R) and (TM) - are the property of their respective owners. (C) [id number] Boni. All rights reserved. THIS TEST WAS PERFORMED AT: [employer] [facility] [place] [address] [place] [address] PRASHANTH LOZANO MD,PHD,YAMINI Complete Blood Count Auto Di ff Reviewed date:04/09/2025 08:17:15 AM Interpretation: Performing Lab:[facility], [address] [place] [phone] Notes/Report: White Blood Count 4.3 4.8-10.8 X10*3/uL Red Blood Count 4.16 4.20-5.50 X10*6/uL Hemoglobin 12.7 12.0-16.0 g/dl Hematocrit 38.8 37.0-47.0 % Mean Corpuscular Volume 93.3 80.0-98.0 fL Mean Corpuscular Hemoglobin 30.5 27.0-33.0 pg Mean Corpuscular HGB Conc 32.7 31.0-35.0 g/dl Red Cell Distribution Width 14.6 11.0-16.0 % Platelet Count 110 160-400 X10*3/uL Mean Platelet Volume 11.0 9.4-12.3 fL Neutrophils Percent Auto 58.6 45-73 % Imm Gran Pct Auto 0.5 0.0-0.4 % Lymphocytes Percent Auto 26.2 20-40 % Monocytes Percent Auto 11.2 2-11 % Eosinophils Percent Auto 3.0 0-4 % Basophils Percent Auto 0.5 0-2 % NRBC Pct Auto 0.0 0.0-0.2 /100WBC Neutrophils Absolute Auto 2.5 2.0-8.3 x10*3/u L Imm Gran Abs Auto 0.02 0.00-0.03 X10*3/uL Lymphocytes Absolute Auto 1.1 1.2-4.9 X10*3/u L Monocytes Absolute Auto 0.5 0.1-1.2 X10*3/uL Eosinophils Absolute Auto 0.1 0.0-0.4 X10*3/u L Basophils Absolute Auto 0.0 0.0-0.2 X10*3/uL NRBC Abs Auto 0.000 0.0-0.012 X10*3/uL Liver Panel Reviewed date:04/09/2025 08:17:09 AM Interpretation: Performing Lab:[facility], [address] [place] [phone] Notes/Report: Bilirubin Total 0.6 0.0-1.0 mg/dL Bilirubin Direct 0.2 0.0-0.5 mg/dL Aspartate Amino Transferase 46 5-31 U/L Alanine Aminotransferase 38 0-31 U/L Total Protein 7.3 6.5-8.0 g/dL Albumin Level 4.4 3.5-5.0 g/dL Alkaline Phosphatase 85 39-117 U/L Reason For Referral No Information Medications Medication [...] TAKE 1 CAPSULE BY MOUTH Once a day; Duration: 90 days Active Tylenol 325 MG 1 tablet as needed Orally every 6 hrs Unknown glipiZIDE 5 MG 1 tablet 30 minutes before breakfast Orally twice a day Unknown Multivitamin - 1 tablet Orally Once a day; Duration: 30 day(s) Unknown hydroCHLOROthiazide 12.5 MG 1 capsule in the morning Orally Once a day; Duration: 30 day(s) Unknown Probiotic - as directed Orally Unknown Diphenoxylate-Atropine 2.5-0.025 MG 1 tablet Orally Four times a day; Duration: 30 days 11/28/2024 Active Immunizations Vaccine Route [...] Interpretation Negative Section Notes: 30 plus years nonsmoker 30 [...] Problem Status W/U Status Risk Notes Problem Colon cancer screening (750780676) Colon cancer screening (Z12.11) Active confirmed Problem History of polyp of colon (situation) (351609588) Personal history of colonic polyps (Z86.010) Active confirmed Problem Irritable bowel syndrome with diarrhea (695919676) Irritable bowel syndrome with diarrhea (K58.0) Active confirmed Problem Generalized abdominal pain (805860360) Generalized abdominal pain (R10.84) Active confirmed Problem Elevated liver enzymes level (709032076) Elevated liver function tests (R79.89) Active confirmed Problem Gastroesophageal reflux disease without esophagitis (367567218) Gastroesophageal reflux disease without esophagitis (K21.9) Active confirmed Problem Fatty liver (789289725) Fatty liver (K76.0) Active confirmed Problem Benign neoplasm of stomach (62699148) Gastric polyps (K31.7) Active confirmed Problem Cirrhotic (908372948) Cirrhosis (K74.60) Active confirmed Problem Gastritis (9693647) Gastritis (K29.70) Active c onfirmed Problem Diarrhea (30849840) Diarrhea, unspecified type (R19.7) Active confirmed Problem Cirrhosis - non-alcoholic (425642766) Cirrhosis of liver without ascites, unspecified hepatic cirrhosis type (K74.60) Active confirmed Problem Mass fills left upper quadrant of abdomen (finding) (7381700301) Abdominal mass, LUQ (left upper quadrant) (R19.02) Active confirmed Problem Gallbladder polyp (050137832) Gallbladder polyp (K82.4) Active confirmed Problem Left sided abdominal pain (572293999) Left sided abdominal pain (R10.9) Active confirmed Vital Signs Heart Rate 68 /min 04/07/2025 Temperature 97.3 degrees Fahrenheit 04/07/2025 Blood pressure diastolic 01 mm Hg 04/07/2025 Height 63 in 04/07/2025 Blood pressure systolic 001 mm Hg 04/07/2025 Weight 176.0 lbs 04/07/2025 BMI 31.17 kg/m2 04/07/2025 Encounters Encounter Location Date Provider Diagnosis [facility] [address] [place] [phone] 04/07/2025 Yaya Ngo Jr Elevated liver function tests R79.89 ; Cirrhosis K74.60 ; Gastroesophageal reflux disease without esophagitis K21.9 and Irritable bowel syndrome with diarrhea K58.0 [facility] [address] [place] [phone] 10/30/2024 Yaya Ngo Jr [facility] [address] [place] [phone] 04/21/2025 Yaya Ngo Jr Assessments Encounter Date Diagnosis [...] Order Date LIVER PROFILE 04/07/2025 LIVER PROFILE 02/26/2024 LIVER PROFILE 09/14/2023 LIPASE 09/14/2023 IRON + IBC (FE) 02/26/2024 FERRITIN 02/26/2024 CBC w/o DIFF 02/26/2024 CBC w/o DIFF 09/14/2023 CBC w/o DIFF 04/07/2025 PROTHROMBIN TIME (PT, INR) 02/26/2024 HEPATITIS A,B,C PROFILE 02/26/2024 STOOL WBC 09/05/2019 STOOL WBC 09/14/2023 MITOCHONDRIAL AB 02/26/2024 SMOOTH MUSCLE ANTIBODIES 02/26/2024 OVA & PARASITES (O&P) 09/05/2019 OVA & PARASITES (O&P) 09/14/2023 CULTURE, STOOL 09/05/2019 CT ABD WITH PO CONTRAST ONLY 03/02/2016 US ABD 09/21/2023 US ABD 10/26/2017 US ABD 09/29/2017 US ABDOMEN COMP WITH ELASTOGRAPHY 2024 Future Test Test Name Order Date UPPER GI ENDOSCOPY 09/05/2012 COLONOSCOPY 08/14/2014 COLONOSCOPY 08/24/2022 UPPER GI ENDOSCOPY 02/26/2024 Next Appt Details Provider Name:Yaya real , 04/08/2026 09:20:00 AM, [address] [facility], [address], [place], [address], Insurance Providers Payer Name Payer Address Payer Phone Subscriber Number Group Number Insured Name Patient Relationship to Insured Coverage Start Date Coverage End Date [facility] [address] [place] [address] [id number] [place] Self - patient is the insured Medical (General) History Medical History History ICD Code Colonoscopy 3/23, tubular adenomas, five -year followup. Hypertension Hyperlipidemia [...]
== END 2025-05-15 14:57 | disposition home or self-care (01) ==
LOC: HO.HMCHD 13:18
PROVIDERS: PCP Internal Medicine; Visit Provider Physician Assistant Medical
DX: E11.9 Type 2 diabetes mellitus without complications (principal); I10 Essential (primary) hypertension; K21.9 Gastro-esophageal reflux disease without esophagitis; J45.909 Unspecified asthma, uncomplicated; M19.90 Unspecified osteoarthritis, unspecified site; G56.03 Carpal tunnel syndrome, bilateral upper limbs; R60.9 Edema, unspecified; E66.9 Obesity, unspecified

== ENCOUNTER 2025-05-27 07:29 | Outpatient (REF) | payer OTHER, SELFPAY ==
--- OUTSIDE RECORDS SUMMARY | 2024-03-29 08:30 | XMS_ITS ---
Author Organization [facility] Address [address] [place] [address] Care Team Providers Care Assistant Professor Of Geography Name Role Phone Sierra Garcia M.D. Primary Care Provider Unavail Yaya Andrews Jr Unavailable Allergies Allergen (clinical drug ingredient) Drug/Non Drug Allergy documented on EMR Reaction Allergy Type Onset Date Status hyoscyamine Levbid Unknown Drug Allergy Activ e ivp dye (uncoded) Unknown Allergy Ac tive mushrooms (uncoded) Unknown Allergy Active REASON FOR VISIT cirrhosis w/o ascites Medications Medication SIG (Take, Route, Frequency, Duration) Notes Start Date End Date Status Albuterol Sulfate Un known metFORMIN HCl 500 MG 1 tablet with a mitra l Orally Once a day Unknown Symbicort 160-4.5 MCG/ACT 2 puffs Inhala tion Twice a day Unknown Tylenol 325 MG 1 tablet as needed Orally every 6 hrs Unknown Vitamin D3 2000 UNIT Orally Unknown hydroCHLOROthiazide 12.5 MG 1 capsule in the morning Orally Once a day; Duration: 30 day(s) Unknown Atorvastatin Calcium 20 MG 1 tablet Oral ly Once a day Unknown Atenolol 25mg Unknow n Aspir-81 8mg Unknown Probiotic - as directed Orally Unknown Multivitamin - 1 tablet Orally Once a day; Duration: 30 day(s) Unknown Omeprazole 40 MG TAKE 1 CAPSULE BY MOUTH TWICE A DAY; Duration: 90 Unknown glipiZIDE 5 MG 1 tablet 30 minutes before breakfast Orally twice a day Unknown Diphenoxylate-Atropine 2.5-0.025 MG TAKE 1 TABLET NEEDED FOUR TIMES DAILY; Duration: 30 10/19/2023 Unknown Encounters Encounter Location Date Provider Diagnosis [facility] [place] Out[place] [address] [place], [place] [phone] 03/29/2024 Yaya Ngo Jr Plan Of Treatment Next Appt Details Provider Name:Yaya real Jr, 04/08/2026 09:20:00 AM, [address], [address], [place], [address], Progress Notes * DU MANDOB: 6 (70 yo F)Acc No.[id number]:03/29/2024 EGD/MAC Patient: Mook DÍAZ DU Provider: Mook Ngo MD :1955 A ge:68 Y S ex:Female Date:03/29/2024 Address:[address] [place], [place] [phone] Pcp:Sierra Garcia M.D. Subjective: * Chief Complaints: * 1 . Cirrhosis w/o ascites. * Medical History: C olonoscopy 10/20, tubular adenomas, five-year followup., Hypertension, Hyperlipidemia, Irritable bowel syndrome, and diarrhea predominance, Asthma, Diverticular disease, CVA, Diabetes mellitus, EGD 12/13/17 no Stoll's esophagus or H. pylori., Fatty liver with cyst by ultrasound imaging 04/20, cirrhosis at time of cholecystectomy, 12/21, Edema. * Medications: U nknown glipiZIDE 5 MG Tablet 1 tablet 30 minutes before breakfast Orally twice a day , Unknown Multivitamin - Tablet 1 tablet Orally Once a day , Unknown hydroCHLOROthiazide 12.5 MG Capsule 1 capsule in the morning Orally Once a day , Unknown Probiotic - Tablet Chewable as directed Orally , Unknown Aspir-81 8mg , Unknown Atenolol 25mg , Unknown Atorvastatin Calcium 20 MG Tablet 1 tablet Orally Once a day , Unknown Vitamin D3 2000 UNIT Capsule Orally , Unknown Tylenol 325 MG Tablet 1 tablet as needed Orally every 6 hrs , Unknown Symbicort 160-4.5 MCG/ACT Aerosol 2 puffs Inhalation Twice a day , Unknown metFORMIN HCl 500 MG Tablet 1 tablet with a meal Orally Once a day , Unknown Albuterol Sulfate , Unknown Omeprazole 40 MG Capsule Delayed Release TAKE 1 CAPSULE BY MOUTH TWICE A DAY , Unknown Diphenoxylate-Atropine 2.5-0.025 MG Tablet TAKE 1 TABLET NEEDED FOUR TIMES DAILY * Allergies: L evbid, mushrooms, ivp dye. Objective: * Vitals: Assessment: Plan: * Treatment: * * The named appointment provid er may or may not be the originator of this progress note, and it is not deemed complete until electronically signed by the appointment provider. Sign off status: Pending * Provider: Mook Ngo MD Date: 0 03/29/2024 Generated for Ryley champagne/Petty/Nickieitting on: 07:32 AM EDT
--- OUTSIDE RECORDS SUMMARY | 2024-04-05 08:40 | XMS_ITS ---
Author Organization [facility] Address [address] [place] [address] Care Team Providers Care Social Work Associate Name Role Phone Sierra Garcia M.D. Primary Care Provider Willie Ngo Jr, Yaya Unavailable REASON FOR VISIT cirrhosis of liver w/o ascites Problems Problem Type SNOMED Code ICD Code Onset Dates Problem Status W/U Status Risk Notes Problem Cirrhotic (337828141) Cirrhosis (K74.60) Active confirmed Problem Gastritis (0990716) Gastritis (K29.70) Active confirmed Problem Benign neoplasm of stomach (62614231) Gastric polyps (K31.7) Active confirmed Encounters Encounter Location Date Provider [place] [facility] [place] [address] [place], [place] [phone] 04/05/2024 Yaya Ngo Jr Cirrhosis K74.60 ; Gastritis K29.70 and Gastric polyps K31.7 Assessments Encounter Date Diagnosis (ICD Code) Assessment Notes Treatment Notes Treatment Clinical Notes Section Notes 04/05/2024 Cirrhosis (ICD-10 - K74.60) 04/05/2024 Gastritis (ICD-10 - K29.70) 04/05/2024 Gastric polyps (ICD-10 - K31.7) Plan Of Treatment Next Appt Details Provider Name:Yaya real Jr, 04/08/2026 09:20:00 AM, [address], [address], [place], [address], Progress Notes * DU MANDOB: 6 (70 yo F)Acc No.[id number]:04/05/2024 EGD/MAC Patient: DU HOGAN Provider: Mook Ngo MD :1955 A ge:68 Y S ex:Female Date:04/05/2024 Address:[address] [place], [place] [phone] Pcp:Sierra Garcia M.D. Subjective: * Chief Complaints: * 1 . Cirrhosis of liver w/o ascites. * Medical History: Objective: * Vitals: Assessment: * Assessment: 1. C irrhosis - K74.60 (Primary) 2 . G astritis - K29.70 3 . G astric polyps - K31.7 Plan: * Treatment: * Procedure Codes: 4 3239 UPPER GI ENDOSCOPY, BIOPSY * * The named appointment provid er may or may not be the originator of this progress note, and it is not deemed complete until electronically signed by the appointment provider. Sign off status: Pending * Provider: Mook Ngo MD Date: 0 04/05/2024 Generated for Ryley champagne/Petty/Nickieitting on: 1 07:31 AM EDT
--- NOTE | ~2025-05-27 | US_ITS ---
EXAMINATION: US ABDOMEN COMPLETE WITH LIVER ELASTOGRAPHY HISTORY: ELEVATED LFT, CIRRHOSIS TECHNIQUE: Real-time grayscale ultrasound imaging of the abdomen was performed and images were reviewed. COMPARISON: Comparison is made with the prior examination dated . FINDINGS: Liver: The right lobe of the liver measures 17.1 cm in size. The left lobe of the liver measures 14.3 cm in size. The liver demonstrates increased echotexture, consistent with steatosis. There are cysts in the left lobe measuring up to 6 mm in size. No intrahepatic biliary ductal dilatation is identified. There is normal hepatopedal flow in the portal vein. Ultrasound elastography of the liver was performed with 10 separate measurements of the liver parenchyma with the patient in the supine position. Measurements were obtained approximately 2 cm below Lucio's capsule and perpendicular to the capsule. The median shear wave velocity is 1.71 m/s. The interquartile range/median (IQR/median) is 0.12. Gallbladder and biliary tree: The gallbladder is surgically absent. The common bile duct measures 9 mm in diameter. Kidneys: The right kidney measures 11.0 cm in length. The left kidney measures 11.3 cm in length. The kidneys are unremarkable, without evidence of masses, hydronephrosis, or calculi. Pancreas: The pancreatic head, neck, and body are unremarkable. The pancreatic tail is obscured by bowel gas. Spleen: The spleen is enlarged, measuring 15.3 cm in length. Abdominal aorta and inferior vena cava: The visualized portions of the abdominal aorta and inferior vena cava are normal in caliber. There is no free fluid in the abdomen. US/US abdomen comp w elastography IMPRESSION: Hepatosplenomegaly and hepatic steatosis. The median shear wave velocity in the liver is 1.71 m/s, corresponding to a median liver stiffness of 8.96 kPa. The IQR/median value is 0.12. This is indicative of a quality data set. Findings are indicative of a high elastography value suggestive of compensated advanced chronic liver disease. REFERENCE: Society of Radiologists in Ultrasound Liver Stiffness Thresholds (2020): LIVER STIFFNESS THRESHOLDS: *Shear wave velocity less than 1.3 m/s (Liver Stiffness equal or less than 5 kPa): High probability of being normal. *Shear wave velocity less than 1.7 m/s (Liver Stiffness less than 9 kPa): In the absence of other known clinical signs, rules out compensated advanced chronic liver disease. *Shear wave velocity between 1.7-2.1 m/s (Liver Stiffness 9-13 kPa): Suggestive of compensated advanced chronic liver disease but need further test for confirmation. *Shear wave velocity between 2.1-2.4 m/s (Liver Stiffness 13-17 kPa): Rules in compensated advanced chronic liver disease. *Shear wave velocity greater than 2.4 m/s (Liver Stiffness over 17 kPa): Suggestive of clinically significant portal hypertension. QUALITY OF DATA SET: *IQR/Median value equal or less than 0.15 implies a quality data set. *IQR/Median value over 0.15 implies a poor quality data set. SIGNIFICANT CHANGE FROM PRIOR EXAM: Significant change if liver stiffness measurement is 10% or greater from prior exam. OTHER CONSIDERATIONS: The stage of liver fibrosis may be overestimated in the setting of acute hepatitis, liver inflammation, elevated liver function tests, hepatic vascular congestion, obstructive cholestasis, non-fasting state, and infiltrative diseases such as amyloidosis and lymphoma. In some patients with NAFLD, the liver stiffness thresholds for compensated advanced chronic liver disease may be lower. In causes other than viral hepatitis and NAFLD, liver stiffness thresholds are not well established. Electronically signed by: Ross Liang MD 05/27/2025 08:52 AM EDT
--- OUTSIDE RECORDS SUMMARY | 2025-05-27 07:32 | XMS_ITS | Patient Health Record ---
Author Organization [facility] Address [address] [place] [address] Care Team Providers Care Vehicle Maintenance Supervisor Name Role Phone Sierra Garcia M.D. Primary Care Provider Yaya Jimenez Jr Allergies Allergen (clinical drug ingredient) Drug/Non Drug Allergy documented on EMR Reaction Allergy Type Onset Date Status hyoscyamine Levbid Unknown Drug Allergy Activ e ivp dye (uncoded) Unknown Allergy Ac tive mushrooms (uncoded) Unknown Allergy Active Results Component Value Reference Range Notes Prothrombin Time INR Reviewed date:04/09/2025 08:17:22 AM Interpretation: Performing Lab:[address] [phone] Notes/Report: Prothrombin Time 12.3 10.9-12.4 SEC INTERNATIONAL [...] Pnl Reviewed date:04/21/2025 08:54:02 AM Interpretation: Performing Lab:[facility], [address] [place] [phone] Notes/Report: Liver Fibrosis Score 0.26 Liver Fibrosis [...] a>0.62 and a<=1.00 : A3 (severe activity) LKX-Bdwhc-8-Macroglobulin 155 106-279 mg/dL FIB-Haptoglobin 221 43-212 mg/dL FIB-Apolipoprotein A1 142 101-198 mg/dL FIB-Total Bilirubin 0.5 0.2-1.2 mg/dL FIB-GGT 154 3-65 U/L FIB-ALT 31 6-29 U/L Reference ID [id number] Footnote SEE NOTE The reliability of results [...] The performance characteristics have been determined by [facility]. It has not been cleared or approved by the U.S. Food and Drug Administration. Performance characteristics refer to the analytical performance of the test. Tantaline, the associated logo, Controlus and all associated [employer] webb are the registered trademarks of [employer]. All third democrat webb - (R) and (TM) - are the property of their respective owners. (C) [id number] LicenseStream. All rights reserved. THIS TEST WAS PERFORMED AT: [employer] [facility] [place] [address] [place] [address] PRASHANTH LOZANO MD,PHD,YAMINI Complete Blood Count Auto Di ff Reviewed date:04/09/2025 08:17:15 AM Interpretation: Performing Lab:[facility], [address] [place] [phone] Notes/Report: White Blood Count 4.3 4.8-10.8 X10*3/uL [...] Panel Reviewed date:04/09/2025 08:17:09 AM Interpretation: Performing Lab:[facility], [address] [place] [phone] Notes/Report: Bilirubin Total 0.6 0.0-1.0 mg/dL Bilirubin [...] Status Risk Notes Problem Colon cancer screening (349121656) Colon cancer screening (Z12.11) Active confirmed Problem History of polyp of colon (situation) (185954706) Personal history of colonic polyps (Z86.010) Active confirmed Problem Irritable bowel syndrome with diarrhea (913136998) Irritable bowel syndrome with diarrhea (K58.0) Active confirmed Problem Generalized abdominal pain (223138102) Generalized abdominal pain (R10.84) Active confirmed Problem Elevated liver enzymes level (150114497) Elevated liver function tests (R79.89) Active confirmed Problem Gastroesophageal reflux disease without esophagitis (428131874) Gastroesophageal reflux disease without esophagitis (K21.9) Active confirmed Problem Fatty liver (215275873) Fatty liver (K76.0) Active confirmed Problem Benign neoplasm of stomach (98750558) Gastric polyps (K31.7) Active confirmed Problem Cirrhotic (833956491) Cirrhosis (K74.60) Active confirmed Problem Gastritis (4614035) Gastritis (K29.70) Active c onfirmed Problem Diarrhea (15802828) Diarrhea, unspecified type (R19.7) Active confirmed Problem Cirrhosis - non-alcoholic (200326568) Cirrhosis of liver without ascites, unspecified hepatic cirrhosis type (K74.60) Active confirmed Problem Mass fills left upper quadrant of abdomen (finding) (6334490367) Abdominal mass, LUQ (left upper quadrant) (R19.02) Active confirmed Problem Gallbladder polyp (122759116) Gallbladder polyp (K82.4) Active confirmed Problem Left sided abdominal pain (445563875) Left sided abdominal pain (R10.9) Active confirmed Vital Signs Heart Rate 68 /min 04/07/2025 Temperature 97.3 degrees Fahrenheit 04/07/2025 Blood pressure diastolic 01 mm Hg 04/07/2025 Height 63 in 04/07/2025 Blood pressure systolic 001 mm Hg 04/07/2025 Weight 176.0 lbs 04/07/2025 BMI 31.17 kg/m2 04/07/2025 Encounters Encounter Location Date Provider Diagnosis [facility] [address] [place] [address] 04/07/2025 Yaya Ngo Jr Elevated liver function tests R79.89 ; Cirrhosis K74.60 ; Gastroesophageal reflux disease without esophagitis K21.9 and Irritable bowel syndrome with diarrhea K58.0 [facility] [address] [place] [address] 10/30/2024 Yaya Ngo Jr [facility] [address] [place] [address] 04/21/2025 Yaya Ngo Jr Assessments Encounter Date [...] Name:Yaya real , 04/08/2026 09:20:00 AM, [address] [facility], [address], [place], [address], Insurance Providers Payer Name Payer Address Payer Phone Subscriber Number Group Number Insured Name Patient Relationship to Insured Coverage Start Date Coverage End Date [facility] [address] [facility] [place] [phone] [id number] [place] Self - patient is the [...]
--- OUTSIDE RECORDS SUMMARY | 2025-05-27 07:32 | XMS_ITS | Patient Health Record ---
[facility] Address [address] [place] [address] Care Team Providers Care Metal Control Coordinator Name Role Phone Mihir Noble MD Primary Care Provider Unavaila Josias Hernandez Unavailable [phone] Allergies Allergen (clinical drug ingredient) Drug/Non Drug [...] Type 2 diabetes mellitus with peripheral angiopathy (705466141) Type 2 diabetes mellitus with diabetic peripheral angiopathy without gangrene (E11.51) Active confirmed Plan Of Treatment Pending Test Test Name Order Date X ray : Foot, left 3V 08/07/2023 X ray : Foot, right 3V 08/07/2023 [id number] SKIN LESIONS, OVER 4 08/07/19 24 Insurance Providers Payer Name Payer Address Payer Phone Subscriber Number Group Number Insured Name Patient Relationship to Insured Coverage Start Date Coverage End Date [facility] [address] [place] [id number] Luis Foreman Spouse - patient is the spouse of the insured Medical (General) History Medical History History ICD Code asthma CAD Chicken pox Diabetes Heart disease High blood pressure IBS Measles reflux Warts Surgical History Surgery Date(Month/Year) hysterectomy c-sections 3x left foot
== END 2025-05-27 07:30 | disposition home or self-care (01) ==
LOC: HO.US 07:29
PROVIDERS: PCP Internal Medicine; Visit Provider Internal Medicine Gastroenterology
DX: K74.60 Unspecified cirrhosis of liver (principal); R79.89 Other specified abnormal findings of blood chemistry
CPT/HCPCS: 76700; 76981

== ENCOUNTER → 2025-05-27 07:34 | Outpatient (BNV) | payer OTHER, SELFPAY | PROVIDERS: PCP Internal Medicine; Visit Provider Radiology Diagnostic Radiology | DX: K76.0 Fatty (change of) liver, not elsewhere classified (principal); R16.2 Hepatomegaly with splenomegaly, not elsewhere classified | CPT/HCPCS: 76700 ==

== ENCOUNTER 2025-07-15 09:26 | Outpatient (REF) | payer OTHER, SELFPAY | END 2025-07-15 09:27 | disposition home or self-care (01) | LOC: HO.10HDL 09:26 | PROVIDERS: PCP Physician Assistant Medical; Visit Provider Physician Assistant Medical | DX: E11.9 Type 2 diabetes mellitus without complications (principal); I10 Essential (primary) hypertension; E66.9 Obesity, unspecified; J45.909 Unspecified asthma, uncomplicated; M19.90 Unspecified osteoarthritis, unspecified site; I87.2 Venous insufficiency (chronic) (peripheral); Z68.31 Body mass index [BMI] 31.0-31.9, adult | CPT/HCPCS: 36415; 82947; 83036; 96127 ==

== ENCOUNTER 2025-07-15 09:26 | Outpatient (AMB) | payer OTHER, SELFPAY ==
--- OUTSIDE RECORDS SUMMARY | 2024-03-29 07:30 | XMS_ITS ---
Author Organization [facility] Address [address] [place] [phone] Care Team Providers Care Gear Changer Name Role Phone Sierra Garcai M.D. Primary Care Provider Unavail Yaya Andrews Jr Allergies Allergen (clinical drug ingredient) Drug/Non Drug [...] Unknown Encounters Encounter Location Date Provider Diagnosis [facility] [place] Outpatient [address], [place] [id number] 03/29/2024 Yaya Ngo Jr Plan Of Treatment Next Appt Details Provider Name:Yaya real Jr, 04/08/2026 09:20:00 AM, [address] [facility], [address], [place], [address], Progress Notes * DU MANDOB: 6 (70 yo F)Acc No.[id number]:03/29/2024 EGD/MAC Patient: DU HOGAN Provider: Mook Ngo MD :1955 A ge:68 Y S ex:Female Date:03/29/2024 Address:[address] [place] [address] Pcp:Sierra Garcia M.D. Subjective: * Chief Complaints: [...] 03/29/2024 Generated for Ryley champagne/Petty/Lucero on: 1 09/15/2024 10:55 AM EST
--- OUTSIDE RECORDS SUMMARY | 2024-04-05 07:40 | XMS_ITS ---
Author Organization [facility] Address [address] [place] [address] Care Team Providers Care Manufacturing Engineering Intern Name Role Phone Sierra Garcia M.D. 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) Gastric polyps (K31.7) Active confirmed Encounters Encounter Location Date Provider Diagnosis [facility] [place] [address] [place] [phone] 04/05/2024 Yaya Ngo Jr Cirrhosis K74.60 ; Gastritis K29.70 and Gastric polyps K31.7 Assessments Encounter Date Diagnosis (ICD Code) Assessment Notes Treatment Notes Treatment Clinical Notes Section Notes 04/05/2024 Cirrhosis (ICD-10 - K74.60) 04/05/2024 Gastritis (ICD-10 - K29.70) 04/05/2024 Gastric polyps (ICD-10 - K31.7) Plan Of Treatment Next Appt Details Provider Name:Yaya real Jr, 04/08/2026 09:20:00 AM, [address], [address], [place], [address], Progress Notes * DU MANDOB: 6 (70 yo F)Acc No.[id number]:04/05/2024 EGD/MAC Patient: DU HOGAN Provider: Mook Ngo MD :1955 A ge:68 Y S ex:Female Date:04/05/2024 Address:[address] [place], [place] [phone] Pcp:Sierra Garcia M.D. Subjective: * Chief Complaints: * C irrhosis of liver w/o ascites Assessment: * Assessment: 1. C irrhosis - K74.60 (Primary) 2 . G astritis - K29.70 3 . G astric polyps - K31.7 Plan: * Procedure Codes: 4 3239 UPPER GI ENDOSCOPY, BIOPSY Billing Information: * Procedure Codes: 06693 UPPER GI ENDOSCOPY, BIOPSY. * The named appointment provid er may or may not be the originator of this progress note, and it is not deemed complete until electronically signed by the appointment provider. Sign off status: Pending * Provider: Mook Ngo MD Date: 0 04/05/2024 Generated for Ryley champagne/Petty/Raquelsmitting on: 1 09/15/2024 10:55 AM EST
[2025-07-15 09:28] VITALS: BP 136/74; PULSE 58; TEMP 36.4; O2SAT 99; BMI 31.5
--- NOTE | 2025-07-15 09:28 | A.OFFPC_ITS ---
Vital Signs 07/15/25 09:28 Height 5 ft 3 in Weight 178 lb BMI 31.5 BP 136/74 Blood Pressure Location Rt brachial Position Sitting Pulse 58 Pulse Source Pulse Oximeter Temp 97.5 F Temp Source Temporal Artery Scan Pulse Oximetry (%) 99 Oxygen Delivery Method Room Air Intake Visit Reasons: 2 months follow up Environmental Aide Required: No Accompanied by: Self / Same As Patient Allergies hyoscyamine (From LEVBID) Allergy (Intermediate, Verified 07/15/25 09:29) VOMITING Iodinated Contrast Media (Contrast Dye) Allergy (Intermediate, Verified 07/15/25 09:29) Difficulty Breathing methylcellulose (Citrucel) Allergy (Intermediate, Verified 07/15/25 09:29) headache, rash mushroom Allergy (Intermediate, Verified 07/15/25 09:29) RASH lactose (Lactose) Adverse Reaction (Mild, Verified 07/15/25 09:29) DIARRHEA Medication List - Last Reconciled 07/15/25 by ANGE Crisostomo albuterol sulfate 1 vial inhalation Q4H PRN albuterol sulfate 90 mcg/actuation 2 puffs PO Q4H PRN aspirin 325 mg PO DAILY atenolol 1 tab PO DAILY atorvastatin 20 mg PO DAILY cholecalciferol (vitamin D3) 50 mcg PO DAILY diphenoxylate-atropine 2.5-0.025 mg 1 tab PO QID PRN empagliflozin (Jardiance) 10 mg PO DAILY fluticasone propion-salmeterol 250-50 mcg/dose (Wixela Inhub) 1 ea inhalation BID 90 days glipizide 5 mg PO DAILY hydrochlorothiazide 25 mg PO QAM metformin 500 mg PO BID multivitamin 1 tab PO DAILY omeprazole 20 mg PO DAILY pregabalin (Lyrica) 25 mg PO BID Tobacco use date assessed: 07/15/25 Fall risk assessment: No Falls in past year Last assessed Fall Risk: 07/15/25 Dental Screening Dental Screen Date: 07/15/25 Did you have a dental visit in the last 12 months?: No Did you have a dental problem in the last 6 months where you did not have access to dental care?: No HPI HPI Comments History of Present Illness0 Details History of Present Illness The patient is a 70-year-old female with DM, HTN, HLD, IBS, CKD, Fatty Liver, Asthma, low vitamin D and GERD presenting for follow-up of persistent pain, dry mouth, and swelling. The patient reports ongoing pain and weakness in hands with little to no improvement on Gabapentin. She has been taking two gabapentin pills at night, but states that the only partial relief comes from Tylenol Arthritis, which lessens the pain but does not eliminate it. She also notes pain in her hands, which affects her experience planning strategist strength, making it difficult to open items. For approximately a month and a half, the patient has experienced significant xerostomia, which she associates with starting gabapentin. The dryness is severe, causing her to drink a lot of water and carry a water bottle everywhere, leading to nocturia up to two times per night, an increase from her previous baseline of once. Her has also noticed her making facial movements in the last month and a half. The patient reports significant foot swelling, to the point that she is unable to put her shoes back on if she removes them. She is currently taking hydrochlorothiazide 12.5 mg in the morning for BP and swelling. Her BP today was 136/74. She is also on Atenolol. Her asthma is well-controlled, and she uses her Wixela pump once in the morning, and occasionally at night if she feels it is needed. She denies any recent problems with her asthma. Medical History: - Asthma, well-controlled - Chronic pain - Edema Medications: - [facility]: [facility]. - Tylenol Arthritis: taken as needed for pain. - Hydrochlorothiazide 12.5 mg: taken in the morning for swelling. - Jardiance: taken once daily in the [facility]. - Albuterol Inhaler: taken once in the [place] and as needed for asthma. Health Maintenance Social History - Functional Status: The patient reports difficulty with activities of daily living, specifically opening items due to poor experience planning strategist strength. - The patient lives with her who assists her. Results Patient was informed and verbally consented to the use of an ambient scribe for clinic note documentation during this visit. [facility] Medical History (Updated 07/15/25 @ 10:14 by ANGE Crisostomo) Asthma Bilateral carpal tunnel syndrome Cirrhosis of liver without ascites CVA (cerebral vascular accident) Diabetes Diarrhea Diverticulosis Edema Elevated cholesterol Fatty liver Gallbladder polyp GERD (gastroesophageal reflux disease) Hypertension IBS (irritable bowel syndrome) Obesity (BMI 30.0-34.9) Osteoarthritis Peripheral edema Trigger finger of left hand Venous (peripheral) insufficiency Surgical History H/O abdominal surgery H/O colonoscopy (~10/04/22) H/O esophagogastroduodenoscopy H/O foot surgery H/O tubal ligation H/O: hysterectomy History of History of surgical removal of skin lesion Hx laparoscopic cholecystectomy (12/06/23) Hx of hand surgery S/P excision of lipoma Family History Mother No problems noted. Father No problems noted. Other No family history of coronary artery disease Social History Household Members: Spouse Housing: House Are you a primary respiratory care practitioner to a significant other at home: No Do you presently have visiting nurse or other home services: No Alcohol intake: current Alcohol intake frequency: holidays/special occasions only Alcohol type: wine Comment: counts correct Patient Tobacco Use Status: Former Tobacco user Years Smoked: 20 e-Cigarette/Vaping Use: Former Use service: No Current occupational status: retired Sexual orientation: Straight/Heterosexual Gender identity: Female Cognitive needs: No Hearing needs: No Vision needs: Yes (rx glasses) Questionnaire PHQ-9 Over the last 2 weeks, how often have you been bothered by any of the following problems? 1. Little interest or pleasure in doing things: not at all 2. Feeling down, depressed, or hopeless: not at all 3. Trouble falling or staying asleep, or sleeping too much: not at all 4. Feeling tired or having little energy: not at all 5. Poor appetite or overeating: not at all 6. Feeling bad about yourself - or that you are a failure or have let yourself or your family down: not at all 7. Trouble concentrating on things, such as reading the newspaper or watching television: not at all 8. Moving or speaking so slowly that other people could have noticed. Or the opposite - being so fidgety or restless that you have been moving around a lot more than usual: not at all 9. Thoughts that you would be better off or of hurting yourself in some way: not at all Total score: 0 Depression Screening Interpretation: Negative Depression Screening Done: Yes Source: Developed by Drs. Ross Velez, Sue Bailey, Librado Young and colleagues, with an educational bryson from [employer]. Thrive Questionnaire Date Thrive assessed: 07/15/25 I am a: Patient Within the past 12 months, did the food you bought not last and you didn't have the money to get more?: Never true Within the past 12 months, did you worry whether your food would run out before you got money to buy more?: Never true Do you have trouble getting transportation to medical appointments?: No Do you have trouble paying your heating and electricity bill?: No Do you have trouble taking care of your child, family member or friend?: No Do you have trouble with day-to-day activities such as bathing, preparing meals, shopping, managing finances, etc.?: No Are you currently unemployed and looking for a job?: No Are you interested in more education?: No THRIVE Score: 0 AUDIT C Alcohol Use Questionnaire (AUDIT-C) 1. How often do you have a drink containing alcohol?: Monthly or less 2. How many drinks containing alcohol do you have on a typical day when you are drinking?: 1 or 2 3. How often do you have six or more drinks on one occasion?: Monthly Total Score: 3 RENÉE-7 AMB Questionnaire RENÉE-7 Date RENÉE - 7 assessed: 07/15/25 Feeling nervous, anxious, or on edge: 0 = Not at all Not being able to stop or control worryin = Not at all Worrying too much about different things: 0 = Not at all Trouble relaxin = Not at all Being so restless that it is hard to sit still: 0 = Not at all Becoming easily annoyed or irritable: 0 = Not at all Feeling afraid as if something awful might happen: 0 = Not at all Total RENÉE-7 score (0-4 normal; 5-9 mild; 10-14 moderate; 15-21 severe): 0 Source: Developed by Drs. Ross Velez, Librado Fong and colleagues, with an educational bryson from [employer]. Review of Systems Narrative Review of Systems - Constitutional: Denies issues other than feeling old. - HEENT/Mouth: Reports persistent xerostomia and dysphagia. - Respiratory: Denies any issues with her asthma. - Musculoskeletal: Reports pain and weakness in her hands affecting experience planning strategist strength. - Extremities: Reports significant swelling in her feet, making it difficult to wear shoes. - Genitourinary: Reports nocturia two to three times per night. - Neurological: Reports her has noticed recent facial movements; she was initially unaware of them. Physical exam (Primary Care) Vital Signs: Last Vital Signs Temp 97.5 F 07/15/25 09:28 Pulse 58 07/15/25 09:28 BP 136/74 07/15/25 09:28 Pulse Ox 99 07/15/25 09:28 Oxygen Delivery Method Room Air 07/15/25 09:28 BMI result Body Mass Index 31.5 Tobacco/Smoking Status: Tobacco use Status Tobacco use date assessed 07/15/25 07/15/25 09:30 Patient Tobacco Use Status Former Tobacco user 07/15/25 09:30 e-Cigarette/Vaping Use Former Use 07/15/25 09:30 PHQ-9: PHQ-9 Score PHQ-9: Total score 0 07/15/25 09:49 ENERAL Well developed, obese, in no apparent distress HEENT Head-Normocephalic Eyes- PERRLA, EOMI, Conjuctiva clear, lids WNL Ears- Canals clear, TMs WNL Mouth/Throat-No lesions, no erythema, no exudate Neck- Supple, No lymphadenopathy, thyroid WNL RESPIRATORY Normal I:E, Clear to auscultation CARDIOVASCULAR Regular, rate and rhythm, No murmurs or rubs MUSCULOSKELETAL Back- nontender Joints- no swelling or deformity NEUROLOGICAL Gait normal PSYCHIATRIC Oriented to person, place and time Mood and affect WNL Appearance WNL Speech WNL Thought processes WNL Depression Screening Interpretation: Negative Thrive Assessment: Date of Thrive Assessment Date Thrive assessed 07/15/25 07/15/25 09:30 Coding Level of Care Code Established Pt Est Pt Level 4 (99020) Established Pt Add On Problem Visit Only Patient Type Established Diagnoses Hypertension I10 Type 2 diabetes mellitus without complication, without long-term current use of insulin E11.9 Diabetes mellitus type: type 2 Diabetes mellitus long chain beamer insulin use: without assisted use Diabetes mellitus complication status: without complication Obesity (BMI 30.0-34.9) E66.9 Asthma J45.909 Osteoarthritis M19.90 Venous (peripheral) insufficiency I87.2 Time Spent (min) 35 Comment Time spent on Chart review, H&P, Patient education and orders Assessment & Plan Assessment & Plan (1) Hypertension: Comment: BP today was 136/74 Code(s): I10 - Essential (primary) hypertension Category: Medical Plan: Controlled. Patient will continue current medications. Will monitor. Patient will follow up in 3 months (2) Diabetes: Comment: A1C was 5.7% in October Code(s): E11.9 - Type 2 diabetes mellitus without complications Category: Medical Qualifiers: Diabetes mellitus type: type 2 Diabetes mellitus long chain beamer insulin use: without assisted use Diabetes mellitus complication status: without co mplication Qualified Code(s): E11.9 - Type 2 diabetes mellitus without complications Plan: Will get labs. Patient will continue current medications. Will monitor. Patient will follow up in 3 months (3) Obesity (BMI 30.0-34.9): Comment: BMI today was 31.5 Code(s): E66.9 - Obesity, unspecified Category: Medical Plan: Patient has maintained the same weight. Diet and exercise were reviewed. (4) Asthma: Code(s): J45.909 - Unspecified asthma, uncomplicated Category: Medical Plan: Controlled. Patient will continue current medications. Will monitor. Patient will follow up in 3 months (5) Osteoarthritis: Code(s): M19.90 - Unspecified osteoarthritis, unspecified site Category: Medical Plan: Will change to Lyrica. Patient to continue Tylenol. Patient to follow up in 8 weeks or sooner if symptoms persist or worsen. (6) Venous (peripheral) insufficiency: Code(s): I87.2 - Venous insufficiency (chronic) (peripheral) Category: Medical Plan: Will increase HCTZ to 25mg. Patient to elevate legs. Will consider Compression stockings. Patient to follow up in 8 weeks or sooner if symptoms persist or worsen. Plan Plan Patient was informed and verbally consented to the use of an ambient scribe for clinic note documentation during this visit. 1. Peripheral Edema To address the patient's significant foot swelling, the dosage of hydrochlorothiazide will be increased from 12.5 mg to 25 mg, to be taken in the morning. 2. Chronic Pain Due to a lack of efficacy and side effects of xerostomia with gabapentin, the medication will be discontinued. She will be started on Lyrica, to be taken twice a day, in the morning and evening, to manage her pain. 3. Xerostomia The patient reports significant dry mouth, which is a potential side effect of both gabapentin and Jardiance. The plan is to discontinue gabapentin, which may alleviate this symptom. She will continue drinking water as needed. 4. Unspecified Diabetes Mellitus To monitor her diabetes status, the patient is due for lab work to check her blood sugar levels. She will be sent for blood work accordingly. 5. Asthma The patient's asthma is well-controlled with her current medication regimen. No changes to her asthma medications will be made at this time. 6. Follow-Up A follow-up appointment is scheduled in eight weeks to assess the effectiveness of the medication changes and to review blood work results. Discussion Notes I discussed the plan with the patient. For her foot swelling, we will increase her hydrochlorothiazide to 25 mg daily. Since gabapentin is not effectively managing her pain and is causing significant dry mouth, we will discontinue it and start Lyrica, which will be taken twice daily. I informed her that her other medications will remain the same. I also ordered blood work to check her sugar levels since she is due, and we will follow up in eight weeks to assess her response to these changes. Patient Instructions - Go for blood work to check your sugar levels. - Increase your water pill (hydrochlorothiazide) to the 25 mg dose every morning to help with the swelling in your feet. - Stop taking the gabapentin. - Start taking the new medication, Lyrica, twice a day (once in the morning and once in the evening) for your pain. - Continue taking all of your other medications as prescribed. - Keep drinking water to stay hydrated, even though it may be annoying to carry a water bottle. - Schedule a follow-up appointment in eight weeks to check on your progress. Orders: Orders Glucose Random Today E11.9 - Type 2 diabetes mellitus without complications Hemoglobin A1c Today E11.9 - Type 2 diabetes mellitus without complications Medications: New pregabalin (Lyrica) 25 mg PO BID 60 caps 1RF for chronic pain hydrochlorothiazide 25 mg PO QAM 90 tabs 1RF for blood pressure and swelling Discontinued gabapentin Discontinued Reason: Doctor's Order 100 - 200 mg (1 - 2 x 100 mg) PO BEDTIME 90 caps 2RF for pain
--- OUTSIDE RECORDS SUMMARY | 2025-07-15 10:55 | XMS_ITS | Patient Health Record ---
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 Primary Care Provider Willie Ngo Jr Yaya Ashley [phone] Allergies Allergen (clinical drug ingredient) Drug/Non Drug Allergy documented on EMR Reaction Allergy Type Onset Date Status ivp dye (uncoded) Unknown Allergy Ac tive mushrooms (uncoded) Unknown Allergy Active hyoscyamine Levbid Unknown Drug Allergy Activ e Results Component Value Reference Range Flag Notes Prothrombin Time INR Reviewed date:04/09/2025 08:17:22 AM Interpretation: Performing Lab:[address] [address] Notes/Report: Prothrombin Time 12.3 10.9-12.4 SEC N INTERNATIONAL NORM RATIO 1.1 0.9-1.1 N INTERNATIONAL NORMALIZED RATIO (INR) REFERENCE RANGES Reference [...] Pnl Reviewed date:04/21/2025 08:54:02 AM Interpretation: Performing Lab:[facility], [address] [place] [phone] Notes/Report: Liver Fibrosis Score 0.26 Liver Fibrosis [...] a>0.62 and a<=1.00 : A3 (severe activity) UUS-Knxdf-2-Macroglobulin 155 106-279 mg/dL FIB-Haptoglobin 221 43-212 mg/dL A FIB-Apolipoprotein A1 142 101-198 mg/dL FIB-Total Bilirubin 0.5 0.2-1.2 mg/dL FIB-GGT 154 3-65 U/L A FIB-ALT 31 6-29 U/L A Reference ID [id number] Footnote SEE NOTE The reliability of results [...] The performance characteristics have been determined by [facility]. It has not been cleared or approved by the U.S. Food and Drug Administration. Performance characteristics refer to the analytical performance of the test. [employer], the associated logo, [employer] and all associated [employer] webb are the registered trademarks of [employer]. All third alliance party webb - (R) and (TM) - are the property of their respective owners. (C) 1318-8396 [employer]. All rights reserved. THIS TEST WAS PERFORMED AT: [employer] [facility] [address] [place] [address] PRASHANTH LOZANO MD,PHD,YAMINI Complete Blood Count Auto Di ff Reviewed date:04/09/2025 08:17:15 AM Interpretation: Performing Lab:[facility], [address] [place] [phone] Notes/Report: White Blood Count 4.3 4.8-10.8 X10*3/uL L Red Blood Count 4.16 4.20-5.50 X10*6/uL L Hemoglobin 12.7 12.0-16.0 g/dl N Hematocrit 38.8 37.0-47.0 % N Mean Corpuscular Volume 93.3 80.0-98.0 fL N Mean Corpuscular Hemoglobin 30.5 27.0-33.0 pg N Mean Corpuscular HGB Conc 32.7 31.0-35.0 g/dl N Red Cell Distribution Width 14.6 11.0-16.0 % N Platelet Count 110 160-400 X10*3/uL L Mean Platelet Volume 11.0 9.4-12.3 fL N Neutrophils Percent Auto 58.6 45-73 % N Imm Gran Pct Auto 0.5 0.0-0.4 % H Lymphocytes Percent Auto 26.2 20-40 % N Monocytes Percent Auto 11.2 2-11 % H Eosinophils Percent Auto 3.0 0-4 % N Basophils Percent Auto 0.5 0-2 % N NRBC Pct Auto 0.0 0.0-0.2 /100WBC N Neutrophils Absolute Auto 2.5 2.0-8.3 x10*3/uL N Imm Gran Abs Auto 0.02 0.00-0.03 X10*3/uL N Lymphocytes Absolute Auto 1.1 1.2-4.9 X10*3/uL L Monocytes Absolute Auto 0.5 0.1-1.2 X10*3/uL N Eosinophils Absolute Auto 0.1 0.0-0.4 X10*3/uL N Basophils Absolute Auto 0.0 0.0-0.2 X10*3/uL N NRBC Abs Auto 0.000 0.0-0.012 X10*3/uL N Liver Panel Reviewed date:04/09/2025 08:17:09 AM Interpretation: Performing Lab:[facility], [address] [place] [phone] Notes/Report: Bilirubin Total 0.6 0.0-1.0 mg/dL N Bilirubin Direct 0.2 0.0-0.5 mg/dL N Aspartate Amino Transferase 46 5-31 U/L H Alanine Aminotransferase 38 0-31 U/L H Total Protein 7.3 6.5-8.0 g/dL N Albumin Level 4.4 3.5-5.0 g/dL N Alkaline Phosphatase 85 39-117 U/L N US abdomen comp w elastograp hy Reviewed date:05/28/2025 08:03:59 AM Interpretation: Performing Lab: Notes/Report: [address] [address] Ultrasound Report Signed Patient: Du Man MR#: [id number] : 1955 Acct:[id number] Age/Sex: 70 / F ADM Date: 05/27/25 Loc: HO.US Attending Dr: Yaya Ngo MD Ordering Physician: Yaya Ngo MD Date of Service: 05/27/25 Procedure(s): US abdomen comp w elastography Accession Number(s): [id number] cc: Yaya Ngo MD; Sierra Garcia MD Reason for Exam: ELEVATED LFT, CIRRHOSIS EXAMINATION: US ABDOMEN COMPLETE WITH LIVER ELASTOGRAPHY HISTORY: ELEVATED LFT, CIRRHOSIS TECHNIQUE: Real-time grayscale ultrasound imaging of the abdomen was performed and images were reviewed. COMPARISON: Comparison is made with the prior examination dated 324. FINDINGS: Liver: The right lobe of the liver measures 17.1 cm in size. The left lobe of the liver measures 14.3 cm in size. The liver demonstrates increased echotexture, consistent with steatosis. There are cysts in the left lobe measuring up to 6 mm in size. No intrahepatic biliary ductal dilatation is identified. There is normal hepatopedal flow in the portal vein. Ultrasound elastography of the liver was performed with 10 separate measurements of the liver parenchyma with the patient in the supine position. Measurements were obtained approximately 2 cm below Lucio's capsule and perpendicular to the capsule. The median shear wave velocity is 1.71 m/s. The interquartile range/median (IQR/median) is 0.12. Gallbladder and biliary tree: The gallbladder is surgically absent. The common bile duct measures 9 mm in diameter. Kidneys: The right kidney measures 11.0 cm in length. The left kidney measures 11.3 cm in length. The kidneys are unremarkable, without evidence of masses, hydronephrosis, or calculi. Pancreas: The pancreatic head, neck, and body are unremarkable. The pancreatic tail is obscured by bowel gas. Spleen: The spleen is enlarged, measuring 15.3 cm in length. Abdominal aorta and inferior vena cava: The visualized portions of the abdominal aorta and inferior vena cava are normal in caliber. There is no free fluid in the abdomen. US/US abdomen comp w elastography IMPRESSION: Hepatosplenomegaly and hepatic steatosis. The median shear wave velocity in the liver is 1.71 m/s, corresponding to a median liver stiffness of 8.96 kPa. The IQR/median value is 0.12. This is indicative of a quality data set. Findings are indicative of a high elastography value suggestive of compensated advanced chronic liver disease. REFERENCE: Society of Radiologists in Ultrasound Liver Stiffness Thresholds (2020): LIVER STIFFNESS THRESHOLDS: *Shear wave velocity less than 1.3 m/s (Liver Stiffness equal or less than 5 kPa): High probability of being normal. *Shear wave velocity less than 1.7 m/s (Liver Stiffness less than 9 kPa): In the absence of other known clinical signs, rules out compensated advanced chronic liver disease. *Shear wave velocity between 1.7-2.1 m/s (Liver Stiffness 9-13 kPa): Suggestive of compensated advanced chronic liver disease but need further test for confirmation. *Shear wave velocity between 2.1-2.4 m/s (Liver Stiffness 13-17 kPa): Rules in compensated advanced chronic liver disease. *Shear wave velocity greater than 2.4 m/s (Liver Stiffness over 17 kPa): Suggestive of clinically significant portal hypertension. QUALITY OF DATA SET: *IQR/Median value equal or less than 0.15 implies a quality data set. *IQR/Median value over 0.15 implies a poor quality data set. SIGNIFICANT CHANGE FROM PRIOR EXAM: Significant change if liver stiffness measurement is 10% or greater from prior exam. OTHER CONSIDERATIONS: The stage of liver fibrosis may be overestimated in the setting of acute hepatitis, liver inflammation, elevated liver function tests, hepatic vascular congestion, obstructive cholestasis, non-fasting state, and infiltrative diseases such as amyloidosis and lymphoma. In some patients with NAFLD, the liver stiffness thresholds for compensated advanced chronic liver disease may be lower. In causes other than viral hepatitis and NAFLD, liver stiffness thresholds are not well established. 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: Reason For Referral No Information Medications Medication SIG (Take, Route, Frequency, Duration) Notes Start Date End Date Status Symbicort 160-4.5 MCG/ACT Aerosol 2 puffs Inhalation Twice a day Unknown metFORMIN HCl 500 MG Tablet 1 tablet wit h a meal Orally Once a day Unknown Aspir-81 8mg Not-Allan ing/PRN Albuterol Sulfate Un known Atenolol 25mg Unknow n Atorvastatin Calcium 20 MG Tablet 1 tablet Orally Once a day Unknown Wixela Inhub 250-50 MCG/ACT Aerosol Powder Breath Activated 1 puff Inhalation Twice a day Active Vitamin D3 2000 UNIT Capsule Orally Unknown Omeprazole 40 MG Capsule Delayed Release TAKE 1 CAPSULE BY MOUTH Once a day; Duration: 90 days Active Tylenol 325 MG Tablet 1 tablet as needed Orally every 6 hrs Unknown glipiZIDE 5 MG Tablet 1 tablet 30 minutes before breakfast Orally twice a day Unknown Multivitamin - Tablet 1 tablet Orally Once a day; Duration: 30 day(s) Unknown hydroCHLOROthiazide 12.5 MG Capsule 1 capsule in the morning Orally Once a day; Duration: 30 day(s) Unknown Probiotic - Tablet Chewable as directed Orally Unknown Diphenoxylate-Atropine 2.5-0.025 MG Tablet TAKE 1 TABLET BY MOUTH FOUR TIMES A DAY FOR 30 DAYS; Duration: 30 05/28/2025 Active Immunizations Vaccine Route Administration Date Status Comme nts Influenza Unknown 05/31/2019 Administered Influenza Unknown 06/08/2021 Partially Administered Influenza Unknown 03/31/2022 Administered Influenza Unknown 05/23/2023 Administered Social History Tobacco Use: Social History Observation Description Date Details (start date - stop date) Never Smoker NA - NA Social History Drug/Alcohol: Social Info Question Answer Notes AUDIT-C (Standard) Did you have a drink containing alcohol in the past year? Yes How often did you have a drink containing alcohol in the past year? 2 to 4 times a month (2 points) How many drinks did you have on a typical day when you were drinking in the past year? 1 or 2 drinks (0 point) How often did you have six or more drinks on one occasion in the past year? Never (0 point) Points 2 Interpretation Negative Tobacco Use: Social Info Question Answer Notes Tobacco Use/Smoking Patient is a nonsmoker Additional Details Category Social Info Options Details Miscellaneous: Exercise: yes Marital status: Occupation: retired Section Notes: 30 plus years nonsmoker 30 [...] Status Risk Notes Problem Colon cancer screening (396921532) Colon cancer screening (Z12.11) Active confirmed Problem History of polyp of colon (situation) (505469534) Personal history of colonic polyps (Z86.010) Active confirmed Problem Irritable bowel syndrome with diarrhea (395342671) Irritable bowel syndrome with diarrhea (K58.0) Active confirmed Problem Generalized abdominal pain (684559980) Generalized abdominal pain (R10.84) Active confirmed Problem Elevated liver enzymes level (877878150) Elevated liver function tests (R79.89) Active confirmed Problem Gastroesophageal reflux disease without esophagitis (417108941) Gastroesophageal reflux disease without esophagitis (K21.9) Active confirmed Problem Fatty liver (567761117) Fatty liver (K76.0) Active confirmed Problem Benign neoplasm of stomach (60688959) Gastric polyps (K31.7) Active confirmed Problem Cirrhotic (031275071) Cirrhosis (K74.60) Active confirmed Problem Gastritis (1769940) Gastritis (K29.70) Active c onfirmed Problem Diarrhea (91418461) Diarrhea, unspecified type (R19.7) Active confirmed Problem Cirrhosis - non-alcoholic (116551594) Cirrhosis of liver without ascites, unspecified hepatic cirrhosis type (K74.60) Active confirmed Problem Mass fills left upper quadrant of abdomen (finding) (0047908995) Abdominal mass, LUQ (left upper quadrant) (R19.02) Active confirmed Problem Gallbladder polyp (574759738) Gallbladder polyp (K82.4) Active confirmed Problem Left sided abdominal pain (495722613) Left sided abdominal pain (R10.9) Active confirmed Vital Signs Heart Rate 68 /min 04/07/2025 Temperature 97.3 degrees Fahrenheit 04/07/2025 Blood pressure diastolic 01 mm Hg 04/07/2025 Height 63 in 04/07/2025 Blood pressure systolic 001 mm Hg 04/07/2025 Weight 176.0 lbs 04/07/2025 BMI 31.17 kg/m2 04/07/2025 Encounters Encounter Location Date Provider Diagnosis [facility] [address] [place] [address] 04/07/2025 Yaya Ngo Jr Elevated liver function tests R79.89 ; Cirrhosis K74.60 ; Gastroesophageal reflux disease without esophagitis K21.9 and Irritable bowel syndrome with diarrhea K58.0 [facility] [address] [place] [address] 10/30/2024 Yaya Ngo Jr [facility] [address] [place] [address] 04/21/2025 Yaya Ngo Jr [facility] [address] [place] [address] 05/28/2025 Yaya Ngo Jr Assessments Encounter Date Diagnosis (ICD Code) Assessment Notes Treatment Notes Treatment Clinical Notes Section Notes 04/07/2025 Cirrhosis (ICD-10 - K74.60) At this [...] year. Today's visit was 30 minutes. 04/07/2025 Elevated liver function tests (ICD-10 - [...] Test Test Name Order Date LIVER PROFILE 02/26/2024 LIVER PROFILE 04/07/2025 LIVER PROFILE 09/14/2023 LIPASE 09/14/2023 IRON + IBC (FE) 02/26/2024 FERRITIN 02/26/2024 CBC w/o DIFF 04/07/2025 CBC w/o DIFF 02/26/2024 CBC w/o DIFF 09/14/2023 PROTHROMBIN TIME (PT, INR) 02/26/2024 HEPATITIS A,B,C PROFILE 02/26/2024 STOOL WBC 09/14/2023 STOOL WBC 09/05/2019 MITOCHONDRIAL AB 02/26/2024 SMOOTH MUSCLE ANTIBODIES 02/26/2024 OVA & PARASITES (O&P) 09/05/2019 OVA & PARASITES (O&P) 09/14/2023 CULTURE, STOOL 09/05/2019 CT ABD WITH PO CONTRAST ONLY 03/02/2016 US ABD 09/29/2017 US ABD 10/26/2017 US ABD 09/21/2023 US ABDOMEN COMP WITH ELASTOGRAPHY 2024 Future Test Test Name Order Date UPPER GI ENDOSCOPY 09/05/2012 COLONOSCOPY 08/14/2014 COLONOSCOPY 08/24/2022 UPPER GI ENDOSCOPY 02/26/2024 Next Appt Details Provider Name:Yaya Sebas Villagomez real Jr, 04/08/2026 09:20:00 AM, [address], [address], [place], [address], Insurance Providers Payer Name Payer Address Payer Phone Subscriber Number Group Number Insured Name Patient Relationship to Insured Coverage Start Date Coverage End Date [facility] [address] [place] [address] [phone] [id number] DU MAN Self - patient is the [...] Surgical History Surgery Date(Month/Year) tubal ligation section x2 hysterectomy lipoma , left upper abdomen foot surgery 12/08/2016 Breast cyst 2020 Multiple skin lesion excisions 2020 Hospitalization History Reason Date(Month/Year) no recent hospitalization Hospitalized for vertigo and uncontrolle d diabetes 01/19
--- OUTSIDE RECORDS SUMMARY | 2025-07-15 10:56 | XMS_ITS | Patient Health Record ---
[facility] Address [address] [place] [address] Care Team Providers Care Grain Farmer Name Role Phone Mihir Noble MD Primary Care Provider Unavaila Josias Hernandez Unavailable [phone] Allergies Allergen (clinical drug ingredient) Drug/Non Drug [...] Type 2 diabetes mellitus with peripheral angiopathy (926566698) Type 2 diabetes mellitus with diabetic peripheral angiopathy without gangrene (E11.51) Active confirmed Plan Of Treatment Pending Test Test Name Order Date X ray : Foot, left 3V 08/07/2023 X ray : Foot, right 3V 08/07/2023 [id number] SKIN LESIONS, OVER 4 08/07/19 24 Insurance Providers Payer Name Payer Address Payer Phone Subscriber Number Group Number Insured Name Patient Relationship to Insured Coverage Start Date Coverage End Date [facility] [address] [place] [address] [id number] Luis Foreman Spouse - patient is the spouse of the insured Medical (General) History Medical History History ICD Code asthma CAD Chicken pox Diabetes Heart disease High blood pressure IBS Measles reflux Warts Surgical History Surgery Date(Month/Year) hysterectomy c-sections 3x left foot
== END 2025-07-15 10:04 | disposition home or self-care (01) ==
LOC: HO.HMCHD 09:26
PROVIDERS: PCP Physician Assistant Medical; Visit Provider Physician Assistant Medical
DX: I10 Essential (primary) hypertension (principal); E11.9 Type 2 diabetes mellitus without complications; E66.9 Obesity, unspecified; J45.909 Unspecified asthma, uncomplicated; M19.90 Unspecified osteoarthritis, unspecified site; I87.2 Venous insufficiency (chronic) (peripheral)

== ENCOUNTER 2025-07-23 10:31 | Outpatient (REF) | payer OTHER, SELFPAY ==
--- OUTSIDE RECORDS SUMMARY | 2024-03-29 07:30 | XMS_ITS ---
Author Organization [facility] Address [address] [place] [phone] Care Team Providers Care Windows Support Engineer Name Role Phone Sierra Garcia M.D. Primary Care Provider Unavail Yaya Andrews Jr [phone] Allergies Allergen (clinical drug ingredient) Drug/Non Drug Allergy documented on EMR Reaction Allergy Type Onset Date Status ivp dye (uncoded) Unknown Allergy Ac tive mushrooms (uncoded) Unknown Allergy Active hyoscyamine Levbid Unknown Drug Allergy Activ e REASON FOR VISIT cirrhosis w/o ascites Medications Medication SIG (Take, Route, Frequency, Duration) Notes Start Date End Date Status Albuterol Sulfate Un known metFORMIN HCl 500 MG Tablet 1 tablet wit h a meal Orally Once a day Unknown Symbicort 160-4.5 MCG/ACT Aerosol 2 puffs Inhalation Twice a day Unknown Tylenol 325 MG Tablet 1 tablet as needed Orally every 6 hrs Unknown Vitamin D3 2000 UNIT Capsule Orally Unknown hydroCHLOROthiazide 12.5 MG Capsule 1 capsule in the morning Orally Once a day; Duration: 30 day(s) Unknown Atorvastatin Calcium 20 MG Tablet 1 tablet Orally Once a day Unknown Atenolol 25mg Unknow n Aspir-81 8mg Unknown Probiotic - Tablet Chewable as directed Orally Unknown Multivitamin - Tablet 1 tablet Orally On ce a day; Duration: 30 day(s) Unknown Omeprazole 40 MG Capsule Delayed Release TAKE 1 CAPSULE BY MOUTH TWICE A DAY; Duration: 90 Unknown glipiZIDE 5 MG Tablet 1 tablet 30 minute s before breakfast Orally twice a day Unknown Diphenoxylate-Atropine 2.5-0.025 MG Tablet TAKE 1 TABLET NEEDED FOUR TIMES DAILY; Duration: 30 10/19/2023 Unknown Encounters Encounter Location Date Provider Diagnosis [facility] [place] Outpatient [address], [place] [id number] 03/29/2024 Yaya Ngo Jr Plan Of Treatment Next Appt Details Provider Name:Yaya real Jr, 04/08/2026 09:20:00 AM, [address] [facility], [address], [place], [address], Progress Notes * DU MANDOB: 6 (70 yo F)Acc No.[id number]:03/29/2024 EGD/MAC Patient: DU HOGAN Provider: Mook Ngo MD :1955 A ge:68 Y S ex:Female Date:03/29/2024 Address:[address] [place] [address] Pcp:Sierra Garcia M.D. Subjective: * Chief Complaints: * C irrhosis w/o ascites * Medical History: Colonoscopy 10/20, tubular adenomas, five-year followup. Hypertension Hyperlipidemia Irritable bowel syndrome, and diarrhea predominance Asthma Diverticular disease CVA Diabetes mellitus EGD 12/13/17 no Stoll's esophagus or H. pylori. Fatty liver with cyst by ultrasound imaging 04/20, cirrhosis at time of cholecystectomy, 12/21 Edema * Medications: U nknownglipiZIDE 5 MG Tablet 1 tablet 30 minutes before breakfast Orally twice a day Multivitamin - Tablet 1 tablet Orally Once a day hydroCHLOROthiazide 12.5 MG Capsule 1 capsule in the morning Orally Once a day Probiotic - Tablet Chewable as directed Orally Aspir-81 8mg Atenolol 25mg Atorvastatin Calcium 20 MG Tablet 1 tablet Orally Once a day Vitamin D3 2000 UNIT Capsule Orally Tylenol 325 MG Tablet 1 tablet as needed Orally every 6 hrs Symbicort 160-4.5 MCG/ACT Aerosol 2 puffs Inhalation Twice a day metFORMIN HCl 500 MG Tablet 1 tablet with a meal Orally Once a day Albuterol Sulfate Omeprazole 40 MG Capsule Delayed Release TAKE 1 CAPSULE BY MOUTH TWICE A DAY Diphenoxylate-Atropine 2.5-0.025 MG Tablet TAKE 1 TABLET NEEDED FOUR TIMES DAILY Unknown glipiZIDE 5 MG Tablet 1 tablet 30 minutes before breakfast Orally twice a day Unknown Multivitamin - Tablet 1 tablet Orally Once a day Unknown hydroCHLOROthiazide 12.5 MG Capsule 1 capsule in the morning Orally Once a day Unknown Probiotic - Tablet Chewable as directed Orally Unknown Aspir-81 8mg Unknown Atenolol 25mg Unknown Atorvastatin Calcium 20 MG Tablet 1 tablet Orally Once a day Unknown Vitamin D3 2000 UNIT Capsule Orally Unknown Tylenol 325 MG Tablet 1 tablet as needed Orally every 6 hrs Unknown Symbicort 160-4.5 MCG/ACT Aerosol 2 puffs Inhalation Twice a day Unknown metFORMIN HCl 500 MG Tablet 1 tablet with a meal Orally Once a day Unknown Albuterol Sulfate Unknown Omeprazole 40 MG Capsule Delayed Release TAKE 1 CAPSULE BY MOUTH TWICE A DAY Unknown Diphenoxylate-Atropine 2.5-0.025 MG Tablet TAKE 1 TABLET NEEDED FOUR TIMES DAILY * Allergies: L evbidmushroomsivp dye * The named appointment provid er may or may not be the originator of this progress note, and it is not deemed complete until electronically signed by the appointment provider. Sign off status: Pending * Provider: Mook Ngo MD Date: 0 03/29/2024 Generated for Ryley champagne/Petty/Lucero on: 1 09/23/2024 10:37 AM EST
--- OUTSIDE RECORDS SUMMARY | 2024-04-05 07:40 | XMS_ITS ---
Author Organization [facility] Address [address] [place] [address] Care Team Providers Care Wedding Day Coordinator Name Role Phone Sierra Garcia M.D. Primary Care Provider Willie Ngo Jr, Yaya Unavailable [phone] REASON FOR VISIT cirrhosis of liver w/o ascites Problems Problem Type SNOMED Code ICD Code Onset Dates Problem Status W/U Status Risk Notes Problem Cirrhotic (306491139) Cirrhosis (K74.60) Active confirmed Problem Gastritis (5382492) Gastritis (K29.70) Active confirmed Problem Benign neoplasm of stomach (23513271) Gastric polyps (K31.7) Active confirmed Encounters Encounter Location Date Provider Diagnosis [facility] [place] [address] [place] [phone] 04/05/2024 Yaya Ngo Jr Cirrhosis K74.60 ; Gastritis K29.70 and Gastric polyps K31.7 Assessments Encounter Date Diagnosis (ICD Code) Assessment Notes Treatment Notes Treatment Clinical Notes Section Notes 04/05/2024 Cirrhosis (ICD-10 - K74.60) 04/05/2024 Gastritis (ICD-10 - K29.70) 04/05/2024 Gastric polyps (ICD-10 - K31.7) Plan Of Treatment Next Appt Details Provider Name:Yaya real Jr, 04/08/2026 09:20:00 AM, [address], [address], [place], [address], Progress Notes * DU MANDOB: 6 (70 yo F)Acc No.[id number]:04/05/2024 EGD/MAC Patient: DU HOGAN Provider: Mook Ngo MD :1955 A ge:68 Y S ex:Female Date:04/05/2024 Address:[address] [place], [place] [phone] Pcp:Sierra Garcia M.D. Subjective: * Chief Complaints: * C irrhosis of liver w/o ascites Assessment: * Assessment: 1. C irrhosis - K74.60 (Primary) 2 . G astritis - K29.70 3 . G astric polyps - K31.7 Plan: * Procedure Codes: 4 3239 UPPER GI ENDOSCOPY, BIOPSY Billing Information: * Procedure Codes: 12595 UPPER GI ENDOSCOPY, BIOPSY. * The named appointment provid er may or may not be the originator of this progress note, and it is not deemed complete until electronically signed by the appointment provider. Sign off status: Pending * Provider: Mook Ngo MD Date: 0 04/05/2024 Generated for Ryley champagne/Petty/Raquelsmitting on: 1 09/23/2024 10:37 AM EST
--- OUTSIDE RECORDS SUMMARY | 2025-07-23 10:38 | XMS_ITS | Patient Health Record ---
Author Organization [facility] Address [address] [place] [address] Care Team Providers Care Assistant Golf Course Superintendent Name Role Phone Sierra Garcia M.D. Primary Care Provider Willie Ngo Jr Yaya Ashley Allergies Allergen (clinical drug ingredient) Drug/Non Drug Allergy documented on EMR Reaction Allergy Type Onset Date Status ivp dye (uncoded) Unknown Allergy Ac tive mushrooms (uncoded) Unknown Allergy Active hyoscyamine Levbid Unknown Drug Allergy Activ e Results Component Value Reference Range Flag Notes Prothrombin Time INR Reviewed date:04/09/2025 08:17:22 AM Interpretation: Performing Lab:[address] [address] Notes/Report: Prothrombin Time 12.3 10.9-12.4 SEC N [...] Pnl Reviewed date:04/21/2025 08:54:02 AM Interpretation: Performing Lab:[facility], [address] [place] [address] Notes/Report: Liver Fibrosis Score 0.26 Liver Fibrosis [...] a>0.62 and a<=1.00 : A3 (severe activity) RQN-Fmiwy-6-Macroglobulin 155 106-279 mg/dL FIB-Haptoglobin 221 43-212 mg/dL A FIB-Apolipoprotein A1 142 101-198 mg/dL FIB-Total Bilirubin 0.5 0.2-1.2 mg/dL FIB-GGT 154 3-65 U/L A FIB-ALT 31 6-29 U/L A Reference ID [id number] Footnote SEE NOTE The reliability of results [...] The performance characteristics have been determined by [facility]. It has not been cleared or approved by the U.S. Food and Drug Administration. Performance characteristics refer to the analytical performance of the test. [employer], the associated logo, [employer] and all associated [employer] webb are the registered trademarks of [employer]. All third green party webb - (R) and (TM) - are the property of their respective owners. (C) 2284-9758 [employer]. All rights reserved. THIS TEST WAS PERFORMED AT: [facility] [address] [place] [address] PRASHANTH LOZANO MD,PHD,YAMINI Complete Blood Count Auto Di ff Reviewed date:04/09/2025 08:17:15 AM Interpretation: Performing Lab:[facility], [address] [place] [address] Notes/Report: White Blood Count 4.3 4.8-10.8 X10*3/uL [...] Panel Reviewed date:04/09/2025 08:17:09 AM Interpretation: Performing Lab:[facility], [address] [place] [address] Notes/Report: Bilirubin Total 0.6 0.0-1.0 mg/dL N Bilirubin Direct 0.2 0.0-0.5 mg/dL N Aspartate Amino Transferase 46 5-31 U/L H Alanine Aminotransferase 38 0-31 U/L H Total Protein 7.3 6.5-8.0 g/dL N Albumin Level 4.4 3.5-5.0 g/dL N Alkaline Phosphatase 85 39-117 U/L N US abdomen comp w elastograp hy Reviewed date:05/28/2025 08:03:59 AM Interpretation: Performing Lab: Notes/Report: [address] [address] Ultrasound Report Signed Patient: Du Man MR#: [id number] : 1955 Acct:[id number] Age/Sex: 70 / F ADM Date: 05/27/25 Loc: HO.US Attending Dr: Yaya Ngo MD Ordering Physician: Yaya Ngo MD Date of Service: 05/27/25 Procedure(s): US abdomen comp w elastography Accession Number(s): [id number] cc: Yaya Ngo MD; Sierra Garcia MD [...] in OV> 05/27/2552 DD/ 5 TD/TT: 05/27/25828 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: Reason For Referral No Information Medications Medication [...] Status Risk Notes Problem Colon cancer screening (626567224) Colon cancer screening (Z12.11) Active confirmed Problem History of polyp of colon (situation) (521798150) Personal history of colonic polyps (Z86.010) Active confirmed Problem Irritable bowel syndrome with diarrhea (224459888) Irritable bowel syndrome with diarrhea (K58.0) Active confirmed Problem Generalized abdominal pain (600753178) Generalized abdominal pain (R10.84) Active confirmed Problem Elevated liver enzymes level (770466998) Elevated liver function tests (R79.89) Active confirmed Problem Gastroesophageal reflux disease without esophagitis (940539390) Gastroesophageal reflux disease without esophagitis (K21.9) Active confirmed Problem Fatty liver (232815872) Fatty liver (K76.0) Active confirmed Problem Benign neoplasm of stomach (63264162) Gastric polyps (K31.7) Active confirmed Problem Cirrhotic (153430069) Cirrhosis (K74.60) Active confirmed Problem Gastritis (5460802) Gastritis (K29.70) Active c onfirmed Problem Diarrhea (14609060) Diarrhea, unspecified type (R19.7) Active confirmed Problem Cirrhosis - non-alcoholic (124142204) Cirrhosis of liver without ascites, unspecified hepatic cirrhosis type (K74.60) Active confirmed Problem Mass fills left upper quadrant of abdomen (finding) (2958791469) Abdominal mass, LUQ (left upper quadrant) (R19.02) Active confirmed Problem Gallbladder polyp (844596596) Gallbladder polyp (K82.4) Active confirmed Problem Left sided abdominal pain (467442241) Left sided abdominal pain (R10.9) Active confirmed Vital Signs Heart Rate 68 /min 04/07/2025 Temperature 97.3 degrees Fahrenheit 04/07/2025 Blood pressure diastolic 01 mm Hg 04/07/2025 Height 63 in 04/07/2025 Blood pressure systolic 001 mm Hg 04/07/2025 Weight 176.0 lbs 04/07/2025 BMI 31.17 kg/m2 04/07/2025 Encounters Encounter Location Date Provider Diagnosis [facility] [address] [place] [address] 04/07/2025 Yaya Ngo Jr Elevated liver function tests R79.89 ; Cirrhosis K74.60 ; Gastroesophageal reflux disease without esophagitis K21.9 and Irritable bowel syndrome with diarrhea K58.0 [facility] [address] [place] [address] 10/30/2024 Yaya Ngo Jr [facility] [address] [place] [address] 04/21/2025 Yaya Ngo Jr [facility] [address] [place] [address] 05/28/2025 Yaya Ngo Jr Assessments Encounter Date [...] 09:20:00 AM, [address], [address], [place], [address], Insurance Providers Payer Name Payer Address Payer Phone Subscriber Number Group Number Insured Name Patient Relationship to Insured Coverage Start Date Coverage End Date [facility] [address] [place] [phone] [id number] DU MAN Self - patient is the [...]
--- OUTSIDE RECORDS SUMMARY | 2025-07-23 10:38 | XMS_ITS | Patient Health Record ---
Author Organization [facility] Address [address] [place] [address] Care Team Providers Care Outside Upholsterer Name Role Phone Mihir Noble MD Primary Care Provider Unavaila Josias Hernandez Unavailable [phone] Allergies Allergen (clinical drug ingredient) Drug/Non Drug [...] Type 2 diabetes mellitus with peripheral angiopathy (122782440) Type 2 diabetes mellitus with diabetic peripheral angiopathy without gangrene (E11.51) Active confirmed Plan Of Treatment Pending Test Test Name Order Date X ray : Foot, left 3V 08/07/2023 X ray : Foot, right 3V 08/07/2023 [id number] SKIN LESIONS, OVER 4 08/07/19 24 Insurance Providers Payer Name Payer Address Payer Phone Subscriber Number Group Number Insured Name Patient Relationship to Insured Coverage Start Date Coverage End Date [facility] [address] [place] [address] [id number] Luis Foreman Spouse - patient is the spouse of the insured Medical (General) History Medical History History ICD Code asthma CAD Chicken pox Diabetes Heart disease High blood pressure IBS Measles reflux Warts Surgical History Surgery Date(Month/Year) hysterectomy c-sections 3x left foot
== END 2025-07-23 10:32 | disposition home or self-care (01) ==
LOC: HO.MAMMO 10:31
PROVIDERS: PCP Physician Assistant Medical; Visit Provider Physician Assistant Medical
DX: Z12.31 Encounter for screening mammogram for malignant neoplasm of breast (principal)
CPT/HCPCS: 77063; 77067

== ENCOUNTER → 2025-07-23 11:00 | Outpatient (BNV) | payer OTHER, SELFPAY | PROVIDERS: PCP Physician Assistant Medical; Visit Provider Radiology Body Imaging | DX: Z12.31 Encounter for screening mammogram for malignant neoplasm of breast (principal) | CPT/HCPCS: 77063; 77067 ==